=== PATIENT | male | born 1955 | race Caucasian/White ===

== ENCOUNTER → 2016-10-09 | Outpatient (CLI) | payer OTHER ==
--- NOTE | 2016-10-09 09:59 | MR ---
EXAMINATION TYPE: MR lumbar spine wo con DATE OF EXAM: 10/09/2016 COMPARISON: 08/01/2015 HISTORY: unspecified osteoarthritis, pain TECHNIQUE: T1 and T2 axial and sagittal images of the lumbar spine are submitted. FINDINGS: There is no abnormal signal seen within the visualized spinal cord or paraspinal soft tissu es. At L1-2 there is no disc herniation or canal stenosis. No foraminal encroachment. Mild hypertrophic c hange since. At L2-3 there is no disc herniation or canal stenosis. No foraminal encroachment. Mild disc desiccati on. At L3-4 there is severe degenerative disc disease with discogenic marrow changes. Severe arthropathy of the facet joints and hypertrophic change and ligamentum flavum. Broad-based central disc protrusio n contributes to moderate to severe canal stenosis, bilateral lateral recess stenosis, and bilateral foraminal encroachment encroachment greater on the right with suspected nerve root impingement. Findi ngs appear stable. There appears to be a 1 to 2 mm retrolisthesis of L3 relative to L4. At L4-5 there is degenerative disc disease and severe facet arthropathy greater on the right. Hypertr ophy of the ligamentum flavum noted and there is broad-based disc bulging greater paracentrally and l aterally to the right moderate right-sided foraminal encroachment and mild left foraminal encroachmen t. Mild to moderate canal stenosis. At L5-S1 there is no disc herniation or canal stenosis. There is facet arthropathy. Neural foramina r emain patent IMPRESSION: 1. Stable severe degenerative disc disease broad-based disc protrusion or central herniation L3-L4 wi th severe facet arthropathy and ligamentum flavum hypertrophy contributing to severe canal stenosis a nd bilateral foraminal encroachment. 2. Degenerative disc disease with severe facet arthropathy and broad-based disc bulging results in mi ld to moderate canal stenosis L4-L5 with foraminal encroachment as discussed above. Findings are stab le.
== END | disposition home or self-care (01) ==
LOC: RADMRIMAIN 08:46
PROVIDERS: ATTEND Internal Medicine Cardiovascular Disease
DX: M48.06 Spinal stenosis, lumbar region (principal); M51.26 Other intervertebral disc displacement, lumbar region; M51.36 Other intervertebral disc degeneration, lumbar region; M46.86 Other specified inflammatory spondylopathies, lumbar region
CPT/HCPCS: 72148

== ENCOUNTER 2017-10-15 02:49 | Observation (INO) | payer BC ==
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
[2017-10-15 03:15] LABS: Glucose,Whole Blood 142 mg/dL (75-99)
[2017-10-15 03:27] LABS: Basophils # (A) 0.1 k/uL (0-0.2); Basophils % (A) 1 %; Eosinophils # (A) 0.2 k/uL (0-0.7); Eosinophils % (A) 3 %; HCT 43.1 % (39.0-53.0); Lymphocytes # (A) 2.3 k/uL (1.0-4.8); Lymphocytes % (A) 35 %; MCH 27.4 pg (25.0-35.0); MCHC 32.4 g/dL (31.0-37.0); MCV 84.4 fL (80.0-100.0); Mean Platelet Volume 6.7; Monocytes # (A) 0.4 k/uL (0-1.0); Monocytes % (A) 7 %; Neutrophils # (A) 3.5 k/uL (1.3-7.7); Neutrophils % (A) 53 %; Platelet Count 145 k/uL (150-450); RDW 13.4 % (11.5-15.5); WBC 6.6 k/uL (3.8-10.6)
[2017-10-15 03:41] LABS: Appearance,Urine Clear (Clear); Bilirubin,Urine Negative (Negative); Blood,Urine Negative (Negative); Color,Urine Yellow; Glucose,Urine (UA) Negative (Negative); Ketones,Urine Negative (Negative); Leukocyte Esterase,Urine Negative (Negative); Nitrite,Urine Negative (Negative); Protein,Urine Negative (Negative); Specific Gravity,Urine 1.019 (1.001-1.035); Urobilinogen,Urine <2.0 mg/dL (<2.0)
[2017-10-15 03:44] LABS: ALT 43 U/L (21-72); AST 57 U/L (17-59); Albumin 3.7 g/dL (3.5-5.0); Alkaline Phosphatase 75 U/L (38-126); Anion Gap 7 mmol/L; Blood Urea Nitrogen 29 mg/dL (9-20); Calcium 9.5 mg/dL (8.4-10.2); Carbon Dioxide 27 mmol/L (22-30); Chloride 108 mmol/L (98-107); Glucose 143 mg/dL (74-99); Potassium 4.6 mmol/L (3.5-5.1); Sodium 142 mmol/L (137-145); Total Bilirubin 0.2 mg/dL (0.2-1.3); Total Protein 6.6 g/dL (6.3-8.2)
[2017-10-15 03:49] LABS: Amphetamine Screen,Urine Not Detected (NotDetected); Barbiturate Screen,Urine Detected (NotDetected); Benzodiazepines Screen,Urine Detected (NotDetected); Cocaine Screen,Urine Not Detected (NotDetected); Methadone Screen, Urine Detected (NotDetected); Opiate Screen,Urine Not Detected (NotDetected); Oxycodone Screen, Urine Not Detected (NotDetected); Phencyclidine Screen,Urine Not Detected (NotDetected); Tricyclic Antidepressant,Urine Not Detected (NotDetected); Urn Cannabinoid Scrn Not Detected (NotDetected)
[2017-10-15] MEDS ORDERED: NALOXONE 0.4 MG/ML 1 ML VIAL IV PRN (04:00)
[2017-10-15 08:34] LABS: Glucose,Whole Blood 148 mg/dL (75-99)
[2017-10-15] MEDS: INSULIN ASPART 100 UNIT/ML 1 ML 10 ML VIAL SQ SCH ×4 (09:56→21:45)
[2017-10-15 12:08] LABS: Glucose,Whole Blood 92 mg/dL (75-99)
[2017-10-15 12:41] LABS: Hemoglobin A1C 8.1 % (4.0-6.0)
[2017-10-15] MEDS ORDERED: ACETAMINOPHEN TAB 500 MG TAB PO PRN (13:14)
[2017-10-15] MEDS ORDERED: INSULIN DETEMIR 100 UNIT/ML 10 ML VIAL SQ SCH (13:30)
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
[2017-10-15] MEDS: PANTOPRAZOLE 40 MG TABLET PO SCH (15:42)
[2017-10-15] MEDS: HEPARIN SODIUM,PORCINE 5,000 UNIT/ML 1 ML VIAL SQ SCH ×2 (15:42→21:45)
[2017-10-15] MEDS: NICOTINE 14MG/24HR PATCH TRANSDERM SCH (15:42)
[2017-10-15] MEDS: ASPIRIN 81 MG PO SCH (15:42)
--- NOTE | 2017-10-15 15:46 | US ---
EXAMINATION TYPE: US carotid duplex BILAT DATE OF EXAM: 10/15/2017 COMPARISON: NONE CLINICAL HISTORY: Altered Mental Status. EXAM MEASUREMENTS: RIGHT: Peak Systolic Velocity (PSV) cm/sec ----- Right CCA: 79.8 ----- Right ICA: 56.9 ----- Right ECA: 120.0 ICA/CCA ratio: 0.7 RIGHT: End Diastole cm/sec ----- Right CCA: 22.1 ----- Right ICA: 20.5 ----- Right ECA: 19.5 LEFT: Peak Systolic Velocity (PSV) cm/sec ----- Left CCA: 87.3 ----- Left ICA: 87.4 ----- Left ECA: 111.3 ICA/CCA ratio: 1.0 LEFT: End Diastole cm/sec ----- Left CCA: 24.2 ----- Left ICA: 30.9 ----- Left ECA: 0.0 VERTEBRALS (direction of flow): Right Vertebral: Antegrade Left Vertebral: Antegrade Rhythm: Normal No significant velocity elevations, moderate plaque. IMPRESSION: There is bilateral atheromatous plaquing. Significant flow-limiting stenosis by velocity measurements are not evident. Criteria for Assigning % of Stenosis / Diameter reduction (Estimation based on the indirect measurements of the internal carotid artery velocities (ICA PSV). 1. Normal (no stenosis)=ICA PSV < 125 cm/s: ratio < 2.0: ICA EDV<40 cm/s. 2. Less than 50% stenosis=ICA PSV < 125 cm/s: ratio < 2.0: ICA EDV<40 cm/s. 3. 50 to 69% stenosis=ICA PSV of 125 to 230 cm/s: ration 2.0 ? 4.0: ICA EDV 40-100 cm/s. 4. Greater than 70% stenosis to near occlusion= ICA PSV > 230 cm/s: ratio > 4.0: ICA EDV > 100 cm/s. 5. Near occlusion= ICA PSV velocities may be low or undetectable: variable ratio and ICA EDV. 6. Total occlusion=unable to detect flow.
[2017-10-15 17:29] LABS: Glucose,Whole Blood 68 mg/dL (75-99)
[2017-10-15] MEDS ORDERED: INSULIN ASPART 100 UNIT/ML 1 ML 10 ML VIAL SQ SCH (17:30)
[2017-10-15 17:39] LABS: Glucose,Whole Blood 82 mg/dL (75-99)
[2017-10-15] MEDS: metFORMIN 500 MG TAB PO SCH (18:17)
[2017-10-15 20:04] LABS: Glucose,Whole Blood 144 mg/dL (75-99)
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
[2017-10-16 06:55] LABS: Glucose,Whole Blood 63 mg/dL (75-99)
[2017-10-16 07:06] LABS: Basophils % (A) 1 %; Eosinophils # (A) 0.1 k/uL (0-0.7); Eosinophils % (A) 2 %; HCT 45.2 % (39.0-53.0); HGB 14.4 gm/dL (13.0-17.5); Lymphocytes # (A) 1.4 k/uL (1.0-4.8); Lymphocytes % (A) 25 %; MCHC 31.9 g/dL (31.0-37.0); MCV 84.7 fL (80.0-100.0); Monocytes # (A) 0.2 k/uL (0-1.0); Monocytes % (A) 4 %; Neutrophils # (A) 3.7 k/uL (1.3-7.7); Neutrophils % (A) 67 %; Platelet Count 157 k/uL (150-450); RBC 5.34 m/uL (4.30-5.90); RDW 13.5 % (11.5-15.5); WBC 5.5 k/uL (3.8-10.6)
[2017-10-16 07:23] LABS: Anion Gap 8 mmol/L; Blood Urea Nitrogen 20 mg/dL (9-20); Carbon Dioxide 26 mmol/L (22-30); Chloride 108 mmol/L (98-107); Cholesterol 195 mg/dL (<200); Glucose 66 mg/dL (74-99); HDL Cholesterol 57 mg/dL (40-60); LDL Cholesterol,Calculated 107 mg/dL (0-99); Potassium 4.2 mmol/L (3.5-5.1); Sodium 142 mmol/L (137-145); Triglycerides 156 mg/dL (<150)
[2017-10-16 07:31] LABS: Glucose,Whole Blood 87 mg/dL (75-99)
[2017-10-16] MEDS: ASPIRIN 81 MG PO SCH (10:59)
[2017-10-16] MEDS: PANTOPRAZOLE 40 MG TABLET PO SCH (10:59)
[2017-10-16] MEDS: metFORMIN 500 MG TAB PO SCH ×2 (11:00→18:24)
[2017-10-16] MEDS: INSULIN ASPART 100 UNIT/ML 1 ML 10 ML VIAL SQ SCH ×3 (11:03→18:24)
[2017-10-16] MEDS: HEPARIN SODIUM,PORCINE 5,000 UNIT/ML 1 ML VIAL SQ SCH (11:03)
[2017-10-16] MEDS: INSULIN DETEMIR 100 UNIT/ML 10 ML VIAL SQ SCH (11:04)
[2017-10-16] MEDS: NICOTINE 14MG/24HR PATCH TRANSDERM SCH (11:04)
[2017-10-16 12:07] LABS: Glucose,Whole Blood 176 mg/dL (75-99)
--- NOTE | 2017-10-16 14:23 | P.DS ---
Providers Date of admission: 10/15/17 04:00 Attending physician: Nemo Fleming Consults: 10/15/17 04:00 Consult Physician Stat Consulting Provider: Liu Daniel Consult Reason/Comments: dissociative fuge? Do you want consulting provider notified?: Already Contacted 10/15/17 12:28 Consult Physician Stat Consulting Provider: Lay Riggs Consult Reason/Comments: Altered Mental Status Do you want consulting provider notified?: Yes Primary care physician: Dank العراقي Hospital Course: 62-year-old gentleman was brought in by police after he was confused and driving around and confusion is secondary to toxic encephalopathy from medications benzodiazepines and barbiturates counseling was provided regarding this patient was evaluated by neurology. Patient does have flat affect at her doesn't need to stay here for psychiatric evaluation will need an outpatient psychiatric evaluation patient denied any suicidal or homicidal ideations patient is not severely depressed. Patient is otherwise clinically doing well alert and oriented 3. Patient blood sugars are bit low because of which I'm decreasing the dose of Lantus is taking and metformin dose will be left as a days and patient will need to follow with PCP in 3-7 days. PHYSICAL EXAMINATION: GENERAL: The patient is alert and oriented x3, not in any acute distress. Well developed, well nourished. HEENT: Pupils are round and equally reacting to light. EOMI. No scleral icterus. No conjunctival pallor. Normocephalic, atraumatic. No pharyngeal erythema. No thyromegaly. CARDIOVASCULAR: S1 and S2 present. No murmurs, rubs, or gallops. PULMONARY: Chest is clear to auscultation, no wheezing or crackles. ABDOMEN: Soft, nontender, nondistended, normoactive bowel sounds. No palpable organomegaly. MUSCULOSKELETAL: No joint swelling or deformity. EXTREMITIES: No cyanosis, clubbing, or pedal edema. NEUROLOGICAL: Gross neurological examination did not reveal any focal deficits. SKIN: No rashes. For rest of his chronic medical problems and hospitalization course please refer to Dr.'s dictation from yesterday Plan - Discharge Summary Discharge Rx Participant: No New Discharge Prescriptions: Continue metFORMIN HCL 1,000 mg PO BID Changed Insulin Glargine,Hum.rec.anlog [Lantus Solostar] 25 units SQ DAILY #0 Discharge Medication List metFORMIN HCL 1,000 mg PO BID 10/15/17 [History] Insulin Glargine,Hum.rec.anlog [Lantus Solostar] 25 units SQ DAILY #0 10/16/17 [ Rx] Follow up Appointment(s)/Referral(s): Dank العراقي MD [Primary Care Provider] - 3 Days Discharge Disposition: HOME SELF-CARE
[2017-10-16 17:22] LABS: Glucose,Whole Blood 132 mg/dL (75-99)
[2017-10-16 20:30] LABS: Glucose,Whole Blood 182 mg/dL (75-99)
[2017-10-17] MEDS: INSULIN ASPART 100 UNIT/ML 1 ML 10 ML VIAL SQ SCH ×2 (04:05→10:02)
[2017-10-17] MEDS: HEPARIN SODIUM,PORCINE 5,000 UNIT/ML 1 ML VIAL SQ SCH ×2 (04:06→10:04)
[2017-10-17 06:53] LABS: Glucose,Whole Blood 177 mg/dL (75-99)
[2017-10-17 08:37] VITALS: BP 154/94; PULSE 72; RESP 18; TEMP 97.5
[2017-10-17] MEDS: PANTOPRAZOLE 40 MG TABLET PO SCH (10:03)
[2017-10-17] MEDS: NICOTINE 14MG/24HR PATCH TRANSDERM SCH (10:03)
[2017-10-17] MEDS: metFORMIN 500 MG TAB PO SCH (10:03)
[2017-10-17] MEDS: ASPIRIN 81 MG PO SCH (10:03)
[2017-10-17] MEDS: INSULIN DETEMIR 100 UNIT/ML 10 ML VIAL SQ SCH (10:04)
--- NOTE | 2017-10-18 15:11 | P.DS ---
Providers Date of admission: 10/15/17 04:00 Attending physician: Nemo Fleming Consults: 10/15/17 04:00 Consult Physician Stat Consulting Provider: Liu Daniel Reason/Comments: dissociative fuge? Do you want consulting provider notified?: Already Contacted 10/15/17 12:28 Consult Physician Stat Consulting Provider: Lay Riggs Consult Reason/Comments: Altered Mental Status Do you want consulting provider notified?: Yes Primary care physician: Dank العراقي Plan - Discharge Summary Discharge Rx Participant: No New Discharge Prescriptions: Continue metFORMIN HCL 1,000 mg PO BID Changed Insulin Glargine,Hum.rec.anlog [Lantus Solostar] 25 units SQ DAILY #0 Discharge Medication List metFORMIN HCL 1,000 mg PO BID 10/15/17 [History] Insulin Glargine,Hum.rec.anlog [Lantus Solostar] 25 units SQ DAILY #0 10/16/17 [ Rx] Follow up Appointment(s)/Referral(s): Dank العراقي MD [Primary Care Provider] - 10/18/17 9:40 am Patient Instructions/Handouts: Acute Delirium (DC) Activity/Diet/Wound Care/Special Instructions: [facility]- [phone] Discharge Disposition: HOME SELF-CARE
== END 2017-10-17 12:00 | disposition home or self-care (01) ==
LOC: EC 02:49 → 3OBS 04:00
PROVIDERS: ADMIT Hospitalist; ATTEND Hospitalist
DX: G92 Toxic encephalopathy (principal); T42.3X5A Adverse effect of barbiturates, initial encounter; T42.4X5A Adverse effect of benzodiazepines, initial encounter; T40.3X5A Adverse effect of methadone, initial encounter; T50.905A Adverse effect of unspecified drugs, medicaments and biological substances, initial encounter; E11.9 Type 2 diabetes mellitus without complications; F31.9 Bipolar disorder, unspecified; D69.6 Thrombocytopenia, unspecified; F44.1 Dissociative fugue; Z87.828 Personal history of other (healed) physical injury and trauma; Z79.4 Long term (current) use of insulin; Z79.84 Long term (current) use of oral hypoglycemic drugs; F17.200 Nicotine dependence, unspecified, uncomplicated; Z90.49 Acquired absence of other specified parts of digestive tract
CPT/HCPCS: 99285 ×2; 96372 ×3; 36415; 80061; 80053; 80048; 84443; 82140; 83735; 85025 ×2; 81003; 80306; 83036; 93880; G0378 ×3; S4990 ×3; J1644 ×3

== ENCOUNTER 2018-02-19 14:26 | Emergency (ER) | payer BC, MEDICAID ==
[2018-02-19] MEDS ORDERED: KETOROLAC 30 MG/ML 1 ML VIAL IVP STA (16:20)
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
[2018-02-19 16:54] LABS: Basophils % (A) 0 %; Eosinophils # (A) 0.1 k/uL (0-0.7); Eosinophils % (A) 2 %; HCT 45.1 % (39.0-53.0); HGB 14.1 gm/dL (13.0-17.5); Lymphocytes # (A) 1.3 k/uL (1.0-4.8); Lymphocytes % (A) 18 %; MCH 27.2 pg (25.0-35.0); MCHC 31.4 g/dL (31.0-37.0); MCV 86.6 fL (80.0-100.0); Mean Platelet Volume 6.7; Monocytes # (A) 0.4 k/uL (0-1.0); Monocytes % (A) 5 %; Neutrophils # (A) 5.6 k/uL (1.3-7.7); Neutrophils % (A) 74 %; Platelet Count 177 k/uL (150-450); RBC 5.21 m/uL (4.30-5.90); RDW 13.4 % (11.5-15.5); WBC 7.6 k/uL (3.8-10.6)
[2018-02-19 17:05] LABS: Anion Gap 8 mmol/L; Blood Urea Nitrogen 18 mg/dL (9-20); Calcium 8.9 mg/dL (8.4-10.2); Carbon Dioxide 22 mmol/L (22-30); Chloride 102 mmol/L (98-107); Potassium 4.7 mmol/L (3.5-5.1); Sodium 132 mmol/L (137-145)
--- NOTE | 2018-02-19 17:22 | XR ---
EXAMINATION TYPE: XR foot complete bilateral DATE OF EXAM: 02/19/2018 COMPARISON: NONE HISTORY: Foot pain TECHNIQUE: 3 views each foot FINDINGS: There is previous surgery at the heads of the left and right fifth metatarsals. I see no fr acture nor dislocation. I see no focal bone destruction. Joint spaces are fairly normal. There are no erosions. There is no subluxation. IMPRESSION: No acute abnormality of the left and right foot. No evidence of inflammatory arthritis.
[2018-02-19 17:28] LABS: Glucose 584 mg/dL (74-99)
[2018-02-19] MEDS ORDERED: INSULIN REGULAR 100 UNIT/ML VIAL SQ ONE (17:37)
[2018-02-19 19:42] LABS: Glucose,Whole Blood 354 mg/dL (75-99)
[2018-02-19] MEDS ORDERED: HYDROcodone/APAP 5-325MG 1 EACH TAB PO STA (19:49)
[2018-02-19 20:14] VITALS: BP 177/89; PULSE 88; RESP 16; TEMP 98.6
[2018-02-20 05:11] LABS: Hemoglobin A1C 14.2 % (4.0-6.0)
== END 2018-02-19 20:11 | disposition home or self-care (01) ==
LOC: EC 14:26
DX: M10.9 Gout, unspecified (principal); E11.65 Type 2 diabetes mellitus with hyperglycemia; F17.200 Nicotine dependence, unspecified, uncomplicated; Z91.14 Patient's other noncompliance with medication regimen; Z79.4 Long term (current) use of insulin
CPT/HCPCS: 36415; 80048; 85025; 83036; 73630; 99283; 96374; J1885

== ENCOUNTER 2019-06-26 21:31 | Emergency (ER) | payer MEDICARE ==
[2019-06-26 21:38] VITALS: BP 135/82; PULSE 113; RESP 18; TEMP 97.8
[2019-06-26] MEDS ORDERED: SODIUM CHLORIDE 0.9% 1,000 ML IV STA (21:39)
[2019-06-26 21:45] LABS: Glucose,Whole Blood 270 mg/dL (75-99)
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
--- NOTE | 2019-06-26 22:25 | CT ---
EXAMINATION TYPE: CT brain stephen pearce con DATE OF EXAM: 06/26/2019 COMPARISON: None HISTORY: ams, fall CT DLP: 1505.4 mGycm Automated exposure control for dose reduction was used. Ventricles and sulci appear within normal limits. There is no mass effect nor midline shift. There is no sign of intracranial hemorrhage. There is mild white matter hypodensity left posterior temporal l obe. The calvarium is intact. There is some straightening of the cervical vertebra. There is disc space narrowing from C4 to C7 wit h mild spurring of the endplates. Posterior elements are intact. The skull base is intact. There is n o evidence for fracture. IMPRESSION: Mild atrophy appropriate for age. White matter hypodensity left posterior parietal lobe and posterior temporal lobe consistent with chronic small vessel ischemia. Spondylosis in the lower cervical spine. No fracture.
--- NOTE | 2019-06-26 22:26 | XR ---
EXAMINATION TYPE: XR chest 2V DATE OF EXAM: 06/26/2019 COMPARISON: 03/08/2008 HISTORY: Altered mental status TECHNIQUE: 2 views FINDINGS: Heart and mediastinum are normal. There is linear density in the right upper lobe. The othe r lung velasco are fairly clear. There are no hilar masses. Costophrenic angles are clear. IMPRESSION: Mild subsegmental atelectasis right upper lobe is a change compared to old exam. Normal h eart.
[2019-06-26 22:36] LABS: Basophils % (A) 0 %; Eosinophils # (A) 0.1 k/uL (0-0.7); Eosinophils % (A) 2 %; HCT 42.6 % (39.0-53.0); HGB 12.5 gm/dL (13.0-17.5); Hypochromasia Moderate; Lymphocytes # (A) 0.8 k/uL (1.0-4.8); Lymphocytes % (A) 14 %; MCH 26.4 pg (25.0-35.0); MCHC 29.4 g/dL (31.0-37.0); MCV 89.7 fL (80.0-100.0); Mean Platelet Volume 7.2; Monocytes # (A) 0.3 k/uL (0-1.0); Monocytes % (A) 4 %; Neutrophils # (A) 4.8 k/uL (1.3-7.7); Neutrophils % (A) 79 %; Platelet Count 120 k/uL (150-450); RBC 4.75 m/uL (4.30-5.90); RDW 14.5 % (11.5-15.5); WBC 6.1 k/uL (3.8-10.6)
[2019-06-26 22:49] LABS: ALT 84 U/L (4-49); AST 51 U/L (17-59); African American GFR (CKD) 66 (>60 ml/min/1.73 sqM); Albumin 4.1 g/dL (3.5-5.0); Alcohol <10 mg/dL; Alkaline Phosphatase 95 U/L (38-126); Anion Gap 10 mmol/L; Blood Urea Nitrogen 24 mg/dL (9-20); Carbon Dioxide 25 mmol/L (22-30); Chloride 106 mmol/L (98-107); Creatine Kinase 99 U/L (55-170); Glucose 283 mg/dL (74-99); INR 0.9 (<1.2); Non-African American GFR(CKD) 57 (>60 ml/min/1.73 sqM); Potassium 4.7 mmol/L (3.5-5.1); Prothrombin Time 9.7 sec (9.0-12.0); Sodium 141 mmol/L (137-145); Total Bilirubin 0.2 mg/dL (0.2-1.3)
[2019-06-26 22:56] LABS: Partial Thromboplastin Time 21.2 sec (22.0-30.0)
== END 2019-06-27 00:10 | disposition left against medical advice (07) ==
LOC: EC 21:31
DX: E86.0 Dehydration (principal); R55 Syncope and collapse; G89.29 Other chronic pain; M54.9 Dorsalgia, unspecified; E11.9 Type 2 diabetes mellitus without complications; F17.200 Nicotine dependence, unspecified, uncomplicated; Z53.29 Procedure and treatment not carried out because of patient's decision for other reasons; Z79.4 Long term (current) use of insulin
CPT/HCPCS: 36415; 93005; 80053; 82140; 82550; 84484; 85025; 85610; 85730; 71046; 72125; 70450; 99285; G0480; 80320

== ENCOUNTER 2019-07-30 21:07 | Emergency (ER) | payer MEDICARE ==
[2019-07-30 21:25] VITALS: TEMP 97.9
[2019-07-30] MEDS ORDERED: NALOXONE 0.4 MG/ML 1 ML VIAL IV STA (21:25)
[2019-07-30 21:26] VITALS: RESP 6
[2019-07-30 21:28] VITALS: BP 159/96; PULSE 97
[2019-07-30] MEDS ORDERED: SODIUM CHLORIDE 0.9% 1,000 ML IV ONE ×2 (22:27)
[2019-07-30 22:42] LABS: ALT 30 U/L (4-49); AST 35 U/L (17-59); Acetaminophen <10.0 ug/mL; African American GFR (CKD) 88 (>60 ml/min/1.73 sqM); Albumin 3.9 g/dL (3.5-5.0); Alcohol <10 mg/dL; Alkaline Phosphatase 120 U/L (38-126); Anion Gap 6 mmol/L; Blood Urea Nitrogen 25 mg/dL (9-20); Calcium 9.1 mg/dL (8.4-10.2); Carbon Dioxide 26 mmol/L (22-30); Chloride 105 mmol/L (98-107); Creatine Kinase 115 U/L (55-170); Glucose 328 mg/dL (74-99); Non-African American GFR(CKD) 77 (>60 ml/min/1.73 sqM); Salicylate <1.0 mg/dL; Sodium 137 mmol/L (137-145); Total Bilirubin 0.2 mg/dL (0.2-1.3); Total Protein 6.8 g/dL (6.3-8.2)
[2019-07-30 22:45] LABS: INR 0.9 (<1.2); Prothrombin Time 9.6 sec (9.0-12.0)
[2019-07-30 22:51] LABS: Basophils % (A) 1 %; Eosinophils # (A) 0.2 k/uL (0-0.7); Eosinophils % (A) 3 %; HCT 43.1 % (39.0-53.0); Lymphocytes # (A) 1.6 k/uL (1.0-4.8); Lymphocytes % (A) 27 %; MCH 27.8 pg (25.0-35.0); MCHC 32.4 g/dL (31.0-37.0); MCV 85.9 fL (80.0-100.0); Mean Platelet Volume 7.8; Monocytes # (A) 0.3 k/uL (0-1.0); Monocytes % (A) 5 %; Neutrophils # (A) 3.8 k/uL (1.3-7.7); Neutrophils % (A) 63 %; Platelet Count 153 k/uL (150-450); RBC 5.01 m/uL (4.30-5.90); RDW 13.6 % (11.5-15.5)
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
--- NOTE | 2019-07-30 23:06 | XR ---
EXAMINATION TYPE: XR chest 1V portable DATE OF EXAM: 07/30/2019 COMPARISON: 06/26/2019 HISTORY: Altered mental status TECHNIQUE: FINDINGS: There is some linear density right midlung field. Heart size is normal. There is no heart f ailure. There are no hilar masses. Costophrenic angles are clear. IMPRESSION: Minimal linear density consistent with scarring or subsegmental atelectasis not significa ntly different than old exam. Normal heart.
--- NOTE | 2019-07-30 23:08 | CT ---
EXAMINATION TYPE: CT brain wo con DATE OF EXAM: 07/30/2019 COMPARISON: 06/26/2019 HISTORY: AMS CT DLP: 1734.4 mGycm Automated exposure control for dose reduction was used. There is some cerebral atrophy. There is no mass effect nor midline shift. There is no sign of intrac ranial hemorrhage. The calvarium is intact. There is some mild hypodensity in the periventricular whi te matter. IMPRESSION: Cerebral atrophy and chronic small vessel ischemia. No change compared to old exam. No evidence of co rtical infarct.
== END 2019-07-30 23:11 | disposition left against medical advice (07) ==
LOC: EC 21:07
DX: R41.82 Altered mental status, unspecified (principal); E11.65 Type 2 diabetes mellitus with hyperglycemia; F17.200 Nicotine dependence, unspecified, uncomplicated; T40.601A Poisoning by unspecified narcotics, accidental (unintentional), initial encounter; G93.41 Metabolic encephalopathy; Z53.29 Procedure and treatment not carried out because of patient's decision for other reasons; Z79.4 Long term (current) use of insulin
CPT/HCPCS: 99285; 36415; 93005; 80053; 82140; 82550; 84484; 85025; 85610; 85730; 83520; 71045; 70450; G0480 ×2; J2310; 80320; 80329

== ENCOUNTER → 2020-07-25 | Outpatient (CLI) | payer MEDICARE ==
[2020-07-25 19:45] LABS: African American GFR (CKD) 80.1 (60.0-200.0); Albumin 4.2 g/dL (3.80-4.90); Albumin/Globulin Ratio 1.5 (1.60-3.17); Anion Gap 8.7 mmol/L (4.00-12.00); BUN/Creat Ratio 21.82 Ratio (12.00-20.00); Calcium 9.4 mg/dL (8.7-10.3); Carbon Dioxide 28.3 mmol/L (21.6-31.8); Chol/HDL Ratio 3.24; Globulin 2.8 g/dL (1.6-3.3); LDL Cholesterol,Calculated 127.2 mg/dL (0.0-131.0); Non-African American GFR(CKD) 69.1 (60.0-200.0); Potassium 4.8 mmol/L (3.5-5.5); Total Bilirubin 0.4 mg/dL (0.3-1.2); VLDL Calculation 22.8 mg/dL (5.00-40.00)
[2020-07-25 19:56] LABS: Basophils # (A) 0.06 X 10*3/uL (0.00-0.10); Basophils % (A) 1.2 %; Eosinophils # (A) 0.15 X 10*3/uL (0.04-0.35); Eosinophils % (A) 2.9 %; HGB 13.9 g/dL (13.0-17.0); Lymphocytes # (A) 1.42 X 10*3/uL (0.90-5.00); Lymphocytes % (A) 27.6 %; MCH 26.3 pg (27.0-32.0); MCHC 30.9 g/dL (32.0-37.0); MCV 85.2 fL (80.0-97.0); Mean Platelet Volume 11.4 fL (9.5-12.2); Monocytes # (A) 0.46 X 10*3/uL (0.20-1.00); Monocytes % (A) 8.9 %; Neutrophils # (A) 3.03 X 10*3/uL (1.80-7.70); Platelet Count 125 X 10*3/uL (140-440); RBC 5.28 X 10*6/uL (4.40-5.60); RDW 13.4 % (11.5-14.5); WBC 5.14 X 10*3/uL (4.50-10.00)
[2020-07-25 20:11] LABS: Prostate Specific Antigen 0.1 ng/mL (0.0-4.5)
== END | disposition home or self-care (01) ==
LOC: LABWHC1 10:50
PROVIDERS: ATTEND Physician Assistant Medical
DX: Z12.5 Encounter for screening for malignant neoplasm of prostate (principal); Z13.220 Encounter for screening for lipoid disorders; Z13.228 Encounter for screening for other metabolic disorders; E11.9 Type 2 diabetes mellitus without complications; M54.5 Low back pain; R03.0 Elevated blood-pressure reading, without diagnosis of hypertension
CPT/HCPCS: 36415; 80053; 80061; 83036; 84153; 84443; 85025

== ENCOUNTER 2022-12-07 11:36 | Inpatient (IN) | payer MEDICARE ==
[2022-12-07] MEDS ORDERED: INSULIN REGULAR 100 UNIT/ML VIAL (IV) IV ONE (11:54)
[2022-12-07] MEDS ORDERED: CALCIUM GLUCONATE IN NACL 1 GM in SALINE 1 100ML.BAG IVPB ONE (11:54)
[2022-12-07] MEDS ORDERED: ALBUTEROL NEB (CONC) 2.5 MG/0.5 ML INHALATION ONE (11:54)
[2022-12-07] MEDS ORDERED: SODIUM BICARB 8.4% 50 ML SYR (1 MEQ/ML) IV ONE (11:54)
[2022-12-07 11:59] LABS: Glucose,Whole Blood >600 mg/dL (70-110)
[2022-12-07] MEDS ORDERED: SODIUM CHLORIDE 0.9% 1,000 ML IV ONE ×2 (12:17)
[2022-12-07] MEDS ORDERED: ETOMIDATE 2 MG/ML 10 ML VIAL IVP STA (12:21)
[2022-12-07] MEDS ORDERED: ROCURONIUM 10 MG/ML (5 ML VIAL) IV STA (12:21)
[2022-12-07] MEDS ORDERED: ONDANSETRON 4 MG/2 ML VIAL IVP STA (12:22)
[2022-12-07] MEDS: NOREPINEPHRINE 4 MG in SODIUM CHLORIDE 0.9% 250 ML IV ONE ×2 (12:23→15:53)
[2022-12-07 12:30] LABS: Allen Test Performed? Yes
[2022-12-07 12:34] LABS: Basophils % (A) 0 %; Eosinophils # (A) 0.1 k/uL (0-0.7); Eosinophils % (A) 1 %; HCT 54.3 % (39.0-53.0); HGB 15.8 gm/dL (13.0-17.5); Hypochromasia Marked; Lymphocytes # (A) 0.6 k/uL (1.0-4.8); Lymphocytes % (A) 4 %; MCH 27.9 pg (25.0-35.0); MCHC 29.2 g/dL (31.0-37.0); MCV 95.7 fL (80.0-100.0); Mean Platelet Volume 8.7; Monocytes # (A) 0.7 k/uL (0-1.0); Monocytes % (A) 5 %; Neutrophils # (A) 14.2 k/uL (1.3-7.7); Neutrophils % (A) 91 %; Platelet Count 138 k/uL (150-450); RBC 5.67 m/uL (4.30-5.90); RDW 13.9 % (11.5-15.5); WBC 15.7 k/uL (3.8-10.6)
[2022-12-07 12:49] LABS: INR 1.1 (<1.2); Prothrombin Time 11.7 sec (10.0-12.5)
[2022-12-07 12:55] LABS: Lactic Acid, Venous 9.4 mmol/L (0.7-2.0)
[2022-12-07 13:00] LABS: VBG PH 6.78 (7.31-7.41)
[2022-12-07 13:01] LABS: Potassium 7.7 mmol/L (3.5-5.1)
[2022-12-07] MEDS ORDERED: KETAMINE 10 MG/ML 20 ML VIAL IV STA (13:02)
[2022-12-07] MEDS ORDERED: VANCOMYCIN IV PER PHARMACY 1 EACH MISC MISCELLANE PRN (13:03)
[2022-12-07] MEDS ORDERED: Potassium Replacement Protocol 1 EACH MISC MISCELLANE PRN (13:04)
[2022-12-07] MEDS ORDERED: INSULIN REGULAR BOLUS (FROM DRIP BAG) IV ONE (13:04)
[2022-12-07] MEDS ORDERED: DEXTROSE 50% SYRINGE 50 ML IVP PRN ×2 (13:04)
[2022-12-07] MEDS ORDERED: Magnesium Replacement Protocol 1 EACH MISC MISCELLANE PRN (13:04)
[2022-12-07 13:05] LABS: ALT 29 U/L (4-49); AST 30 U/L (17-59); Albumin 4.5 g/dL (3.5-5.0); Alkaline Phosphatase 113 U/L (38-126); Blood Urea Nitrogen 81 mg/dL (9-20); Calcium 9.9 mg/dL (8.4-10.2); Chloride 103 mmol/L (98-107); Sodium 142 mmol/L (137-145); Total Bilirubin 1.2 mg/dL (0.2-1.3); Total Protein 7.5 g/dL (6.3-8.2)
[2022-12-07 13:12] LABS: African American GFR (CKD) 18 (>60 ml/min/1.73 sqM); Non-African American GFR(CKD) 15 (>60 ml/min/1.73 sqM)
[2022-12-07] MEDS ORDERED: SODIUM CHLORIDE 0.9% 1,000 ML IV STA (13:15)
[2022-12-07] MEDS ORDERED: DEXTROSE 5% IN WATER 1,000 ML with SODIUM BICARB (1 MEQ/ML) 150 ML IV SCH (13:15)
[2022-12-07 13:19] LABS: Bacteria,Urine Rare /hpf; Hyaline Casts,Urine 18 /lpf (0-2); Mucus,Urine Rare /hpf; RBC,Urine 2 /hpf (0-5); Squamous Epithelial Cell,Urine <1 /hpf (0-4); WBC,Urine 1 /hpf (0-5)
[2022-12-07 13:24] LABS: Carbon Dioxide <5 mmol/L (22-30); Glucose 794 mg/dL (74-99)
[2022-12-07] MEDS ORDERED: VANCOMYCIN 1,750 MG in SODIUM CHLORIDE 0.9% 500 ML 500 ML IVPB ONE (13:30)
[2022-12-07 13:35] LABS: Amphetamine Screen,Urine Not Detected (NotDetected); Barbiturate Screen,Urine Not Detected (NotDetected); Benzodiazepines Screen,Urine Not Detected (NotDetected); Cocaine Screen,Urine Not Detected (NotDetected); Methadone Screen, Urine Not Detected (NotDetected); Opiate Screen,Urine Not Detected (NotDetected); Oxycodone Screen, Urine Not Detected (NotDetected); Phencyclidine Screen,Urine Not Detected (NotDetected); Tricyclic Antidepressant,Urine Not Detected (NotDetected); Urn Cannabinoid Scrn Not Detected (NotDetected)
--- NOTE | 2022-12-07 13:39 | XR ---
EXAMINATION TYPE: XR chest 1V portable DATE OF EXAM: 12/07/2022 COMPARISON: NONE HISTORY: Altered mental status with OG tube placement. TECHNIQUE: Single frontal view of the chest is obtained. IMPRESSION: Endotracheal tube is within the right mainstem bronchus. NG tube tip projects below the diaphragm wit hin the left upper quadrant. The lungs otherwise appear clear. The cardiac silhouette and pulmonary vessels are within normal limits. These findings were discussed Dr. Peña.
[2022-12-07 13:42] LABS: Appearance,Urine Clear (Clear); Color,Urine Yellow
[2022-12-07 13:43] LABS: Glucose,Urine (UA) 3+ (Negative); PH, Urine 5.5 (5.0-8.0); Protein,Urine 1+ (Negative); Specific Gravity,Urine 1.025 (1.001-1.035)
[2022-12-07 13:45] LABS: Bilirubin,Urine Negative (Negative); Blood,Urine Moderate (Negative); Ketones,Urine 2+ (Negative); Leukocyte Esterase,Urine Negative (Negative); Nitrite,Urine Negative (Negative); Urobilinogen,Urine <2.0 mg/dL (<2.0)
[2022-12-07 13:49] LABS: Glucose,Whole Blood >600 mg/dL (70-110)
[2022-12-07] MEDS: INSULIN REGULAR 100 UNIT in SODIUM CHLORIDE 0.9% 100 ML IV SCH ×2 (13:49→21:01)
[2022-12-07] MEDS: SODIUM CHLORIDE 0.9% 1,000 ML IV SCH ×3 (13:53→22:27)
--- NOTE | 2022-12-07 14:02 | CT ---
EXAMINATION TYPE: CT ChestAbdPelvis wo con DATE OF EXAM: 12/07/2022 COMPARISON: HISTORY: overdose/fall CT DLP: 1264.8 mGycm. Automated Exposure Control for Dose Reduction was Utilized. TECHNIQUE: CT scan of the thorax, abdomen and pelvis is performed without IV contrast. FINDINGS: CHEST: Mediastinum and Adali: There is no axillary, mediastinal or hilar lymphadenopathy. Pleural and Pericardial spaces: There are no pleural or pericardial effusions. Cardiovascular: There is mild vascular calcification within the thoracic aorta without evidence of an eurysmal dilation. Mild patchy coronary artery calcifications are also seen. Pulmonary Artery: The pulmonary arteries are normal in size. Lung Parenchyma and Airways: Endotracheal tube appears appropriately positioned. ABDOMEN: Liver and Biliary system: There is extensive nodular contour to the liver which is compatible with c irrhosis. Adrenal glands: Normal. Kidneys and ureters: Normal. Spleen: Normal. Pancreas: Normal. Gallbladder: Normal. Lymph nodes, Peritoneum and mesentery: There is no mesenteric or retroperitoneal lymphadenopathy. Gastrointestinal tract: There are no dilated loops of bowel or free intraperitoneal air. . The appe ndix is normal. NG tube tip is within the stomach. Aorta/IVC: There is mild vascular calcination throughout the abdominal aorta without evidence of an eurysmal dilation. IVC normal. Abdominal wall: Normal. PELVIS: Fluid: There is no free fluid in the pelvis. Lymph Nodes: There is no pelvic or inguinal lymphadenopathy.. Urinary bladder: Mata catheter is seen within the bladder.. BONES: Scattered degenerative disc and facet changes are seen throughout the spine. There are no acu te osseous abnormalities. ADDITIONAL SIGNIFICANT FINDINGS: None. IMPRESSION: 1. No acute process seen within the chest, abdomen or pelvis. 2. Cirrhosis. .
--- NOTE | 2022-12-07 14:04 | CT ---
EXAMINATION TYPE: CT brain wo con DATE OF EXAM: 12/07/2022 COMPARISON: None available. HISTORY: Altered mental status. CT DLP: 1114.4 mGycm Automated exposure control for dose reduction was used. FINDINGS: There is no acute intracranial hemorrhage, mass, mass effect, midline shift, extra-axial fluid collec tion or hydrocephalus. There is patchy hypoattenuation within the periventricular and deep white matter which is likely rela jackson to chronic ischemic small vessel change. There is no acute major vessel infarct identified at thi s time. The visualized paranasal sinuses and mastoid air cells are clear. IMPRESSION: CHRONIC CHANGES WITH NO ACUTE INTRACRANIAL PROCESS IDENTIFIED.
[2022-12-07 14:17] LABS: ABG PCO2 31 mmHg (35-45); ABG PH 6.98 (7.35-7.45); ABG PO2 400 mmHg (83-108)
[2022-12-07 14:18] LABS: ABG Base Excess -24.3 mmol/L; ABG HCO3 7 mmol/L (21-25); ABG TCO2 8 mmol/L (19-24)
[2022-12-07] MEDS ORDERED: NALOXONE 0.4 MG/ML 1 ML VIAL IV PRN (14:27)
--- NOTE | 2022-12-07 14:32 | ED ---
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 mmol/L Anion Gap mmol/L BUN (9-20) mg/dL Creatinine (0.66-1.25) mg/dL Est GFR (CKD-EPI)AfAm (>60 ml/min/1.73 sqM) Est GFR (CKD-EPI)NonAf (>60 ml/min/1.73 sqM) Glucose (74-99) mg/dL POC Glucose (mg/dL) >600 H (70-110) mg/dL POC Glu Direct Care Counselor ID Liu Heller Lactic Ac Sepsis Rflx Y Plasma Lactic Acid Blaze (0.7-2.0) mmol/L Calcium (8.4-10.2) mg/dL Total Bilirubin (0.2-1.3) mg/dL AST (17-59) U/L ALT (4-49) U/L Alkaline Phosphatase (38-126) U/L Ammonia (<30) umol/L Creatine Kinase (55-170) U/L Troponin I (0.000-0.034) ng/mL Total Protein (6.3-8.2) g/dL Albumin (3.5-5.0) g/dL Urine Color Urine Appearance (Clear) Urine pH (5.0-8.0) Ur Specific [place] (1.001-1.035) Urine Protein (Negative) Ur Protein Confirm Urine Glucose (UA) (Negative) Urine Ketones (Negative) Urine Blood (Negative) Urine Nitrite (Negative) Urine Bilirubin (Negative) Ur Bilirubin Confirm Urine Urobilinogen (<2.0) mg/dL Ur Leukocyte Esterase (Negative) Urine RBC (0-5) /hpf Urine WBC (0-5) /hpf Ur Squamous Epith Cells (0-4) /hpf Urine Bacteria (None) /hpf Hyaline Casts (0-2) /lpf Urine Mucus (None) /hpf Stool Occult Blood Negative (Negative) Urine Opiates Screen (NotDetected) Ur Oxycodone Screen (NotDetected) Urine Methadone Screen (NotDetected) Ur Propoxyphene Screen (NotDetected) Ur Barbiturates Screen (NotDetected) U Tricyclic Antidepress (NotDetected) Ur Phencyclidine Scrn (NotDetected) Ur Amphetamines Screen (NotDetected) U Methamphetamines Scrn (NotDetected) U Benzodiazepines Scrn (NotDetected) Urine Cocaine Screen (NotDetected) U Marijuana (THC) Screen (NotDetected) Serum Alcohol mg/dL Acetone, Qual (Negative) Influenza Type A (PCR) (Not Detectd) Influenza Type B (PCR) (Not Detectd) RSV (PCR) (Not Detectd) SARS-CoV-2 (PCR) (Not Detectd) - EKG Data -: EKG Interpreted by Me EKG Comments: 12-lead Electrocardiogram Interpretation Note EKG was reviewed and interpreted by myself. 12-lead ECG performed at 1142 is interpreted by me as revealing sinus tachycardia at a rate of 100 beats per minute. [place] is normal. CA Intervals 147 ms, QRS duration is 90 ms, QTc is 395 ms. Patient has peaked T waves concerning for hyperkalemia, and I do suspect patient is currently in DKA and therefore will receive hyperkalemia cocktail.. There were no ST or T wave abnormalities to suggest myocardial ischemia or injury. R wave progression across the precordium was satisfactory. By my interpretation this EKG is non-diagnostic for acute ischemia. Critical Care Time Critical Care Time: Yes Total Critical Care Time: 62 Disposition Clinical Impression: Sepsis, Acute renal failure, Hyperkalemia, DKA (diabetic ketoacidosis), Respiratory failure, Shock, Lactic acidosis, Elevated troponin Disposition: ADMITTED IP TO THIS HOSP Condition: Serious Time of Disposition: 14:10
[2022-12-07 14:33] LABS: Creatine Kinase 384 U/L (55-170)
[2022-12-07 15:39] LABS: Glucose,Whole Blood 482 mg/dL (70-110)
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
--- NOTE | 2022-12-07 16:36 | P.PCN ---
Date of Procedure: 12/07/22 Preoperative Diagnosis: Shock/DKA Postoperative Diagnosis: Shock/DKA Procedure(s) Performed: Arterial line insertion Anesthesia: local Surgeon: Wanda Tavarez Estimated Blood Loss (ml): 0 Operative Findings: Indication: Hemodynamic monitoring. A time-out was completed verifying correct patient, procedure, site, positioning, and implant(s) or special equipment if applicable. Allens test was performed to ensure adequate perfusion. The patients right wrist was prepped and draped in sterile fashion. 1% Lidocaine was used to anesthetize the area. An 18G Arrow arterial line was introduced into the right radial artery. The catheter was threaded over the guide wire and the needle was removed with appropriate pulsatile blood return. Blood loss was minimal. The catheter was then sutured in place to the skin and a sterile dressing applied. Perfusion to the extremity distal to the point of catheter insertion was checked and found to be adequate. The patient tolerated the procedure well and there were no complications.
[2022-12-07 16:45] LABS: Glucose,Whole Blood 448 mg/dL (70-110)
[2022-12-07 17:12] LABS: ABG Base Excess -20.8 mmol/L; ABG Oxygen Saturation 99.2 % (94-97); ABG PCO2 26 mmHg (35-45); ABG PO2 263 mmHg (83-108); ABG TCO2 9 mmol/L (19-24); Allen Test Performed? Yes
[2022-12-07 17:21] LABS: ABG PH 7.12 (7.35-7.45)
[2022-12-07 17:22] LABS: ABG HCO3 9 mmol/L (21-25)
[2022-12-07 17:27] LABS: Anion Gap 22 mmol/L; Blood Urea Nitrogen 81 mg/dL (9-20); Calcium 8.3 mg/dL (8.4-10.2); Chloride 117 mmol/L (98-107); Glucose 496 mg/dL (74-99); Magnesium 3.3 mg/dL (1.6-2.3); Potassium 4.9 mmol/L (3.5-5.1); Sodium 145 mmol/L (137-145)
[2022-12-07 17:39] LABS: African American GFR (CKD) 25 (>60 ml/min/1.73 sqM); Non-African American GFR(CKD) 22 (>60 ml/min/1.73 sqM)
[2022-12-07 17:49] LABS: Carbon Dioxide 6 mmol/L (22-30)
[2022-12-07 17:54] LABS: Glucose,Whole Blood 497 mg/dL (70-110)
[2022-12-07] MEDS: PIPERACILLIN-TAZOBACTAM 3.375 GM in SODIUM CHLORIDE 0.9% 100 ML IVPB SCH ×2 (17:59→22:27)
[2022-12-07] MEDS: NOREPINEPHRINE 8 MG in SODIUM CHLORIDE 0.9% 250 ML IV SCH (18:34)
[2022-12-07 19:08] LABS: Glucose,Whole Blood 471 mg/dL (70-110)
[2022-12-07 20:04] LABS: Glucose,Whole Blood 503 mg/dL (70-110)
[2022-12-07 20:59] LABS: Glucose,Whole Blood 471 mg/dL (70-110)
[2022-12-07 21:07] LABS: Anion Gap 19 mmol/L; Blood Urea Nitrogen 85 mg/dL (9-20); Chloride 114 mmol/L (98-107); Phosphorus 3.6 mg/dL (2.5-4.5); Sodium 141 mmol/L (137-145)
[2022-12-07 21:13] LABS: African American GFR (CKD) 23 (>60 ml/min/1.73 sqM); Non-African American GFR(CKD) 20 (>60 ml/min/1.73 sqM)
[2022-12-07 21:27] LABS: Carbon Dioxide 8 mmol/L (22-30); Glucose 518 mg/dL (74-99)
[2022-12-07 22:05] LABS: Glucose,Whole Blood 441 mg/dL (70-110)
[2022-12-07 23:06] LABS: Glucose,Whole Blood 431 mg/dL (70-110)
[2022-12-07 23:59] LABS: Glucose,Whole Blood 412 mg/dL (70-110)
[2022-12-08] MEDS ORDERED: HEPARIN SODIUM,PORCINE 5,000 UNIT/ML 1 ML VIAL SQ SCH
[2022-12-08 00:15] LABS: ALT 68 U/L (4-49); AST 275 U/L (17-59); Albumin 3.2 g/dL (3.5-5.0); Alkaline Phosphatase 102 U/L (38-126); Blood Urea Nitrogen 85 mg/dL (9-20); Calcium 7.6 mg/dL (8.4-10.2); Carbon Dioxide 10 mmol/L (22-30); Glucose 445 mg/dL (74-99); Sodium 143 mmol/L (137-145); Total Bilirubin 1.1 mg/dL (0.2-1.3); Total Protein 5.7 g/dL (6.3-8.2)
[2022-12-08 01:00] LABS: Glucose,Whole Blood 386 mg/dL (70-110)
[2022-12-08] MEDS: NOREPINEPHRINE 8 MG in SODIUM CHLORIDE 0.9% 250 ML IV SCH ×3 (01:05→16:08)
[2022-12-08 01:09] LABS: African American GFR (CKD) 21 (>60 ml/min/1.73 sqM); Anion Gap 18 mmol/L; Chloride 115 mmol/L (98-107); Non-African American GFR(CKD) 18 (>60 ml/min/1.73 sqM)
[2022-12-08 02:11] LABS: Glucose,Whole Blood 365 mg/dL (70-110)
[2022-12-08 02:48] LABS: Creatine Kinase 13947 U/L (55-170)
[2022-12-08 03:12] LABS: Glucose,Whole Blood 363 mg/dL (70-110)
[2022-12-08 04:07] LABS: Glucose,Whole Blood 329 mg/dL (70-110)
[2022-12-08] MEDS: SODIUM CHLORIDE 0.9% 1,000 ML IV SCH (04:28)
[2022-12-08 04:31] LABS: AST 469 U/L (17-59); Albumin 3.1 g/dL (3.5-5.0); Calcium 7.4 mg/dL (8.4-10.2); Phosphorus 3.2 mg/dL (2.5-4.5); Total Protein 5.7 g/dL (6.3-8.2)
[2022-12-08 04:54] LABS: ALT 93 U/L (4-49); Alkaline Phosphatase 94 U/L (38-126); Anion Gap 15 mmol/L; Blood Urea Nitrogen 87 mg/dL (9-20); Chloride 120 mmol/L (98-107); Glucose 351 mg/dL (74-99); Potassium 5.2 mmol/L (3.5-5.1); Sodium 144 mmol/L (137-145)
[2022-12-08 04:59] LABS: Glucose,Whole Blood 308 mg/dL (70-110)
[2022-12-08 05:06] LABS: African American GFR (CKD) 17 (>60 ml/min/1.73 sqM); Non-African American GFR(CKD) 15 (>60 ml/min/1.73 sqM)
[2022-12-08 05:15] LABS: Carbon Dioxide 9 mmol/L (22-30)
[2022-12-08] MEDS: PIPERACILLIN-TAZOBACTAM 3.375 GM in SODIUM CHLORIDE 0.9% 100 ML IVPB SCH ×2 (05:28→17:50)
[2022-12-08 05:58] LABS: Glucose,Whole Blood 282 mg/dL (70-110)
[2022-12-08] MEDS ORDERED: D5-0.45% NACL WITH KCL 20MEQ/L 1,000 ML IV SCH (06:00)
[2022-12-08 06:01] LABS: ABG Base Excess -13.7 mmol/L; ABG HCO3 13 mmol/L (21-25); ABG Oxygen Saturation 99.2 % (94-97); ABG PCO2 28 mmHg (35-45); ABG PH 7.28 (7.35-7.45); ABG PO2 180 mmHg (83-108); ABG TCO2 14 mmol/L (19-24); Allen Test Performed? Yes
[2022-12-08 06:57] LABS: Glucose,Whole Blood 275 mg/dL (70-110)
[2022-12-08] MEDS: INSULIN REGULAR 100 UNIT in SODIUM CHLORIDE 0.9% 100 ML IV SCH ×2 (07:00→14:40)
[2022-12-08 07:29] LABS: ALT 115 U/L (4-49); AST 615 U/L (17-59); Alkaline Phosphatase 90 U/L (38-126); Anion Gap 18 mmol/L; Blood Urea Nitrogen 87 mg/dL (9-20); Calcium 7.2 mg/dL (8.4-10.2); Chloride 119 mmol/L (98-107); Glucose 306 mg/dL (74-99); Phosphorus 3.6 mg/dL (2.5-4.5); Potassium 4.9 mmol/L (3.5-5.1); Sodium 145 mmol/L (137-145); Total Protein 5.8 g/dL (6.3-8.2)
[2022-12-08 07:36] LABS: African American GFR (CKD) 17 (>60 ml/min/1.73 sqM); Non-African American GFR(CKD) 15 (>60 ml/min/1.73 sqM)
[2022-12-08 07:49] LABS: Carbon Dioxide 8 mmol/L (22-30)
--- NOTE | 2022-12-08 08:00 | XR ---
EXAMINATION TYPE: XR chest 1V DATE OF EXAM: 12/08/2022 5:37 AM CLINICAL INDICATION:Male, 67 years old with history of hypotension, unresponsive; [facility] COMPARISON: Chest radiographs from 12/07/2022 and before TECHNIQUE: XR chest 1V Frontal view of the chest. FINDINGS: Lungs/Pleura: Overall improved aeration of the lungs from prior. No focal consolidation, sizable effu blas, or pneumothorax. Pulmonary vascularity: Unremarkable. Heart/mediastinum: Cardiac mediastinal silhouette is stable. Heart is not enlarged. Musculoskeletal: No acute osseous pathology. Other findings: None Lines/Tubes: ET tube tip is near the level of the clavicles about 6.2 cm above the lucia. NG tube extends into th e left upper abdomen with the tip beyond the field of view but its sidehole may be near the GE juncti on. IMPRESSION: 1. ET tube appears in satisfactory position, but could be advanced 1 or 2 cm based on clinical discr etion. 2. NG tube extends into the left upper abdomen with the tip beyond the field of view but its sidehol e may be near the GE junction. Consider a couple of centimeters of advancement. 3. Clear lungs.
[2022-12-08 08:06] LABS: Glucose,Whole Blood 292 mg/dL (70-110)
--- NOTE | 2022-12-08 08:24 | P.PN ---
Subjective Progress Note Date: 12/08/22 This is a 67-year-old male patient, diabetic, known history of closed head injury, bipolar disorder, was currently intubated on a mechanical ventilator. He presented to our hospital unresponsive. [place] was [place] in [place] in his own emesis. Upon arrival, the patient was hypotensive, he was hypoxic, he was found to be in DKA. He was intubated and placed on a mechanical ventilator. I believe he also aspirated. CAT scan of the chest abdomen and pelvis showed no acute process. There may be some changes related to liver cirrhosis. CAT scan of the head showed no acute intracranial process. At this point in time, the patient is intubated on a mechanical ventilator. Is on assist control and anxiety the rate of 228, FiO2 has been brought down to 50% with a PEEP of 5 and a tidal volumes of 500. The blood gas showed a pH of 6.9 with a pCO2 of 31 and pO2 of 400. The blood work showed a potassium level of 7.7, he had significant and I get metabolic acidosis with a serum bicarb of less than 5, initial blood sugar was 794 and the lactic acid level was at 9.5. The patient had a white darnell l count of 15.7 with a hemoglobin 15.8 and a platelet count of 138. Cognition profile was within normal limits. LFTs were normal, serum ammonia level was elevated at 590, UA showed +3 glucose, +2 ketones and urine drug screen was negative, the viral screen was also negative. For now, the patient has already received a total of 3 L of normal saline and the patient is currently on a bicarbonate infusion running at 150 mEq at 150 mL an hour. He is on insulin drip at 10 units an hour. He is on propofol running at 35 mcg/kg/m. He has a triple-lumen catheter in his left femoral vein. There is a orogastric tube in place and output is coffee-ground. He has hypotensive. He is on norepinephrine at 0.2 mcg/kg/m. The patient is also on emperic Antibiotic coverage started on a combination of Zosyn and vancomycin. On today's evaluation of 12/08/2022, the patient is being seen in follow-up in the intensive care unit. A critically ill male patient with DKA, rhabdomyolysis, severe metabolic acidosis, hypotension, acute kidney injury and furthermore, the patient lost his pulse and the left lower extremity and currently has a ischemic left foot. The patient remains on a mechanical ventil ator for now. He is on propofol which is running at 40 mcg/kg/m. His adequately sedated and is calm and comfortable on a mechanical ventilator on assist control mode at a rate of 28, tidal volume 500, FiO2 of 40% with a PEEP of 5. The blood gas from today shows a pH of 7.28 with episodes of 26-year-old to 180. Chest x-ray shows no acute abnormalities. Orotracheal tube is in good location. No airspace disease. NG tube is in place. Lungs are clear. Also, the patient remains hemodynamically unstable. He was aggressively resuscitated with IV fluids yesterday. Patient has been in a positive fluid balance of 5 L over the past 24 hours. Currently, he remains on norepinephrine and dose has been weaned down to 0.16 mcg/kg/m. The patient has been switched to D5 half- normal saline which is running at 150 mL an hour and this is based on our DKA protocol. Insulin drip is still running at 12 units an hour. Most recent blood sugar is at 292. The anion gap is at 18. Serum bicarb is at 8. Potassium level has improved down to 4.9. He has sustained an acute kidney injury and the creatinine is at the rise at 3.9. He was had no urine output overnightt. Earlier this morning, he started making some urine output. He has developed a rhabdomyolysis. CPK level is up to 13,947.. Furthermore, his left foot is mottled and cold and pale and there are no palpable pulses in dorsalis pedis and the posterior tibialis. Very poor capillary refill. The mottling is above the ankle reaching the med left leg. The white count was of 15.7, hemoglobin was at 15.8 at time of admission. Coagulation profile was within normal limits. UA was negative. Objective - Vital Signs Vital signs: Vital Signs Temp 100.7 F H 12/08/22 04:00 Pulse 101 H 12/08/22 07:00 Resp 23 12/08/22 07:00 BP 109/66 12/08/22 07:00 Pulse Ox 100 12/08/22 07:00 FiO2 40 12/08/22 07:27 Intake & Output 12/07/22 12/08/22 12/08/22 18:59 06:59 18:59 Intake Total 4850.128 5678.132 150 Output Total 280 280 Balance 2403.690 2651.132 150 Weight 103.419 kg 104.3 kg Intake: IV 2400 150 D5-0.45% NaCl with KCl 150 20Meq/l 1,000 ml @ 150 mls/hr IV .[id number] [facility] Rx# :[id number] Piperacillin-Tazobactam 3 200 .375 gm In Sodium Chloride 0.9% 100 ml @ 25 mls/hr IVPB Q8H [facility] Rx#: [id number] Sodium Chloride 0.9% 1, 2200 000 ml @ 200 mls/hr IV . Q5H [facility] Rx#:[id number] Intake, IV Titration 2956.382 3505.132 Amount Dextrose 5% in Water 1, 450 150 000 ml @ 75 mls/hr IV . [id number] [facility] with Sodium Bicarb (1 Meq/ml) 150 ml Rx#:[id number] Insulin Regular 100 unit 176.204 In Sodium Chloride 0.9% 100 ml @ 0.1 UNITS/KG/HR 10.445 mls/hr IV .[id number] [facility] Rx#:[id number] Norepinephrine 4 mg In 293.090 Sodium Chloride 0.9% 250 ml @ 0.03 MCG/KG/MIN 11. 821 mls/hr IV .[id number] [facility] Rx#:[id number] Norepinephrine 8 mg In 419.477 Sodium Chloride 0.9% 250 ml @ 0.05 MCG/KG/MIN 10. 006 mls/hr IV .Q24H [facility] Rx#:[id number] Sodium Chloride 0.9% 1, 600 400 000 ml @ 200 mls/hr IV . Q5H [facility] Rx#:[id number] Vancomycin 1,750 mg In 500 Sodium Chloride 0.9% 500 ml 500 ml @ 167 mls/hr IVPB [facility] Rx#: [id number] propofoL 1,000 mg In 61.433 189.451 Empty Bag 1 bag @ 15 MCG/ KG/MIN 9.308 mls/hr IV . [id number] [facility] Rx#:[id number] Output: Gastric Drainage 200 Urine 280 80 Other: Voiding Method Indwelling Catheter Indwelling Catheter ABP, PAP, CO, CI - Last Documented Arterial Blood Pressure 96/44 - Exam Gen. appearance the patient is sedated on propofol, calm and comfortable, not in acute distress, orogastric and NG tube is in place Head exam was generally normal. There was no scleral icterus or corneal arcus. Mucous membranes were moist. Neck was supple and without jugular venous distension, thyromegaly, or carotid bruits. Carotids were easily palpable bilaterally. There was no adenopathy. Lungs were clear to auscultation and percussion, and with normal diaphragmatic excursion. No wheezes or rales were noted. Cardiac exam revealed the PMI to be normally situated and sized. The rhythm was regular and no extrasystoles were noted during several minutes of auscultation. The first and second heart sounds were normal and physiologic splitting of the second heart sound was noted. There were no murmurs, rubs, clicks, or gallops. Abdominal exam revealed normal bowel sounds. The abdomen was soft, non-tender, and without masses, organomegaly, or appreciable enlargement of the abdominal aorta. Extremities are cold and clammy with diminished pulses in all 4 extremities. No cyanosis or clubbing. Since yesterday, the patient has completely lost Doppler signals in the left foot and there is no posterior tibialis or dorsalis pedis. Did not obtain popliteal follow-up. There is skin mottling involving the foot and this is reaching to the med left leg. Patient is a poor capillary refill. Patient has a cold left foot. Neurological the patient is sedated. Pupils are reactive round 3 mm in size. - Labs CBC & Chem 7: 12/07/22 11:55 12/08/22 06:55 Labs: Abnormal Lab Results - Last 24 Hours (Table) 12/07/22 12/07/22 12/07/22 Range/Units 11:55 11:55 11:55 WBC 15.7 H (3.8-10.6) k/uL Hct 54.3 H (39.0-53.0) % MCHC 29.2 L (31.0-37.0) g/dL Plt Count 138 L (150-450) k/uL Neutrophils # 14.2 H (1.3-7.7) k/uL Lymphocytes # 0.6 L (1.0-4.8) k/uL APTT 19.0 L (22.0-30.0) sec ABG pH (7.35-7.45) ABG pCO2 (35-45) mmHg ABG pO2 (83-108) mmHg ABG HCO3 (21-25) mmol/L ABG Total CO2 (19-24) mmol/L ABG O2 Saturation (94-97) % VBG pH (7.31-7.41) VBG pCO2 (37-51) mmHg VBG HCO3 (24-28) mmol/L Potassium 7.7 H* (3.5-5.1) mmol/L Chloride (98-107) mmol/L Carbon Dioxide <5 L* (22-30) mmol/L BUN 81 H (9-20) mg/dL Creatinine 3.80 H (0.66-1.25) mg/dL Glucose 794 H* (74-99) mg/dL POC Glucose (mg/dL) (70-110) mg/dL Plasma Lactic Acid Blaze (0.7-2.0) mmol/L Calcium (8.4-10.2) mg/dL Magnesium (1.6-2.3) mg/dL AST (17-59) U/L ALT (4-49) U/L Ammonia (<30) umol/L Creatine Kinase (55-170) U/L Troponin I (0.000-0.034) ng/mL Total Protein (6.3-8.2) g/dL Albumin (3.5-5.0) g/dL Urine Bacteria (None) /hpf Hyaline Casts (0-2) /lpf Urine Mucus (None) /hpf 12/07/22 12/07/22 12/07/22 Range/Units 11:55 11:55 11:55 WBC (3.8-10.6) k/uL Hct (39.0-53.0) % MCHC (31.0-37.0) g/dL Plt Count (150-450) k/uL Neutrophils # (1.3-7.7) k/uL Lymphocytes # (1.0-4.8) k/uL APTT (22.0-30.0) sec ABG pH 6.98 L* (7.35-7.45) ABG pCO2 31 L (35-45) mmHg ABG pO2 400 H (83-108) mmHg ABG HCO3 7 L* (21-25) mmol/L ABG Total CO2 8 L (19-24) mmol/L ABG O2 Saturation 99.0 H (94-97) % VBG pH (7.31-7.41) VBG pCO2 (37-51) mmHg VBG HCO3 (24-28) mmol/L Potassium (3.5-5.1) mmol/L Chloride (98-107) mmol/L Carbon Dioxide (22-30) mmol/L BUN (9-20) mg/dL Creatinine (0.66-1.25) mg/dL Glucose (74-99) mg/dL POC Glucose (mg/dL) (70-110) mg/dL Plasma Lactic Acid Blaze 9.4 H* (0.7-2.0) mmol/L Calcium (8.4-10.2) mg/dL Magnesium (1.6-2.3) mg/dL AST (17-59) U/L ALT (4-49) U/L Ammonia 590 H (<30) umol/L Creatine Kinase 384 H (55-170) U/L Troponin I (0.000-0.034) ng/mL Total Protein (6.3-8.2) g/dL Albumin (3.5-5.0) g/dL Urine Bacteria (None) /hpf Hyaline Casts (0-2) /lpf Urine Mucus (None) /hpf 12/07/22 12/07/22 12/07/22 Range/Units 11:57 12:19 12:30 WBC (3.8-10.6) k/uL Hct (39.0-53.0) % MCHC (31.0-37.0) g/dL Plt Count (150-450) k/uL Neutrophils # (1.3-7.7) k/uL Lymphocytes # (1.0-4.8) k/uL APTT (22.0-30.0) sec ABG pH (7.35-7.45) ABG pCO2 (35-45) mmHg ABG pO2 (83-108) mmHg ABG HCO3 (21-25) mmol/L ABG Total CO2 (19-24) mmol/L ABG O2 Saturation (94-97) % VBG pH 6.78 L* (7.31-7.41) VBG pCO2 20 L (37-51) mmHg VBG HCO3 3 L* (24-28) mmol/L Potassium (3.5-5.1) mmol/L Chloride (98-107) mmol/L Carbon Dioxide (22-30) mmol/L BUN (9-20) mg/dL Creatinine (0.66-1.25) mg/dL Glucose (74-99) mg/dL POC Glucose (mg/dL) >600 H (70-110) mg/dL Plasma Lactic Acid Blaze (0.7-2.0) mmol/L Calcium (8.4-10.2) mg/dL Magnesium (1.6-2.3) mg/dL AST (17-59) U/L ALT (4-49) U/L Ammonia (<30) umol/L Creatine Kinase (55-170) U/L Troponin I 0.139 H* (0.000-0.034) ng/mL Total Protein (6.3-8.2) g/dL Albumin (3.5-5.0) g/dL Urine Bacteria (None) /hpf Hyaline Casts (0-2) /lpf Urine Mucus (None) /hpf 12/07/22 12/07/22 12/07/22 Range/Units 12:37 13:48 15:36 WBC (3.8-10.6) k/uL Hct (39.0-53.0) % MCHC (31.0-37.0) g/dL Plt Count (150-450) k/uL Neutrophils # (1.3-7.7) k/uL Lymphocytes # (1.0-4.8) k/uL APTT (22.0-30.0) sec ABG pH (7.35-7.45) ABG pCO2 (35-45) mmHg ABG pO2 (83-108) mmHg ABG HCO3 (21-25) mmol/L ABG Total CO2 (19-24) mmol/L ABG O2 Saturation (94-97) % VBG pH (7.31-7.41) VBG pCO2 (37-51) mmHg VBG HCO3 (24-28) mmol/L Potassium (3.5-5.1) mmol/L Chloride (98-107) mmol/L Carbon Dioxide (22-30) mmol/L BUN (9-20) mg/dL Creatinine (0.66-1.25) mg/dL Glucose (74-99) mg/dL POC Glucose (mg/dL) >600 H 482 H (70-110) mg/dL Plasma Lactic Acid Blaze (0.7-2.0) mmol/L Calcium (8.4-10.2) mg/dL Magnesium (1.6-2.3) mg/dL AST (17-59) U/L ALT (4-49) U/L Ammonia (<30) umol/L Creatine Kinase (55-170) U/L Troponin I (0.000-0.034) ng/mL Total Protein (6.3-8.2) g/dL Albumin (3.5-5.0) g/dL Urine Bacteria Rare H (None) /hpf Hyaline Casts 18 H (0-2) /lpf Urine Mucus Rare H (None) /hpf 12/07/22 12/07/22 12/07/22 Range/Units 16:40 16:40 16:40 WBC (3.8-10.6) k/uL Hct (39.0-53.0) % MCHC (31.0-37.0) g/dL Plt Count (150-450) k/uL Neutrophils # (1.3-7.7) k/uL Lymphocytes # (1.0-4.8) k/uL APTT (22.0-30.0) sec ABG pH (7.35-7.45) ABG pCO2 (35-45) mmHg ABG pO2 (83-108) mmHg ABG HCO3 (21-25) mmol/L ABG Total CO2 (19-24) mmol/L ABG O2 Saturation (94-97) % VBG pH (7.31-7.41) VBG pCO2 (37-51) mmHg VBG HCO3 (24-28) mmol/L Potassium (3.5-5.1) mmol/L Chloride (98-107) mmol/L Carbon Dioxide (22-30) mmol/L BUN (9-20) mg/dL Creatinine (0.66-1.25) mg/dL Glucose (74-99) mg/dL POC Glucose (mg/dL) (70-110) mg/dL Plasma Lactic Acid Blaze 2.2 H* (0.7-2.0) mmol/L Calcium (8.4-10.2) mg/dL Magnesium (1.6-2.3) mg/dL AST (17-59) U/L ALT (4-49) U/L Ammonia 36 H (<30) umol/L Creatine Kinase (55-170) U/L Troponin I 0.178 H* (0.000-0.034) ng/mL Total Protein (6.3-8.2) g/dL Albumin (3.5-5.0) g/dL Urine Bacteria (None) /hpf Hyaline Casts (0-2) /lpf Urine Mucus (None) /hpf 12/07/22 12/07/22 12/07/22 Range/Units 16:40 16:41 16:44 WBC (3.8-10.6) k/uL Hct (39.0-53.0) % MCHC (31.0-37.0) g/dL Plt Count (150-450) k/uL Neutrophils # (1.3-7.7) k/uL Lymphocytes # (1.0-4.8) k/uL APTT (22.0-30.0) sec ABG pH (7.35-7.45) ABG pCO2 (35-45) mmHg ABG pO2 (83-108) mmHg ABG HCO3 (21-25) mmol/L ABG Total CO2 (19-24) mmol/L ABG O2 Saturation (94-97) % VBG pH (7.31-7.41) VBG pCO2 (37-51) mmHg VBG HCO3 (24-28) mmol/L Potassium (3.5-5.1) mmol/L Chloride 117 H (98-107) mmol/L Carbon Dioxide 6 L* (22-30) mmol/L BUN 81 H (9-20) mg/dL Creatinine 2.86 H (0.66-1.25) mg/dL Glucose 496 H (74-99) mg/dL POC Glucose (mg/dL) 448 H (70-110) mg/dL Plasma Lactic Acid Blaze (0.7-2.0) mmol/L Calcium 8.3 L (8.4-10.2) mg/dL Magnesium 3.3 H (1.6-2.3) mg/dL AST (17-59) U/L ALT (4-49) U/L Ammonia (<30) umol/L Creatine Kinase 2992 H* (55-170) U/L Troponin I (0.000-0.034) ng/mL Total Protein (6.3-8.2) g/dL Albumin (3.5-5.0) g/dL Urine Bacteria (None) /hpf Hyaline Casts (0-2) /lpf Urine Mucus (None) /hpf 12/07/22 12/07/22 12/07/22 Range/Units 17:06 17:53 19:06 WBC (3.8-10.6) k/uL Hct (39.0-53.0) % MCHC (31.0-37.0) g/dL Plt Count (150-450) k/uL Neutrophils # (1.3-7.7) k/uL Lymphocytes # (1.0-4.8) k/uL APTT (22.0-30.0) sec ABG pH 7.12 L* (7.35-7.45) ABG pCO2 26 L (35-45) mmHg ABG pO2 263 H (83-108) mmHg ABG HCO3 9 L* (21-25) mmol/L ABG Total CO2 9 L (19-24) mmol/L ABG O2 Saturation 99.2 H (94-97) % VBG pH (7.31-7.41) VBG pCO2 (37-51) mmHg VBG HCO3 (24-28) mmol/L Potassium (3.5-5.1) mmol/L Chloride (98-107) mmol/L Carbon Dioxide (22-30) mmol/L BUN (9-20) mg/dL Creatinine (0.66-1.25) mg/dL Glucose (74-99) mg/dL POC Glucose (mg/dL) 497 H 471 H (70-110) mg/dL Plasma Lactic Acid Blaze (0.7-2.0) mmol/L Calcium (8.4-10.2) mg/dL Magnesium (1.6-2.3) mg/dL AST (17-59) U/L ALT (4-49) U/L Ammonia (<30) umol/L Creatine Kinase (55-170) U/L Troponin I (0.000-0.034) ng/mL Total Protein (6.3-8.2) g/dL Albumin (3.5-5.0) g/dL Urine Bacteria (None) /hpf Hyaline Casts (0-2) /lpf Urine Mucus (None) /hpf 12/07/22 12/07/22 12/07/22 Range/Units 20:00 20:00 20:57 WBC (3.8-10.6) k/uL Hct (39.0-53.0) % MCHC (31.0-37.0) g/dL Plt Count (150-450) k/uL Neutrophils # (1.3-7.7) k/uL Lymphocytes # (1.0-4.8) k/uL APTT (22.0-30.0) sec ABG pH (7.35-7.45) ABG pCO2 (35-45) mmHg ABG pO2 (83-108) mmHg ABG HCO3 (21-25) mmol/L ABG Total CO2 (19-24) mmol/L ABG O2 Saturation (94-97) % VBG pH (7.31-7.41) VBG pCO2 (37-51) mmHg VBG HCO3 (24-28) mmol/L Potassium (3.5-5.1) mmol/L Chloride 114 H (98-107) mmol/L Carbon Dioxide 8 L* (22-30) mmol/L BUN 85 H (9-20) mg/dL Creatinine 3.04 H (0.66-1.25) mg/dL Glucose 518 H* (74-99) mg/dL POC Glucose (mg/dL) 503 H 471 H (70-110) mg/dL Plasma Lactic Acid Blaze (0.7-2.0) mmol/L Calcium (8.4-10.2) mg/dL Magnesium (1.6-2.3) mg/dL AST (17-59) U/L ALT (4-49) U/L Ammonia (<30) umol/L Creatine Kinase (55-170) U/L Troponin I (0.000-0.034) ng/mL Total Protein (6.3-8.2) g/dL Albumin (3.5-5.0) g/dL Urine Bacteria (None) /hpf Hyaline Casts (0-2) /lpf Urine Mucus (None) /hpf 12/07/22 12/07/22 12/07/22 Range/Units 22:03 22:34 23:04 WBC (3.8-10.6) k/uL Hct (39.0-53.0) % MCHC (31.0-37.0) g/dL Plt Count (150-450) k/uL Neutrophils # (1.3-7.7) k/uL Lymphocytes # (1.0-4.8) k/uL APTT (22.0-30.0) sec ABG pH (7.35-7.45) ABG pCO2 (35-45) mmHg ABG pO2 (83-108) mmHg ABG HCO3 (21-25) mmol/L ABG Total CO2 (19-24) mmol/L ABG O2 Saturation (94-97) % VBG pH (7.31-7.41) VBG pCO2 (37-51) mmHg VBG HCO3 (24-28) mmol/L Potassium (3.5-5.1) mmol/L Chloride (98-107) mmol/L Carbon Dioxide (22-30) mmol/L BUN (9-20) mg/dL Creatinine (0.66-1.25) mg/dL Glucose (74-99) mg/dL POC Glucose (mg/dL) 441 H 431 H (70-110) mg/dL Plasma Lactic Acid Blaze 2.1 H* (0.7-2.0) mmol/L Calcium (8.4-10.2) mg/dL Magnesium (1.6-2.3) mg/dL AST (17-59) U/L ALT (4-49) U/L Ammonia (<30) umol/L Creatine Kinase (55-170) U/L Troponin I (0.000-0.034) ng/mL Total Protein (6.3-8.2) g/dL Albumin (3.5-5.0) g/dL Urine Bacteria (None) /hpf Hyaline Casts (0-2) /lpf Urine Mucus (None) /hpf 12/07/22 12/07/22 12/07/22 Range/Units 23:20 23:20 23:58 WBC (3.8-10.6) k/uL Hct (39.0-53.0) % MCHC (31.0-37.0) g/dL Plt Count (150-450) k/uL Neutrophils # (1.3-7.7) k/uL Lymphocytes # (1.0-4.8) k/uL APTT (22.0-30.0) sec ABG pH (7.35-7.45) ABG pCO2 (35-45) mmHg ABG pO2 (83-108) mmHg ABG HCO3 (21-25) mmol/L ABG Total CO2 (19-24) mmol/L ABG O2 Saturation (94-97) % VBG pH (7.31-7.41) VBG pCO2 (37-51) mmHg VBG HCO3 (24-28) mmol/L Potassium (3.5-5.1) mmol/L Chloride 115 H (98-107) mmol/L Carbon Dioxide 10 L (22-30) mmol/L BUN 85 H (9-20) mg/dL Creatinine 3.29 H (0.66-1.25) mg/dL Glucose 445 H (74-99) mg/dL POC Glucose (mg/dL) 412 H (70-110) mg/dL Plasma Lactic Acid Blaze (0.7-2.0) mmol/L Calcium 7.6 L (8.4-10.2) mg/dL Magnesium (1.6-2.3) mg/dL AST 275 H (17-59) U/L ALT 68 H (4-49) U/L Ammonia (<30) umol/L Creatine Kinase 79815 H* (55-170) U/L Troponin I 0.395 H* (0.000-0.034) ng/mL Total Protein 5.7 L (6.3-8.2) g/dL Albumin 3.2 L (3.5-5.0) g/dL Urine Bacteria (None) /hpf Hyaline Casts (0-2) /lpf Urine Mucus (None) /hpf 12/08/22 12/08/22 12/08/22 Range/Units 00:57 02:00 02:10 WBC (3.8-10.6) k/uL Hct (39.0-53.0) % MCHC (31.0-37.0) g/dL Plt Count (150-450) k/uL Neutrophils # (1.3-7.7) k/uL Lymphocytes # (1.0-4.8) k/uL APTT (22.0-30.0) sec ABG pH (7.35-7.45) ABG pCO2 (35-45) mmHg ABG pO2 (83-108) mmHg ABG HCO3 (21-25) mmol/L ABG Total CO2 (19-24) mmol/L ABG O2 Saturation (94-97) % VBG pH (7.31-7.41) VBG pCO2 (37-51) mmHg VBG HCO3 (24-28) mmol/L Potassium (3.5-5.1) mmol/L Chloride (98-107) mmol/L Carbon Dioxide (22-30) mmol/L BUN (9-20) mg/dL Creatinine (0.66-1.25) mg/dL Glucose (74-99) mg/dL POC Glucose (mg/dL) 386 H 365 H (70-110) mg/dL Plasma Lactic Acid Blaze 2.2 H* (0.7-2.0) mmol/L Calcium (8.4-10.2) mg/dL Magnesium (1.6-2.3) mg/dL AST (17-59) U/L ALT (4-49) U/L Ammonia (<30) umol/L Creatine Kinase (55-170) U/L Troponin I (0.000-0.034) ng/mL Total Protein (6.3-8.2) g/dL Albumin (3.5-5.0) g/dL Urine Bacteria (None) /hpf Hyaline Casts (0-2) /lpf Urine Mucus (None) /hpf 12/08/22 12/08/22 12/08/22 Range/Units 03:10 03:37 04:05 WBC (3.8-10.6) k/uL Hct (39.0-53.0) % MCHC (31.0-37.0) g/dL Plt Count (150-450) k/uL Neutrophils # (1.3-7.7) k/uL Lymphocytes # (1.0-4.8) k/uL APTT (22.0-30.0) sec ABG pH (7.35-7.45) ABG pCO2 (35-45) mmHg ABG pO2 (83-108) mmHg ABG HCO3 (21-25) mmol/L ABG Total CO2 (19-24) mmol/L ABG O2 Saturation (94-97) % VBG pH (7.31-7.41) VBG pCO2 (37-51) mmHg VBG HCO3 (24-28) mmol/L Potassium 5.2 H (3.5-5.1) mmol/L Chloride 120 H (98-107) mmol/L Carbon Dioxide 9 L* (22-30) mmol/L BUN 87 H (9-20) mg/dL Creatinine 3.92 H (0.66-1.25) mg/dL Glucose 351 H (74-99) mg/dL POC Glucose (mg/dL) 363 H 329 H (70-110) mg/dL Plasma Lactic Acid Blaze (0.7-2.0) mmol/L Calcium 7.4 L (8.4-10.2) mg/dL Magnesium (1.6-2.3) mg/dL AST 469 H (17-59) U/L ALT 93 H (4-49) U/L Ammonia (<30) umol/L Creatine Kinase (55-170) U/L Troponin I (0.000-0.034) ng/mL Total Protein 5.7 L (6.3-8.2) g/dL Albumin 3.1 L (3.5-5.0) g/dL Urine Bacteria (None) /hpf Hyaline Casts (0-2) /lpf Urine Mucus (None) /hpf 12/08/22 12/08/22 12/08/22 Range/Units 04:57 05:55 05:57 WBC (3.8-10.6) k/uL Hct (39.0-53.0) % MCHC (31.0-37.0) g/dL Plt Count (150-450) k/uL Neutrophils # (1.3-7.7) k/uL Lymphocytes # (1.0-4.8) k/uL APTT (22.0-30.0) sec ABG pH 7.28 L (7.35-7.45) ABG pCO2 28 L (35-45) mmHg ABG pO2 180 H (83-108) mmHg ABG HCO3 13 L (21-25) mmol/L ABG Total CO2 14 L (19-24) mmol/L ABG O2 Saturation 99.2 H (94-97) % VBG pH (7.31-7.41) VBG pCO2 (37-51) mmHg VBG HCO3 (24-28) mmol/L Potassium (3.5-5.1) mmol/L Chloride (98-107) mmol/L Carbon Dioxide (22-30) mmol/L BUN (9-20) mg/dL Creatinine (0.66-1.25) mg/dL Glucose (74-99) mg/dL POC Glucose (mg/dL) 308 H 282 H (70-110) mg/dL Plasma Lactic Acid Blaze (0.7-2.0) mmol/L Calcium (8.4-10.2) mg/dL Magnesium (1.6-2.3) mg/dL AST (17-59) U/L ALT (4-49) U/L Ammonia (<30) umol/L Creatine Kinase (55-170) U/L Troponin I (0.000-0.034) ng/mL Total Protein (6.3-8.2) g/dL Albumin (3.5-5.0) g/dL Urine Bacteria (None) /hpf Hyaline Casts (0-2) /lpf Urine Mucus (None) /hpf 12/08/22 12/08/22 12/08/22 Range/Units 06:55 06:56 08:04 WBC (3.8-10.6) k/uL Hct (39.0-53.0) % MCHC (31.0-37.0) g/dL Plt Count (150-450) k/uL Neutrophils # (1.3-7.7) k/uL Lymphocytes # (1.0-4.8) k/uL APTT (22.0-30.0) sec ABG pH (7.35-7.45) ABG pCO2 (35-45) mmHg ABG pO2 (83-108) mmHg ABG HCO3 (21-25) mmol/L ABG Total CO2 (19-24) mmol/L ABG O2 Saturation (94-97) % VBG pH (7.31-7.41) VBG pCO2 (37-51) mmHg VBG HCO3 (24-28) mmol/L Potassium (3.5-5.1) mmol/L Chloride 119 H (98-107) mmol/L Carbon Dioxide 8 L* (22-30) mmol/L BUN 87 H (9-20) mg/dL Creatinine 3.95 H (0.66-1.25) mg/dL Glucose 306 H (74-99) mg/dL POC Glucose (mg/dL) 275 H 292 H (70-110) mg/dL Plasma Lactic Acid Blaze (0.7-2.0) mmol/L Calcium 7.2 L (8.4-10.2) mg/dL Magnesium 3.0 H (1.6-2.3) mg/dL AST 615 H (17-59) U/L ALT 115 H (4-49) U/L Ammonia (<30) umol/L Creatine Kinase (55-170) U/L Troponin I (0.000-0.034) ng/mL Total Protein 5.8 L (6.3-8.2) g/dL Albumin 3.0 L (3.5-5.0) g/dL Urine Bacteria (None) /hpf Hyaline Casts (0-2) /lpf Urine Mucus (None) /hpf Assessment and Plan Plan: Acute diabetic ketoacidosis with severe anion gap metabolic acidosis, being treated based on the DKA protocol. The patient is currently on D5 half-normal saline at the rate of 150 mL an hour. The patient is also on insulin drip. He still has an anion gap metabolic acidosis. Acute hypoxic respiratory failure, currently intubated on a mechanical ventilator. Suspect aspiration. Chest x-ray is clear patient is currently on IV Zosyn Acute shock, probably hypovolemic. Possibility of an underlying septic shock cannot be completely excluded, remains on pressors although the pressors requirements improved compared to yesterday Severe lactic acidosis, improving Liver cirrhosis, elevated ammonia level, dropped significantly could be related to an erroneous lab value the time of admission Acute kidney injury secondary to above, creatinine is on the rise and the patient is oliguric Acute rhabdomyolysis Acute ischemic left foot/arterial ischemia with absent pulses Troponin leak secondary to above Altered mentation secondary to above and the patient is currently intubated on mechanical ventilator on sedation Acute leukocytosis, reactive versus septic Acute hyperkalemia secondary to hypoglycemia and severe acidosis. No EKG changes at this point in time. Potassium level is improved Hypothermia, recovered and the patient is normothermic Plan The patient will be kept on a mechanical ventilator, intubated, sedated on propofol. No ventilator changes for today Continue DKA protocol Continue D5 half-normal saline Continue pressors and wean off norepinephrine Continue insulin drip. Moderate anion gap Lactic acid level is improved Monitor CPK Continue Zosyn and dropped the vancomycin for now Echocardiogram today Vascular surgery consultation regarding the ischemic left foot Obtain a nephrology consultation Ultrasound the kidneys Currently oliguric. We'll give the patient trial of Lasix 80 mg IV push 1 Monitor electrolytes IV Protonix Heparin subcu for DVT prophylaxis Condition is critical and we'll continue to follow make further recommendations based on his progress. We'll continue to follow make further recommendations based on his progress. Condition remains critical Time with Patient: Greater than 30
[2022-12-08] MEDS ORDERED: FUROSEMIDE 10 MG/ML 10 ML VIAL IV STA (08:27)
[2022-12-08] MEDS ORDERED: HEPARIN SODIUM 1,000 UN/ML (10ML VL) IV PRN (08:45)
[2022-12-08] MEDS ORDERED: HEPARIN SODIUM 1,000 UN/ML (10ML VL) IV ONE (08:45)
[2022-12-08] MEDS ORDERED: PANTOPRAZOLE 40 MG/10 ML VIAL IV SCH (09:00)
[2022-12-08 09:15] LABS: Glucose,Whole Blood 254 mg/dL (70-110)
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
[2022-12-08 09:59] LABS: Glucose,Whole Blood 262 mg/dL (70-110)
[2022-12-08] MEDS: ASPIRIN 81 MG PO SCH (10:06)
[2022-12-08 11:05] LABS: Glucose,Whole Blood 362 mg/dL (70-110)
[2022-12-08] MEDS: HEPARIN SOD,PORK IN 0.45% NACL 25,000 UNIT in 0.45% NACL 1 250ML.BAG IV SCH (11:11)
[2022-12-08] MEDS: DEXTROSE 5% IN WATER 1,000 ML with SODIUM BICARB (1 MEQ/ML) 150 ML IV SCH ×2 (11:14→22:11)
--- NOTE | 2022-12-08 11:51 | CA ---
Transthoracic Echo Report Name: Liu Lind Age: 67 Gender: M : 1955 Exam Date: 12/08/2022 08:38 Exam Location: [facility] Ht (in): 72 Wt (lb): 228 Ordering Physician: Wanda Tavarez MD Attending/Referring Phys: Insurance Producer Maris Choudhary [facility] Procedure CPT: Indications: hypotension, unresponsive Cardiac Hx: Technical Quality: Very technically difficult study Contrast 1: Definity Total Dose (mL): 6 Contrast 2: Total Dose (mL): MEASUREMENTS (Male / Female) Normal Values DOPPLER AV Peak Velocity 183.8 cm/s AV Peak Gradient 13.5 mmHg AV Mean Velocity 162.7 cm/s AV Mean Gradient 10.8 mmHg AV Velocity Time Integral 25.5 cm Mitral E Point Velocity 33.4 cm/s Mitral A Point Velocity 39.3 cm/s Mitral E to A Ratio 0.8 MV Deceleration Time 131.8 ms LV E' Lateral Velocity 5.3 cm/s Mitral E to LV E' Lateral Ratio 6.3 LV E' Septal Velocity 6.3 cm/s Mitral E to LV E' Septal Ratio 5.3 TR Peak Velocity 227.1 cm/s TR Peak Gradient 20.6 mmHg Right Atrial Pressure 8.0 mmHg Pulmonary Artery Systolic Pressu 28.6 mmHg Right Ventricular Systolic Press 28.6 mmHg FINDINGS Left Ventricle Left ventricle not well visualized. Hyperdynamic left ventricular systolic function. Left ventricular ejection fraction is estimated at 65-70%. Right Ventricle Right ventricle not well visualized but appears dilated. Right Atrium Right atrium not well visualized. Left Atrium Left atrium not well visualized. Mitral Valve Mitral valve not well visualized. Aortic Valve Aortic valve not well visualized. Tricuspid Valve Tricuspid valve not well visualized. Trace tricuspid regurgitation. Pulmonic Valve Pulmonic valve not well visualized. Pericardium No pericardial effusion. Aorta Aortic root and proximal ascending aorta not well visualized. CONCLUSIONS Hyperdynamic left ventricular ejection fraction 65-70% Technically difficult study however right ventricular appears mildly dilated Trace tricuspid regurgitation RVSP 28 Previewed by: Dr. Sandeep Ayala DO (Electronically Signed) Final Date: 08 December 2022 11:50
[2022-12-08] MEDS ORDERED: VANCOMYCIN 1,750 MG in SODIUM CHLORIDE 0.9% 500 ML 500 ML IVPB ONE (12:00)
[2022-12-08 12:03] LABS: Glucose,Whole Blood 209 mg/dL (70-110)
[2022-12-08 12:12] LABS: Basophils % (A) 0 %; Eosinophils # (A) 0.2 k/uL (0-0.7); Eosinophils % (A) 1 %; HCT 40.6 % (39.0-53.0); HGB 13.5 gm/dL (13.0-17.5); Lymphocytes % (A) 7 %; MCH 28.4 pg (25.0-35.0); MCHC 33.4 g/dL (31.0-37.0); Mean Platelet Volume 9.4; Monocytes # (A) 0.6 k/uL (0-1.0); Monocytes % (A) 4 %; Neutrophils # (A) 12.1 k/uL (1.3-7.7); Neutrophils % (A) 87 %; RBC 4.76 m/uL (4.30-5.90); RDW 14.3 % (11.5-15.5)
[2022-12-08 12:18] LABS: INR 1.1 (<1.2); Partial Thromboplastin Time 21.9 sec (22.0-30.0); Prothrombin Time 11.7 sec (10.0-12.5)
[2022-12-08 12:59] LABS: Glucose,Whole Blood 172 mg/dL (70-110)
[2022-12-08 13:18] LABS: Glucose,Whole Blood 155 mg/dL (70-110)
--- NOTE | 2022-12-08 13:35 | US ---
EXAMINATION TYPE: US kidneys/renal and bladder DATE OF EXAM: 12/08/2022 COMPARISON: NONE CLINICAL INDICATION: Male, 67 years old with history of r/o hydronephrosis; REBEKA limited patient on ve nt unable to move. EXAM MEASUREMENTS: Right Kidney: 10.4 x 4.5 x 4.4 cm Left Kidney: 10.3 x 4.9 x 4.8 cm Right Kidney: No hydronephrosis or masses seen Left Kidney: No hydronephrosis or masses seen Bladder: Decompressed with a catheter in place. Bilateral Jets seen: No There is no evidence for hydronephrosis at this point in time. No nephrolithiasis is seen. No trinity s are identified. The urinary bladder is anechoic. Bilateral ureteral jets are seen. IMPRESSION: No evidence of hydronephrosis. Bladder decompressed with a catheter in place.
[2022-12-08 14:06] LABS: Glucose,Whole Blood 142 mg/dL (70-110)
[2022-12-08] MEDS ORDERED: HEPARIN SODIUM 1,000 UN/ML (10ML VL) MISCELLANE ONE (14:08)
[2022-12-08 14:19] LABS: Platelet Count 68 k/uL (150-450)
--- NOTE | 2022-12-08 15:33 | P.PN ---
Subjective Progress Note Date: 12/08/22 (t) Patient is a 67-year-old male with a history of diabetes, bipolar disorder, history of closed head injury who [place] unresponsive and covered in his own emesis. On arrival to the ER he was tachycardic with a pulse of 101, respirations 26, blood pressure 64/42 and O2 sat 92% on 15 L nonrebreather. Laboratory analysis including CBC, coags, ABG, CMP, ammonia, CK, troponin, urinalysis, urine drug screen, which were remarkable for white blood cell count 15.7, platelets 138, calcium 7.7, carbon dioxide less than 5, BUN 81, creatinine 3.8, glucose 794, lactic acid 9.4, ammonia 590, CK 384, troponin 0.139. Urine drug screen was negative. Influenza A/B/RSV/COVID-19 was negative. Chest x-ray showed endotracheal tube in the right mainstem the lungs were otherwise clear. CT chest abdomen and pelvis showed no acute process but cirrhosis. Head CT showed chronic changes with no acute intracranial process. EKG reviewed with normal sinus rhythm at a rate of 100 and peaker T- waves. He was intubated in the emergency department. He was started on norepinephrine, sodium bicarb with dextrose infusion, insulin infusion. He was also given calcium gluconate 1 g IV piggyback. Critical care was consulted. Arrangements were made for admission. He was continued on levothyroxine. Zosyn was initiated for possible aspiration. He was continued on DKA protocol. He was given aggressive IV fluid resuscitation with both normal saline and D5W with 3 A of bicarb. On the night after admission his urine output decreased and his left lower extremity became ischemic. His CKs elevated. Nephrology was consulted as well as vascular surgery. Patient was placed on a heparin drip. Patient seen and examined at bedside. Sedated on vent Per nursing decreased urine output last night, dusky appearance of left lower extremity. Vital signs reviewed General: nontoxic, no distress, appears at stated age Term: Left lower extremity distal to mid calf cyanotic appearing and cool with absent palpable pulses, right lower extremity warm Cardiovascular: S1S2 reg, no murmur Lungs: CTA bilateral, no rhonchi, no rales , no accessory muscle use Abdominal: soft, nontender to palpation, no guarding, no appreciable organomegaly Ext: no gross muscle atrophy, no edema b/l lower extremities, no contractures Neuro: Positive cough, positive gag Psych: Sedated on vent Assessment/Plan: Severe DKA Shock, likely hypovolemic versus septic Aspiration event Elevated troponin, suspect secondary to renal dysfunction and Rhabdo Metabolic encephalopathy Leukocytosis -Continue with insulin drip per DKA protocol, monitor blood sugars every one hour with a goal change of 60-101 hour adjust as necessary -With concerns for possible septic shock we'll continue with Zosyn 3.375 mg every 12 hours IV piggyback D # 2 -D/C vancomycin - Repeat CXR in AM Rhabdomyolysis Transaminitis due to rhabdo oliguric, Acute kidney injury -Transition fluids to D5W with 3 A of bicarb given elevated CPKs despite adequate IV fluid resuscitation -CT without hydronephrosis, no need for renal ultrasound -Consult nephrology -Strict I and O -Serial CK level -Avoid nephrotoxic agents Ischemic Left lower extremity Anemia Thrombocytopenia -Discussed with Dr. Mcclure -Start low dose heparin gtt - follow CBC closely given decreased platelets Hyperkalemia, resolved Lactic acidosis, resolved Imaging: Chest x-rays reviewed by myself reveals no acute process. echocardiogram: hyperdynamic left ventricle 65-70%, right ventricle mildly dilated with RVSP 28 Data Review: Labs reviewed from today includes CBC, ABG, BMP, liver function, lactic acid, and CPK which are remarkable for white blood cell count 14, platelets 68, PTT 21.9, pH 7.28, pCO2 28, potassium 4.9, chloride 119, carbon dioxide 8, BUN 87, creatinine 3.95, glucose 275, magnesium 3, AST 615, ALT 115, CPK 35,778 DVT prophylaxis: Heparin gtt Anticipated discharge date: Pending Clinical Course Anticipated discharge place: Pending Clinical Course This dictation was prepared using [employer] voice recognition software. Though every attempt is made to correct errors during dictation some may still exist. Objective - Vital Signs Vital signs: Vital Signs Temp 100.3 F H 12/08/22 12:00 Pulse 106 H 12/08/22 14:15 Resp 28 H 12/08/22 14:15 BP 122/65 12/08/22 14:15 Pulse Ox 100 12/08/22 14:15 FiO2 40 12/08/22 15:15 Intake & Output 12/07/22 12/08/22 12/08/22 18:59 06:59 18:59 Intake Total 7157.064 4421.132 1364.297 Output Total 280 280 17 Balance 8222.893 6566.132 1347.297 Weight 103.419 kg 104.3 kg 107.8 kg Intake: IV 2400 1010 D5-0.45% NaCl with KCl 600 20Meq/l 1,000 ml @ 150 mls/hr IV .[id number] [facility] Rx# :[id number] Dextrose 5% in Water 1, 400 000 ml @ 100 mls/hr IV . [id number] [facility] with Sodium Bicarb (1 Meq/ml) 150 ml Rx#:[id number] Invasive Line 3 10 Piperacillin-Tazobactam 3 200 .375 gm In Sodium Chloride 0.9% 100 ml @ 25 mls/hr IVPB Q8H [facility] Rx#: [id number] Sodium Chloride 0.9% 1, 2200 000 ml @ 200 mls/hr IV . Q5H [facility] Rx#:[id number] Intake, IV Titration 9470.783 2639.132 354.297 Amount Dextrose 5% in Water 1, 450 150 000 ml @ 75 mls/hr IV . [id number] [facility] with Sodium Bicarb (1 Meq/ml) 150 ml Rx#:[id number] Insulin Regular 100 unit 176.204 100.528 In Sodium Chloride 0.9% 100 ml @ 0.1 UNITS/KG/HR 10.445 mls/hr IV .Q9H41M [facility] Rx#:[id number] Norepinephrine 4 mg In 293.090 Sodium Chloride 0.9% 250 ml @ 0.03 MCG/KG/MIN 11. 821 mls/hr IV .[id number] ONE Rx#:[id number] Norepinephrine 8 mg In 419.477 69.791 Sodium Chloride 0.9% 250 ml @ 0.05 MCG/KG/MIN 10. 006 mls/hr IV .Q24H [facility] Rx#:[id number] Sodium Chloride 0.9% 1, 600 400 000 ml @ 200 mls/hr IV . Q5H [facility] Rx#:[id number] Vancomycin 1,750 mg In 500 Sodium Chloride 0.9% 500 ml 500 ml @ 167 mls/hr IVPB ONCE ONE Rx#: [id number] propofoL 1,000 mg In 61.433 189.451 183.978 Empty Bag 1 bag @ 15 MCG/ KG/MIN 9.308 mls/hr IV . [id number] COUNT INCLUDES THE [facility] Rx#:[id number] Output: Gastric Drainage 200 Urine 280 80 17 Other: Voiding Method Indwelling Catheter Indwelling Catheter Indwelling Catheter ABP, PAP, CO, CI - Last Documented Arterial Blood Pressure 126/56 - Labs CBC & Chem 7: 12/08/22 12:00 12/08/22 06:55 Labs: Abnormal Lab Results - Last 24 Hours (Table) 12/07/22 12/07/22 12/07/22 Range/Units 15:36 16:40 16:40 WBC (3.8-10.6) k/uL Plt Count (150-450) k/uL Neutrophils # (1.3-7.7) k/uL APTT (22.0-30.0) sec ABG pH (7.35-7.45) ABG pCO2 (35-45) mmHg ABG pO2 (83-108) mmHg ABG HCO3 (21-25) mmol/L ABG Total CO2 (19-24) mmol/L ABG O2 Saturation (94-97) % Potassium (3.5-5.1) mmol/L Chloride (98-107) mmol/L Carbon Dioxide (22-30) mmol/L BUN (9-20) mg/dL Creatinine (0.66-1.25) mg/dL Glucose (74-99) mg/dL POC Glucose (mg/dL) 482 H (70-110) mg/dL Plasma Lactic Acid Blaze 2.2 H* (0.7-2.0) mmol/L Calcium (8.4-10.2) mg/dL Magnesium (1.6-2.3) mg/dL AST (17-59) U/L ALT (4-49) U/L Ammonia 36 H (<30) umol/L Creatine Kinase (55-170) U/L Troponin I (0.000-0.034) ng/mL Total Protein (6.3-8.2) g/dL Albumin (3.5-5.0) g/dL 12/07/22 12/07/22 12/07/22 Range/Units 16:40 16:40 16:41 WBC (3.8-10.6) k/uL Plt Count (150-450) k/uL Neutrophils # (1.3-7.7) k/uL APTT (22.0-30.0) sec ABG pH (7.35-7.45) ABG pCO2 (35-45) mmHg ABG pO2 (83-108) mmHg ABG HCO3 (21-25) mmol/L ABG Total CO2 (19-24) mmol/L ABG O2 Saturation (94-97) % Potassium (3.5-5.1) mmol/L Chloride 117 H (98-107) mmol/L Carbon Dioxide 6 L* (22-30) mmol/L BUN 81 H (9-20) mg/dL Creatinine 2.86 H (0.66-1.25) mg/dL Glucose 496 H (74-99) mg/dL POC Glucose (mg/dL) (70-110) mg/dL Plasma Lactic Acid Blaze (0.7-2.0) mmol/L Calcium 8.3 L (8.4-10.2) mg/dL Magnesium 3.3 H (1.6-2.3) mg/dL AST (17-59) U/L ALT (4-49) U/L Ammonia (<30) umol/L Creatine Kinase 2992 H* (55-170) U/L Troponin I 0.178 H* (0.000-0.034) ng/mL Total Protein (6.3-8.2) g/dL Albumin (3.5-5.0) g/dL 12/07/22 12/07/22 12/07/22 Range/Units 16:44 17:06 17:53 WBC (3.8-10.6) k/uL Plt Count (150-450) k/uL Neutrophils # (1.3-7.7) k/uL APTT (22.0-30.0) sec ABG pH 7.12 L* (7.35-7.45) ABG pCO2 26 L (35-45) mmHg ABG pO2 263 H (83-108) mmHg ABG HCO3 9 L* (21-25) mmol/L ABG Total CO2 9 L (19-24) mmol/L ABG O2 Saturation 99.2 H (94-97) % Potassium (3.5-5.1) mmol/L Chloride (98-107) mmol/L Carbon Dioxide (22-30) mmol/L BUN (9-20) mg/dL Creatinine (0.66-1.25) mg/dL Glucose (74-99) mg/dL POC Glucose (mg/dL) 448 H 497 H (70-110) mg/dL Plasma Lactic Acid Blaze (0.7-2.0) mmol/L Calcium (8.4-10.2) mg/dL Magnesium (1.6-2.3) mg/dL AST (17-59) U/L ALT (4-49) U/L Ammonia (<30) umol/L Creatine Kinase (55-170) U/L Troponin I (0.000-0.034) ng/mL Total Protein (6.3-8.2) g/dL Albumin (3.5-5.0) g/dL 12/07/22 12/07/22 12/07/22 Range/Units 19:06 20:00 20:00 WBC (3.8-10.6) k/uL Plt Count (150-450) k/uL Neutrophils # (1.3-7.7) k/uL APTT (22.0-30.0) sec ABG pH (7.35-7.45) ABG pCO2 (35-45) mmHg ABG pO2 (83-108) mmHg ABG HCO3 (21-25) mmol/L ABG Total CO2 (19-24) mmol/L ABG O2 Saturation (94-97) % Potassium (3.5-5.1) mmol/L Chloride 114 H (98-107) mmol/L Carbon Dioxide 8 L* (22-30) mmol/L BUN 85 H (9-20) mg/dL Creatinine 3.04 H (0.66-1.25) mg/dL Glucose 518 H* (74-99) mg/dL POC Glucose (mg/dL) 471 H 503 H (70-110) mg/dL Plasma Lactic Acid Blaze (0.7-2.0) mmol/L Calcium (8.4-10.2) mg/dL Magnesium (1.6-2.3) mg/dL AST (17-59) U/L ALT (4-49) U/L Ammonia (<30) umol/L Creatine Kinase (55-170) U/L Troponin I (0.000-0.034) ng/mL Total Protein (6.3-8.2) g/dL Albumin (3.5-5.0) g/dL 12/07/22 12/07/22 12/07/22 Range/Units 20:57 22:03 22:34 WBC (3.8-10.6) k/uL Plt Count (150-450) k/uL Neutrophils # (1.3-7.7) k/uL APTT (22.0-30.0) sec ABG pH (7.35-7.45) ABG pCO2 (35-45) mmHg ABG pO2 (83-108) mmHg ABG HCO3 (21-25) mmol/L ABG Total CO2 (19-24) mmol/L ABG O2 Saturation (94-97) % Potassium (3.5-5.1) mmol/L Chloride (98-107) mmol/L Carbon Dioxide (22-30) mmol/L BUN (9-20) mg/dL Creatinine (0.66-1.25) mg/dL Glucose (74-99) mg/dL POC Glucose (mg/dL) 471 H 441 H (70-110) mg/dL Plasma Lactic Acid Blaze 2.1 H* (0.7-2.0) mmol/L Calcium (8.4-10.2) mg/dL Magnesium (1.6-2.3) mg/dL AST (17-59) U/L ALT (4-49) U/L Ammonia (<30) umol/L Creatine Kinase (55-170) U/L Troponin I (0.000-0.034) ng/mL Total Protein (6.3-8.2) g/dL Albumin (3.5-5.0) g/dL 12/07/22 12/07/22 12/07/22 Range/Units 23:04 23:20 23:20 WBC (3.8-10.6) k/uL Plt Count (150-450) k/uL Neutrophils # (1.3-7.7) k/uL APTT (22.0-30.0) sec ABG pH (7.35-7.45) ABG pCO2 (35-45) mmHg ABG pO2 (83-108) mmHg ABG HCO3 (21-25) mmol/L ABG Total CO2 (19-24) mmol/L ABG O2 Saturation (94-97) % Potassium (3.5-5.1) mmol/L Chloride 115 H (98-107) mmol/L Carbon Dioxide 10 L (22-30) mmol/L BUN 85 H (9-20) mg/dL Creatinine 3.29 H (0.66-1.25) mg/dL Glucose 445 H (74-99) mg/dL POC Glucose (mg/dL) 431 H (70-110) mg/dL Plasma Lactic Acid Blaze (0.7-2.0) mmol/L Calcium 7.6 L (8.4-10.2) mg/dL Magnesium (1.6-2.3) mg/dL AST 275 H (17-59) U/L ALT 68 H (4-49) U/L Ammonia (<30) umol/L Creatine Kinase 71579 H* (55-170) U/L Troponin I 0.395 H* (0.000-0.034) ng/mL Total Protein 5.7 L (6.3-8.2) g/dL Albumin 3.2 L (3.5-5.0) g/dL 12/07/22 12/08/22 12/08/22 Range/Units 23:58 00:57 02:00 WBC (3.8-10.6) k/uL Plt Count (150-450) k/uL Neutrophils # (1.3-7.7) k/uL APTT (22.0-30.0) sec ABG pH (7.35-7.45) ABG pCO2 (35-45) mmHg ABG pO2 (83-108) mmHg ABG HCO3 (21-25) mmol/L ABG Total CO2 (19-24) mmol/L ABG O2 Saturation (94-97) % Potassium (3.5-5.1) mmol/L Chloride (98-107) mmol/L Carbon Dioxide (22-30) mmol/L BUN (9-20) mg/dL Creatinine (0.66-1.25) mg/dL Glucose (74-99) mg/dL POC Glucose (mg/dL) 412 H 386 H (70-110) mg/dL Plasma Lactic Acid Blaze 2.2 H* (0.7-2.0) mmol/L Calcium (8.4-10.2) mg/dL Magnesium (1.6-2.3) mg/dL AST (17-59) U/L ALT (4-49) U/L Ammonia (<30) umol/L Creatine Kinase (55-170) U/L Troponin I (0.000-0.034) ng/mL Total Protein (6.3-8.2) g/dL Albumin (3.5-5.0) g/dL 12/08/22 12/08/22 12/08/22 Range/Units 02:10 03:10 03:37 WBC (3.8-10.6) k/uL Plt Count (150-450) k/uL Neutrophils # (1.3-7.7) k/uL APTT (22.0-30.0) sec ABG pH (7.35-7.45) ABG pCO2 (35-45) mmHg ABG pO2 (83-108) mmHg ABG HCO3 (21-25) mmol/L ABG Total CO2 (19-24) mmol/L ABG O2 Saturation (94-97) % Potassium 5.2 H (3.5-5.1) mmol/L Chloride 120 H (98-107) mmol/L Carbon Dioxide 9 L* (22-30) mmol/L BUN 87 H (9-20) mg/dL Creatinine 3.92 H (0.66-1.25) mg/dL Glucose 351 H (74-99) mg/dL POC Glucose (mg/dL) 365 H 363 H (70-110) mg/dL Plasma Lactic Acid Blaze (0.7-2.0) mmol/L Calcium 7.4 L (8.4-10.2) mg/dL Magnesium (1.6-2.3) mg/dL AST 469 H (17-59) U/L ALT 93 H (4-49) U/L Ammonia (<30) umol/L Creatine Kinase (55-170) U/L Troponin I (0.000-0.034) ng/mL Total Protein 5.7 L (6.3-8.2) g/dL Albumin 3.1 L (3.5-5.0) g/dL 12/08/22 12/08/22 12/08/22 Range/Units 04:05 04:57 05:55 WBC (3.8-10.6) k/uL Plt Count (150-450) k/uL Neutrophils # (1.3-7.7) k/uL APTT (22.0-30.0) sec ABG pH 7.28 L (7.35-7.45) ABG pCO2 28 L (35-45) mmHg ABG pO2 180 H (83-108) mmHg ABG HCO3 13 L (21-25) mmol/L ABG Total CO2 14 L (19-24) mmol/L ABG O2 Saturation 99.2 H (94-97) % Potassium (3.5-5.1) mmol/L Chloride (98-107) mmol/L Carbon Dioxide (22-30) mmol/L BUN (9-20) mg/dL Creatinine (0.66-1.25) mg/dL Glucose (74-99) mg/dL POC Glucose (mg/dL) 329 H 308 H (70-110) mg/dL Plasma Lactic Acid Blaze (0.7-2.0) mmol/L Calcium (8.4-10.2) mg/dL Magnesium (1.6-2.3) mg/dL AST (17-59) U/L ALT (4-49) U/L Ammonia (<30) umol/L Creatine Kinase (55-170) U/L Troponin I (0.000-0.034) ng/mL Total Protein (6.3-8.2) g/dL Albumin (3.5-5.0) g/dL 12/08/22 12/08/22 12/08/22 Range/Units 05:57 06:55 06:56 WBC (3.8-10.6) k/uL Plt Count (150-450) k/uL Neutrophils # (1.3-7.7) k/uL APTT (22.0-30.0) sec ABG pH (7.35-7.45) ABG pCO2 (35-45) mmHg ABG pO2 (83-108) mmHg ABG HCO3 (21-25) mmol/L ABG Total CO2 (19-24) mmol/L ABG O2 Saturation (94-97) % Potassium (3.5-5.1) mmol/L Chloride 119 H (98-107) mmol/L Carbon Dioxide 8 L* (22-30) mmol/L BUN 87 H (9-20) mg/dL Creatinine 3.95 H (0.66-1.25) mg/dL Glucose 306 H (74-99) mg/dL POC Glucose (mg/dL) 282 H 275 H (70-110) mg/dL Plasma Lactic Acid Blaze (0.7-2.0) mmol/L Calcium 7.2 L (8.4-10.2) mg/dL Magnesium 3.0 H (1.6-2.3) mg/dL AST 615 H (17-59) U/L ALT 115 H (4-49) U/L Ammonia (<30) umol/L Creatine Kinase 57754 H* (55-170) U/L Troponin I (0.000-0.034) ng/mL Total Protein 5.8 L (6.3-8.2) g/dL Albumin 3.0 L (3.5-5.0) g/dL 12/08/22 12/08/22 12/08/22 Range/Units 08:04 09:13 09:58 WBC (3.8-10.6) k/uL Plt Count (150-450) k/uL Neutrophils # (1.3-7.7) k/uL APTT (22.0-30.0) sec ABG pH (7.35-7.45) ABG pCO2 (35-45) mmHg ABG pO2 (83-108) mmHg ABG HCO3 (21-25) mmol/L ABG Total CO2 (19-24) mmol/L ABG O2 Saturation (94-97) % Potassium (3.5-5.1) mmol/L Chloride (98-107) mmol/L Carbon Dioxide (22-30) mmol/L BUN (9-20) mg/dL Creatinine (0.66-1.25) mg/dL Glucose (74-99) mg/dL POC Glucose (mg/dL) 292 H 254 H 262 H (70-110) mg/dL Plasma Lactic Acid Blaze (0.7-2.0) mmol/L Calcium (8.4-10.2) mg/dL Magnesium (1.6-2.3) mg/dL AST (17-59) U/L ALT (4-49) U/L Ammonia (<30) umol/L Creatine Kinase (55-170) U/L Troponin I (0.000-0.034) ng/mL Total Protein (6.3-8.2) g/dL Albumin (3.5-5.0) g/dL 12/08/22 12/08/22 12/08/22 Range/Units 10:10 11:03 12:00 WBC 14.0 H (3.8-10.6) k/uL Plt Count 68 L D (150-450) k/uL Neutrophils # 12.1 H (1.3-7.7) k/uL APTT 21.9 L (22.0-30.0) sec ABG pH (7.35-7.45) ABG pCO2 (35-45) mmHg ABG pO2 (83-108) mmHg ABG HCO3 (21-25) mmol/L ABG Total CO2 (19-24) mmol/L ABG O2 Saturation (94-97) % Potassium (3.5-5.1) mmol/L Chloride (98-107) mmol/L Carbon Dioxide (22-30) mmol/L BUN (9-20) mg/dL Creatinine (0.66-1.25) mg/dL Glucose (74-99) mg/dL POC Glucose (mg/dL) 362 H (70-110) mg/dL Plasma Lactic Acid Blaze (0.7-2.0) mmol/L Calcium (8.4-10.2) mg/dL Magnesium (1.6-2.3) mg/dL AST (17-59) U/L ALT (4-49) U/L Ammonia (<30) umol/L Creatine Kinase (55-170) U/L Troponin I (0.000-0.034) ng/mL Total Protein (6.3-8.2) g/dL Albumin (3.5-5.0) g/dL 12/08/22 12/08/22 12/08/22 Range/Units 12:02 12:58 13:16 WBC (3.8-10.6) k/uL Plt Count (150-450) k/uL Neutrophils # (1.3-7.7) k/uL APTT (22.0-30.0) sec ABG pH (7.35-7.45) ABG pCO2 (35-45) mmHg ABG pO2 (83-108) mmHg ABG HCO3 (21-25) mmol/L ABG Total CO2 (19-24) mmol/L ABG O2 Saturation (94-97) % Potassium (3.5-5.1) mmol/L Chloride (98-107) mmol/L Carbon Dioxide (22-30) mmol/L BUN (9-20) mg/dL Creatinine (0.66-1.25) mg/dL Glucose (74-99) mg/dL POC Glucose (mg/dL) 209 H 172 H 155 H (70-110) mg/dL Plasma Lactic Acid Blaze (0.7-2.0) mmol/L Calcium (8.4-10.2) mg/dL Magnesium (1.6-2.3) mg/dL AST (17-59) U/L ALT (4-49) U/L Ammonia (<30) umol/L Creatine Kinase (55-170) U/L Troponin I (0.000-0.034) ng/mL Total Protein (6.3-8.2) g/dL Albumin (3.5-5.0) g/dL 12/08/22 Range/Units 14:04 WBC (3.8-10.6) k/uL Plt Count (150-450) k/uL Neutrophils # (1.3-7.7) k/uL APTT (22.0-30.0) sec ABG pH (7.35-7.45) ABG pCO2 (35-45) mmHg ABG pO2 (83-108) mmHg ABG HCO3 (21-25) mmol/L ABG Total CO2 (19-24) mmol/L ABG O2 Saturation (94-97) % Potassium (3.5-5.1) mmol/L Chloride (98-107) mmol/L Carbon Dioxide (22-30) mmol/L BUN (9-20) mg/dL Creatinine (0.66-1.25) mg/dL Glucose (74-99) mg/dL POC Glucose (mg/dL) 142 H (70-110) mg/dL Plasma Lactic Acid Blaze (0.7-2.0) mmol/L Calcium (8.4-10.2) mg/dL Magnesium (1.6-2.3) mg/dL AST (17-59) U/L ALT (4-49) U/L Ammonia (<30) umol/L Creatine Kinase (55-170) U/L Troponin I (0.000-0.034) ng/mL Total Protein (6.3-8.2) g/dL Albumin (3.5-5.0) g/dL
[2022-12-08 15:40] LABS: Glucose,Whole Blood 102 mg/dL (70-110)
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
--- NOTE | 2022-12-08 15:56 | P.PCN ---
Description of Procedure: Preoperative diagnosis chronic renal failure Postoperative same Procedure ultrasound-guided catheter placement for femoral approach patient was seen right groin were prepped and draped by sterile manner 1% lidocaine were infiltrated in the groin area. Ultrasound-guided micropuncture introduced right femoral vein micropuncture guidewire was passed and 4-[place]ese dilator advanced top the guidewire. Then we passed a regular guidewire without any resistance dilator was advanced top the guidewire. Then replaced a dialysis catheter top the guidewire guidewire was removed flushed with heparin saline and Hep-Lock secured with 3-0 nylon dressing applied patient are to the procedure well
[2022-12-08 16:05] LABS: Glucose,Whole Blood 101 mg/dL (70-110)
[2022-12-08 17:16] LABS: Glucose,Whole Blood 91 mg/dL (70-110)
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
[2022-12-08 17:49] LABS: Glucose,Whole Blood 114 mg/dL (70-110)
[2022-12-08 18:05] LABS: HCT 39.3 % (39.0-53.0); HGB 13.6 gm/dL (13.0-17.5); MCH 29.1 pg (25.0-35.0); MCHC 34.5 g/dL (31.0-37.0); MCV 84.4 fL (80.0-100.0); Mean Platelet Volume 9.4; RBC 4.66 m/uL (4.30-5.90); RDW 14.1 % (11.5-15.5); WBC 12.7 k/uL (3.8-10.6)
[2022-12-08 18:10] LABS: Platelet Count 64 k/uL (150-450)
[2022-12-08 18:35] LABS: MCV 85.2 fL (80.0-100.0)
[2022-12-08 18:45] LABS: Anion Gap 16 mmol/L; Blood Urea Nitrogen 92 mg/dL (9-20); Calcium 7.2 mg/dL (8.4-10.2); Chloride 120 mmol/L (98-107); Glucose 118 mg/dL (74-99); Potassium 4.3 mmol/L (3.5-5.1); Sodium 145 mmol/L (137-145)
[2022-12-08 18:51] LABS: African American GFR (CKD) 14 (>60 ml/min/1.73 sqM); Non-African American GFR(CKD) 12 (>60 ml/min/1.73 sqM)
[2022-12-08 19:11] LABS: Glucose,Whole Blood 146 mg/dL (70-110)
[2022-12-08 19:16] LABS: Carbon Dioxide 9 mmol/L (22-30)
[2022-12-08 20:02] LABS: Glucose,Whole Blood 114 mg/dL (70-110)
[2022-12-08 21:05] LABS: Glucose,Whole Blood 116 mg/dL (70-110)
[2022-12-08] MEDS: CHLORHEXIDINE GLUCONATE 15 ML CUP MUCOUS MEM SCH (21:39)
[2022-12-08 22:07] LABS: Glucose,Whole Blood 135 mg/dL (70-110)
[2022-12-08 23:02] LABS: Glucose,Whole Blood 189 mg/dL (70-110)
[2022-12-08 23:36] LABS: ALT 260 U/L (4-49); Albumin 2.7 g/dL (3.5-5.0); Alkaline Phosphatase 80 U/L (38-126); Anion Gap 12 mmol/L; Blood Urea Nitrogen 61 mg/dL (9-20); Calcium 7.3 mg/dL (8.4-10.2); Carbon Dioxide 13 mmol/L (22-30); Chloride 112 mmol/L (98-107); Glucose 225 mg/dL (74-99); Magnesium 2.4 mg/dL (1.6-2.3); Phosphorus 3.1 mg/dL (2.5-4.5); Potassium 3.4 mmol/L (3.5-5.1); Sodium 137 mmol/L (137-145); Total Bilirubin 0.9 mg/dL (0.2-1.3); Total Protein 5.3 g/dL (6.3-8.2)
[2022-12-08 23:41] LABS: African American GFR (CKD) 20 (>60 ml/min/1.73 sqM); Non-African American GFR(CKD) 17 (>60 ml/min/1.73 sqM)
[2022-12-09 00:07] LABS: Glucose,Whole Blood 184 mg/dL (70-110)
[2022-12-09 00:11] LABS: AST 1405 U/L (17-59)
[2022-12-09 01:02] LABS: Glucose,Whole Blood 236 mg/dL (70-110)
[2022-12-09 02:12] LABS: Glucose,Whole Blood 242 mg/dL (70-110)
[2022-12-09 03:11] LABS: Glucose,Whole Blood 228 mg/dL (70-110)
[2022-12-09 04:20] LABS: Glucose,Whole Blood 238 mg/dL (70-110)
[2022-12-09 04:26] LABS: Basophils % (A) 0 %; Eosinophils # (A) 0.1 k/uL (0-0.7); Eosinophils % (A) 1 %; HCT 35.9 % (39.0-53.0); HGB 12.5 gm/dL (13.0-17.5); Lymphocytes # (A) 1.4 k/uL (1.0-4.8); Lymphocytes % (A) 15 %; MCH 29.4 pg (25.0-35.0); MCHC 34.8 g/dL (31.0-37.0); MCV 84.6 fL (80.0-100.0); Mean Platelet Volume 9.5; Monocytes # (A) 0.3 k/uL (0-1.0); Monocytes % (A) 4 %; Neutrophils # (A) 7.1 k/uL (1.3-7.7); Neutrophils % (A) 79 %; RBC 4.25 m/uL (4.30-5.90); RDW 14.2 % (11.5-15.5); WBC 9.1 k/uL (3.8-10.6)
[2022-12-09 04:31] LABS: ALT 284 U/L (4-49); Albumin 2.7 g/dL (3.5-5.0); Alkaline Phosphatase 85 U/L (38-126); Anion Gap 12 mmol/L; Blood Urea Nitrogen 64 mg/dL (9-20); Calcium 7.1 mg/dL (8.4-10.2); Carbon Dioxide 15 mmol/L (22-30); Chloride 109 mmol/L (98-107); Glucose 277 mg/dL (74-99); Potassium 3.6 mmol/L (3.5-5.1); Sodium 136 mmol/L (137-145); Total Protein 5.1 g/dL (6.3-8.2)
[2022-12-09 04:37] LABS: African American GFR (CKD) 18 (>60 ml/min/1.73 sqM); Non-African American GFR(CKD) 15 (>60 ml/min/1.73 sqM)
[2022-12-09 04:44] LABS: Platelet Count 42 k/uL (150-450)
[2022-12-09] MEDS: INSULIN REGULAR 100 UNIT in SODIUM CHLORIDE 0.9% 100 ML IV SCH ×5 (04:57→16:19)
[2022-12-09 05:02] LABS: Creatine Kinase 92432 U/L (55-170)
[2022-12-09 05:06] LABS: Glucose,Whole Blood 251 mg/dL (70-110)
[2022-12-09 05:09] LABS: AST 1550 U/L (17-59)
[2022-12-09] MEDS ORDERED: PANTOPRAZOLE 40 MG/10 ML VIAL IVP ONE (05:30)
[2022-12-09] MEDS: PIPERACILLIN-TAZOBACTAM 3.375 GM in SODIUM CHLORIDE 0.9% 100 ML IVPB SCH ×2 (05:41→18:05)
[2022-12-09 05:48] LABS: ABG Base Excess -5.4 mmol/L; ABG HCO3 18 mmol/L (21-25); ABG Oxygen Saturation 97.6 % (94-97); ABG PCO2 24 mmHg (35-45); ABG PH 7.49 (7.35-7.45); ABG PO2 109 mmHg (83-108); ABG TCO2 19 mmol/L (19-24); Allen Test Performed? Yes
[2022-12-09 06:14] LABS: Glucose,Whole Blood 270 mg/dL (70-110)
[2022-12-09 06:56] LABS: Glucose,Whole Blood 284 mg/dL (70-110)
[2022-12-09 07:55] LABS: Glucose,Whole Blood 398 mg/dL (70-110)
[2022-12-09 07:58] LABS: Glucose,Whole Blood 359 mg/dL (70-110)
[2022-12-09 09:06] LABS: Glucose,Whole Blood 368 mg/dL (70-110)
[2022-12-09 09:30] LABS: Hepatitis B Surface AB- Quant 3.5 mIU/mL; Hepatitis B Surface Antigen Nonreactive
--- NOTE | 2022-12-09 09:42 | P.PN ---
Subjective Progress Note Date: 12/09/22 This is a 67-year-old male patient, diabetic, known history of closed head injury, bipolar disorder, was currently intubated on a mechanical ventilator. He presented to our hospital unresponsive. [place] was [place] in [place] in his own emesis. Upon arrival, the patient was hypotensive, he was hypoxic, he was found to be in DKA. He was intubated and placed on a mechanical ventilator. I believe he also aspirated. CAT scan of the chest abdomen and pelvis showed no acute process. There may be some changes related to liver cirrhosis. CAT scan of the head showed no acute intracranial process. At this point in time, the patient is intubated on a mechanical ventilator. Is on assist control and anxiety the rate of 228, FiO2 has been brought down to 50% with a PEEP of 5 and a tidal volumes of 500. The blood gas showed a pH of 6.9 with a pCO2 of 31 and pO2 of 400. The blood work showed a potassium level of 7.7, he had significant and I get metabolic acidosis with a serum bicarb of less than 5, initial blood sugar was 794 and the lactic acid level was at 9.5. The patient had a white darnell l count of 15.7 with a hemoglobin 15.8 and a platelet count of 138. Cognition profile was within normal limits. LFTs were normal, serum ammonia level was elevated at 590, UA showed +3 glucose, +2 ketones and urine drug screen was negative, the viral screen was also negative. For now, the patient has already received a total of 3 L of normal saline and the patient is currently on a bicarbonate infusion running at 150 mEq at 150 mL an hour. He is on insulin drip at 10 units an hour. He is on propofol running at 35 mcg/kg/m. He has a triple-lumen catheter in his left femoral vein. There is a orogastric tube in place and output is coffee-ground. He has hypotensive. He is on norepinephrine at 0.2 mcg/kg/m. The patient is also on emperic Antibiotic coverage started on a combination of Zosyn and vancomycin. On today's evaluation of 12/08/2022, the patient is being seen in follow-up in the intensive care unit. A critically ill male patient with DKA, rhabdomyolysis, severe metabolic acidosis, hypotension, acute kidney injury and furthermore, the patient lost his pulse and the left lower extremity and currently has a ischemic left foot. The patient remains on a mechanical ventil ator for now. He is on propofol which is running at 40 mcg/kg/m. His adequately sedated and is calm and comfortable on a mechanical ventilator on assist control mode at a rate of 28, tidal volume 500, FiO2 of 40% with a PEEP of 5. The blood gas from today shows a pH of 7.28 with episodes of 26-year-old to 180. Chest x-ray shows no acute abnormalities. Orotracheal tube is in good location. No airspace disease. NG tube is in place. Lungs are clear. Also, the patient remains hemodynamically unstable. He was aggressively resuscitated with IV fluids yesterday. Patient has been in a positive fluid balance of 5 L over the past 24 hours. Currently, he remains on norepinephrine and dose has been weaned down to 0.16 mcg/kg/m. The patient has been switched to D5 half- normal saline which is running at 150 mL an hour and this is based on our DKA protocol. Insulin drip is still running at 12 units an hour. Most recent blood sugar is at 292. The anion gap is at 18. Serum bicarb is at 8. Potassium level has improved down to 4.9. He has sustained an acute kidney injury and the creatinine is at the rise at 3.9. He was had no urine output overnightt. Earlier this morning, he started making some urine output. He has developed a rhabdomyolysis. CPK level is up to 13,947.. Furthermore, his left foot is mottled and cold and pale and there are no palpable pulses in dorsalis pedis and the posterior tibialis. Very poor capillary refill. The mottling is above the ankle reaching the med left leg. The white count was of 15.7, hemoglobin was at 15.8 at time of admission. Coagulation profile was within normal limits. UA was negative. 12/09/2022, the patient remains intubated on a mechanical ventilator. The patient remains in intensive care unit. He is a critically ill male patient with DKA, rhabdomyolysis, hypotension, acute kidney injury and ischemic left foot. Since yesterday, the patient has been kept on a mechanical ventilator. He remains on propofol running at 25 mcg/kg/m. He remains comfortable and symptoms to mechanical ventilator. His assist-control mode at a rate of 28, tidal volume of 500, FiO2 of 40% with a PEEP of 5. The blood gas from today sh ows a pH of 7.49 with a pCO2 of 24 and pO2 of 109. Chest x-ray showing atelectatic changes in both lungs bilaterally. Orotracheal tube is in a good location. Hemodynamically, the patient was weaned off the pressors and this morning the patient was taken off pressors. Meanwhile, his urine output is quite low. This has been noted throughout the night. Nephrology is involved regarding his acute kidney injury and severe rhabdomyolysis. The patient has a dialysis catheter has right femoral vein. The patient was started on hemodialysis in the first session was offered to him yesterday. Unfortunately, the CPK is on the rise is currently up to 92,000. The left lower extremities ischemic with absent pulses in skin mottling and swelling demarcated this point in time. No Refill. The potassium levels at 3.6, serum bicarbs of 50, B is a 64 with a creatinine of 3.7. IV heparin was started and it had to be discontinued because of the development of thrombocytopenia. Platelet count is down to 42. Hemoglobin is at 12.5 with a white cell count of 9.1. Insulin drip is running at 5.5 units an hour and the patient's blood sugars are in the 300 range. He was started also on enteral feeding for nutritional support and currently is on vital high-protein at the rate of 20 mL an hour. He is afebrile. Cultures are negative. Is covered with antibiotics and he is currently on IV Zosyn Objective - Vital Signs Vital signs: Vital Signs Temp 97.8 F 12/09/22 08:00 Pulse 74 12/09/22 09:00 Resp 28 H 12/09/22 09:00 BP 122/54 12/09/22 07:00 Pulse Ox 100 12/09/22 09:00 FiO2 40 12/09/22 08:00 Intake & Output 12/08/22 12/09/22 12/09/22 18:59 06:59 18:59 Intake Total 2199.893 2084.354 594.433 Output Total 27 400 5 Balance 2172.893 1684.354 589.433 Weight 107.8 kg 109.8 kg Intake: IV 1520 1230 416 .9 NS 6 D5-0.45% NaCl with KCl 600 20Meq/l 1,000 ml @ 150 mls/hr IV .Q6H40M [facility] Rx# :[id number] Dextrose 5% in Water 1, 900 1100 300 000 ml @ 100 mls/hr IV . [id number] CAROL with Sodium Bicarb (1 Meq/ml) 150 ml Rx#:[id number] Invasive Line 3 20 30 10 Piperacillin-Tazobactam 3 100 100 .375 gm In Sodium Chloride 0.9% 100 ml @ 25 mls/hr IVPB Q8H [facility] Rx#: [id number] Intake, IV Titration 679.893 454.354 108.433 Amount Heparin Sod,Pork in 0.45% 204.957 NaCl 25,000 unit In 0.45 % NaCl 1 250ml.bag @ 9.59 UNITS/KG/HR 10.002 mls/ hr IV .Q24H [facility] Rx#: [id number] Insulin Regular 100 unit 112.269 11.085 8.433 In Sodium Chloride 0.9% 100 ml @ 0.1 UNITS/KG/HR 10.445 mls/hr IV .Q9H41M [facility] Rx#:[id number] Norepinephrine 8 mg In 283.646 138.312 0 Sodium Chloride 0.9% 250 ml @ 0.05 MCG/KG/MIN 10. 006 mls/hr IV .Q24H [facility] Rx#:[id number] propofoL 1,000 mg In 283.978 100 100 Empty Bag 1 bag @ 15 MCG/ KG/MIN 9.308 mls/hr IV . [id number] [facility] Rx#:[id number] Tube Feeding 40 Hemodialysis 400 Other 30 Output: Urine 27 0 5 Hemodialysis 400 Other: Voiding Method Indwelling Catheter Indwelling Catheter Indwelling Catheter ABP, PAP, CO, CI - Last Documented Arterial Blood Pressure 122/46 - Exam Gen. appearance the patient is sedated on propofol, calm and comfortable, not in acute distress, orogastric and NG tube is in place Head exam was generally normal. There was no scleral icterus or corneal arcus. Mucous membranes were moist. Neck was supple and without jugular venous distension, thyromegaly, or carotid bruits. Carotids were easily palpable bilaterally. There was no adenopathy. Lungs were clear to auscultation and percussion, and with normal diaphragmatic excursion. No wheezes or rales were noted. Cardiac exam revealed the PMI to be normally situated and sized. The rhythm was regular and no extrasystoles were noted during several minutes of auscultation. The first and second heart sounds were normal and physiologic splitting of the second heart sound was noted. There were no murmurs, rubs, clicks, or gallops. Abdominal exam revealed normal bowel sounds. The abdomen was soft, non-tender, and without masses, organomegaly, or appreciable enlargement of the abdominal aorta. Extremities are cold and clammy with diminished pulses in all 4 extremities. No cyanosis or clubbing. Since yesterday, the patient has completely lost Doppler signals in the left foot and there is no posterior tibialis or dorsalis pedis. Did not obtain popliteal follow-up. There is skin mottling involving the foot and this is reaching to the med left leg. Patient is a no capillary refill. Patient has a cold left foot. The patient also has a triple-lumen catheter in his left femoral vein and a dialysis cath in his right femoral vein. Neurological the patient is sedated. Pupils are reactive round 3 mm in size. - Labs CBC & Chem 7: 12/09/22 04:00 12/09/22 04:00 Labs: Abnormal Lab Results - Last 24 Hours (Table) 12/08/22 12/08/22 12/08/22 Range/Units 09:58 10:10 11:03 WBC (3.8-10.6) k/uL RBC (4.30-5.90) m/uL Hgb (13.0-17.5) gm/dL Hct (39.0-53.0) % Plt Count (150-450) k/uL Neutrophils # (1.3-7.7) k/uL APTT 21.9 L (22.0-30.0) sec ABG pH (7.35-7.45) ABG pCO2 (35-45) mmHg ABG pO2 (83-108) mmHg ABG HCO3 (21-25) mmol/L ABG O2 Saturation (94-97) % Sodium (137-145) mmol/L Potassium (3.5-5.1) mmol/L Chloride (98-107) mmol/L Carbon Dioxide (22-30) mmol/L BUN (9-20) mg/dL Creatinine (0.66-1.25) mg/dL Glucose (74-99) mg/dL POC Glucose (mg/dL) 262 H 362 H (70-110) mg/dL Calcium (8.4-10.2) mg/dL Magnesium (1.6-2.3) mg/dL AST (17-59) U/L ALT (4-49) U/L Creatine Kinase (55-170) U/L Total Protein (6.3-8.2) g/dL Albumin (3.5-5.0) g/dL 12/08/22 12/08/22 12/08/22 Range/Units 12:00 12:02 12:58 WBC 14.0 H (3.8-10.6) k/uL RBC (4.30-5.90) m/uL Hgb (13.0-17.5) gm/dL Hct (39.0-53.0) % Plt Count 68 L D (150-450) k/uL Neutrophils # 12.1 H (1.3-7.7) k/uL APTT (22.0-30.0) sec ABG pH (7.35-7.45) ABG pCO2 (35-45) mmHg ABG pO2 (83-108) mmHg ABG HCO3 (21-25) mmol/L ABG O2 Saturation (94-97) % Sodium (137-145) mmol/L Potassium (3.5-5.1) mmol/L Chloride (98-107) mmol/L Carbon Dioxide (22-30) mmol/L BUN (9-20) mg/dL Creatinine (0.66-1.25) mg/dL Glucose (74-99) mg/dL POC Glucose (mg/dL) 209 H 172 H (70-110) mg/dL Calcium (8.4-10.2) mg/dL Magnesium (1.6-2.3) mg/dL AST (17-59) U/L ALT (4-49) U/L Creatine Kinase (55-170) U/L Total Protein (6.3-8.2) g/dL Albumin (3.5-5.0) g/dL 12/08/22 12/08/22 12/08/22 Range/Units 13:16 14:04 17:48 WBC (3.8-10.6) k/uL RBC (4.30-5.90) m/uL Hgb (13.0-17.5) gm/dL Hct (39.0-53.0) % Plt Count (150-450) k/uL Neutrophils # (1.3-7.7) k/uL APTT (22.0-30.0) sec ABG pH (7.35-7.45) ABG pCO2 (35-45) mmHg ABG pO2 (83-108) mmHg ABG HCO3 (21-25) mmol/L ABG O2 Saturation (94-97) % Sodium (137-145) mmol/L Potassium (3.5-5.1) mmol/L Chloride (98-107) mmol/L Carbon Dioxide (22-30) mmol/L BUN (9-20) mg/dL Creatinine (0.66-1.25) mg/dL Glucose (74-99) mg/dL POC Glucose (mg/dL) 155 H 142 H 114 H (70-110) mg/dL Calcium (8.4-10.2) mg/dL Magnesium (1.6-2.3) mg/dL AST (17-59) U/L ALT (4-49) U/L Creatine Kinase (55-170) U/L Total Protein (6.3-8.2) g/dL Albumin (3.5-5.0) g/dL 12/08/22 12/08/22 12/08/22 Range/Units 17:49 17:49 17:49 WBC 12.7 H (3.8-10.6) k/uL RBC (4.30-5.90) m/uL Hgb (13.0-17.5) gm/dL Hct (39.0-53.0) % Plt Count 64 L (150-450) k/uL Neutrophils # (1.3-7.7) k/uL APTT 16.8 L (22.0-30.0) sec ABG pH (7.35-7.45) ABG pCO2 (35-45) mmHg ABG pO2 (83-108) mmHg ABG HCO3 (21-25) mmol/L ABG O2 Saturation (94-97) % Sodium (137-145) mmol/L Potassium (3.5-5.1) mmol/L Chloride (98-107) mmol/L Carbon Dioxide (22-30) mmol/L BUN (9-20) mg/dL Creatinine (0.66-1.25) mg/dL Glucose (74-99) mg/dL POC Glucose (mg/dL) (70-110) mg/dL Calcium (8.4-10.2) mg/dL Magnesium (1.6-2.3) mg/dL AST (17-59) U/L ALT (4-49) U/L Creatine Kinase 91040 H* (55-170) U/L Total Protein (6.3-8.2) g/dL Albumin (3.5-5.0) g/dL 12/08/22 12/08/22 12/08/22 Range/Units 17:49 19:08 20:00 WBC (3.8-10.6) k/uL RBC (4.30-5.90) m/uL Hgb (13.0-17.5) gm/dL Hct (39.0-53.0) % Plt Count (150-450) k/uL Neutrophils # (1.3-7.7) k/uL APTT (22.0-30.0) sec ABG pH (7.35-7.45) ABG pCO2 (35-45) mmHg ABG pO2 (83-108) mmHg ABG HCO3 (21-25) mmol/L ABG O2 Saturation (94-97) % Sodium (137-145) mmol/L Potassium (3.5-5.1) mmol/L Chloride 120 H (98-107) mmol/L Carbon Dioxide 9 L* (22-30) mmol/L BUN 92 H (9-20) mg/dL Creatinine 4.67 H (0.66-1.25) mg/dL Glucose 118 H (74-99) mg/dL POC Glucose (mg/dL) 146 H 114 H (70-110) mg/dL Calcium 7.2 L (8.4-10.2) mg/dL Magnesium (1.6-2.3) mg/dL AST (17-59) U/L ALT (4-49) U/L Creatine Kinase (55-170) U/L Total Protein (6.3-8.2) g/dL Albumin (3.5-5.0) g/dL 12/08/22 12/08/22 12/08/22 Range/Units 21:03 22:06 23:00 WBC (3.8-10.6) k/uL RBC (4.30-5.90) m/uL Hgb (13.0-17.5) gm/dL Hct (39.0-53.0) % Plt Count (150-450) k/uL Neutrophils # (1.3-7.7) k/uL APTT (22.0-30.0) sec ABG pH (7.35-7.45) ABG pCO2 (35-45) mmHg ABG pO2 (83-108) mmHg ABG HCO3 (21-25) mmol/L ABG O2 Saturation (94-97) % Sodium (137-145) mmol/L Potassium (3.5-5.1) mmol/L Chloride (98-107) mmol/L Carbon Dioxide (22-30) mmol/L BUN (9-20) mg/dL Creatinine (0.66-1.25) mg/dL Glucose (74-99) mg/dL POC Glucose (mg/dL) 116 H 135 H 189 H (70-110) mg/dL Calcium (8.4-10.2) mg/dL Magnesium (1.6-2.3) mg/dL AST (17-59) U/L ALT (4-49) U/L Creatine Kinase (55-170) U/L Total Protein (6.3-8.2) g/dL Albumin (3.5-5.0) g/dL 12/08/22 12/09/22 12/09/22 Range/Units 23:19 00:06 01:00 WBC (3.8-10.6) k/uL RBC (4.30-5.90) m/uL Hgb (13.0-17.5) gm/dL Hct (39.0-53.0) % Plt Count (150-450) k/uL Neutrophils # (1.3-7.7) k/uL APTT (22.0-30.0) sec ABG pH (7.35-7.45) ABG pCO2 (35-45) mmHg ABG pO2 (83-108) mmHg ABG HCO3 (21-25) mmol/L ABG O2 Saturation (94-97) % Sodium (137-145) mmol/L Potassium 3.4 L (3.5-5.1) mmol/L Chloride 112 H (98-107) mmol/L Carbon Dioxide 13 L (22-30) mmol/L BUN 61 H (9-20) mg/dL Creatinine 3.40 H (0.66-1.25) mg/dL Glucose 225 H (74-99) mg/dL POC Glucose (mg/dL) 184 H 236 H (70-110) mg/dL Calcium 7.3 L (8.4-10.2) mg/dL Magnesium 2.4 H (1.6-2.3) mg/dL AST 1405 H (17-59) U/L ALT 260 H (4-49) U/L Creatine Kinase (55-170) U/L Total Protein 5.3 L (6.3-8.2) g/dL Albumin 2.7 L (3.5-5.0) g/dL 12/09/22 12/09/22 12/09/22 Range/Units 02:11 03:09 04:00 WBC (3.8-10.6) k/uL RBC (4.30-5.90) m/uL Hgb (13.0-17.5) gm/dL Hct (39.0-53.0) % Plt Count (150-450) k/uL Neutrophils # (1.3-7.7) k/uL APTT (22.0-30.0) sec ABG pH (7.35-7.45) ABG pCO2 (35-45) mmHg ABG pO2 (83-108) mmHg ABG HCO3 (21-25) mmol/L ABG O2 Saturation (94-97) % Sodium 136 L (137-145) mmol/L Potassium (3.5-5.1) mmol/L Chloride 109 H (98-107) mmol/L Carbon Dioxide 15 L (22-30) mmol/L BUN 64 H (9-20) mg/dL Creatinine 3.77 H (0.66-1.25) mg/dL Glucose 277 H (74-99) mg/dL POC Glucose (mg/dL) 242 H 228 H (70-110) mg/dL Calcium 7.1 L (8.4-10.2) mg/dL Magnesium (1.6-2.3) mg/dL AST 1550 H (17-59) U/L ALT 284 H (4-49) U/L Creatine Kinase 46574 H* (55-170) U/L Total Protein 5.1 L (6.3-8.2) g/dL Albumin 2.7 L (3.5-5.0) g/dL 12/09/22 12/09/22 12/09/22 Range/Units 04:00 04:18 05:05 WBC (3.8-10.6) k/uL RBC 4.25 L (4.30-5.90) m/uL Hgb 12.5 L (13.0-17.5) gm/dL Hct 35.9 L (39.0-53.0) % Plt Count 42 L (150-450) k/uL Neutrophils # (1.3-7.7) k/uL APTT (22.0-30.0) sec ABG pH (7.35-7.45) ABG pCO2 (35-45) mmHg ABG pO2 (83-108) mmHg ABG HCO3 (21-25) mmol/L ABG O2 Saturation (94-97) % Sodium (137-145) mmol/L Potassium (3.5-5.1) mmol/L Chloride (98-107) mmol/L Carbon Dioxide (22-30) mmol/L BUN (9-20) mg/dL Creatinine (0.66-1.25) mg/dL Glucose (74-99) mg/dL POC Glucose (mg/dL) 238 H 251 H (70-110) mg/dL Calcium (8.4-10.2) mg/dL Magnesium (1.6-2.3) mg/dL AST (17-59) U/L ALT (4-49) U/L Creatine Kinase (55-170) U/L Total Protein (6.3-8.2) g/dL Albumin (3.5-5.0) g/dL 12/09/22 12/09/22 12/09/22 Range/Units 05:44 06:13 06:55 WBC (3.8-10.6) k/uL RBC (4.30-5.90) m/uL Hgb (13.0-17.5) gm/dL Hct (39.0-53.0) % Plt Count (150-450) k/uL Neutrophils # (1.3-7.7) k/uL APTT (22.0-30.0) sec ABG pH 7.49 H (7.35-7.45) ABG pCO2 24 L (35-45) mmHg ABG pO2 109 H (83-108) mmHg ABG HCO3 18 L (21-25) mmol/L ABG O2 Saturation 97.6 H (94-97) % Sodium (137-145) mmol/L Potassium (3.5-5.1) mmol/L Chloride (98-107) mmol/L Carbon Dioxide (22-30) mmol/L BUN (9-20) mg/dL Creatinine (0.66-1.25) mg/dL Glucose (74-99) mg/dL POC Glucose (mg/dL) 270 H 284 H (70-110) mg/dL Calcium (8.4-10.2) mg/dL Magnesium (1.6-2.3) mg/dL AST (17-59) U/L ALT (4-49) U/L Creatine Kinase (55-170) U/L Total Protein (6.3-8.2) g/dL Albumin (3.5-5.0) g/dL 12/09/22 12/09/22 12/09/22 Range/Units 07:54 07:56 09:02 WBC (3.8-10.6) k/uL RBC (4.30-5.90) m/uL Hgb (13.0-17.5) gm/dL Hct (39.0-53.0) % Plt Count (150-450) k/uL Neutrophils # (1.3-7.7) k/uL APTT (22.0-30.0) sec ABG pH (7.35-7.45) ABG pCO2 (35-45) mmHg ABG pO2 (83-108) mmHg ABG HCO3 (21-25) mmol/L ABG O2 Saturation (94-97) % Sodium (137-145) mmol/L Potassium (3.5-5.1) mmol/L Chloride (98-107) mmol/L Carbon Dioxide (22-30) mmol/L BUN (9-20) mg/dL Creatinine (0.66-1.25) mg/dL Glucose (74-99) mg/dL POC Glucose (mg/dL) 398 H 359 H 368 H (70-110) mg/dL Calcium (8.4-10.2) mg/dL Magnesium (1.6-2.3) mg/dL AST (17-59) U/L ALT (4-49) U/L Creatine Kinase (55-170) U/L Total Protein (6.3-8.2) g/dL Albumin (3.5-5.0) g/dL Microbiology - Last 24 Hours (Table) 12/07/22 11:55 Blood Culture - Preliminary Blood 12/07/22 11:55 Blood Culture - Preliminary Blood 12/08/22 00:09 Gram Stain - Preliminary Sputum Assessment and Plan Plan: Acute diabetic ketoacidosis with severe anion gap metabolic acidosis, being treated based on the DKA protocol. The patient has recovered and anion gap is down to 12. Serum bicarb is currently at 15. Continue bicarb drip for another 12 hours. Would like to bring up the serum bicarb of 20. Meanwhile, continue the insulin drip which is currently running at 5.5 units an hour. Acute hypoxic respiratory failure, currently intubated on a mechanical ventilator. Suspect aspiration. Chest x-ray is clear patient is currently on IV Zosyn. Chest x-ray showing some atelectatic change in the lung bases bilaterally Acute shock, probably hypovolemic. Patient is normotensive at this point in time in the past a been discontinued Severe lactic acidosis, improving, down to 1.8 Liver cirrhosis, elevated ammonia level, dropped significantly could be related to an erroneous lab value the time of admission Acute kidney injury secondary to above, creatinine is on the rise and the patient is oliguric, consider ATN secondary to acute rhabdomyolysis. The patient was dialyzed yesterday. Acute hyperkalemia is improved. Acute rhabdomyolysis, CPK is on the rise Acute ischemic left foot/arterial ischemia with absent pulses Acute thrombocytopenia, heparin has been discontinued Troponin leak secondary to above Altered mentation secondary to above and the patient is currently intubated on mechanical ventilator on sedation Acute leukocytosis, reactive versus septic, improved Acute hyperkalemia secondary to hypoglycemia and severe acidosis. No EKG changes at this point in time. Potassium level is improved Hypothermia, recovered and the patient is normothermic Plan Discontinue the DKA protocol Continue bicarb drip for another 8-12 hours with a target of serum bicarb above 20 The patient is quite alkalotic with a pH of 7.49. I do not respiratory down to 20 The patient will be kept on a mechanical ventilator, intubated, sedated on propofol. off norepinephrine Continue insulin drip. Moderate anion gap Lactic acid level is improved Monitor CPK Continue Zosyn Echocardiogram with preserved LV function Vascular surgery consultation regarding the ischemic left foot, to unstable to any interventions Ultrasound the kidneys, no hydronephrosis Monitor electrolytes IV Protonix Continue enteral feeding for nutritional support Heparin subcu for DVT prophylaxis Condition is critical and we'll continue to follow make further recommendations based on his progress. We'll continue to follow make further recommendations based on his progress. Condition remains critical was done in more than 30 minutes Time with Patient: Greater than 30
[2022-12-09 09:57] LABS: Glucose,Whole Blood 385 mg/dL (70-110)
[2022-12-09] MEDS ORDERED: VANCOMYCIN IV PER PHARMACY 1 EACH MISC MISCELLANE PRN (10:36)
[2022-12-09 10:49] LABS: ALT 317 U/L (4-49); Albumin 2.4 g/dL (3.5-5.0); Alkaline Phosphatase 81 U/L (38-126); Anion Gap 13 mmol/L; Blood Urea Nitrogen 70 mg/dL (9-20); Calcium 6.8 mg/dL (8.4-10.2); Carbon Dioxide 16 mmol/L (22-30); Chloride 106 mmol/L (98-107); Glucose 395 mg/dL (74-99); Phosphorus 3.5 mg/dL (2.5-4.5); Potassium 3.4 mmol/L (3.5-5.1); Sodium 135 mmol/L (137-145); Total Bilirubin 0.9 mg/dL (0.2-1.3); Total Protein 4.8 g/dL (6.3-8.2)
[2022-12-09 10:54] LABS: African American GFR (CKD) 16 (>60 ml/min/1.73 sqM); Non-African American GFR(CKD) 14 (>60 ml/min/1.73 sqM)
[2022-12-09] MEDS: HEPARIN SOD,PORK IN 0.45% NACL 25,000 UNIT in 0.45% NACL 1 250ML.BAG IV SCH (10:54)
[2022-12-09] MEDS: DEXTROSE 5% IN WATER 1,000 ML with SODIUM BICARB (1 MEQ/ML) 150 ML IV SCH (10:54)
[2022-12-09] MEDS: CHLORHEXIDINE GLUCONATE 15 ML CUP MUCOUS MEM SCH ×2 (10:55→20:15)
[2022-12-09] MEDS: ASPIRIN 81 MG PO SCH (10:55)
[2022-12-09] MEDS ORDERED: VANCOMYCIN 1,750 MG in SODIUM CHLORIDE 0.9% 500 ML 500 ML IVPB ONE (11:00)
[2022-12-09 11:02] LABS: Glucose,Whole Blood 353 mg/dL (70-110)
[2022-12-09 11:22] LABS: AST 1527 U/L (17-59)
[2022-12-09 12:00] LABS: Glucose,Whole Blood 339 mg/dL (70-110)
[2022-12-09 12:16] LABS: ABG Base Excess -3.8 mmol/L; ABG HCO3 20 mmol/L (21-25); ABG Oxygen Saturation 98.7 % (94-97); ABG PCO2 29 mmHg (35-45); ABG PH 7.45 (7.35-7.45); ABG PO2 122 mmHg (83-108); ABG TCO2 21 mmol/L (19-24)
[2022-12-09 12:18] LABS: Allen Test Performed? no
--- NOTE | 2022-12-09 13:09 | P.PN ---
Subjective Progress Note Date: 12/09/22 Patient remains intubated however is off vasopressors. Objective - Vital Signs Vital signs: Vital Signs Temp 97.8 F 12/09/22 08:00 Pulse 82 12/09/22 11:30 Resp 28 H 12/09/22 11:30 BP 122/54 12/09/22 07:00 Pulse Ox 96 12/09/22 11:30 FiO2 40 12/09/22 11:01 Intake & Output 12/08/22 12/09/22 12/09/22 18:59 06:59 18:59 Intake Total 2199.893 2084.354 1071.479 Output Total 27 400 5 Balance 2172.893 3091.432 7535.479 Weight 107.8 kg 109.8 kg Intake: IV 1520 1230 572 .9 NS 12 D5-0.45% NaCl with KCl 600 20Meq/l 1,000 ml @ 150 mls/hr IV .Q6H40M [facility] Rx# :[id number] Dextrose 5% in Water 1, 900 1100 450 000 ml @ 50 mls/hr IV . Q23H [facility] with Sodium Bicarb (1 Meq/ml) 150 ml Rx#:[id number] Invasive Line 3 20 30 10 Piperacillin-Tazobactam 3 100 100 .375 gm In Sodium Chloride 0.9% 100 ml @ 25 mls/hr IVPB Q8H [facility] Rx#: [id number] Intake, IV Titration 679.893 454.354 389.479 Amount Heparin Sod,Pork in 0.45% 204.957 NaCl 25,000 unit In 0.45 % NaCl 1 250ml.bag @ 9.59 UNITS/KG/HR 10.002 mls/ hr IV .Q24H [facility] Rx#: [id number] Insulin Regular 100 unit 112.269 11.085 280.174 In Sodium Chloride 0.9% 100 ml @ 0.1 UNITS/KG/HR 10.445 mls/hr IV .Q9H41M [facility] Rx#:[id number] Norepinephrine 8 mg In 283.646 138.312 9.305 Sodium Chloride 0.9% 250 ml @ 0.05 MCG/KG/MIN 10. 006 mls/hr IV .Q24H [facility] Rx#:[id number] propofoL 1,000 mg In 283.978 100 100 Empty Bag 1 bag @ 15 MCG/ KG/MIN 9.308 mls/hr IV . [id number] [facility] Rx#:[id number] Tube Feeding 80 Hemodialysis 400 Other 30 Output: Urine 27 0 5 Hemodialysis 400 Other: Voiding Method Indwelling Catheter Indwelling Catheter Indwelling Catheter ABP, PAP, CO, CI - Last Documented Arterial Blood Pressure 125/47 - Exam The left lower extremity ischemia extends to the mid calf level posteriorly. The patient will require an khdop-pdv-gvoa amputation. Timing of this is somewhat complex given his continued insulin drip and other significant medical issues. To complicate everything there is no known contact for the patient. The patient's CPK continues to rise at least in part due to the ischemic leg and the leg may have to be amputated being deemed emergent without family consent. This was discussed with . Hopefully within the next 24 hours contact can be made with family to discuss the current situation. - Labs CBC & Chem 7: 12/09/22 04:00 12/09/22 09:59 Labs: Abnormal Lab Results - Last 24 Hours (Table) 12/08/22 12/08/22 12/08/22 Range/Units 12:00 13:16 14:04 WBC (3.8-10.6) k/uL RBC (4.30-5.90) m/uL Hgb (13.0-17.5) gm/dL Hct (39.0-53.0) % Plt Count 68 L D (150-450) k/uL Neutrophils # 12.1 H (1.3-7.7) k/uL APTT (22.0-30.0) sec ABG pH (7.35-7.45) ABG pCO2 (35-45) mmHg ABG pO2 (83-108) mmHg ABG HCO3 (21-25) mmol/L ABG O2 Saturation (94-97) % Sodium (137-145) mmol/L Potassium (3.5-5.1) mmol/L Chloride (98-107) mmol/L Carbon Dioxide (22-30) mmol/L BUN (9-20) mg/dL Creatinine (0.66-1.25) mg/dL Glucose (74-99) mg/dL POC Glucose (mg/dL) 155 H 142 H (70-110) mg/dL Calcium (8.4-10.2) mg/dL Magnesium (1.6-2.3) mg/dL AST (17-59) U/L ALT (4-49) U/L Creatine Kinase (55-170) U/L Total Protein (6.3-8.2) g/dL Albumin (3.5-5.0) g/dL 12/08/22 12/08/22 12/08/22 Range/Units 17:48 17:49 17:49 WBC 12.7 H (3.8-10.6) k/uL RBC (4.30-5.90) m/uL Hgb (13.0-17.5) gm/dL Hct (39.0-53.0) % Plt Count 64 L (150-450) k/uL Neutrophils # (1.3-7.7) k/uL APTT 16.8 L (22.0-30.0) sec ABG pH (7.35-7.45) ABG pCO2 (35-45) mmHg ABG pO2 (83-108) mmHg ABG HCO3 (21-25) mmol/L ABG O2 Saturation (94-97) % Sodium (137-145) mmol/L Potassium (3.5-5.1) mmol/L Chloride (98-107) mmol/L Carbon Dioxide (22-30) mmol/L BUN (9-20) mg/dL Creatinine (0.66-1.25) mg/dL Glucose (74-99) mg/dL POC Glucose (mg/dL) 114 H (70-110) mg/dL Calcium (8.4-10.2) mg/dL Magnesium (1.6-2.3) mg/dL AST (17-59) U/L ALT (4-49) U/L Creatine Kinase (55-170) U/L Total Protein (6.3-8.2) g/dL Albumin (3.5-5.0) g/dL 12/08/22 12/08/22 12/08/22 Range/Units 17:49 17:49 19:08 WBC (3.8-10.6) k/uL RBC (4.30-5.90) m/uL Hgb (13.0-17.5) gm/dL Hct (39.0-53.0) % Plt Count (150-450) k/uL Neutrophils # (1.3-7.7) k/uL APTT (22.0-30.0) sec ABG pH (7.35-7.45) ABG pCO2 (35-45) mmHg ABG pO2 (83-108) mmHg ABG HCO3 (21-25) mmol/L ABG O2 Saturation (94-97) % Sodium (137-145) mmol/L Potassium (3.5-5.1) mmol/L Chloride 120 H (98-107) mmol/L Carbon Dioxide 9 L* (22-30) mmol/L BUN 92 H (9-20) mg/dL Creatinine 4.67 H (0.66-1.25) mg/dL Glucose 118 H (74-99) mg/dL POC Glucose (mg/dL) 146 H (70-110) mg/dL Calcium 7.2 L (8.4-10.2) mg/dL Magnesium (1.6-2.3) mg/dL AST (17-59) U/L ALT (4-49) U/L Creatine Kinase 55322 H* (55-170) U/L Total Protein (6.3-8.2) g/dL Albumin (3.5-5.0) g/dL 12/08/22 12/08/22 12/08/22 Range/Units 20:00 21:03 22:06 WBC (3.8-10.6) k/uL RBC (4.30-5.90) m/uL Hgb (13.0-17.5) gm/dL Hct (39.0-53.0) % Plt Count (150-450) k/uL Neutrophils # (1.3-7.7) k/uL APTT (22.0-30.0) sec ABG pH (7.35-7.45) ABG pCO2 (35-45) mmHg ABG pO2 (83-108) mmHg ABG HCO3 (21-25) mmol/L ABG O2 Saturation (94-97) % Sodium (137-145) mmol/L Potassium (3.5-5.1) mmol/L Chloride (98-107) mmol/L Carbon Dioxide (22-30) mmol/L BUN (9-20) mg/dL Creatinine (0.66-1.25) mg/dL Glucose (74-99) mg/dL POC Glucose (mg/dL) 114 H 116 H 135 H (70-110) mg/dL Calcium (8.4-10.2) mg/dL Magnesium (1.6-2.3) mg/dL AST (17-59) U/L ALT (4-49) U/L Creatine Kinase (55-170) U/L Total Protein (6.3-8.2) g/dL Albumin (3.5-5.0) g/dL 12/08/22 12/08/22 12/09/22 Range/Units 23:00 23:19 00:06 WBC (3.8-10.6) k/uL RBC (4.30-5.90) m/uL Hgb (13.0-17.5) gm/dL Hct (39.0-53.0) % Plt Count (150-450) k/uL Neutrophils # (1.3-7.7) k/uL APTT (22.0-30.0) sec ABG pH (7.35-7.45) ABG pCO2 (35-45) mmHg ABG pO2 (83-108) mmHg ABG HCO3 (21-25) mmol/L ABG O2 Saturation (94-97) % Sodium (137-145) mmol/L Potassium 3.4 L (3.5-5.1) mmol/L Chloride 112 H (98-107) mmol/L Carbon Dioxide 13 L (22-30) mmol/L BUN 61 H (9-20) mg/dL Creatinine 3.40 H (0.66-1.25) mg/dL Glucose 225 H (74-99) mg/dL POC Glucose (mg/dL) 189 H 184 H (70-110) mg/dL Calcium 7.3 L (8.4-10.2) mg/dL Magnesium 2.4 H (1.6-2.3) mg/dL AST 1405 H (17-59) U/L ALT 260 H (4-49) U/L Creatine Kinase (55-170) U/L Total Protein 5.3 L (6.3-8.2) g/dL Albumin 2.7 L (3.5-5.0) g/dL 10/12/09/22 12/09/22 Range/Units 01:00 02:11 03:09 WBC (3.8-10.6) k/uL RBC (4.30-5.90) m/uL Hgb (13.0-17.5) gm/dL Hct (39.0-53.0) % Plt Count (150-450) k/uL Neutrophils # (1.3-7.7) k/uL APTT (22.0-30.0) sec ABG pH (7.35-7.45) ABG pCO2 (35-45) mmHg ABG pO2 (83-108) mmHg ABG HCO3 (21-25) mmol/L ABG O2 Saturation (94-97) % Sodium (137-145) mmol/L Potassium (3.5-5.1) mmol/L Chloride (98-107) mmol/L Carbon Dioxide (22-30) mmol/L BUN (9-20) mg/dL Creatinine (0.66-1.25) mg/dL Glucose (74-99) mg/dL POC Glucose (mg/dL) 236 H 242 H 228 H (70-110) mg/dL Calcium (8.4-10.2) mg/dL Magnesium (1.6-2.3) mg/dL AST (17-59) U/L ALT (4-49) U/L Creatine Kinase (55-170) U/L Total Protein (6.3-8.2) g/dL Albumin (3.5-5.0) g/dL 12/09/22 12/09/22 12/09/22 Range/Units 04:00 04:00 04:18 WBC (3.8-10.6) k/uL RBC 4.25 L (4.30-5.90) m/uL Hgb 12.5 L (13.0-17.5) gm/dL Hct 35.9 L (39.0-53.0) % Plt Count 42 L (150-450) k/uL Neutrophils # (1.3-7.7) k/uL APTT (22.0-30.0) sec ABG pH (7.35-7.45) ABG pCO2 (35-45) mmHg ABG pO2 (83-108) mmHg ABG HCO3 (21-25) mmol/L ABG O2 Saturation (94-97) % Sodium 136 L (137-145) mmol/L Potassium (3.5-5.1) mmol/L Chloride 109 H (98-107) mmol/L Carbon Dioxide 15 L (22-30) mmol/L BUN 64 H (9-20) mg/dL Creatinine 3.77 H (0.66-1.25) mg/dL Glucose 277 H (74-99) mg/dL POC Glucose (mg/dL) 238 H (70-110) mg/dL Calcium 7.1 L (8.4-10.2) mg/dL Magnesium (1.6-2.3) mg/dL AST 1550 H (17-59) U/L ALT 284 H (4-49) U/L Creatine Kinase 86194 H* (55-170) U/L Total Protein 5.1 L (6.3-8.2) g/dL Albumin 2.7 L (3.5-5.0) g/dL 12/09/22 12/09/22 12/09/22 Range/Units 05:05 05:44 06:13 WBC (3.8-10.6) k/uL RBC (4.30-5.90) m/uL Hgb (13.0-17.5) gm/dL Hct (39.0-53.0) % Plt Count (150-450) k/uL Neutrophils # (1.3-7.7) k/uL APTT (22.0-30.0) sec ABG pH 7.49 H (7.35-7.45) ABG pCO2 24 L (35-45) mmHg ABG pO2 109 H (83-108) mmHg ABG HCO3 18 L (21-25) mmol/L ABG O2 Saturation 97.6 H (94-97) % Sodium (137-145) mmol/L Potassium (3.5-5.1) mmol/L Chloride (98-107) mmol/L Carbon Dioxide (22-30) mmol/L BUN (9-20) mg/dL Creatinine (0.66-1.25) mg/dL Glucose (74-99) mg/dL POC Glucose (mg/dL) 251 H 270 H (70-110) mg/dL Calcium (8.4-10.2) mg/dL Magnesium (1.6-2.3) mg/dL AST (17-59) U/L ALT (4-49) U/L Creatine Kinase (55-170) U/L Total Protein (6.3-8.2) g/dL Albumin (3.5-5.0) g/dL 12/09/22 12/09/22 12/09/22 Range/Units 06:55 07:54 07:56 WBC (3.8-10.6) k/uL RBC (4.30-5.90) m/uL Hgb (13.0-17.5) gm/dL Hct (39.0-53.0) % Plt Count (150-450) k/uL Neutrophils # (1.3-7.7) k/uL APTT (22.0-30.0) sec ABG pH (7.35-7.45) ABG pCO2 (35-45) mmHg ABG pO2 (83-108) mmHg ABG HCO3 (21-25) mmol/L ABG O2 Saturation (94-97) % Sodium (137-145) mmol/L Potassium (3.5-5.1) mmol/L Chloride (98-107) mmol/L Carbon Dioxide (22-30) mmol/L BUN (9-20) mg/dL Creatinine (0.66-1.25) mg/dL Glucose (74-99) mg/dL POC Glucose (mg/dL) 284 H 398 H 359 H (70-110) mg/dL Calcium (8.4-10.2) mg/dL Magnesium (1.6-2.3) mg/dL AST (17-59) U/L ALT (4-49) U/L Creatine Kinase (55-170) U/L Total Protein (6.3-8.2) g/dL Albumin (3.5-5.0) g/dL 12/09/22 12/09/22 12/09/22 Range/Units 09:02 09:54 09:59 WBC (3.8-10.6) k/uL RBC (4.30-5.90) m/uL Hgb (13.0-17.5) gm/dL Hct (39.0-53.0) % Plt Count (150-450) k/uL Neutrophils # (1.3-7.7) k/uL APTT (22.0-30.0) sec ABG pH (7.35-7.45) ABG pCO2 (35-45) mmHg ABG pO2 (83-108) mmHg ABG HCO3 (21-25) mmol/L ABG O2 Saturation (94-97) % Sodium 135 L (137-145) mmol/L Potassium 3.4 L (3.5-5.1) mmol/L Chloride (98-107) mmol/L Carbon Dioxide 16 L (22-30) mmol/L BUN 70 H (9-20) mg/dL Creatinine 4.09 H (0.66-1.25) mg/dL Glucose 395 H (74-99) mg/dL POC Glucose (mg/dL) 368 H 385 H (70-110) mg/dL Calcium 6.8 L (8.4-10.2) mg/dL Magnesium (1.6-2.3) mg/dL AST 1527 H (17-59) U/L ALT 317 H (4-49) U/L Creatine Kinase (55-170) U/L Total Protein 4.8 L (6.3-8.2) g/dL Albumin 2.4 L (3.5-5.0) g/dL 12/09/22 12/09/22 12/09/22 Range/Units 10:59 11:59 12:14 WBC (3.8-10.6) k/uL RBC (4.30-5.90) m/uL Hgb (13.0-17.5) gm/dL Hct (39.0-53.0) % Plt Count (150-450) k/uL Neutrophils # (1.3-7.7) k/uL APTT (22.0-30.0) sec ABG pH (7.35-7.45) ABG pCO2 29 L (35-45) mmHg ABG pO2 122 H (83-108) mmHg ABG HCO3 20 L (21-25) mmol/L ABG O2 Saturation 98.7 H (94-97) % Sodium (137-145) mmol/L Potassium (3.5-5.1) mmol/L Chloride (98-107) mmol/L Carbon Dioxide (22-30) mmol/L BUN (9-20) mg/dL Creatinine (0.66-1.25) mg/dL Glucose (74-99) mg/dL POC Glucose (mg/dL) 353 H 339 H (70-110) mg/dL Calcium (8.4-10.2) mg/dL Magnesium (1.6-2.3) mg/dL AST (17-59) U/L ALT (4-49) U/L Creatine Kinase (55-170) U/L Total Protein (6.3-8.2) g/dL Albumin (3.5-5.0) g/dL Microbiology - Last 24 Hours (Table) 12/08/22 00:09 Gram Stain - Preliminary Sputum Sputum Culture - Preliminary Gram Neg Bacilli Gram Neg Bacilli#2 12/07/22 11:55 Blood Culture Gram Stain - Preliminary Blood Blood Culture - Preliminary 12/07/22 11:55 Blood Culture - Preliminary Blood Assessment and Plan Assessment: 1: Diabetic ketoacidosis with associated severe metabolic derangements which are currently being treated. 2: Nonpalpable popliteal and pedal pulses bilaterally suggesting femoral occlusive disease. Given the fact that the patient is a diabetic I would suspect the patient has significant tibial artery occlusive disease additionally. 3: Mottling of the lower extremities, improved on the right, persistent on the left. This may be aggravated by the patient's need for continued vasopressors. 4: Rhabdomyolysis most likely secondary to being down for an extended period of time. 5: Renal failure most likely associated with rhabdomyolysis and associated dehydration. Plan: We will continue to follow. The patient will require an rycdk-nto-tllp amputation and timing remains at issue.
[2022-12-09 13:21] LABS: Glucose,Whole Blood 331 mg/dL (70-110)
[2022-12-09 13:38] LABS: HCT 33.2 % (39.0-53.0); HGB 11.5 gm/dL (13.0-17.5); MCH 29.2 pg (25.0-35.0); MCHC 34.8 g/dL (31.0-37.0); MCV 83.8 fL (80.0-100.0); Mean Platelet Volume 10.9; RBC 3.96 m/uL (4.30-5.90); RDW 14.2 % (11.5-15.5); WBC 7.9 k/uL (3.8-10.6)
[2022-12-09 13:40] LABS: Platelet Count 41 k/uL (150-450)
[2022-12-09 14:02] LABS: Glucose,Whole Blood 285 mg/dL (70-110)
--- NOTE | 2022-12-09 14:53 | P.PN ---
Subjective Progress Note Date: 12/09/22 Follow-up for acute kidney injury. Still on ventilator with minimal settings. On vasopressors. Objective - Vital Signs Vital signs: Vital Signs Temp 98.0 F 12/09/22 12:00 Pulse 85 12/09/22 13:30 Resp 21 12/09/22 13:30 BP 122/54 12/09/22 07:00 Pulse Ox 99 12/09/22 13:30 FiO2 40 12/09/22 12:00 Intake & Output 12/08/22 12/09/22 12/09/22 18:59 06:59 18:59 Intake Total 2199.893 2084.354 1812.794 Output Total 27 400 5 Balance 2172.893 4524.866 2622.794 Weight 107.8 kg 109.8 kg Intake: IV 1520 1230 1188 .9 NS 18 D5-0.45% NaCl with KCl 600 20Meq/l 1,000 ml @ 150 mls/hr IV .Q6H40M [facility] Rx# :[id number] Dextrose 5% in Water 1, 900 1100 550 000 ml @ 50 mls/hr IV . Q23H [facility] with Sodium Bicarb (1 Meq/ml) 150 ml Rx#:[id number] Invasive Line 3 20 30 20 Piperacillin-Tazobactam 3 100 100 .375 gm In Sodium Chloride 0.9% 100 ml @ 25 mls/hr IVPB Q8H [facility] Rx#: [id number] Vancomycin 1,750 mg In 500 Sodium Chloride 0.9% 500 ml 500 ml @ 167 mls/hr IVPB ONCE ONE Rx#: [id number] Intake, IV Titration 679.893 454.354 444.794 Amount Heparin Sod,Pork in 0.45% 204.957 NaCl 25,000 unit In 0.45 % NaCl 1 250ml.bag @ 9.59 UNITS/KG/HR 10.002 mls/ hr IV .Q24H [facility] Rx#: [id number] Insulin Regular 100 unit 112.269 11.085 288.174 In Sodium Chloride 0.9% 100 ml @ 0.1 UNITS/KG/HR 10.445 mls/hr IV .Q9H41M [facility] Rx#:[id number] Norepinephrine 8 mg In 283.646 138.312 9.305 Sodium Chloride 0.9% 250 ml @ 0.05 MCG/KG/MIN 10. 006 mls/hr IV .Q24H [facility] Rx#:[id number] propofoL 1,000 mg In 283.978 100 147.315 Empty Bag 1 bag @ 15 MCG/ KG/MIN 9.308 mls/hr IV . [id number] [facility] Rx#:[id number] Tube Feeding 120 Hemodialysis 400 Other 60 Output: Urine 27 0 5 Hemodialysis 400 Other: Voiding Method Indwelling Catheter Indwelling Catheter Indwelling Catheter ABP, PAP, CO, CI - Last Documented Arterial Blood Pressure 123/45 - Exam No acute distress S1-S2 heard Decreased breath sounds Abdomen soft Edema - Labs CBC & Chem 7: 12/09/22 13:23 12/09/22 09:59 Labs: Abnormal Lab Results - Last 24 Hours (Table) 12/08/22 12/08/22 12/08/22 Range/Units 17:48 17:49 17:49 WBC 12.7 H (3.8-10.6) k/uL RBC (4.30-5.90) m/uL Hgb (13.0-17.5) gm/dL Hct (39.0-53.0) % Plt Count 64 L (150-450) k/uL APTT 16.8 L (22.0-30.0) sec ABG pH (7.35-7.45) ABG pCO2 (35-45) mmHg ABG pO2 (83-108) mmHg ABG HCO3 (21-25) mmol/L ABG O2 Saturation (94-97) % Sodium (137-145) mmol/L Potassium (3.5-5.1) mmol/L Chloride (98-107) mmol/L Carbon Dioxide (22-30) mmol/L BUN (9-20) mg/dL Creatinine (0.66-1.25) mg/dL Glucose (74-99) mg/dL POC Glucose (mg/dL) 114 H (70-110) mg/dL Calcium (8.4-10.2) mg/dL Magnesium (1.6-2.3) mg/dL AST (17-59) U/L ALT (4-49) U/L Creatine Kinase (55-170) U/L Total Protein (6.3-8.2) g/dL Albumin (3.5-5.0) g/dL 12/08/22 12/08/22 12/08/22 Range/Units 17:49 17:49 19:08 WBC (3.8-10.6) k/uL RBC (4.30-5.90) m/uL Hgb (13.0-17.5) gm/dL Hct (39.0-53.0) % Plt Count (150-450) k/uL APTT (22.0-30.0) sec ABG pH (7.35-7.45) ABG pCO2 (35-45) mmHg ABG pO2 (83-108) mmHg ABG HCO3 (21-25) mmol/L ABG O2 Saturation (94-97) % Sodium (137-145) mmol/L Potassium (3.5-5.1) mmol/L Chloride 120 H (98-107) mmol/L Carbon Dioxide 9 L* (22-30) mmol/L BUN 92 H (9-20) mg/dL Creatinine 4.67 H (0.66-1.25) mg/dL Glucose 118 H (74-99) mg/dL POC Glucose (mg/dL) 146 H (70-110) mg/dL Calcium 7.2 L (8.4-10.2) mg/dL Magnesium (1.6-2.3) mg/dL AST (17-59) U/L ALT (4-49) U/L Creatine Kinase 25857 H* (55-170) U/L Total Protein (6.3-8.2) g/dL Albumin (3.5-5.0) g/dL 12/08/22 12/08/22 12/08/22 Range/Units 20:00 21:03 22:06 WBC (3.8-10.6) k/uL RBC (4.30-5.90) m/uL Hgb (13.0-17.5) gm/dL Hct (39.0-53.0) % Plt Count (150-450) k/uL APTT (22.0-30.0) sec ABG pH (7.35-7.45) ABG pCO2 (35-45) mmHg ABG pO2 (83-108) mmHg ABG HCO3 (21-25) mmol/L ABG O2 Saturation (94-97) % Sodium (137-145) mmol/L Potassium (3.5-5.1) mmol/L Chloride (98-107) mmol/L Carbon Dioxide (22-30) mmol/L BUN (9-20) mg/dL Creatinine (0.66-1.25) mg/dL Glucose (74-99) mg/dL POC Glucose (mg/dL) 114 H 116 H 135 H (70-110) mg/dL Calcium (8.4-10.2) mg/dL Magnesium (1.6-2.3) mg/dL AST (17-59) U/L ALT (4-49) U/L Creatine Kinase (55-170) U/L Total Protein (6.3-8.2) g/dL Albumin (3.5-5.0) g/dL 12/08/22 12/08/22 12/09/22 Range/Units 23:00 23:19 00:06 WBC (3.8-10.6) k/uL RBC (4.30-5.90) m/uL Hgb (13.0-17.5) gm/dL Hct (39.0-53.0) % Plt Count (150-450) k/uL APTT (22.0-30.0) sec ABG pH (7.35-7.45) ABG pCO2 (35-45) mmHg ABG pO2 (83-108) mmHg ABG HCO3 (21-25) mmol/L ABG O2 Saturation (94-97) % Sodium (137-145) mmol/L Potassium 3.4 L (3.5-5.1) mmol/L Chloride 112 H (98-107) mmol/L Carbon Dioxide 13 L (22-30) mmol/L BUN 61 H (9-20) mg/dL Creatinine 3.40 H (0.66-1.25) mg/dL Glucose 225 H (74-99) mg/dL POC Glucose (mg/dL) 189 H 184 H (70-110) mg/dL Calcium 7.3 L (8.4-10.2) mg/dL Magnesium 2.4 H (1.6-2.3) mg/dL AST 1405 H (17-59) U/L ALT 260 H (4-49) U/L Creatine Kinase (55-170) U/L Total Protein 5.3 L (6.3-8.2) g/dL Albumin 2.7 L (3.5-5.0) g/dL 12/09/22 12/09/22 12/09/22 Range/Units 01:00 02:11 03:09 WBC (3.8-10.6) k/uL RBC (4.30-5.90) m/uL Hgb (13.0-17.5) gm/dL Hct (39.0-53.0) % Plt Count (150-450) k/uL APTT (22.0-30.0) sec ABG pH (7.35-7.45) ABG pCO2 (35-45) mmHg ABG pO2 (83-108) mmHg ABG HCO3 (21-25) mmol/L ABG O2 Saturation (94-97) % Sodium (137-145) mmol/L Potassium (3.5-5.1) mmol/L Chloride (98-107) mmol/L Carbon Dioxide (22-30) mmol/L BUN (9-20) mg/dL Creatinine (0.66-1.25) mg/dL Glucose (74-99) mg/dL POC Glucose (mg/dL) 236 H 242 H 228 H (70-110) mg/dL Calcium (8.4-10.2) mg/dL Magnesium (1.6-2.3) mg/dL AST (17-59) U/L ALT (4-49) U/L Creatine Kinase (55-170) U/L Total Protein (6.3-8.2) g/dL Albumin (3.5-5.0) g/dL 12/09/22 12/09/22 12/09/22 Range/Units 04:00 04:00 04:18 WBC (3.8-10.6) k/uL RBC 4.25 L (4.30-5.90) m/uL Hgb 12.5 L (13.0-17.5) gm/dL Hct 35.9 L (39.0-53.0) % Plt Count 42 L (150-450) k/uL APTT (22.0-30.0) sec ABG pH (7.35-7.45) ABG pCO2 (35-45) mmHg ABG pO2 (83-108) mmHg ABG HCO3 (21-25) mmol/L ABG O2 Saturation (94-97) % Sodium 136 L (137-145) mmol/L Potassium (3.5-5.1) mmol/L Chloride 109 H (98-107) mmol/L Carbon Dioxide 15 L (22-30) mmol/L BUN 64 H (9-20) mg/dL Creatinine 3.77 H (0.66-1.25) mg/dL Glucose 277 H (74-99) mg/dL POC Glucose (mg/dL) 238 H (70-110) mg/dL Calcium 7.1 L (8.4-10.2) mg/dL Magnesium (1.6-2.3) mg/dL AST 1550 H (17-59) U/L ALT 284 H (4-49) U/L Creatine Kinase 25950 H* (55-170) U/L Total Protein 5.1 L (6.3-8.2) g/dL Albumin 2.7 L (3.5-5.0) g/dL 12/09/22 12/09/22 12/09/22 Range/Units 05:05 05:44 06:13 WBC (3.8-10.6) k/uL RBC (4.30-5.90) m/uL Hgb (13.0-17.5) gm/dL Hct (39.0-53.0) % Plt Count (150-450) k/uL APTT (22.0-30.0) sec ABG pH 7.49 H (7.35-7.45) ABG pCO2 24 L (35-45) mmHg ABG pO2 109 H (83-108) mmHg ABG HCO3 18 L (21-25) mmol/L ABG O2 Saturation 97.6 H (94-97) % Sodium (137-145) mmol/L Potassium (3.5-5.1) mmol/L Chloride (98-107) mmol/L Carbon Dioxide (22-30) mmol/L BUN (9-20) mg/dL Creatinine (0.66-1.25) mg/dL Glucose (74-99) mg/dL POC Glucose (mg/dL) 251 H 270 H (70-110) mg/dL Calcium (8.4-10.2) mg/dL Magnesium (1.6-2.3) mg/dL AST (17-59) U/L ALT (4-49) U/L Creatine Kinase (55-170) U/L Total Protein (6.3-8.2) g/dL Albumin (3.5-5.0) g/dL 12/09/22 12/09/22 12/09/22 Range/Units 06:55 07:54 07:56 WBC (3.8-10.6) k/uL RBC (4.30-5.90) m/uL Hgb (13.0-17.5) gm/dL Hct (39.0-53.0) % Plt Count (150-450) k/uL APTT (22.0-30.0) sec ABG pH (7.35-7.45) ABG pCO2 (35-45) mmHg ABG pO2 (83-108) mmHg ABG HCO3 (21-25) mmol/L ABG O2 Saturation (94-97) % Sodium (137-145) mmol/L Potassium (3.5-5.1) mmol/L Chloride (98-107) mmol/L Carbon Dioxide (22-30) mmol/L BUN (9-20) mg/dL Creatinine (0.66-1.25) mg/dL Glucose (74-99) mg/dL POC Glucose (mg/dL) 284 H 398 H 359 H (70-110) mg/dL Calcium (8.4-10.2) mg/dL Magnesium (1.6-2.3) mg/dL AST (17-59) U/L ALT (4-49) U/L Creatine Kinase (55-170) U/L Total Protein (6.3-8.2) g/dL Albumin (3.5-5.0) g/dL 12/09/22 12/09/22 12/09/22 Range/Units 09:02 09:54 09:59 WBC (3.8-10.6) k/uL RBC (4.30-5.90) m/uL Hgb (13.0-17.5) gm/dL Hct (39.0-53.0) % Plt Count (150-450) k/uL APTT (22.0-30.0) sec ABG pH (7.35-7.45) ABG pCO2 (35-45) mmHg ABG pO2 (83-108) mmHg ABG HCO3 (21-25) mmol/L ABG O2 Saturation (94-97) % Sodium 135 L (137-145) mmol/L Potassium 3.4 L (3.5-5.1) mmol/L Chloride (98-107) mmol/L Carbon Dioxide 16 L (22-30) mmol/L BUN 70 H (9-20) mg/dL Creatinine 4.09 H (0.66-1.25) mg/dL Glucose 395 H (74-99) mg/dL POC Glucose (mg/dL) 368 H 385 H (70-110) mg/dL Calcium 6.8 L (8.4-10.2) mg/dL Magnesium (1.6-2.3) mg/dL AST 1527 H (17-59) U/L ALT 317 H (4-49) U/L Creatine Kinase (55-170) U/L Total Protein 4.8 L (6.3-8.2) g/dL Albumin 2.4 L (3.5-5.0) g/dL 12/09/22 12/09/22 12/09/22 Range/Units 10:59 11:59 12:14 WBC (3.8-10.6) k/uL RBC (4.30-5.90) m/uL Hgb (13.0-17.5) gm/dL Hct (39.0-53.0) % Plt Count (150-450) k/uL APTT (22.0-30.0) sec ABG pH (7.35-7.45) ABG pCO2 29 L (35-45) mmHg ABG pO2 122 H (83-108) mmHg ABG HCO3 20 L (21-25) mmol/L ABG O2 Saturation 98.7 H (94-97) % Sodium (137-145) mmol/L Potassium (3.5-5.1) mmol/L Chloride (98-107) mmol/L Carbon Dioxide (22-30) mmol/L BUN (9-20) mg/dL Creatinine (0.66-1.25) mg/dL Glucose (74-99) mg/dL POC Glucose (mg/dL) 353 H 339 H (70-110) mg/dL Calcium (8.4-10.2) mg/dL Magnesium (1.6-2.3) mg/dL AST (17-59) U/L ALT (4-49) U/L Creatine Kinase (55-170) U/L Total Protein (6.3-8.2) g/dL Albumin (3.5-5.0) g/dL 12/09/22 12/09/22 12/09/22 Range/Units 13:18 13:23 14:00 WBC (3.8-10.6) k/uL RBC 3.96 L (4.30-5.90) m/uL Hgb 11.5 L (13.0-17.5) gm/dL Hct 33.2 L (39.0-53.0) % Plt Count 41 L (150-450) k/uL APTT (22.0-30.0) sec ABG pH (7.35-7.45) ABG pCO2 (35-45) mmHg ABG pO2 (83-108) mmHg ABG HCO3 (21-25) mmol/L ABG O2 Saturation (94-97) % Sodium (137-145) mmol/L Potassium (3.5-5.1) mmol/L Chloride (98-107) mmol/L Carbon Dioxide (22-30) mmol/L BUN (9-20) mg/dL Creatinine (0.66-1.25) mg/dL Glucose (74-99) mg/dL POC Glucose (mg/dL) 331 H 285 H (70-110) mg/dL Calcium (8.4-10.2) mg/dL Magnesium (1.6-2.3) mg/dL AST (17-59) U/L ALT (4-49) U/L Creatine Kinase (55-170) U/L Total Protein (6.3-8.2) g/dL Albumin (3.5-5.0) g/dL Microbiology - Last 24 Hours (Table) 12/08/22 00:09 Gram Stain - Preliminary Sputum Sputum Culture - Preliminary Gram Neg Bacilli Gram Neg Bacilli#2 12/07/22 11:55 Blood Culture Gram Stain - Preliminary Blood Blood Culture - Preliminary 12/07/22 11:55 Blood Culture - Preliminary Blood Assessment and Plan Assessment: #1 acute kidney injury multifactorial. -Hemodynamic ATN with low blood pressures. -Toxic ATN from rhabdomyolysis. -Baseline creatinine 1.4 MG per DL. -Urine analysis hyaline cast with some protein. -Abdominal ultrasound no hydronephrosis #2 chronic kidney disease stage III a suspected nephrosclerosis. #3 rhabdomyolysis with oliguric acute kidney injury. #4 respiratory failure on mechanical ventilator #5 shock on pressors #6 respiratory alkalosis with metabolic acidosis. Plan: #1 with severe metabolic acidosis and oliguria and rhabdomyolysis, started on hemodialysis yesterday. Tolerated well. #2 plan dialysis again tomorrow. #3 vascular surgery consultation for Rohan #4 ICU care.
[2022-12-09 15:10] LABS: Glucose,Whole Blood 298 mg/dL (70-110)
--- NOTE | 2022-12-09 15:11 | XR ---
EXAM: XR chest 1V portable CLINICAL INDICATION:Male, 67 years old with history of Tube placement; [facility] COMPARISON: 12/08/2022 and before TECHNIQUE: Chest single view. FINDINGS: Lines/tubes/devices: EKG leads and other extrinsic structures overlie the chest. ET tube in similar p osition with the tip about 6.1 cm above the lucia. NG tube again extends into the left abdomen with the tip beyond the field of view. Cardiomediastinum: Stable. Cardiac silhouette appears normal in size. Lungs/Pleura: Lung volumes are somewhat diminished with increased bibasilar strandy opacities, left g reater than right, compared to the most recent prior. No significant pleural effusion, or pneumothora x. Pulmonary vascularity: Unremarkable. Heart/mediastinum: Cardiac mediastinal silhouette is stable. Heart is not enlarged. Musculoskeletal: No acute osseous pathology. Other findings: None IMPRESSION: 1. ET tube and NG tube appear in stable position. 2. Lung volumes are somewhat diminished with increased bibasilar strandy opacities, left greater swapna n right, likely on the basis of atelectasis.
[2022-12-09 16:07] LABS: Glucose,Whole Blood 348 mg/dL (70-110)
[2022-12-09 17:05] LABS: Glucose,Whole Blood 362 mg/dL (70-110)
[2022-12-09 18:03] LABS: Glucose,Whole Blood 183 mg/dL (70-110)
--- NOTE | 2022-12-09 18:19 | P.PN ---
Subjective Progress Note Date: 12/09/22 (delayed charting seen at 1030) Patient is a 67-year-old male with a history of diabetes, bipolar disorder, history of closed head injury who [place] unresponsive and cov ered in his own emesis. On arrival to the ER he was tachycardic with a pulse of 101, respirations 26, blood pressure 64/42 and O2 sat 92% on 15 L nonrebreather. Laboratory analysis including CBC, coags, ABG, CMP, ammonia, CK, troponin, urinalysis, urine drug screen, which were remarkable for white blood cell count 15.7, platelets 138, calcium 7.7, carbon dioxide less than 5, BUN 81, creatinine 3.8, glucose 794, lactic acid 9.4, ammonia 590, CK 384, troponin 0.139. Urine drug screen was negative. Influenza A/B/RSV/COVID-19 was negative. Chest x-ray showed endotracheal tube in the right mainstem the lungs were otherwise clear. CT chest abdomen and pelvis showed no acute process but cirrhosis. Head CT showed chronic changes with no acute intracranial process. EKG reviewed with normal sinus rhythm at a rate of 100 and peaker T- waves. He was intubated in the emergency department. He was started on norepinephrine, sodium bicarb with dextrose infusion, insulin infusion. He was also given calcium gluconate 1 g IV piggyback. Critical care was consulted. Arrangements were made for admission. He was continued on levothyroxine. Zosyn was initiated for possible aspiration. He was continued on DKA protocol. He was given aggressive IV fluid resuscitation with both normal saline and D5W with 3 A of bicarb. On the night after admission his urine output decreased and his left lower extremity became ischemic. His CKs elevated. Nephrology was consulted as well as vascular schwab rgery. Patient was placed on a heparin drip. He was seen by vascular surgery. Nephrology recommended hemodialysis and first round was completed on 12/08/22. Patient was able to be weaned off of norepinephrine overnight on 12/08. He continues to be sedated on ventilator. Vital signs reviewed General: nontoxic, no distress, appears at stated age Term: Left lower extremity distal to mid calf cyanotic appearing and cool with absent palpable pulses, right lower extremity warm Cardiovascular: S1S2 reg, no murmur Lungs: CTA bilateral, no rhonchi, no rales , no accessory muscle use Abdominal: soft, nontender to palpation, no guarding, no appreciable organomegaly Ext: no gross muscle atrophy, no edema b/l lower extremities, no contractures Neuro: Positive cough, positive gag Psych: Sedated on vent Assessment/Plan: Severe DKA Shock, likely septic Aspiration event Metabolic encephalopathy -Pulmonary note reviewed: Patient transitioned from DKA protocol to ICU insulin infusion. - Continue insulin infusion, check BS q 1 hour - Check A1C -With concerns for possible septic shock we'll continue with Zosyn 3.375 mg every 12 hours IV piggyback D # 2 -D/C vancomycin - levo off - Repeat CXR in AM Ischemic Left lower extremity Rhabdomyolysis Transaminitis due to rhabdo oliguric, Acute kidney injury s/p 1 round HD on 12/08/22 - disconitnue heparing gtt given plt decreased - no need to conitnue to follow CK levels given Left LE ischemia and that p atient has already started on HD -Case discussed with vascular surgery. Patient would benefit from amputation of left lower extremity. He is aware that patient has no family contact. But this would likely be an emergent procedure given his continued rising CKs. - Discussed with nephrology. Plan will be for hemodialysis in the morning -Decrease D5W with 3 answers sodium bicarb to 50 mL/h -CT and renal ultrasound without hydro -Strict I and O -Avoid nephrotoxic agents Gram-positive cocci 1 out of 2 blood cultures -Add vancomycin with pharmacy to dose. Monitor creatinine and vancomycin trough levels closely. Anemia Thrombocytopenia - follow CBC closely given decreased platelets Hyperkalemia, resolved Lactic acidosis, resolved Leukocytosis, resolved Elevated troponin, suspect secondary to renal dysfunction and Rhabdo Imaging: Chest x-ray is reviewed by myself shows no acute process with ET tube slightly above appropriate position. Hospital course imaging: echocardiogram: hyperdynamic left ventricle 65-70%, right ventricle mildly dilated with RVSP 28 Data Review: Labs reviewed from today include CBC, ABG, and basic metabolic profile which are remarkable for hemoglobin 12.5, platelets 42, sodium 136, chloride 109, carbon dioxide 15, BUN 64, creatinine 3.77, AST 1550, ALT 294, CPK 92,432, pH 7.49. Gram-positive cocci and 1 of 2 bottles. sputum culture gram negative bacilli DVT prophylaxis:SCDS Anticipated discharge date: Pending Clinical Course Anticipated discharge place: Pending Clinical Course This dictation was prepared using [employer] voice recognition software. Though every attempt is made to correct errors during dictation some may still exist. Objective - Vital Signs Vital signs: Vital Signs Temp 97.8 F 12/09/22 16:00 Pulse 89 12/09/22 17:00 Resp 22 12/09/22 17:00 BP 122/54 12/09/22 07:00 Pulse Ox 100 12/09/22 17:00 FiO2 40 12/09/22 16:00 Intake & Output 12/08/22 12/09/22 12/09/22 18:59 06:59 18:59 Intake Total 2199.893 2084.354 1962.871 Output Total 27 400 10 Balance 2172.893 7688.122 7966.871 Weight 107.8 kg 109.8 kg Intake: IV 1520 1230 1410 .9 NS 30 D5-0.45% NaCl with KCl 600 20Meq/l 1,000 ml @ 150 mls/hr IV .Q6H40M [facility] Rx# :[id number] Dextrose 5% in Water 1, 900 1100 750 000 ml @ 50 mls/hr IV . Q23H [facility] with Sodium Bicarb (1 Meq/ml) 150 ml Rx#:[id number] Invasive Line 3 20 30 30 Piperacillin-Tazobactam 3 100 100 .375 gm In Sodium Chloride 0.9% 100 ml @ 25 mls/hr IVPB Q8H [facility] Rx#: [id number] Vancomycin 1,750 mg In 500 Sodium Chloride 0.9% 500 ml 500 ml @ 167 mls/hr IVPB ONCE ONE Rx#: [id number] Intake, IV Titration 679.893 454.354 292.871 Amount Heparin Sod,Pork in 0.45% 204.957 NaCl 25,000 unit In 0.45 % NaCl 1 250ml.bag @ 9.59 UNITS/KG/HR 10.002 mls/ hr IV .Q24H [facility] Rx#: [id number] Insulin Regular 100 unit 112.269 11.085 83.566 In Sodium Chloride 0.9% 100 ml @ 0.1 UNITS/KG/HR 10.445 mls/hr IV .Q9H41M [facility] Rx#:[id number] Norepinephrine 8 mg In 283.646 138.312 9.305 Sodium Chloride 0.9% 250 ml @ 0.05 MCG/KG/MIN 10. 006 mls/hr IV .Q24H [facility] Rx#:[id number] propofoL 1,000 mg In 283.978 100 200.000 Empty Bag 1 bag @ 15 MCG/ KG/MIN 9.308 mls/hr IV . [id number] [facility] Rx#:[id number] Tube Feeding 200 Hemodialysis 400 Other 60 Output: Urine 27 0 10 Hemodialysis 400 Other: Voiding Method Indwelling Catheter Indwelling Catheter Indwelling Catheter ABP, PAP, CO, CI - Last Documented Arterial Blood Pressure 116/47 - Labs CBC & Chem 7: 12/09/22 13:23 12/09/22 09:59 Labs: Abnormal Lab Results - Last 24 Hours (Table) 12/08/22 12/08/22 12/08/22 Range/Units 17:49 17:49 17:49 RBC (4.30-5.90) m/uL Hgb (13.0-17.5) gm/dL Hct (39.0-53.0) % Plt Count (150-450) k/uL APTT 16.8 L (22.0-30.0) sec ABG pH (7.35-7.45) ABG pCO2 (35-45) mmHg ABG pO2 (83-108) mmHg ABG HCO3 (21-25) mmol/L ABG O2 Saturation (94-97) % Sodium (137-145) mmol/L Potassium (3.5-5.1) mmol/L Chloride 120 H (98-107) mmol/L Carbon Dioxide 9 L* (22-30) mmol/L BUN 92 H (9-20) mg/dL Creatinine 4.67 H (0.66-1.25) mg/dL Glucose 118 H (74-99) mg/dL POC Glucose (mg/dL) (70-110) mg/dL Calcium 7.2 L (8.4-10.2) mg/dL Magnesium (1.6-2.3) mg/dL AST (17-59) U/L ALT (4-49) U/L Creatine Kinase 90634 H* (55-170) U/L Total Protein (6.3-8.2) g/dL Albumin (3.5-5.0) g/dL 12/08/22 12/08/22 12/08/22 Range/Units 19:08 20:00 21:03 RBC (4.30-5.90) m/uL Hgb (13.0-17.5) gm/dL Hct (39.0-53.0) % Plt Count (150-450) k/uL APTT (22.0-30.0) sec ABG pH (7.35-7.45) ABG pCO2 (35-45) mmHg ABG pO2 (83-108) mmHg ABG HCO3 (21-25) mmol/L ABG O2 Saturation (94-97) % Sodium (137-145) mmol/L Potassium (3.5-5.1) mmol/L Chloride (98-107) mmol/L Carbon Dioxide (22-30) mmol/L BUN (9-20) mg/dL Creatinine (0.66-1.25) mg/dL Glucose (74-99) mg/dL POC Glucose (mg/dL) 146 H 114 H 116 H (70-110) mg/dL Calcium (8.4-10.2) mg/dL Magnesium (1.6-2.3) mg/dL AST (17-59) U/L ALT (4-49) U/L Creatine Kinase (55-170) U/L Total Protein (6.3-8.2) g/dL Albumin (3.5-5.0) g/dL 12/08/22 12/08/22 12/08/22 Range/Units 22:06 23:00 23:19 RBC (4.30-5.90) m/uL Hgb (13.0-17.5) gm/dL Hct (39.0-53.0) % Plt Count (150-450) k/uL APTT (22.0-30.0) sec ABG pH (7.35-7.45) ABG pCO2 (35-45) mmHg ABG pO2 (83-108) mmHg ABG HCO3 (21-25) mmol/L ABG O2 Saturation (94-97) % Sodium (137-145) mmol/L Potassium 3.4 L (3.5-5.1) mmol/L Chloride 112 H (98-107) mmol/L Carbon Dioxide 13 L (22-30) mmol/L BUN 61 H (9-20) mg/dL Creatinine 3.40 H (0.66-1.25) mg/dL Glucose 225 H (74-99) mg/dL POC Glucose (mg/dL) 135 H 189 H (70-110) mg/dL Calcium 7.3 L (8.4-10.2) mg/dL Magnesium 2.4 H (1.6-2.3) mg/dL AST 1405 H (17-59) U/L ALT 260 H (4-49) U/L Creatine Kinase (55-170) U/L Total Protein 5.3 L (6.3-8.2) g/dL Albumin 2.7 L (3.5-5.0) g/dL 12/09/22 12/09/22 12/09/22 Range/Units 00:06 01:00 02:11 RBC (4.30-5.90) m/uL Hgb (13.0-17.5) gm/dL Hct (39.0-53.0) % Plt Count (150-450) k/uL APTT (22.0-30.0) sec ABG pH (7.35-7.45) ABG pCO2 (35-45) mmHg ABG pO2 (83-108) mmHg ABG HCO3 (21-25) mmol/L ABG O2 Saturation (94-97) % Sodium (137-145) mmol/L Potassium (3.5-5.1) mmol/L Chloride (98-107) mmol/L Carbon Dioxide (22-30) mmol/L BUN (9-20) mg/dL Creatinine (0.66-1.25) mg/dL Glucose (74-99) mg/dL POC Glucose (mg/dL) 184 H 236 H 242 H (70-110) mg/dL Calcium (8.4-10.2) mg/dL Magnesium (1.6-2.3) mg/dL AST (17-59) U/L ALT (4-49) U/L Creatine Kinase (55-170) U/L Total Protein (6.3-8.2) g/dL Albumin (3.5-5.0) g/dL 12/09/22 12/09/22 12/09/22 Range/Units 03:09 04:00 04:00 RBC 4.25 L (4.30-5.90) m/uL Hgb 12.5 L (13.0-17.5) gm/dL Hct 35.9 L (39.0-53.0) % Plt Count 42 L (150-450) k/uL APTT (22.0-30.0) sec ABG pH (7.35-7.45) ABG pCO2 (35-45) mmHg ABG pO2 (83-108) mmHg ABG HCO3 (21-25) mmol/L ABG O2 Saturation (94-97) % Sodium 136 L (137-145) mmol/L Potassium (3.5-5.1) mmol/L Chloride 109 H (98-107) mmol/L Carbon Dioxide 15 L (22-30) mmol/L BUN 64 H (9-20) mg/dL Creatinine 3.77 H (0.66-1.25) mg/dL Glucose 277 H (74-99) mg/dL POC Glucose (mg/dL) 228 H (70-110) mg/dL Calcium 7.1 L (8.4-10.2) mg/dL Magnesium (1.6-2.3) mg/dL AST 1550 H (17-59) U/L ALT 284 H (4-49) U/L Creatine Kinase 43666 H* (55-170) U/L Total Protein 5.1 L (6.3-8.2) g/dL Albumin 2.7 L (3.5-5.0) g/dL 12/09/22 12/09/22 12/09/22 Range/Units 04:18 05:05 05:44 RBC (4.30-5.90) m/uL Hgb (13.0-17.5) gm/dL Hct (39.0-53.0) % Plt Count (150-450) k/uL APTT (22.0-30.0) sec ABG pH 7.49 H (7.35-7.45) ABG pCO2 24 L (35-45) mmHg ABG pO2 109 H (83-108) mmHg ABG HCO3 18 L (21-25) mmol/L ABG O2 Saturation 97.6 H (94-97) % Sodium (137-145) mmol/L Potassium (3.5-5.1) mmol/L Chloride (98-107) mmol/L Carbon Dioxide (22-30) mmol/L BUN (9-20) mg/dL Creatinine (0.66-1.25) mg/dL Glucose (74-99) mg/dL POC Glucose (mg/dL) 238 H 251 H (70-110) mg/dL Calcium (8.4-10.2) mg/dL Magnesium (1.6-2.3) mg/dL AST (17-59) U/L ALT (4-49) U/L Creatine Kinase (55-170) U/L Total Protein (6.3-8.2) g/dL Albumin (3.5-5.0) g/dL 12/09/22 12/09/22 12/09/22 Range/Units 06:13 06:55 07:54 RBC (4.30-5.90) m/uL Hgb (13.0-17.5) gm/dL Hct (39.0-53.0) % Plt Count (150-450) k/uL APTT (22.0-30.0) sec ABG pH (7.35-7.45) ABG pCO2 (35-45) mmHg ABG pO2 (83-108) mmHg ABG HCO3 (21-25) mmol/L ABG O2 Saturation (94-97) % Sodium (137-145) mmol/L Potassium (3.5-5.1) mmol/L Chloride (98-107) mmol/L Carbon Dioxide (22-30) mmol/L BUN (9-20) mg/dL Creatinine (0.66-1.25) mg/dL Glucose (74-99) mg/dL POC Glucose (mg/dL) 270 H 284 H 398 H (70-110) mg/dL Calcium (8.4-10.2) mg/dL Magnesium (1.6-2.3) mg/dL AST (17-59) U/L ALT (4-49) U/L Creatine Kinase (55-170) U/L Total Protein (6.3-8.2) g/dL Albumin (3.5-5.0) g/dL 12/09/22 12/09/22 12/09/22 Range/Units 07:56 09:02 09:54 RBC (4.30-5.90) m/uL Hgb (13.0-17.5) gm/dL Hct (39.0-53.0) % Plt Count (150-450) k/uL APTT (22.0-30.0) sec ABG pH (7.35-7.45) ABG pCO2 (35-45) mmHg ABG pO2 (83-108) mmHg ABG HCO3 (21-25) mmol/L ABG O2 Saturation (94-97) % Sodium (137-145) mmol/L Potassium (3.5-5.1) mmol/L Chloride (98-107) mmol/L Carbon Dioxide (22-30) mmol/L BUN (9-20) mg/dL Creatinine (0.66-1.25) mg/dL Glucose (74-99) mg/dL POC Glucose (mg/dL) 359 H 368 H 385 H (70-110) mg/dL Calcium (8.4-10.2) mg/dL Magnesium (1.6-2.3) mg/dL AST (17-59) U/L ALT (4-49) U/L Creatine Kinase (55-170) U/L Total Protein (6.3-8.2) g/dL Albumin (3.5-5.0) g/dL 12/09/22 12/09/22 12/09/22 Range/Units 09:59 10:59 11:59 RBC (4.30-5.90) m/uL Hgb (13.0-17.5) gm/dL Hct (39.0-53.0) % Plt Count (150-450) k/uL APTT (22.0-30.0) sec ABG pH (7.35-7.45) ABG pCO2 (35-45) mmHg ABG pO2 (83-108) mmHg ABG HCO3 (21-25) mmol/L ABG O2 Saturation (94-97) % Sodium 135 L (137-145) mmol/L Potassium 3.4 L (3.5-5.1) mmol/L Chloride (98-107) mmol/L Carbon Dioxide 16 L (22-30) mmol/L BUN 70 H (9-20) mg/dL Creatinine 4.09 H (0.66-1.25) mg/dL Glucose 395 H (74-99) mg/dL POC Glucose (mg/dL) 353 H 339 H (70-110) mg/dL Calcium 6.8 L (8.4-10.2) mg/dL Magnesium (1.6-2.3) mg/dL AST 1527 H (17-59) U/L ALT 317 H (4-49) U/L Creatine Kinase (55-170) U/L Total Protein 4.8 L (6.3-8.2) g/dL Albumin 2.4 L (3.5-5.0) g/dL 12/09/22 12/09/22 12/09/22 Range/Units 12:14 13:18 13:23 RBC 3.96 L (4.30-5.90) m/uL Hgb 11.5 L (13.0-17.5) gm/dL Hct 33.2 L (39.0-53.0) % Plt Count 41 L (150-450) k/uL APTT (22.0-30.0) sec ABG pH (7.35-7.45) ABG pCO2 29 L (35-45) mmHg ABG pO2 122 H (83-108) mmHg ABG HCO3 20 L (21-25) mmol/L ABG O2 Saturation 98.7 H (94-97) % Sodium (137-145) mmol/L Potassium (3.5-5.1) mmol/L Chloride (98-107) mmol/L Carbon Dioxide (22-30) mmol/L BUN (9-20) mg/dL Creatinine (0.66-1.25) mg/dL Glucose (74-99) mg/dL POC Glucose (mg/dL) 331 H (70-110) mg/dL Calcium (8.4-10.2) mg/dL Magnesium (1.6-2.3) mg/dL AST (17-59) U/L ALT (4-49) U/L Creatine Kinase (55-170) U/L Total Protein (6.3-8.2) g/dL Albumin (3.5-5.0) g/dL 12/09/22 12/09/22 12/09/22 Range/Units 14:00 15:07 16:05 RBC (4.30-5.90) m/uL Hgb (13.0-17.5) gm/dL Hct (39.0-53.0) % Plt Count (150-450) k/uL APTT (22.0-30.0) sec ABG pH (7.35-7.45) ABG pCO2 (35-45) mmHg ABG pO2 (83-108) mmHg ABG HCO3 (21-25) mmol/L ABG O2 Saturation (94-97) % Sodium (137-145) mmol/L Potassium (3.5-5.1) mmol/L Chloride (98-107) mmol/L Carbon Dioxide (22-30) mmol/L BUN (9-20) mg/dL Creatinine (0.66-1.25) mg/dL Glucose (74-99) mg/dL POC Glucose (mg/dL) 285 H 298 H 348 H (70-110) mg/dL Calcium (8.4-10.2) mg/dL Magnesium (1.6-2.3) mg/dL AST (17-59) U/L ALT (4-49) U/L Creatine Kinase (55-170) U/L Total Protein (6.3-8.2) g/dL Albumin (3.5-5.0) g/dL 12/09/22 12/09/22 Range/Units 17:05 18:02 RBC (4.30-5.90) m/uL Hgb (13.0-17.5) gm/dL Hct (39.0-53.0) % Plt Count (150-450) k/uL APTT (22.0-30.0) sec ABG pH (7.35-7.45) ABG pCO2 (35-45) mmHg ABG pO2 (83-108) mmHg ABG HCO3 (21-25) mmol/L ABG O2 Saturation (94-97) % Sodium (137-145) mmol/L Potassium (3.5-5.1) mmol/L Chloride (98-107) mmol/L Carbon Dioxide (22-30) mmol/L BUN (9-20) mg/dL Creatinine (0.66-1.25) mg/dL Glucose (74-99) mg/dL POC Glucose (mg/dL) 362 H 183 H (70-110) mg/dL Calcium (8.4-10.2) mg/dL Magnesium (1.6-2.3) mg/dL AST (17-59) U/L ALT (4-49) U/L Creatine Kinase (55-170) U/L Total Protein (6.3-8.2) g/dL Albumin (3.5-5.0) g/dL Microbiology - Last 24 Hours (Table) 12/08/22 00:09 Gram Stain - Preliminary Sputum Sputum Culture - Preliminary Gram Neg Bacilli Gram Neg Bacilli#2 12/07/22 11:55 Blood Culture Gram Stain - Preliminary Blood Blood Culture - Preliminary 12/07/22 11:55 Blood Culture - Preliminary Blood
[2022-12-09 18:45] LABS: Glucose,Whole Blood 165 mg/dL (70-110)
[2022-12-09 19:35] LABS: Glucose,Whole Blood 114 mg/dL (70-110)
[2022-12-09] MEDS: PANTOPRAZOLE 40 MG/10 ML VIAL IVP SCH (20:15)
[2022-12-09 21:02] LABS: Glucose,Whole Blood 138 mg/dL (70-110)
[2022-12-09 22:00] LABS: Glucose,Whole Blood 140 mg/dL (70-110)
[2022-12-09 23:02] LABS: Glucose,Whole Blood 173 mg/dL (70-110)
[2022-12-09 23:57] LABS: Glucose,Whole Blood 221 mg/dL (70-110)
[2022-12-10 00:02] LABS: ALT 350 U/L (4-49); Albumin 2.4 g/dL (3.5-5.0); Alkaline Phosphatase 86 U/L (38-126); Anion Gap 13 mmol/L; Blood Urea Nitrogen 78 mg/dL (9-20); Calcium 6.8 mg/dL (8.4-10.2); Carbon Dioxide 17 mmol/L (22-30); Chloride 106 mmol/L (98-107); Glucose 256 mg/dL (74-99); Potassium 3.8 mmol/L (3.5-5.1); Sodium 136 mmol/L (137-145); Total Bilirubin 0.9 mg/dL (0.2-1.3); Total Protein 4.7 g/dL (6.3-8.2)
[2022-12-10 00:07] LABS: African American GFR (CKD) 13 (>60 ml/min/1.73 sqM); Non-African American GFR(CKD) 11 (>60 ml/min/1.73 sqM)
[2022-12-10 00:59] LABS: AST 1522 U/L (17-59)
[2022-12-10 01:00] LABS: Glucose,Whole Blood 254 mg/dL (70-110)
[2022-12-10 02:05] LABS: Glucose,Whole Blood 283 mg/dL (70-110)
[2022-12-10 03:17] LABS: Glucose,Whole Blood 261 mg/dL (70-110)
[2022-12-10 04:09] LABS: Glucose,Whole Blood 260 mg/dL (70-110)
[2022-12-10 04:21] LABS: HCT 32.5 % (39.0-53.0); HGB 11.1 gm/dL (13.0-17.5); MCH 28.8 pg (25.0-35.0); MCV 84.6 fL (80.0-100.0); Mean Platelet Volume 10.6; RBC 3.85 m/uL (4.30-5.90); RDW 14.1 % (11.5-15.5); WBC 8.5 k/uL (3.8-10.6)
[2022-12-10 04:23] LABS: Platelet Count 38 k/uL (150-450)
[2022-12-10 04:32] LABS: Anion Gap 10 mmol/L; Blood Urea Nitrogen 85 mg/dL (9-20); Calcium 6.8 mg/dL (8.4-10.2); Carbon Dioxide 19 mmol/L (22-30); Chloride 105 mmol/L (98-107); Glucose 247 mg/dL (74-99); Magnesium 2.3 mg/dL (1.6-2.3); Potassium 3.4 mmol/L (3.5-5.1); Sodium 134 mmol/L (137-145)
[2022-12-10 04:37] LABS: Vancomycin,Random 25.3 ug/mL
[2022-12-10 05:37] LABS: Glucose,Whole Blood 228 mg/dL (70-110)
[2022-12-10 06:06] LABS: Glucose,Whole Blood 188 mg/dL (70-110)
[2022-12-10 06:17] LABS: ABG Base Excess -2.1 mmol/L; ABG HCO3 22 mmol/L (21-25); ABG Oxygen Saturation 98.1 % (94-97); ABG PCO2 31 mmHg (35-45); ABG PH 7.46 (7.35-7.45); ABG PO2 101 mmHg (83-108); ABG TCO2 23 mmol/L (19-24); Allen Test Performed? Yes
[2022-12-10] MEDS: PIPERACILLIN-TAZOBACTAM 3.375 GM in SODIUM CHLORIDE 0.9% 100 ML IVPB SCH ×2 (06:31→17:51)
[2022-12-10 06:40] LABS: African American GFR (CKD) 12 (>60 ml/min/1.73 sqM); Non-African American GFR(CKD) 10 (>60 ml/min/1.73 sqM)
[2022-12-10 07:06] LABS: Glucose,Whole Blood 196 mg/dL (70-110)
[2022-12-10] MEDS: INSULIN REGULAR 100 UNIT in SODIUM CHLORIDE 0.9% 100 ML IV SCH (07:08)
--- NOTE | 2022-12-10 07:16 | XR ---
EXAMINATION TYPE: XR chest 1V portable DATE OF EXAM: 12/10/2022 COMPARISON: 12/09/2022 HISTORY: Tube placement TECHNIQUE: Single frontal view of the chest is obtained. FINDINGS: There is right lower lobe consolidation and bilateral small pleural effusion. ET and NG tu be stable. Sizable pneumothorax. No overt failure. Heart size stable. Osseous structures unchanged. L eft basilar atelectasis stable. IMPRESSION: Bilateral lower lobe infiltrate\atelectasis and small bilateral pleural effusion stable.
[2022-12-10 08:11] LABS: Glucose,Whole Blood 188 mg/dL (70-110)
[2022-12-10] MEDS: CHLORHEXIDINE GLUCONATE 15 ML CUP MUCOUS MEM SCH ×2 (08:20→20:09)
[2022-12-10] MEDS: PANTOPRAZOLE 40 MG/10 ML VIAL IVP SCH ×2 (08:20→20:09)
[2022-12-10] MEDS: DEXTROSE 5% IN WATER 1,000 ML with SODIUM BICARB (1 MEQ/ML) 150 ML IV SCH (08:20)
[2022-12-10] MEDS: ASPIRIN 81 MG PO SCH (08:21)
[2022-12-10] MEDS: NOREPINEPHRINE 8 MG in SODIUM CHLORIDE 0.9% 250 ML IV SCH (08:30)
[2022-12-10 09:09] LABS: Glucose,Whole Blood 148 mg/dL (70-110)
[2022-12-10 10:07] LABS: Glucose,Whole Blood 128 mg/dL (70-110)
--- NOTE | 2022-12-10 10:21 | P.PN ---
Subjective Patient seen in follow-up for acute kidney injury on chronic kidney disease. Levophed held. Oliguric. Tolerating dialysis. Receiving tube feeds. Also receiving IV fluids. Intubated. Vital signs are stable. General: Resting in bed. HEENT: Intubated. LUNGS: No audible rhonchi liters. HEART: Rate and Rhythm are regular. ABDOMEN: No distention. EXTREMITITES: 1+ edema. Objective - Vital Signs Vital signs: Vital Signs Temp 97.4 F L 12/10/22 04:00 Pulse 80 12/10/22 07:45 Resp 24 12/10/22 07:45 BP 140/63 12/10/22 07:30 Pulse Ox 99 12/10/22 07:45 FiO2 40 12/10/22 09:05 Intake & Output 12/09/22 12/10/22 12/10/22 18:59 06:59 18:59 Intake Total 2108.871 1031.925 165.239 Output Total 15 0 0 Balance 2093.871 1031.925 165.239 Weight 113.1 kg Intake: IV 1516 613 53 .9 NS 36 33 3 Dextrose 5% in Water 1, 850 550 50 000 ml @ 50 mls/hr IV . Q23H [facility] with Sodium Bicarb (1 Meq/ml) 150 ml Rx#:[id number] Invasive Line 3 30 30 Piperacillin-Tazobactam 3 100 .375 gm In Sodium Chloride 0.9% 100 ml @ 25 mls/hr IVPB Q8H [facility] Rx#: [id number] Vancomycin 1,750 mg In 500 Sodium Chloride 0.9% 500 ml 500 ml @ 167 mls/hr IVPB ONCE ONE Rx#: [id number] Intake, IV Titration 292.871 198.925 92.239 Amount Insulin Regular 100 unit 83.566 71.167 15.502 In Sodium Chloride 0.9% 100 ml @ 0.1 UNITS/KG/HR 10.445 mls/hr IV .Q9H41M [facility] Rx#:[id number] Norepinephrine 8 mg In 9.305 41.61 Sodium Chloride 0.9% 250 ml @ 0.05 MCG/KG/MIN 10. 006 mls/hr IV .Q24H [facility] Rx#:[id number] propofoL 1,000 mg In 200.000 86.148 76.737 Empty Bag 1 bag @ 15 MCG/ KG/MIN 9.308 mls/hr IV . [id number] [facility] Rx#:[id number] Tube Feeding 240 220 20 Other 60 Output: Urine 15 0 0 Other: Voiding Method Indwelling Catheter Indwelling Catheter ABP, PAP, CO, CI - Last Documented Arterial Blood Pressure 120/45 - Labs CBC & Chem 7: 12/10/22 04:00 12/10/22 04:00 Labs: Abnormal Lab Results - Last 24 Hours (Table) 12/09/22 12/09/22 12/09/22 Range/Units 09:59 10:59 11:59 RBC (4.30-5.90) m/uL Hgb (13.0-17.5) gm/dL Hct (39.0-53.0) % Plt Count (150-450) k/uL ABG pH (7.35-7.45) ABG pCO2 (35-45) mmHg ABG pO2 (83-108) mmHg ABG HCO3 (21-25) mmol/L ABG O2 Saturation (94-97) % Sodium 135 L (137-145) mmol/L Potassium 3.4 L (3.5-5.1) mmol/L Carbon Dioxide 16 L (22-30) mmol/L BUN 70 H (9-20) mg/dL Creatinine 4.09 H (0.66-1.25) mg/dL Glucose 395 H (74-99) mg/dL POC Glucose (mg/dL) 353 H 339 H (70-110) mg/dL Hemoglobin A1c (<=6.0) % Calcium 6.8 L (8.4-10.2) mg/dL AST 1527 H (17-59) U/L ALT 317 H (4-49) U/L Total Protein 4.8 L (6.3-8.2) g/dL Albumin 2.4 L (3.5-5.0) g/dL 12/09/22 12/09/22 12/09/22 Range/Units 12:14 13:18 13:23 RBC 3.96 L (4.30-5.90) m/uL Hgb 11.5 L (13.0-17.5) gm/dL Hct 33.2 L (39.0-53.0) % Plt Count 41 L (150-450) k/uL ABG pH (7.35-7.45) ABG pCO2 29 L (35-45) mmHg ABG pO2 122 H (83-108) mmHg ABG HCO3 20 L (21-25) mmol/L ABG O2 Saturation 98.7 H (94-97) % Sodium (137-145) mmol/L Potassium (3.5-5.1) mmol/L Carbon Dioxide (22-30) mmol/L BUN (9-20) mg/dL Creatinine (0.66-1.25) mg/dL Glucose (74-99) mg/dL POC Glucose (mg/dL) 331 H (70-110) mg/dL Hemoglobin A1c (<=6.0) % Calcium (8.4-10.2) mg/dL AST (17-59) U/L ALT (4-49) U/L Total Protein (6.3-8.2) g/dL Albumin (3.5-5.0) g/dL 12/09/22 12/09/22 12/09/22 Range/Units 14:00 15:07 16:05 RBC (4.30-5.90) m/uL Hgb (13.0-17.5) gm/dL Hct (39.0-53.0) % Plt Count (150-450) k/uL ABG pH (7.35-7.45) ABG pCO2 (35-45) mmHg ABG pO2 (83-108) mmHg ABG HCO3 (21-25) mmol/L ABG O2 Saturation (94-97) % Sodium (137-145) mmol/L Potassium (3.5-5.1) mmol/L Carbon Dioxide (22-30) mmol/L BUN (9-20) mg/dL Creatinine (0.66-1.25) mg/dL Glucose (74-99) mg/dL POC Glucose (mg/dL) 285 H 298 H 348 H (70-110) mg/dL Hemoglobin A1c (<=6.0) % Calcium (8.4-10.2) mg/dL AST (17-59) U/L ALT (4-49) U/L Total Protein (6.3-8.2) g/dL Albumin (3.5-5.0) g/dL 12/09/22 12/09/22 12/09/22 Range/Units 17:05 18:02 18:44 RBC (4.30-5.90) m/uL Hgb (13.0-17.5) gm/dL Hct (39.0-53.0) % Plt Count (150-450) k/uL ABG pH (7.35-7.45) ABG pCO2 (35-45) mmHg ABG pO2 (83-108) mmHg ABG HCO3 (21-25) mmol/L ABG O2 Saturation (94-97) % Sodium (137-145) mmol/L Potassium (3.5-5.1) mmol/L Carbon Dioxide (22-30) mmol/L BUN (9-20) mg/dL Creatinine (0.66-1.25) mg/dL Glucose (74-99) mg/dL POC Glucose (mg/dL) 362 H 183 H 165 H (70-110) mg/dL Hemoglobin A1c (<=6.0) % Calcium (8.4-10.2) mg/dL AST (17-59) U/L ALT (4-49) U/L Total Protein (6.3-8.2) g/dL Albumin (3.5-5.0) g/dL 12/09/22 12/09/22 12/09/22 Range/Units 19:33 21:00 21:58 RBC (4.30-5.90) m/uL Hgb (13.0-17.5) gm/dL Hct (39.0-53.0) % Plt Count (150-450) k/uL ABG pH (7.35-7.45) ABG pCO2 (35-45) mmHg ABG pO2 (83-108) mmHg ABG HCO3 (21-25) mmol/L ABG O2 Saturation (94-97) % Sodium (137-145) mmol/L Potassium (3.5-5.1) mmol/L Carbon Dioxide (22-30) mmol/L BUN (9-20) mg/dL Creatinine (0.66-1.25) mg/dL Glucose (74-99) mg/dL POC Glucose (mg/dL) 114 H 138 H 140 H (70-110) mg/dL Hemoglobin A1c (<=6.0) % Calcium (8.4-10.2) mg/dL AST (17-59) U/L ALT (4-49) U/L Total Protein (6.3-8.2) g/dL Albumin (3.5-5.0) g/dL 12/09/22 12/09/22 12/09/22 Range/Units 23:00 23:27 23:56 RBC (4.30-5.90) m/uL Hgb (13.0-17.5) gm/dL Hct (39.0-53.0) % Plt Count (150-450) k/uL ABG pH (7.35-7.45) ABG pCO2 (35-45) mmHg ABG pO2 (83-108) mmHg ABG HCO3 (21-25) mmol/L ABG O2 Saturation (94-97) % Sodium 136 L (137-145) mmol/L Potassium (3.5-5.1) mmol/L Carbon Dioxide 17 L (22-30) mmol/L BUN 78 H (9-20) mg/dL Creatinine 5.03 H (0.66-1.25) mg/dL Glucose 256 H (74-99) mg/dL POC Glucose (mg/dL) 173 H 221 H (70-110) mg/dL Hemoglobin A1c (<=6.0) % Calcium 6.8 L (8.4-10.2) mg/dL AST 1522 H (17-59) U/L ALT 350 H (4-49) U/L Total Protein 4.7 L (6.3-8.2) g/dL Albumin 2.4 L (3.5-5.0) g/dL 12/10/22 12/10/22 12/10/22 Range/Units 00:59 02:03 03:15 RBC (4.30-5.90) m/uL Hgb (13.0-17.5) gm/dL Hct (39.0-53.0) % Plt Count (150-450) k/uL ABG pH (7.35-7.45) ABG pCO2 (35-45) mmHg ABG pO2 (83-108) mmHg ABG HCO3 (21-25) mmol/L ABG O2 Saturation (94-97) % Sodium (137-145) mmol/L Potassium (3.5-5.1) mmol/L Carbon Dioxide (22-30) mmol/L BUN (9-20) mg/dL Creatinine (0.66-1.25) mg/dL Glucose (74-99) mg/dL POC Glucose (mg/dL) 254 H 283 H 261 H (70-110) mg/dL Hemoglobin A1c (<=6.0) % Calcium (8.4-10.2) mg/dL AST (17-59) U/L ALT (4-49) U/L Total Protein (6.3-8.2) g/dL Albumin (3.5-5.0) g/dL 12/10/22 12/10/22 12/10/22 Range/Units 04:00 04:00 04:00 RBC 3.85 L (4.30-5.90) m/uL Hgb 11.1 L (13.0-17.5) gm/dL Hct 32.5 L (39.0-53.0) % Plt Count 38 L (150-450) k/uL ABG pH (7.35-7.45) ABG pCO2 (35-45) mmHg ABG pO2 (83-108) mmHg ABG HCO3 (21-25) mmol/L ABG O2 Saturation (94-97) % Sodium 134 L (137-145) mmol/L Potassium 3.4 L (3.5-5.1) mmol/L Carbon Dioxide 19 L (22-30) mmol/L BUN 85 H (9-20) mg/dL Creatinine 5.33 H (0.66-1.25) mg/dL Glucose 247 H (74-99) mg/dL POC Glucose (mg/dL) (70-110) mg/dL Hemoglobin A1c 12.2 H (<=6.0) % Calcium 6.8 L (8.4-10.2) mg/dL AST (17-59) U/L ALT (4-49) U/L Total Protein (6.3-8.2) g/dL Albumin (3.5-5.0) g/dL 12/10/22 12/10/22 12/10/22 Range/Units 04:07 05:35 06:05 RBC (4.30-5.90) m/uL Hgb (13.0-17.5) gm/dL Hct (39.0-53.0) % Plt Count (150-450) k/uL ABG pH (7.35-7.45) ABG pCO2 (35-45) mmHg ABG pO2 (83-108) mmHg ABG HCO3 (21-25) mmol/L ABG O2 Saturation (94-97) % Sodium (137-145) mmol/L Potassium (3.5-5.1) mmol/L Carbon Dioxide (22-30) mmol/L BUN (9-20) mg/dL Creatinine (0.66-1.25) mg/dL Glucose (74-99) mg/dL POC Glucose (mg/dL) 260 H 228 H 188 H (70-110) mg/dL Hemoglobin A1c (<=6.0) % Calcium (8.4-10.2) mg/dL AST (17-59) U/L ALT (4-49) U/L Total Protein (6.3-8.2) g/dL Albumin (3.5-5.0) g/dL 12/10/22 12/10/22 12/10/22 Range/Units 06:14 07:05 08:05 RBC (4.30-5.90) m/uL Hgb (13.0-17.5) gm/dL Hct (39.0-53.0) % Plt Count (150-450) k/uL ABG pH 7.46 H (7.35-7.45) ABG pCO2 31 L (35-45) mmHg ABG pO2 (83-108) mmHg ABG HCO3 (21-25) mmol/L ABG O2 Saturation 98.1 H (94-97) % Sodium (137-145) mmol/L Potassium (3.5-5.1) mmol/L Carbon Dioxide (22-30) mmol/L BUN (9-20) mg/dL Creatinine (0.66-1.25) mg/dL Glucose (74-99) mg/dL POC Glucose (mg/dL) 196 H 188 H (70-110) mg/dL Hemoglobin A1c (<=6.0) % Calcium (8.4-10.2) mg/dL AST (17-59) U/L ALT (4-49) U/L Total Protein (6.3-8.2) g/dL Albumin (3.5-5.0) g/dL 12/10/22 12/10/22 Range/Units 09:07 10:04 RBC (4.30-5.90) m/uL Hgb (13.0-17.5) gm/dL Hct (39.0-53.0) % Plt Count (150-450) k/uL ABG pH (7.35-7.45) ABG pCO2 (35-45) mmHg ABG pO2 (83-108) mmHg ABG HCO3 (21-25) mmol/L ABG O2 Saturation (94-97) % Sodium (137-145) mmol/L Potassium (3.5-5.1) mmol/L Carbon Dioxide (22-30) mmol/L BUN (9-20) mg/dL Creatinine (0.66-1.25) mg/dL Glucose (74-99) mg/dL POC Glucose (mg/dL) 148 H 128 H (70-110) mg/dL Hemoglobin A1c (<=6.0) % Calcium (8.4-10.2) mg/dL AST (17-59) U/L ALT (4-49) U/L Total Protein (6.3-8.2) g/dL Albumin (3.5-5.0) g/dL Microbiology - Last 24 Hours (Table) 12/08/22 00:09 Gram Stain - Preliminary Sputum Sputum Culture - Preliminary Gram Neg Bacilli Gram Neg Bacilli#2 12/07/22 11:55 Blood Culture - Preliminary Blood 12/07/22 11:55 Blood Culture Gram Stain - Preliminary Blood Blood Culture - Preliminary Assessment and Plan Plan: Assessment: 1. Acute kidney injury secondary to ATN secondary to hypotension/septic shock and rhabdomyolysis. No hydronephrosis noted on imaging. Creatinine up to 5.33 today. Oliguric. Started on hemodialysis December 08 2022. 2. Chronic kidney disease stage IIIa with creatinine 1.4 in May 2021. [place] spect nephrosclerosis. 3. Rhabdomyolysis. 4. Septic shock currently off vasopressors. Blood culture positive for gram- positive cocci and sputum culture positive for gram-negative bacilli. 5. Metabolic acidosis secondary to acute kidney injury. 6. Hypokalemia from intracellular shifting from IV bicarb. 7. DKA maintained on insulin drip. 8. Volume overload. Plan: Currently seen while undergoing hemodialysis. Plan for another treatment tomorrow. Maintain tube feeds. Avoid nephrotoxins. Continue to monitor renal function and urine output. Monitor vancomycin levels. Dose to be adjusted for renal function. Repeat CK level. Phosphorus level 3.5 dated 12/09/2022.
[2022-12-10 11:19] LABS: Glucose,Whole Blood 155 mg/dL (70-110)
--- NOTE | 2022-12-10 12:38 | P.PN ---
Subjective Progress Note Date: 12/10/22 Principal diagnosis: Critical limb ischemia Patient seen and examined in the ICU. He remained sedated and intubated. There is still no contact with any family members. No acute changes through the night. Patient had been on IV heparin was discontinued for drop in platelet co unt. Today's labs WBC 8.5 hemoglobin 11 platelet count 38,000 sodium 134 potassium 3.4 BUN 85 creatinine 5.33. No CK level available this morning. Chest x-ray reports bilateral lower lobe infiltrate/atelectasis and small bilateral pleural effusions stable. Preliminary sputum culture with gram-negative bacilli, Enterobacter cloacae Objective - Vital Signs Vital signs: Vital Signs Temp 97.4 F L 12/10/22 04:00 Pulse 80 12/10/22 07:45 Resp 24 12/10/22 07:45 BP 140/63 12/10/22 07:30 Pulse Ox 99 12/10/22 07:45 FiO2 40 12/10/22 04:00 Intake & Output 12/09/22 12/10/22 12/10/22 18:59 06:59 18:59 Intake Total 2108.871 1031.925 165.239 Output Total 15 0 0 Balance 2093.871 1031.925 165.239 Weight 113.1 kg Intake: IV 1516 613 53 .9 NS 36 33 3 Dextrose 5% in Water 1, 850 550 50 000 ml @ 50 mls/hr IV . Q23H [facility] with Sodium Bicarb (1 Meq/ml) 150 ml Rx#:[id number] Invasive Line 3 30 30 Piperacillin-Tazobactam 3 100 .375 gm In Sodium Chloride 0.9% 100 ml @ 25 mls/hr IVPB Q8H [facility] Rx#: [id number] Vancomycin 1,750 mg In 500 Sodium Chloride 0.9% 500 ml 500 ml @ 167 mls/hr IVPB ONCE ONE Rx#: [id number] Intake, IV Titration 292.871 198.925 92.239 Amount Insulin Regular 100 unit 83.566 71.167 15.502 In Sodium Chloride 0.9% 100 ml @ 0.1 UNITS/KG/HR 10.445 mls/hr IV .Q9H41M [facility] Rx#:[id number] Norepinephrine 8 mg In 9.305 41.61 Sodium Chloride 0.9% 250 ml @ 0.05 MCG/KG/MIN 10. 006 mls/hr IV .Q24H [facility] Rx#:[id number] propofoL 1,000 mg In 200.000 86.148 76.737 Empty Bag 1 bag @ 15 MCG/ KG/MIN 9.308 mls/hr IV . [id number] [facility] Rx#:[id number] Tube Feeding 240 220 20 Other 60 Output: Urine 15 0 0 Other: Voiding Method Indwelling Catheter Indwelling Catheter ABP, PAP, CO, CI - Last Documented Arterial Blood Pressure 120/45 - Exam General appearance: The patient is sedated and intubated. HET: Head is normocephalic and atraumatic. Neck: Supple. Heart: Regular. Lungs: Equal expansion, on mechanical ventilation. Abdomen: Soft, nondistended. Extremities: Left lower extremity ischemia extends midcalf level down through the toes, and no significant change from area marked. Proximal portion of calf and thigh warm to the touch. Neurological: Sedated and intubated. - Labs CBC & Chem 7: 12/10/22 04:00 12/10/22 04:00 Labs: Abnormal Lab Results - Last 24 Hours (Table) 12/09/22 12/09/22 12/09/22 Range/Units 09:02 09:54 09:59 RBC (4.30-5.90) m/uL Hgb (13.0-17.5) gm/dL Hct (39.0-53.0) % Plt Count (150-450) k/uL ABG pH (7.35-7.45) ABG pCO2 (35-45) mmHg ABG pO2 (83-108) mmHg ABG HCO3 (21-25) mmol/L ABG O2 Saturation (94-97) % Sodium 135 L (137-145) mmol/L Potassium 3.4 L (3.5-5.1) mmol/L Carbon Dioxide 16 L (22-30) mmol/L BUN 70 H (9-20) mg/dL Creatinine 4.09 H (0.66-1.25) mg/dL Glucose 395 H (74-99) mg/dL POC Glucose (mg/dL) 368 H 385 H (70-110) mg/dL Calcium 6.8 L (8.4-10.2) mg/dL AST 1527 H (17-59) U/L ALT 317 H (4-49) U/L Total Protein 4.8 L (6.3-8.2) g/dL Albumin 2.4 L (3.5-5.0) g/dL 12/09/22 12/09/22 12/09/22 Range/Units 10:59 11:59 12:14 RBC (4.30-5.90) m/uL Hgb (13.0-17.5) gm/dL Hct (39.0-53.0) % Plt Count (150-450) k/uL ABG pH (7.35-7.45) ABG pCO2 29 L (35-45) mmHg ABG pO2 122 H (83-108) mmHg ABG HCO3 20 L (21-25) mmol/L ABG O2 Saturation 98.7 H (94-97) % Sodium (137-145) mmol/L Potassium (3.5-5.1) mmol/L Carbon Dioxide (22-30) mmol/L BUN (9-20) mg/dL Creatinine (0.66-1.25) mg/dL Glucose (74-99) mg/dL POC Glucose (mg/dL) 353 H 339 H (70-110) mg/dL Calcium (8.4-10.2) mg/dL AST (17-59) U/L ALT (4-49) U/L Total Protein (6.3-8.2) g/dL Albumin (3.5-5.0) g/dL 12/09/22 12/09/22 12/09/22 Range/Units 13:18 13:23 14:00 RBC 3.96 L (4.30-5.90) m/uL Hgb 11.5 L (13.0-17.5) gm/dL Hct 33.2 L (39.0-53.0) % Plt Count 41 L (150-450) k/uL ABG pH (7.35-7.45) ABG pCO2 (35-45) mmHg ABG pO2 (83-108) mmHg ABG HCO3 (21-25) mmol/L ABG O2 Saturation (94-97) % Sodium (137-145) mmol/L Potassium (3.5-5.1) mmol/L Carbon Dioxide (22-30) mmol/L BUN (9-20) mg/dL Creatinine (0.66-1.25) mg/dL Glucose (74-99) mg/dL POC Glucose (mg/dL) 331 H 285 H (70-110) mg/dL Calcium (8.4-10.2) mg/dL AST (17-59) U/L ALT (4-49) U/L Total Protein (6.3-8.2) g/dL Albumin (3.5-5.0) g/dL 12/09/22 12/09/22 12/09/22 Range/Units 15:07 16:05 17:05 RBC (4.30-5.90) m/uL Hgb (13.0-17.5) gm/dL Hct (39.0-53.0) % Plt Count (150-450) k/uL ABG pH (7.35-7.45) ABG pCO2 (35-45) mmHg ABG pO2 (83-108) mmHg ABG HCO3 (21-25) mmol/L ABG O2 Saturation (94-97) % Sodium (137-145) mmol/L Potassium (3.5-5.1) mmol/L Carbon Dioxide (22-30) mmol/L BUN (9-20) mg/dL Creatinine (0.66-1.25) mg/dL Glucose (74-99) mg/dL POC Glucose (mg/dL) 298 H 348 H 362 H (70-110) mg/dL Calcium (8.4-10.2) mg/dL AST (17-59) U/L ALT (4-49) U/L Total Protein (6.3-8.2) g/dL Albumin (3.5-5.0) g/dL 12/09/22 12/09/22 12/09/22 Range/Units 18:02 18:44 19:33 RBC (4.30-5.90) m/uL Hgb (13.0-17.5) gm/dL Hct (39.0-53.0) % Plt Count (150-450) k/uL ABG pH (7.35-7.45) ABG pCO2 (35-45) mmHg ABG pO2 (83-108) mmHg ABG HCO3 (21-25) mmol/L ABG O2 Saturation (94-97) % Sodium (137-145) mmol/L Potassium (3.5-5.1) mmol/L Carbon Dioxide (22-30) mmol/L BUN (9-20) mg/dL Creatinine (0.66-1.25) mg/dL Glucose (74-99) mg/dL POC Glucose (mg/dL) 183 H 165 H 114 H (70-110) mg/dL Calcium (8.4-10.2) mg/dL AST (17-59) U/L ALT (4-49) U/L Total Protein (6.3-8.2) g/dL Albumin (3.5-5.0) g/dL 12/09/22 12/09/22 12/09/22 Range/Units 21:00 21:58 23:00 RBC (4.30-5.90) m/uL Hgb (13.0-17.5) gm/dL Hct (39.0-53.0) % Plt Count (150-450) k/uL ABG pH (7.35-7.45) ABG pCO2 (35-45) mmHg ABG pO2 (83-108) mmHg ABG HCO3 (21-25) mmol/L ABG O2 Saturation (94-97) % Sodium (137-145) mmol/L Potassium (3.5-5.1) mmol/L Carbon Dioxide (22-30) mmol/L BUN (9-20) mg/dL Creatinine (0.66-1.25) mg/dL Glucose (74-99) mg/dL POC Glucose (mg/dL) 138 H 140 H 173 H (70-110) mg/dL Calcium (8.4-10.2) mg/dL AST (17-59) U/L ALT (4-49) U/L Total Protein (6.3-8.2) g/dL Albumin (3.5-5.0) g/dL 12/09/22 12/09/22 12/10/22 Range/Units 23:27 23:56 00:59 RBC (4.30-5.90) m/uL Hgb (13.0-17.5) gm/dL Hct (39.0-53.0) % Plt Count (150-450) k/uL ABG pH (7.35-7.45) ABG pCO2 (35-45) mmHg ABG pO2 (83-108) mmHg ABG HCO3 (21-25) mmol/L ABG O2 Saturation (94-97) % Sodium 136 L (137-145) mmol/L Potassium (3.5-5.1) mmol/L Carbon Dioxide 17 L (22-30) mmol/L BUN 78 H (9-20) mg/dL Creatinine 5.03 H (0.66-1.25) mg/dL Glucose 256 H (74-99) mg/dL POC Glucose (mg/dL) 221 H 254 H (70-110) mg/dL Calcium 6.8 L (8.4-10.2) mg/dL AST 1522 H (17-59) U/L ALT 350 H (4-49) U/L Total Protein 4.7 L (6.3-8.2) g/dL Albumin 2.4 L (3.5-5.0) g/dL 12/10/22 12/10/22 12/10/22 Range/Units 02:03 03:15 04:00 RBC (4.30-5.90) m/uL Hgb (13.0-17.5) gm/dL Hct (39.0-53.0) % Plt Count (150-450) k/uL ABG pH (7.35-7.45) ABG pCO2 (35-45) mmHg ABG pO2 (83-108) mmHg ABG HCO3 (21-25) mmol/L ABG O2 Saturation (94-97) % Sodium 134 L (137-145) mmol/L Potassium 3.4 L (3.5-5.1) mmol/L Carbon Dioxide 19 L (22-30) mmol/L BUN 85 H (9-20) mg/dL Creatinine 5.33 H (0.66-1.25) mg/dL Glucose 247 H (74-99) mg/dL POC Glucose (mg/dL) 283 H 261 H (70-110) mg/dL Calcium 6.8 L (8.4-10.2) mg/dL AST (17-59) U/L ALT (4-49) U/L Total Protein (6.3-8.2) g/dL Albumin (3.5-5.0) g/dL 12/10/22 12/10/22 12/10/22 Range/Units 04:00 04:07 05:35 RBC 3.85 L (4.30-5.90) m/uL Hgb 11.1 L (13.0-17.5) gm/dL Hct 32.5 L (39.0-53.0) % Plt Count 38 L (150-450) k/uL ABG pH (7.35-7.45) ABG pCO2 (35-45) mmHg ABG pO2 (83-108) mmHg ABG HCO3 (21-25) mmol/L ABG O2 Saturation (94-97) % Sodium (137-145) mmol/L Potassium (3.5-5.1) mmol/L Carbon Dioxide (22-30) mmol/L BUN (9-20) mg/dL Creatinine (0.66-1.25) mg/dL Glucose (74-99) mg/dL POC Glucose (mg/dL) 260 H 228 H (70-110) mg/dL Calcium (8.4-10.2) mg/dL AST (17-59) U/L ALT (4-49) U/L Total Protein (6.3-8.2) g/dL Albumin (3.5-5.0) g/dL 12/10/22 12/10/22 12/10/22 Range/Units 06:05 06:14 07:05 RBC (4.30-5.90) m/uL Hgb (13.0-17.5) gm/dL Hct (39.0-53.0) % Plt Count (150-450) k/uL ABG pH 7.46 H (7.35-7.45) ABG pCO2 31 L (35-45) mmHg ABG pO2 (83-108) mmHg ABG HCO3 (21-25) mmol/L ABG O2 Saturation 98.1 H (94-97) % Sodium (137-145) mmol/L Potassium (3.5-5.1) mmol/L Carbon Dioxide (22-30) mmol/L BUN (9-20) mg/dL Creatinine (0.66-1.25) mg/dL Glucose (74-99) mg/dL POC Glucose (mg/dL) 188 H 196 H (70-110) mg/dL Calcium (8.4-10.2) mg/dL AST (17-59) U/L ALT (4-49) U/L Total Protein (6.3-8.2) g/dL Albumin (3.5-5.0) g/dL 12/10/22 Range/Units 08:05 RBC (4.30-5.90) m/uL Hgb (13.0-17.5) gm/dL Hct (39.0-53.0) % Plt Count (150-450) k/uL ABG pH (7.35-7.45) ABG pCO2 (35-45) mmHg ABG pO2 (83-108) mmHg ABG HCO3 (21-25) mmol/L ABG O2 Saturation (94-97) % Sodium (137-145) mmol/L Potassium (3.5-5.1) mmol/L Carbon Dioxide (22-30) mmol/L BUN (9-20) mg/dL Creatinine (0.66-1.25) mg/dL Glucose (74-99) mg/dL POC Glucose (mg/dL) 188 H (70-110) mg/dL Calcium (8.4-10.2) mg/dL AST (17-59) U/L ALT (4-49) U/L Total Protein (6.3-8.2) g/dL Albumin (3.5-5.0) g/dL Microbiology - Last 24 Hours (Table) 12/08/22 00:09 Gram Stain - Preliminary Sputum Sputum Culture - Preliminary Gram Neg Bacilli Gram Neg Bacilli#2 12/07/22 11:55 Blood Culture - Preliminary Blood 12/07/22 11:55 Blood Culture Gram Stain - Preliminary Blood Blood Culture - Preliminary Assessment and Plan Assessment: 1. Diabetic ketoacidosis with associated severe metabolic derangements 2. Nonpalpable popliteal and pedal pulses bilaterally suggesting femoral occlusive disease 3. Left lower extremity critical limb ischemia 4. Rhabdomyolysis secondary to being down for extended period time, exacerbated by critical limb ischemia 5. Acute hypoxic respiratory failure currently intubated on mechanical ventilator 6. Renal failure most likely associated with rhabdomyolysis and associated dehydration 7. Thrombocytopenia, likely heparin-induced thrombocytopenia. Heparin discontinued Plan: 1. Consult placed to social work, establish guardianship versus see if there is a contact her family members 2. Agree with holding heparin for thrombocytopenia 3. Stat CK, with repeat daily CBC, BMP, CK 4. Recommendation for [id number] amputation left lower extremity, likely within the next 1-2 days 5. Further recommendations forthcoming from vascular surgeon 6. Rest of medical management per primary medical team and prison librarian Thank you for this consultation, we will continue to follow. The impression and plan of care has been dictated as directed. I performed a history and examination of this patient, discussed the same with the dictator. I agree with the dictator's note ,documented as a scribe. Any additional findings or plans will be noted.
--- NOTE | 2022-12-10 12:57 | P.PN ---
Subjective Progress Note Date: 12/10/22 Patient is a 67-year-old male with a history of diabetes, bipolar disorder, history of closed head injury who [place] un[place] and covered in his own emesis. On arrival to the ER he was tachycardic with a pulse of 101, respirations 26, blood pressure 64/42 and O2 sat 92% on 15 L nonrebreather. Laboratory analysis including CBC, coags, ABG, CMP, ammonia, CK, troponin, urinalysis, urine drug screen, which were remarkable for white blood cell count 15.7, platelets 138, calcium 7.7, carbon dioxide less than 5, BUN 81, creatinine 3.8, glucose 794, lactic acid 9.4, ammonia 590, CK 384, troponin 0.139. Urine drug screen was negative. Influenza A/B/RSV/COVID-19 was negative. Chest x-ray showed endotracheal tube in the right mainstem the lungs were otherwise clear. CT chest abdomen and pelvis showed no acute process but cirrhosis. Head CT showed chronic changes with no acute intracranial process. EKG reviewed with normal sinus rhythm at a rate of 100 and peaker T- waves. He was intubated in the emergency department. He was started on norepinephrine, sodium bicarb with dextrose infusion, insulin infusion. He was also given calcium gluconate 1 g IV piggyback. Critical care was consulted. Arrangements were made for admission. He was continued on levothyroxine. Zosyn was initiated for possible aspiration. He was continued on DKA protocol. He was given aggressive IV fluid resuscitation with both normal saline and D5W with 3 A of bicarb. On the night after admission his urine output decreased and his left lower extremity became ischemic. His CKs elevated. Nephrology was consulted as well as vascular surgery. Patient was placed on a heparin drip. He was seen by vascular surgery. Nephrology recommended hemodialysis and first round was completed on 12/08/22. Still requiring norepinephrine. Insulin drip discontinued, started on Levemir. He continues to be sedated on ventilator. Vital signs reviewed General: nontoxic, no distress, appears at stated age Term: Left lower extremity distal to mid calf cyanotic appearing and cool with absent palpable pulses, right lower extremity warm Cardiovascular: S1S2 reg, no murmur Lungs: CTA bilateral, no rhonchi, no rales , no accessory muscle use Abdominal: soft, nontender to palpation, no guarding, no appreciable organomegaly Ext: no gross muscle atrophy, no edema b/l lower extremities, no contractures Neuro: Positive cough, positive gag Psych: Sedated on vent Assessment/Plan: Severe DKA, resolved Shock, likely septic Suspected aspiration pneumonia Metabolic encephalopathy -Pulmonary following -Insulin drip discontinued, started on Levemir 25 units at night, and sliding scale insulin with fingersticks every 6 hours -With concerns for possible septic shock we'll continue with Zosyn 3.375 mg every 12 hours IV piggyback D # 3 -Also on vancomycin -Continue to wean pressors Ischemic Left lower extremity Rhabdomyolysis Transaminitis due to rhabdo oliguric, Acute kidney injury now on hemodialysis Thrombocytopenia, possibly heparin-induced -Heparin drip has been discontinued -Vascular surgery note reviewed, establishing guardianship, possible above knee amputation in 1-2 days -Nephrology note reviewed, undergoing hemodialysis, another treatment tomorrow -CT and renal ultrasound without hydro -Strict I and O -Avoid nephrotoxic agents Gram-positive cocci 1 out of 2 blood cultures -Add vancomycin with pharmacy to dose. Monitor creatinine and vancomycin trough levels closely. -Repeat cultures pending Anemia Thrombocytopenia - follow CBC closely given decreased platelets Hyperkalemia, resolved Lactic acidosis, resolved Leukocytosis, resolved Elevated troponin, suspect secondary to renal dysfunction and Rhabdo Imaging: Chest x-ray independently interpreted, shows bilateral lower lobe opacities, similar to yesterday Hospital course imaging: echocardiogram: hyperdynamic left ventricle 65-70%, right ventricle mildly dilated with RVSP 28 Data Review: Labs reviewed from today: WBC 8.5, hemoglobin 11.1, platelet 38, pH 7.46, potassium 3.4, creatinine 5.33, magnesium 2.3, blood sugars range between 128- 188 Gram-positive cocci and 1 of 2 bottles. sputum culture gram negative bacilli and Enterobacter DVT prophylaxis:SCDS Anticipated discharge date: Pending Clinical Course Anticipated discharge place: Pending Clinical Course Objective - Vital Signs Vital signs: Vital Signs Temp 98.3 F 12/10/22 12:09 Pulse 107 H 12/10/22 12:09 Resp 16 12/10/22 12:09 BP 148/64 12/10/22 12:09 Pulse Ox 97 12/10/22 11:00 FiO2 40 12/10/22 12:00 Intake & Output 12/09/22 12/10/22 12/10/22 18:59 06:59 18:59 Intake Total 2108.871 2216.375 7272.974 Output Total 15 0 2800 Balance 2093.871 1031.925 -1779.026 Weight 113.1 kg Intake: IV 1516 613 153 .9 NS 36 33 53 Dextrose 5% in Water 1, 850 550 100 000 ml @ 50 mls/hr IV . Q23H [facility] with Sodium Bicarb (1 Meq/ml) 150 ml Rx#:[id number] Invasive Line 3 30 30 Piperacillin-Tazobactam 3 100 .375 gm In Sodium Chloride 0.9% 100 ml @ 25 mls/hr IVPB Q8H [facility] Rx#: [id number] Vancomycin 1,750 mg In 500 Sodium Chloride 0.9% 500 ml 500 ml @ 167 mls/hr IVPB ONCE ONE Rx#: [id number] Intake, IV Titration 292.871 198.925 220.974 Amount Dextrose 5% in Water 1, 0 000 ml @ 50 mls/hr IV . Q23H [facility] with Sodium Bicarb (1 Meq/ml) 150 ml Rx#:[id number] Insulin Regular 100 unit 83.566 71.167 42.787 In Sodium Chloride 0.9% 100 ml @ 0.1 UNITS/KG/HR 10.445 mls/hr IV .[id number] [facility] Rx#:[id number] Norepinephrine 8 mg In 9.305 41.61 9.872 Sodium Chloride 0.9% 250 ml @ 0.05 MCG/KG/MIN 10. 006 mls/hr IV .Q24H [facility] Rx#:[id number] propofoL 1,000 mg In 200.000 86.148 168.315 Empty Bag 1 bag @ 15 MCG/ KG/MIN 9.308 mls/hr IV . [id number] [facility] Rx#:[id number] Tube Feeding 240 220 187 Hemodialysis 400 Other 60 60 Output: Urine 15 0 0 Hemodialysis 2800 Other: Voiding Method Indwelling Catheter Indwelling Catheter Indwelling Catheter ABP, PAP, CO, CI - Last Documented Arterial Blood Pressure 108/39 - Labs CBC & Chem 7: 12/10/22 04:00 12/10/22 04:00 Labs: Abnormal Lab Results - Last 24 Hours (Table) 12/09/22 12/09/22 12/09/22 Range/Units 13:18 13:23 14:00 RBC 3.96 L (4.30-5.90) m/uL Hgb 11.5 L (13.0-17.5) gm/dL Hct 33.2 L (39.0-53.0) % Plt Count 41 L (150-450) k/uL ABG pH (7.35-7.45) ABG pCO2 (35-45) mmHg ABG O2 Saturation (94-97) % Sodium (137-145) mmol/L Potassium (3.5-5.1) mmol/L Carbon Dioxide (22-30) mmol/L BUN (9-20) mg/dL Creatinine (0.66-1.25) mg/dL Glucose (74-99) mg/dL POC Glucose (mg/dL) 331 H 285 H (70-110) mg/dL Hemoglobin A1c (<=6.0) % Calcium (8.4-10.2) mg/dL AST (17-59) U/L ALT (4-49) U/L Total Protein (6.3-8.2) g/dL Albumin (3.5-5.0) g/dL 12/09/22 12/09/22 12/09/22 Range/Units 15:07 16:05 17:05 RBC (4.30-5.90) m/uL Hgb (13.0-17.5) gm/dL Hct (39.0-53.0) % Plt Count (150-450) k/uL ABG pH (7.35-7.45) ABG pCO2 (35-45) mmHg ABG O2 Saturation (94-97) % Sodium (137-145) mmol/L Potassium (3.5-5.1) mmol/L Carbon Dioxide (22-30) mmol/L BUN (9-20) mg/dL Creatinine (0.66-1.25) mg/dL Glucose (74-99) mg/dL POC Glucose (mg/dL) 298 H 348 H 362 H (70-110) mg/dL Hemoglobin A1c (<=6.0) % Calcium (8.4-10.2) mg/dL AST (17-59) U/L ALT (4-49) U/L Total Protein (6.3-8.2) g/dL Albumin (3.5-5.0) g/dL 12/09/22 12/09/22 12/09/22 Range/Units 18:02 18:44 19:33 RBC (4.30-5.90) m/uL Hgb (13.0-17.5) gm/dL Hct (39.0-53.0) % Plt Count (150-450) k/uL ABG pH (7.35-7.45) ABG pCO2 (35-45) mmHg ABG O2 Saturation (94-97) % Sodium (137-145) mmol/L Potassium (3.5-5.1) mmol/L Carbon Dioxide (22-30) mmol/L BUN (9-20) mg/dL Creatinine (0.66-1.25) mg/dL Glucose (74-99) mg/dL POC Glucose (mg/dL) 183 H 165 H 114 H (70-110) mg/dL Hemoglobin A1c (<=6.0) % Calcium (8.4-10.2) mg/dL AST (17-59) U/L ALT (4-49) U/L Total Protein (6.3-8.2) g/dL Albumin (3.5-5.0) g/dL 12/09/22 12/09/22 12/09/22 Range/Units 21:00 21:58 23:00 RBC (4.30-5.90) m/uL Hgb (13.0-17.5) gm/dL Hct (39.0-53.0) % Plt Count (150-450) k/uL ABG pH (7.35-7.45) ABG pCO2 (35-45) mmHg ABG O2 Saturation (94-97) % Sodium (137-145) mmol/L Potassium (3.5-5.1) mmol/L Carbon Dioxide (22-30) mmol/L BUN (9-20) mg/dL Creatinine (0.66-1.25) mg/dL Glucose (74-99) mg/dL POC Glucose (mg/dL) 138 H 140 H 173 H (70-110) mg/dL Hemoglobin A1c (<=6.0) % Calcium (8.4-10.2) mg/dL AST (17-59) U/L ALT (4-49) U/L Total Protein (6.3-8.2) g/dL Albumin (3.5-5.0) g/dL 12/09/22 12/09/22 12/10/22 Range/Units 23:27 23:56 00:59 RBC (4.30-5.90) m/uL Hgb (13.0-17.5) gm/dL Hct (39.0-53.0) % Plt Count (150-450) k/uL ABG pH (7.35-7.45) ABG pCO2 (35-45) mmHg ABG O2 Saturation (94-97) % Sodium 136 L (137-145) mmol/L Potassium (3.5-5.1) mmol/L Carbon Dioxide 17 L (22-30) mmol/L BUN 78 H (9-20) mg/dL Creatinine 5.03 H (0.66-1.25) mg/dL Glucose 256 H (74-99) mg/dL POC Glucose (mg/dL) 221 H 254 H (70-110) mg/dL Hemoglobin A1c (<=6.0) % Calcium 6.8 L (8.4-10.2) mg/dL AST 1522 H (17-59) U/L ALT 350 H (4-49) U/L Total Protein 4.7 L (6.3-8.2) g/dL Albumin 2.4 L (3.5-5.0) g/dL 12/10/22 12/10/22 12/10/22 Range/Units 02:03 03:15 04:00 RBC (4.30-5.90) m/uL Hgb (13.0-17.5) gm/dL Hct (39.0-53.0) % Plt Count (150-450) k/uL ABG pH (7.35-7.45) ABG pCO2 (35-45) mmHg ABG O2 Saturation (94-97) % Sodium (137-145) mmol/L Potassium (3.5-5.1) mmol/L Carbon Dioxide (22-30) mmol/L BUN (9-20) mg/dL Creatinine (0.66-1.25) mg/dL Glucose (74-99) mg/dL POC Glucose (mg/dL) 283 H 261 H (70-110) mg/dL Hemoglobin A1c 12.2 H (<=6.0) % Calcium (8.4-10.2) mg/dL AST (17-59) U/L ALT (4-49) U/L Total Protein (6.3-8.2) g/dL Albumin (3.5-5.0) g/dL 12/10/22 12/10/22 12/10/22 Range/Units 04:00 04:00 04:07 RBC 3.85 L (4.30-5.90) m/uL Hgb 11.1 L (13.0-17.5) gm/dL Hct 32.5 L (39.0-53.0) % Plt Count 38 L (150-450) k/uL ABG pH (7.35-7.45) ABG pCO2 (35-45) mmHg ABG O2 Saturation (94-97) % Sodium 134 L (137-145) mmol/L Potassium 3.4 L (3.5-5.1) mmol/L Carbon Dioxide 19 L (22-30) mmol/L BUN 85 H (9-20) mg/dL Creatinine 5.33 H (0.66-1.25) mg/dL Glucose 247 H (74-99) mg/dL POC Glucose (mg/dL) 260 H (70-110) mg/dL Hemoglobin A1c (<=6.0) % Calcium 6.8 L (8.4-10.2) mg/dL AST (17-59) U/L ALT (4-49) U/L Total Protein (6.3-8.2) g/dL Albumin (3.5-5.0) g/dL 12/10/22 12/10/22 12/10/22 Range/Units 05:35 06:05 06:14 RBC (4.30-5.90) m/uL Hgb (13.0-17.5) gm/dL Hct (39.0-53.0) % Plt Count (150-450) k/uL ABG pH 7.46 H (7.35-7.45) ABG pCO2 31 L (35-45) mmHg ABG O2 Saturation 98.1 H (94-97) % Sodium (137-145) mmol/L Potassium (3.5-5.1) mmol/L Carbon Dioxide (22-30) mmol/L BUN (9-20) mg/dL Creatinine (0.66-1.25) mg/dL Glucose (74-99) mg/dL POC Glucose (mg/dL) 228 H 188 H (70-110) mg/dL Hemoglobin A1c (<=6.0) % Calcium (8.4-10.2) mg/dL AST (17-59) U/L ALT (4-49) U/L Total Protein (6.3-8.2) g/dL Albumin (3.5-5.0) g/dL 12/10/22 12/10/22 12/10/22 Range/Units 07:05 08:05 09:07 RBC (4.30-5.90) m/uL Hgb (13.0-17.5) gm/dL Hct (39.0-53.0) % Plt Count (150-450) k/uL ABG pH (7.35-7.45) ABG pCO2 (35-45) mmHg ABG O2 Saturation (94-97) % Sodium (137-145) mmol/L Potassium (3.5-5.1) mmol/L Carbon Dioxide (22-30) mmol/L BUN (9-20) mg/dL Creatinine (0.66-1.25) mg/dL Glucose (74-99) mg/dL POC Glucose (mg/dL) 196 H 188 H 148 H (70-110) mg/dL Hemoglobin A1c (<=6.0) % Calcium (8.4-10.2) mg/dL AST (17-59) U/L ALT (4-49) U/L Total Protein (6.3-8.2) g/dL Albumin (3.5-5.0) g/dL 12/10/22 12/10/22 Range/Units 10:04 11:18 RBC (4.30-5.90) m/uL Hgb (13.0-17.5) gm/dL Hct (39.0-53.0) % Plt Count (150-450) k/uL ABG pH (7.35-7.45) ABG pCO2 (35-45) mmHg ABG O2 Saturation (94-97) % Sodium (137-145) mmol/L Potassium (3.5-5.1) mmol/L Carbon Dioxide (22-30) mmol/L BUN (9-20) mg/dL Creatinine (0.66-1.25) mg/dL Glucose (74-99) mg/dL POC Glucose (mg/dL) 128 H 155 H (70-110) mg/dL Hemoglobin A1c (<=6.0) % Calcium (8.4-10.2) mg/dL AST (17-59) U/L ALT (4-49) U/L Total Protein (6.3-8.2) g/dL Albumin (3.5-5.0) g/dL Microbiology - Last 24 Hours (Table) 12/08/22 00:09 Gram Stain - Preliminary Sputum Sputum Culture - Preliminary Gram Neg Bacilli Enterobacter cloacae 12/07/22 11:55 Blood Culture - Preliminary Blood 12/07/22 11:55 Blood Culture Gram Stain - Preliminary Blood Blood Culture - Preliminary
[2022-12-10 13:55] LABS: Glucose,Whole Blood 274 mg/dL (70-110)
[2022-12-10] MEDS: INSULIN ASPART (NovoLOG) 100 UNIT/ML VIAL SQ SCH ×2 (14:06→17:53)
--- NOTE | 2022-12-10 14:15 | P.PN ---
Subjective Progress Note Date: 12/10/22 Principal diagnosis: Acute diabetic ketoacidosis and acute hypoxic respiratory failure This is a 67-year-old male patient, diabetic, known history of closed head injury, bipolar disorder, was currently intubated on a mechanical ventilator. He presented to our hospital unresponsive. He was found in a local motel in his own emesis. Upon arrival, the patient was hypotensive, he was hypoxic, he was found to be in DKA. He was intubated and placed on a mechanical ventilator. I believe he also aspirated. CAT scan of the chest abdomen and pelvis showed no acute process. There may be some changes related to liver cirrhosis. CAT scan of the head showed no acute intracranial process. At this point in time, the patient is intubated on a mechanical ventilator. Is on assist control and anxiety the rate of 228, FiO2 has been brought down to 50% with a PEEP of 5 and a tidal volumes of 500. The blood gas showed a pH of 6.9 with a pCO2 of 31 and pO2 of 400. The blood work showed a potassium level of 7.7, he had significant and I get metabolic acidosis with a serum bicarb of less than 5, initial blood sugar was 794 and the lactic acid level was at 9.5. The patient had a white cell count of 15.7 with a hemoglobin 15.8 and a platelet count of 138. Cognition profile was within normal limits. LFTs were normal, serum ammonia level was elevated at 590, UA showed +3 glucose, +2 ketones and urine drug screen was negative, the viral screen was also negative. For now, the patient has already received a total of 3 L of normal saline and the patient is currently on a bicarbonate infusion running at 150 mEq at 150 mL an hour. He is on insulin drip at 10 units an hour. He is on propofol running at 35 mcg/kg/m. He has a triple-lumen catheter in his left femoral vein. There is a orogastric tube in place and output is coffee-ground. He has hypotensive. He is on norepinephrine at 0.2 mcg/kg/m. The patient is also on emperic Antibiotic coverage started on a combination of Zosyn and vancomycin. On today's evaluation of 12/08/2022, the patient is being seen in follow-up in the intensive care unit. A critically ill male patient with DKA, rhabdomyolysis, severe metabolic acidosis, hypotension, acute kidney injury and furthermore, the patient lost his pulse and the left lower extremity and currently has a ischemic left foot. The patient remains on a mechanical ventilator for now. He is on propofol which is running at 40 mcg/kg/m. His adequately sedated and is calm and comfortable on a mechanical ventilator on assist control mode at a rate of 28, tidal volume 500, FiO2 of 40% with a PEEP of 5. The blood gas from today shows a pH of 7.28 with episodes of 26-year-old to 180. Chest x-ray shows no acute abnormalities. Orotracheal tube is in good location. No airspace disease. NG tube is in place. Lungs are clear. Also, the patient remains hemodynamically unstable. He was aggressively resuscitated with IV fluids yesterday. Patient has been in a positive fluid balance of 5 L over the past 24 hours. Currently, he remains on norepinephrine and dose has been weaned down to 0.16 mcg/kg/m. The patient has been switched to D5 half-normal saline which is running at 150 mL an hour and this is based on our DKA protocol. Insulin drip is still running at 12 units an hour. Most recent blood sugar is at 292. The anion gap is at 18. Serum bicarb is at 8. Potassium level has improved down to 4.9. He has sustained an acute kidney injury and the creatinine is at the rise at 3.9. He was had no urine output overnightt. Earlier this morning, he started making some urine output. He has developed a rhabdomyolysis. CPK level is up to 13,947.. Furthermore, his left foot is mottled and cold and pale and there are no palpable pulses in dorsalis pedis and the posterior tibialis. Very poor capillary refill. The mottling is above the ankle reaching the med left leg. The white count was of 15.7, hemoglobin was at 15.8 at time of admission. Coagulation profile was within normal limits. UA was negative. 12/09/2022, the patient remains intubated on a mechanical ventilator. The patient remains in intensive care unit. He is a critically ill male patient with DKA, rhabdomyolysis, hypotension, acute kidney injury and ischemic left foot. Since yesterday, the patient has been kept on a mechanical ventilator. He remains on propofol running at 25 mcg/kg/m. He remains comfortable and symptoms to mechanical ventilator. His assist-control mode at a rate of 28, tidal volume of 500, FiO2 of 40% with a PEEP of 5. The blood gas from today shows a pH of 7.49 with a pCO2 of 24 and pO2 of 109. Chest x-ray showing atelectatic changes in both lungs bilaterally. Orotracheal tube is in a good location. Hemodynamically, the patient was weaned off the pressors and this morning the patient was taken off pressors. Meanwhile, his urine output is quite low. This has been noted throughout the night. Nephrology is involved regarding his acute kidney injury and severe rhabdomyolysis. The patient has a dialysis catheter has right femoral vein. The patient was started on hemodialysis in the first session was offered to him yesterday. Unfortunately, the CPK is on the rise is currently up to 92,000. The left lower extremities ischemic with absent pulses in skin mottling and swelling demarcated this point in time. No Refill. The potassium levels at 3.6, serum bicarbs of 50, B is a 64 with a creatinine of 3.7. IV heparin was started and it had to be discontinued because of the development of thrombocytopenia. Platelet count is down to 42. Hemoglobin is at 12.5 with a white cell count of 9.1. Insulin drip is running at 5.5 units an hour and the patient's blood sugars are in the 300 range. He was started also on enteral feeding for nutritional support and currently is on vital high-protein at the rate of 20 mL an hour. He is afebrile. Cultures are negative. Is covered with antibiotics and he is currently on IV Zosyn Patient was reevaluated today on 12/10/2022, remains in the ICU, intubated and mechanically ventilated, receiving hemodialysis early this morning. Patient is on assist control rate of 20 tidal volume 500 FiO2 40% and PEEP of 5 ABG showed a pO2 of 101 pCO2 31 pH of 7.46. Patient is to have hemodialysis finished today. Patient is on insulin drip is also on propofol at 35 mcg/kg/m, not requiring any pressors. For his gram-negative bacilli in the sputum patient is receiving still vancomycin and Zosyn. Patient was felt to have most likely aspiration pneumonia not to mention the patient presented with hypotension, lactic acidosis, and acute kidney injury. Patient was found down in the hotel room, and he required immediate intubation. Her drug screen has been negative. Chest x-ray showed minimal atelectasis at the bases, otherwise no active disease. WBC count is 8.5 hemoglobin 11.1. Basic metabolic profile is relatively normal except for a BUN of 85 creatinine 5.33. CPK is extremely elevated actually it is 19 2500 and his liver enzymes are also elevated with AST of 1522 and ALT of 350. Drug screen on admission was negative. Platelets remained low at 38,000 Objective - Vital Signs Vital signs: Vital Signs Temp 98.3 F 12/10/22 12:09 Pulse 99 12/10/22 13:00 Resp 30 H 12/10/22 13:00 BP 140/63 12/10/22 12:45 Pulse Ox 93 L 12/10/22 13:00 FiO2 40 12/10/22 13:00 Intake & Output 12/09/22 12/10/22 12/10/22 18:59 06:59 18:59 Intake Total 2108.871 8710.731 8510.974 Output Total 15 0 2800 Balance 2093.871 1031.925 -1722.026 Weight 113.1 kg Intake: IV 1516 613 163 .9 NS 36 33 63 Dextrose 5% in Water 1, 850 550 100 000 ml @ 50 mls/hr IV . Q23H CAROL with Sodium Bicarb (1 Meq/ml) 150 ml Rx#:[id number] Invasive Line 3 30 30 Piperacillin-Tazobactam 3 100 .375 gm In Sodium Chloride 0.9% 100 ml @ 25 mls/hr IVPB Q8H CAROL Rx#: [id number] Vancomycin 1,750 mg In 500 Sodium Chloride 0.9% 500 ml 500 ml @ 167 mls/hr IVPB ONCE ONE Rx#: [id number] Intake, IV Titration 292.871 198.925 220.974 Amount Dextrose 5% in Water 1, 0 000 ml @ 50 mls/hr IV . Q23H CAROL with Sodium Bicarb (1 Meq/ml) 150 ml Rx#:[id number] Insulin Regular 100 unit 83.566 71.167 42.787 In Sodium Chloride 0.9% 100 ml @ 0.1 UNITS/KG/HR 10.445 mls/hr IV .[id number] CAROL Rx#:[id number] Norepinephrine 8 mg In 9.305 41.61 9.872 Sodium Chloride 0.9% 250 ml @ 0.05 MCG/KG/MIN 10. 006 mls/hr IV .Q24H CAROL Rx#:[id number] propofoL 1,000 mg In 200.000 86.148 168.315 Empty Bag 1 bag @ 15 MCG/ KG/MIN 9.308 mls/hr IV . [id number] CAROL Rx#:[id number] Tube Feeding 240 220 234 Hemodialysis 400 Other 60 60 Output: Urine 15 0 0 Hemodialysis 2800 Other: Voiding Method Indwelling Catheter Indwelling Catheter Indwelling Catheter ABP, PAP, CO, CI - Last Documented Arterial Blood Pressure 117/46 - Exam Physical Exam: Revealed a 67-year-old white male intubated, mechanically ventilated, sedated, not in distress. Receiving hemodialysis. Head: Atraumatic, normocephalic. HEENT:[Neck is supple.] [No neck masses.] [No thyromegaly.] [No JVD.] Chest: [Diminished breath sounds at the bases no crackles or rhonchi or wheezes Cardiac Exam: [Normal S1 and S2, no S3 gallop, no murmur.] Abdomen: [Soft, nontender, no megaly, no rebound, no guarding, normal bowel sounds.] Extremities: Left lower extremity is cold from the mid calf region all the way down to the foot. No pulses noted. Clearly the patient has ischemic left lower extremity. Neurological Exam: Not assessed, patient is sedated. Pupils are reactive, round 3 mm in size. Psychiatric: Could not assess. - Labs CBC & Chem 7: 12/10/22 04:00 12/10/22 04:00 Labs: Abnormal Lab Results - Last 24 Hours (Table) 12/09/22 12/09/22 12/09/22 Range/Units 15:07 16:05 17:05 RBC (4.30-5.90) m/uL Hgb (13.0-17.5) gm/dL Hct (39.0-53.0) % Plt Count (150-450) k/uL ABG pH (7.35-7.45) ABG pCO2 (35-45) mmHg ABG O2 Saturation (94-97) % Sodium (137-145) mmol/L Potassium (3.5-5.1) mmol/L Carbon Dioxide (22-30) mmol/L BUN (9-20) mg/dL Creatinine (0.66-1.25) mg/dL Glucose (74-99) mg/dL POC Glucose (mg/dL) 298 H 348 H 362 H (70-110) mg/dL Hemoglobin A1c (<=6.0) % Calcium (8.4-10.2) mg/dL AST (17-59) U/L ALT (4-49) U/L Total Protein (6.3-8.2) g/dL Albumin (3.5-5.0) g/dL 12/09/22 12/09/22 12/09/22 Range/Units 18:02 18:44 19:33 RBC (4.30-5.90) m/uL Hgb (13.0-17.5) gm/dL Hct (39.0-53.0) % Plt Count (150-450) k/uL ABG pH (7.35-7.45) ABG pCO2 (35-45) mmHg ABG O2 Saturation (94-97) % Sodium (137-145) mmol/L Potassium (3.5-5.1) mmol/L Carbon Dioxide (22-30) mmol/L BUN (9-20) mg/dL Creatinine (0.66-1.25) mg/dL Glucose (74-99) mg/dL POC Glucose (mg/dL) 183 H 165 H 114 H (70-110) mg/dL Hemoglobin A1c (<=6.0) % Calcium (8.4-10.2) mg/dL AST (17-59) U/L ALT (4-49) U/L Total Protein (6.3-8.2) g/dL Albumin (3.5-5.0) g/dL 12/09/22 12/09/22 12/09/22 Range/Units 21:00 21:58 23:00 RBC (4.30-5.90) m/uL Hgb (13.0-17.5) gm/dL Hct (39.0-53.0) % Plt Count (150-450) k/uL ABG pH (7.35-7.45) ABG pCO2 (35-45) mmHg ABG O2 Saturation (94-97) % Sodium (137-145) mmol/L Potassium (3.5-5.1) mmol/L Carbon Dioxide (22-30) mmol/L BUN (9-20) mg/dL Creatinine (0.66-1.25) mg/dL Glucose (74-99) mg/dL POC Glucose (mg/dL) 138 H 140 H 173 H (70-110) mg/dL Hemoglobin A1c (<=6.0) % Calcium (8.4-10.2) mg/dL AST (17-59) U/L ALT (4-49) U/L Total Protein (6.3-8.2) g/dL Albumin (3.5-5.0) g/dL 12/09/22 12/09/22 12/10/22 Range/Units 23:27 23:56 00:59 RBC (4.30-5.90) m/uL Hgb (13.0-17.5) gm/dL Hct (39.0-53.0) % Plt Count (150-450) k/uL ABG pH (7.35-7.45) ABG pCO2 (35-45) mmHg ABG O2 Saturation (94-97) % Sodium 136 L (137-145) mmol/L Potassium (3.5-5.1) mmol/L Carbon Dioxide 17 L (22-30) mmol/L BUN 78 H (9-20) mg/dL Creatinine 5.03 H (0.66-1.25) mg/dL Glucose 256 H (74-99) mg/dL POC Glucose (mg/dL) 221 H 254 H (70-110) mg/dL Hemoglobin A1c (<=6.0) % Calcium 6.8 L (8.4-10.2) mg/dL AST 1522 H (17-59) U/L ALT 350 H (4-49) U/L Total Protein 4.7 L (6.3-8.2) g/dL Albumin 2.4 L (3.5-5.0) g/dL 12/10/22 12/10/22 12/10/22 Range/Units 02:03 03:15 04:00 RBC (4.30-5.90) m/uL Hgb (13.0-17.5) gm/dL Hct (39.0-53.0) % Plt Count (150-450) k/uL ABG pH (7.35-7.45) ABG pCO2 (35-45) mmHg ABG O2 Saturation (94-97) % Sodium (137-145) mmol/L Potassium (3.5-5.1) mmol/L Carbon Dioxide (22-30) mmol/L BUN (9-20) mg/dL Creatinine (0.66-1.25) mg/dL Glucose (74-99) mg/dL POC Glucose (mg/dL) 283 H 261 H (70-110) mg/dL Hemoglobin A1c 12.2 H (<=6.0) % Calcium (8.4-10.2) mg/dL AST (17-59) U/L ALT (4-49) U/L Total Protein (6.3-8.2) g/dL Albumin (3.5-5.0) g/dL 12/10/22 12/10/22 12/10/22 Range/Units 04:00 04:00 04:07 RBC 3.85 L (4.30-5.90) m/uL Hgb 11.1 L (13.0-17.5) gm/dL Hct 32.5 L (39.0-53.0) % Plt Count 38 L (150-450) k/uL ABG pH (7.35-7.45) ABG pCO2 (35-45) mmHg ABG O2 Saturation (94-97) % Sodium 134 L (137-145) mmol/L Potassium 3.4 L (3.5-5.1) mmol/L Carbon Dioxide 19 L (22-30) mmol/L BUN 85 H (9-20) mg/dL Creatinine 5.33 H (0.66-1.25) mg/dL Glucose 247 H (74-99) mg/dL POC Glucose (mg/dL) 260 H (70-110) mg/dL Hemoglobin A1c (<=6.0) % Calcium 6.8 L (8.4-10.2) mg/dL AST (17-59) U/L ALT (4-49) U/L Total Protein (6.3-8.2) g/dL Albumin (3.5-5.0) g/dL 12/10/22 12/10/22 12/10/22 Range/Units 05:35 06:05 06:14 RBC (4.30-5.90) m/uL Hgb (13.0-17.5) gm/dL Hct (39.0-53.0) % Plt Count (150-450) k/uL ABG pH 7.46 H (7.35-7.45) ABG pCO2 31 L (35-45) mmHg ABG O2 Saturation 98.1 H (94-97) % Sodium (137-145) mmol/L Potassium (3.5-5.1) mmol/L Carbon Dioxide (22-30) mmol/L BUN (9-20) mg/dL Creatinine (0.66-1.25) mg/dL Glucose (74-99) mg/dL POC Glucose (mg/dL) 228 H 188 H (70-110) mg/dL Hemoglobin A1c (<=6.0) % Calcium (8.4-10.2) mg/dL AST (17-59) U/L ALT (4-49) U/L Total Protein (6.3-8.2) g/dL Albumin (3.5-5.0) g/dL 12/10/22 12/10/22 12/10/22 Range/Units 07:05 08:05 09:07 RBC (4.30-5.90) m/uL Hgb (13.0-17.5) gm/dL Hct (39.0-53.0) % Plt Count (150-450) k/uL ABG pH (7.35-7.45) ABG pCO2 (35-45) mmHg ABG O2 Saturation (94-97) % Sodium (137-145) mmol/L Potassium (3.5-5.1) mmol/L Carbon Dioxide (22-30) mmol/L BUN (9-20) mg/dL Creatinine (0.66-1.25) mg/dL Glucose (74-99) mg/dL POC Glucose (mg/dL) 196 H 188 H 148 H (70-110) mg/dL Hemoglobin A1c (<=6.0) % Calcium (8.4-10.2) mg/dL AST (17-59) U/L ALT (4-49) U/L Total Protein (6.3-8.2) g/dL Albumin (3.5-5.0) g/dL 12/10/22 12/10/22 12/10/22 Range/Units 10:04 11:18 13:52 RBC (4.30-5.90) m/uL Hgb (13.0-17.5) gm/dL Hct (39.0-53.0) % Plt Count (150-450) k/uL ABG pH (7.35-7.45) ABG pCO2 (35-45) mmHg ABG O2 Saturation (94-97) % Sodium (137-145) mmol/L Potassium (3.5-5.1) mmol/L Carbon Dioxide (22-30) mmol/L BUN (9-20) mg/dL Creatinine (0.66-1.25) mg/dL Glucose (74-99) mg/dL POC Glucose (mg/dL) 128 H 155 H 274 H (70-110) mg/dL Hemoglobin A1c (<=6.0) % Calcium (8.4-10.2) mg/dL AST (17-59) U/L ALT (4-49) U/L Total Protein (6.3-8.2) g/dL Albumin (3.5-5.0) g/dL Microbiology - Last 24 Hours (Table) 12/08/22 00:09 Gram Stain - Preliminary Sputum Sputum Culture - Preliminary Gram Neg Bacilli Enterobacter cloacae 12/07/22 11:55 Blood Culture - Preliminary Blood 12/07/22 11:55 Blood Culture Gram Stain - Preliminary Blood Blood Culture - Preliminary Assessment and Plan Assessment: Impression: Acute hypoxic respiratory failure most likely secondary to aspiration as the patient was found to be unresponsive and drowning in his own secretions. Acute diabetic ketoacidosis Acute shock/hypovolemic in nature Severe lactic acidosis secondary to above History of liver cirrhosis with significantly elevated liver enzymes Acute rhabdomyolysis with acute kidney injury most likely from ischemic left lower extremity and from the patient being down upon his initial presentation. Acute hyperkalemia, resolved Acute thrombocytopenia, now off heparin Acute troponin leak Acute metabolic encephalopathy Acute leukocytosis could be septic or possibly reactive. Acute hypothermia on initial presentation Ischemic left lower extremity, being followed by vascular. Recommendation: Continue ventilatory support Continue antibiotics/Zosyn Vascular surgery to evaluate left lower extremity Continue hemodialysis as per nephrology on the case Continue GI prophylaxis Hold subcu heparin since the patient has been noted to have low platelets Nutritional support Continue to monitor daily labs and electrolytes as well as liver enzymes and CPK Hemodynamic support as necessary. Patient is critically ill, and prognosis is extremely poor Not ready for any form of weaning at this point. We will continue to follow Critical care time is over 30 minute Time with Patient: Greater than 30
[2022-12-10] MEDS: FLUCONAZOLE IN NACL,ISO-OSM 200 MG in SALINE 1 100ML.BAG IVPB SCH (17:47)
[2022-12-10 17:53] LABS: Glucose,Whole Blood 352 mg/dL (70-110)
[2022-12-10 20:07] LABS: Glucose,Whole Blood 357 mg/dL (70-110)
[2022-12-10 20:59] LABS: ALT 334 U/L (4-49); Albumin 2.2 g/dL (3.5-5.0); Alkaline Phosphatase 83 U/L (38-126); Anion Gap 13 mmol/L; Blood Urea Nitrogen 86 mg/dL (9-20); Calcium 6.8 mg/dL (8.4-10.2); Carbon Dioxide 17 mmol/L (22-30); Chloride 103 mmol/L (98-107); Glucose 345 mg/dL (74-99); Potassium 3.8 mmol/L (3.5-5.1); Sodium 133 mmol/L (137-145); Total Bilirubin 0.6 mg/dL (0.2-1.3); Total Protein 4.5 g/dL (6.3-8.2)
[2022-12-10] MEDS ORDERED: INSULIN DETEMIR (LEVEMIR) 100 UNIT/ML SYR SQ SCH (21:00)
[2022-12-10 21:05] LABS: African American GFR (CKD) 11 (>60 ml/min/1.73 sqM); Non-African American GFR(CKD) 10 (>60 ml/min/1.73 sqM)
[2022-12-10 21:08] LABS: AST 1213 U/L (17-59)
[2022-12-10 23:59] LABS: Glucose,Whole Blood 399 mg/dL (70-110)
[2022-12-11] MEDS ORDERED: DEXTROSE 50% SYRINGE 50 ML IVP PRN ×2 (00:06)
[2022-12-11] MEDS: INSULIN ASPART (NovoLOG) 100 UNIT/ML VIAL SQ SCH ×7 (00:15→23:13)
[2022-12-11 04:27] LABS: Glucose,Whole Blood 397 mg/dL (70-110)
[2022-12-11 04:48] LABS: Basophils % (A) 0 %; Eosinophils # (A) 0.1 k/uL (0-0.7); Eosinophils % (A) 1 %; HCT 31.1 % (39.0-53.0); HGB 10.4 gm/dL (13.0-17.5); Lymphocytes # (A) 0.8 k/uL (1.0-4.8); Lymphocytes % (A) 7 %; MCH 28.4 pg (25.0-35.0); MCHC 33.4 g/dL (31.0-37.0); MCV 85.1 fL (80.0-100.0); Mean Platelet Volume 10.5; Monocytes # (A) 0.7 k/uL (0-1.0); Monocytes % (A) 6 %; Neutrophils # (A) 9.1 k/uL (1.3-7.7); Neutrophils % (A) 85 %; RBC 3.65 m/uL (4.30-5.90); RDW 14.2 % (11.5-15.5); WBC 10.7 k/uL (3.8-10.6)
[2022-12-11 04:57] LABS: ALT 318 U/L (4-49); Albumin 2.3 g/dL (3.5-5.0); Alkaline Phosphatase 91 U/L (38-126); Anion Gap 12 mmol/L; Blood Urea Nitrogen 99 mg/dL (9-20); Carbon Dioxide 18 mmol/L (22-30); Chloride 101 mmol/L (98-107); Glucose 375 mg/dL (74-99); Magnesium 2.3 mg/dL (1.6-2.3); Potassium 4.2 mmol/L (3.5-5.1); Sodium 131 mmol/L (137-145); Total Bilirubin 0.6 mg/dL (0.2-1.3); Total Protein 4.5 g/dL (6.3-8.2)
[2022-12-11 05:03] LABS: African American GFR (CKD) 10 (>60 ml/min/1.73 sqM); Non-African American GFR(CKD) 9 (>60 ml/min/1.73 sqM); Vancomycin,Random 21.3 ug/mL
[2022-12-11] MEDS: PIPERACILLIN-TAZOBACTAM 3.375 GM in SODIUM CHLORIDE 0.9% 100 ML IVPB SCH ×2 (05:05→17:02)
[2022-12-11 05:08] LABS: Platelet Count 54 k/uL (150-450)
[2022-12-11 05:47] LABS: AST 1156 U/L (17-59)
[2022-12-11 06:01] LABS: ABG Base Excess -4.2 mmol/L; ABG HCO3 20 mmol/L (21-25); ABG Oxygen Saturation 98.5 % (94-97); ABG PCO2 31 mmHg (35-45); ABG PH 7.42 (7.35-7.45); ABG PO2 113 mmHg (83-108); ABG TCO2 21 mmol/L (19-24); Allen Test Performed? Yes
[2022-12-11] MEDS: PANTOPRAZOLE 40 MG/10 ML VIAL IVP SCH ×2 (08:30→20:15)
[2022-12-11] MEDS: CHLORHEXIDINE GLUCONATE 15 ML CUP MUCOUS MEM SCH ×2 (08:30→20:15)
[2022-12-11] MEDS: FLUCONAZOLE IN NACL,ISO-OSM 200 MG in SALINE 1 100ML.BAG IVPB SCH (08:30)
[2022-12-11] MEDS: ASPIRIN 81 MG PO SCH (08:31)
[2022-12-11 08:43] LABS: Glucose,Whole Blood 382 mg/dL (70-110)
--- NOTE | 2022-12-11 08:47 | XR ---
EXAMINATION TYPE: XR chest 1V portable DATE OF EXAM: 12/11/2022 COMPARISON: 12/10/2022 HISTORY: Tube placement TECHNIQUE: Single frontal view of the chest is obtained. FINDINGS: There is right lower lobe consolidation and bilateral small pleural effusion. ET and NG tu be stable. Sizable pneumothorax. No overt failure. Heart size stable. Osseous structures unchanged. L eft basilar atelectasis stable. IMPRESSION: Bilateral lower lobe atelectasis or infiltrate and tiny effusion is slightly improved re lative to prior exam.
[2022-12-11] MEDS ORDERED: INSULIN DETEMIR (LEVEMIR) 100 UNIT/ML SYR SQ ONE (09:00)
[2022-12-11] MEDS ORDERED: ALTEPLASE 2 MG VIAL (CATHFLO) MISCELLANE STA (09:19)
--- NOTE | 2022-12-11 10:19 | P.PN ---
Subjective Progress Note Date: 12/11/22 Principal diagnosis: Critical limb ischemia Patient is seen and examined today as a follow-up. He remains intubated on mechanical ventilation. Nursing states he is been on and off pressors. No other acute changes through the night. He's been afebrile. WBC 10.7 hemoglobin 10.4 platelet count 54,000. He remains off heparin. Creatinine kinase continues to trend down today 92113 Objective - Vital Signs Vital signs: Vital Signs Temp 98.8 F 12/11/22 04:00 Pulse 80 12/11/22 07:30 Resp 23 12/11/22 07:30 BP 100/48 12/11/22 05:00 Pulse Ox 97 12/11/22 07:30 FiO2 40 12/11/22 04:23 Intake & Output 12/10/22 12/11/22 12/11/22 18:59 06:59 18:59 Intake Total 3578.753 1932.953 53 Output Total 2800 7 0 Balance -5084.074 6220.953 53 Weight 113.1 kg 112.6 kg Intake: IV 213 220 10 .9 NS 113 120 10 Dextrose 5% in Water 1, 100 000 ml @ 50 mls/hr IV . Q23H [facility] with Sodium Bicarb (1 Meq/ml) 150 ml Rx#:[id number] Piperacillin-Tazobactam 3 100 .375 gm In Sodium Chloride 0.9% 100 ml @ 25 mls/hr IVPB Q8H [facility] Rx#: [id number] Intake, IV Titration 366.882 301.953 Amount Dextrose 5% in Water 1, 0 000 ml @ 50 mls/hr IV . Q23H [facility] with Sodium Bicarb (1 Meq/ml) 150 ml Rx#:[id number] Insulin Regular 100 unit 42.787 In Sodium Chloride 0.9% 100 ml @ 0.1 UNITS/KG/HR 10.445 mls/hr IV .Q9H41M [facility] Rx#:[id number] Norepinephrine 8 mg In 19.678 39.487 Sodium Chloride 0.9% 250 ml @ 0.05 MCG/KG/MIN 10. 006 mls/hr IV .Q24H [facility] Rx#:[id number] propofoL 1,000 mg In 304.417 262.466 Empty Bag 1 bag @ 15 MCG/ KG/MIN 9.308 mls/hr IV . [id number] [facility] Rx#:[id number] Tube Feeding 469 520 43 Hemodialysis 400 Other 90 90 Output: Urine 0 7 0 Hemodialysis 2800 Other: Voiding Method Indwelling Catheter Indwelling Catheter # Bowel Movements 1 ABP, PAP, CO, CI - Last Documented Arterial Blood Pressure 139/50 - Exam General appearance: The patient is sedated and intubated. HET: Head is normocephalic and atraumatic. Neck: Supple. Heart: Regular. Lungs: Equal expansion, on mechanical ventilation. Abdomen: Soft, nondistended. Extremities: Left lower extremity ischemia extends midcalf level down through the toes, and no significant change from area marked. Proximal portion of calf and thigh warm to the touch. Neurological: Sedated and intubated. - Labs CBC & Chem 7: 12/11/22 04:28 12/11/22 04:28 Labs: Abnormal Lab Results - Last 24 Hours (Table) 12/10/22 12/10/22 12/10/22 Range/Units 04:00 08:05 09:07 WBC (3.8-10.6) k/uL RBC (4.30-5.90) m/uL Hgb (13.0-17.5) gm/dL Hct (39.0-53.0) % Plt Count (150-450) k/uL Neutrophils # (1.3-7.7) k/uL Lymphocytes # (1.0-4.8) k/uL ABG pCO2 (35-45) mmHg ABG pO2 (83-108) mmHg ABG HCO3 (21-25) mmol/L ABG O2 Saturation (94-97) % Sodium (137-145) mmol/L Carbon Dioxide (22-30) mmol/L BUN (9-20) mg/dL Creatinine (0.66-1.25) mg/dL Glucose (74-99) mg/dL POC Glucose (mg/dL) 188 H 148 H (70-110) mg/dL Hemoglobin A1c 12.2 H (<=6.0) % Calcium (8.4-10.2) mg/dL AST (17-59) U/L ALT (4-49) U/L Creatine Kinase (55-170) U/L Total Protein (6.3-8.2) g/dL Albumin (3.5-5.0) g/dL 12/10/22 12/10/22 12/10/22 Range/Units 10:04 11:18 11:19 WBC (3.8-10.6) k/uL RBC (4.30-5.90) m/uL Hgb (13.0-17.5) gm/dL Hct (39.0-53.0) % Plt Count (150-450) k/uL Neutrophils # (1.3-7.7) k/uL Lymphocytes # (1.0-4.8) k/uL ABG pCO2 (35-45) mmHg ABG pO2 (83-108) mmHg ABG HCO3 (21-25) mmol/L ABG O2 Saturation (94-97) % Sodium (137-145) mmol/L Carbon Dioxide (22-30) mmol/L BUN (9-20) mg/dL Creatinine (0.66-1.25) mg/dL Glucose (74-99) mg/dL POC Glucose (mg/dL) 128 H 155 H (70-110) mg/dL Hemoglobin A1c (<=6.0) % Calcium (8.4-10.2) mg/dL AST (17-59) U/L ALT (4-49) U/L Creatine Kinase 93838 H* (55-170) U/L Total Protein (6.3-8.2) g/dL Albumin (3.5-5.0) g/dL 12/10/22 12/10/22 12/10/22 Range/Units 13:52 17:52 19:41 WBC (3.8-10.6) k/uL RBC (4.30-5.90) m/uL Hgb (13.0-17.5) gm/dL Hct (39.0-53.0) % Plt Count (150-450) k/uL Neutrophils # (1.3-7.7) k/uL Lymphocytes # (1.0-4.8) k/uL ABG pCO2 (35-45) mmHg ABG pO2 (83-108) mmHg ABG HCO3 (21-25) mmol/L ABG O2 Saturation (94-97) % Sodium 133 L (137-145) mmol/L Carbon Dioxide 17 L (22-30) mmol/L BUN 86 H (9-20) mg/dL Creatinine 5.56 H (0.66-1.25) mg/dL Glucose 345 H (74-99) mg/dL POC Glucose (mg/dL) 274 H 352 H (70-110) mg/dL Hemoglobin A1c (<=6.0) % Calcium 6.8 L (8.4-10.2) mg/dL AST 1213 H (17-59) U/L ALT 334 H (4-49) U/L Creatine Kinase (55-170) U/L Total Protein 4.5 L (6.3-8.2) g/dL Albumin 2.2 L (3.5-5.0) g/dL 12/10/22 12/10/22 12/11/22 Range/Units 20:04 23:56 04:25 WBC (3.8-10.6) k/uL RBC (4.30-5.90) m/uL Hgb (13.0-17.5) gm/dL Hct (39.0-53.0) % Plt Count (150-450) k/uL Neutrophils # (1.3-7.7) k/uL Lymphocytes # (1.0-4.8) k/uL ABG pCO2 (35-45) mmHg ABG pO2 (83-108) mmHg ABG HCO3 (21-25) mmol/L ABG O2 Saturation (94-97) % Sodium (137-145) mmol/L Carbon Dioxide (22-30) mmol/L BUN (9-20) mg/dL Creatinine (0.66-1.25) mg/dL Glucose (74-99) mg/dL POC Glucose (mg/dL) 357 H 399 H 397 H (70-110) mg/dL Hemoglobin A1c (<=6.0) % Calcium (8.4-10.2) mg/dL AST (17-59) U/L ALT (4-49) U/L Creatine Kinase (55-170) U/L Total Protein (6.3-8.2) g/dL Albumin (3.5-5.0) g/dL 12/11/22 12/11/22 12/11/22 Range/Units 04:28 04:28 05:50 WBC 10.7 H (3.8-10.6) k/uL RBC 3.65 L (4.30-5.90) m/uL Hgb 10.4 L (13.0-17.5) gm/dL Hct 31.1 L (39.0-53.0) % Plt Count 54 L (150-450) k/uL Neutrophils # 9.1 H (1.3-7.7) k/uL Lymphocytes # 0.8 L (1.0-4.8) k/uL ABG pCO2 31 L (35-45) mmHg ABG pO2 113 H (83-108) mmHg ABG HCO3 20 L (21-25) mmol/L ABG O2 Saturation 98.5 H (94-97) % Sodium 131 L (137-145) mmol/L Carbon Dioxide 18 L (22-30) mmol/L BUN 99 H (9-20) mg/dL Creatinine 6.11 H (0.66-1.25) mg/dL Glucose 375 H (74-99) mg/dL POC Glucose (mg/dL) (70-110) mg/dL Hemoglobin A1c (<=6.0) % Calcium 7.0 L (8.4-10.2) mg/dL AST 1156 H (17-59) U/L ALT 318 H (4-49) U/L Creatine Kinase 11301 H* (55-170) U/L Total Protein 4.5 L (6.3-8.2) g/dL Albumin 2.3 L (3.5-5.0) g/dL Microbiology - Last 24 Hours (Table) 12/07/22 11:55 Blood Culture - Preliminary Blood 12/08/22 00:09 Gram Stain - Preliminary Sputum Sputum Culture - Preliminary Gram Neg Bacilli Enterobacter cloacae Assessment and Plan Assessment: 1. Diabetic ketoacidosis with associated severe metabolic derangements 2. Nonpalpable popliteal and pedal pulses bilaterally suggesting femoral occlusive disease 3. Left lower extremity critical limb ischemia 4. Rhabdomyolysis secondary to being down for extended period time, exacerbated by critical limb ischemia 5. Acute hypoxic respiratory failure currently intubated on mechanical vent ilator 6. Renal failure most likely associated with rhabdomyolysis and associated dehydration 7. Thrombocytopenia, likely heparin-induced thrombocytopenia. Heparin discontinued Plan: 1. Consult placed to social work, establish guardianship versus see if there is a contact for family members. There remains no available contact information for any family members. 2. Agree with holding heparin for thrombocytopenia 3. Daily CBC, BMP 4. Blood bank called and will order platelets to be on hold for surgery tomorrow if needed 5. The rest of medical management per primary medical team and wire drawing machine tender Patient discussed with wire drawing machine tender Dr. Mathews who states patient will not be extubated anytime soon. Patient is stabilizing and we can move forward with amputation. Patient reevaluated by Dr. Long, does feel that patient should be able to heal a left [id number] amputation. Patient will be scheduled for emergent/urgent left BKA tomorrow with Dr. Mata. There still remains no contact information for family history no family has been present in the hosp ital during the patient's stay. Patient's case discussed with jailer chief Dr. Erwin who agrees vascular surgeon should move forward with emergent/urgent amputation for acute limb ischemia. Thank you for this consultation, we will continue to follow. The impression and plan of care has been dictated as directed. I performed a history and examination of this patient, discussed the same with the dictator. I agree with the dictator's note ,documented as a scribe. Any additional findings or plans will be noted.
--- NOTE | 2022-12-11 10:41 | P.PN ---
Subjective Patient seen in follow-up for acute kidney injury on chronic kidney disease. Requires intermittent Levophed.. Oliguric. Receiving tube feeds. Intubated. Dialysis catheter clotted. Vital signs are stable. General: Resting in bed. HEENT: Intubated. LUNGS: No audible rhonchi liters. HEART: Rate and Rhythm are regular. ABDOMEN: No distention. EXTREMITITES: 1+ edema. Objective - Vital Signs Vital signs: Vital Signs Temp 98.4 F 12/11/22 08:00 Pulse 78 12/11/22 10:00 Resp 26 H 12/11/22 10:00 BP 100/48 12/11/22 10:00 Pulse Ox 97 12/11/22 10:00 FiO2 35 12/11/22 09:02 Intake & Output 12/10/22 12/11/22 12/11/22 18:59 06:59 18:59 Intake Total 5940.616 1308.953 303.424 Output Total 2800 7 0 Balance -9963.132 6801.953 303.424 Weight 113.1 kg 112.6 kg Intake: IV 213 220 40 .9 NS 113 120 40 Dextrose 5% in Water 1, 100 000 ml @ 50 mls/hr IV . Q23H [facility] with Sodium Bicarb (1 Meq/ml) 150 ml Rx#:[id number] Piperacillin-Tazobactam 3 100 .375 gm In Sodium Chloride 0.9% 100 ml @ 25 mls/hr IVPB Q8H [facility] Rx#: [id number] Intake, IV Titration 366.882 301.953 91.424 Amount Dextrose 5% in Water 1, 0 000 ml @ 50 mls/hr IV . Q23H [facility] with Sodium Bicarb (1 Meq/ml) 150 ml Rx#:[id number] Insulin Regular 100 unit 42.787 In Sodium Chloride 0.9% 100 ml @ 0.1 UNITS/KG/HR 10.445 mls/hr IV .Q9H41M [facility] Rx#:[id number] Norepinephrine 8 mg In 19.678 39.487 Sodium Chloride 0.9% 250 ml @ 0.05 MCG/KG/MIN 10. 006 mls/hr IV .Q24H [facility] Rx#:[id number] propofoL 1,000 mg In 304.417 262.466 91.424 Empty Bag 1 bag @ 15 MCG/ KG/MIN 9.308 mls/hr IV . [id number] [facility] Rx#:[id number] Tube Feeding 469 520 172 Hemodialysis 400 Other 90 90 Output: Urine 0 7 0 Hemodialysis 2800 Other: Voiding Method Indwelling Catheter Indwelling Catheter Indwelling Catheter # Bowel Movements 1 ABP, PAP, CO, CI - Last Documented Arterial Blood Pressure 150/49 - Labs CBC & Chem 7: 12/11/22 04:28 12/11/22 04:28 Labs: Abnormal Lab Results - Last 24 Hours (Table) 12/10/22 12/10/22 12/10/22 Range/Units 11:18 11:19 13:52 WBC (3.8-10.6) k/uL RBC (4.30-5.90) m/uL Hgb (13.0-17.5) gm/dL Hct (39.0-53.0) % Plt Count (150-450) k/uL Neutrophils # (1.3-7.7) k/uL Lymphocytes # (1.0-4.8) k/uL ABG pCO2 (35-45) mmHg ABG pO2 (83-108) mmHg ABG HCO3 (21-25) mmol/L ABG O2 Saturation (94-97) % Sodium (137-145) mmol/L Carbon Dioxide (22-30) mmol/L BUN (9-20) mg/dL Creatinine (0.66-1.25) mg/dL Glucose (74-99) mg/dL POC Glucose (mg/dL) 155 H 274 H (70-110) mg/dL Calcium (8.4-10.2) mg/dL AST (17-59) U/L ALT (4-49) U/L Creatine Kinase 93787 H* (55-170) U/L Total Protein (6.3-8.2) g/dL Albumin (3.5-5.0) g/dL 12/10/22 12/10/22 12/10/22 Range/Units 17:52 19:41 20:04 WBC (3.8-10.6) k/uL RBC (4.30-5.90) m/uL Hgb (13.0-17.5) gm/dL Hct (39.0-53.0) % Plt Count (150-450) k/uL Neutrophils # (1.3-7.7) k/uL Lymphocytes # (1.0-4.8) k/uL ABG pCO2 (35-45) mmHg ABG pO2 (83-108) mmHg ABG HCO3 (21-25) mmol/L ABG O2 Saturation (94-97) % Sodium 133 L (137-145) mmol/L Carbon Dioxide 17 L (22-30) mmol/L BUN 86 H (9-20) mg/dL Creatinine 5.56 H (0.66-1.25) mg/dL Glucose 345 H (74-99) mg/dL POC Glucose (mg/dL) 352 H 357 H (70-110) mg/dL Calcium 6.8 L (8.4-10.2) mg/dL AST 1213 H (17-59) U/L ALT 334 H (4-49) U/L Creatine Kinase (55-170) U/L Total Protein 4.5 L (6.3-8.2) g/dL Albumin 2.2 L (3.5-5.0) g/dL 12/10/22 12/11/22 12/11/22 Range/Units 23:56 04:25 04:28 WBC (3.8-10.6) k/uL RBC (4.30-5.90) m/uL Hgb (13.0-17.5) gm/dL Hct (39.0-53.0) % Plt Count (150-450) k/uL Neutrophils # (1.3-7.7) k/uL Lymphocytes # (1.0-4.8) k/uL ABG pCO2 (35-45) mmHg ABG pO2 (83-108) mmHg ABG HCO3 (21-25) mmol/L ABG O2 Saturation (94-97) % Sodium 131 L (137-145) mmol/L Carbon Dioxide 18 L (22-30) mmol/L BUN 99 H (9-20) mg/dL Creatinine 6.11 H (0.66-1.25) mg/dL Glucose 375 H (74-99) mg/dL POC Glucose (mg/dL) 399 H 397 H (70-110) mg/dL Calcium 7.0 L (8.4-10.2) mg/dL AST 1156 H (17-59) U/L ALT 318 H (4-49) U/L Creatine Kinase 68882 H* (55-170) U/L Total Protein 4.5 L (6.3-8.2) g/dL Albumin 2.3 L (3.5-5.0) g/dL 12/11/22 12/11/22 12/11/22 Range/Units 04:28 05:50 08:35 WBC 10.7 H (3.8-10.6) k/uL RBC 3.65 L (4.30-5.90) m/uL Hgb 10.4 L (13.0-17.5) gm/dL Hct 31.1 L (39.0-53.0) % Plt Count 54 L (150-450) k/uL Neutrophils # 9.1 H (1.3-7.7) k/uL Lymphocytes # 0.8 L (1.0-4.8) k/uL ABG pCO2 31 L (35-45) mmHg ABG pO2 113 H (83-108) mmHg ABG HCO3 20 L (21-25) mmol/L ABG O2 Saturation 98.5 H (94-97) % Sodium (137-145) mmol/L Carbon Dioxide (22-30) mmol/L BUN (9-20) mg/dL Creatinine (0.66-1.25) mg/dL Glucose (74-99) mg/dL POC Glucose (mg/dL) 382 H (70-110) mg/dL Calcium (8.4-10.2) mg/dL AST (17-59) U/L ALT (4-49) U/L Creatine Kinase (55-170) U/L Total Protein (6.3-8.2) g/dL Albumin (3.5-5.0) g/dL Microbiology - Last 24 Hours (Table) 12/07/22 11:55 Blood Culture - Preliminary Blood 12/08/22 00:09 Gram Stain - Preliminary Sputum Sputum Culture - Preliminary Gram Neg Bacilli Enterobacter cloacae Assessment and Plan Plan: Assessment: 1. Acute kidney injury secondary to ATN secondary to hypotension/septic shock and rhabdomyolysis. No hydronephrosis noted on imaging. Creatinine up to 6.11 today. Oliguric. Started on hemodialysis December 08 2022. 2. Chronic kidney disease stage IIIa with creatinine 1.4 in May 2021. Suspect nephrosclerosis. 3. Rhabdomyolysis. CK levels trending down. 4. Septic shock currently off vasopressors. Blood culture positive for gram- positive cocci and sputum culture positive for gram-negative bacilli. 5. Metabolic acidosis secondary to acute kidney injury. Partially compensatory for respiratory alkalosis. 6. Hypokalemia from intracellular shifting from IV bicarb. Better. 7. DKA s/p insulin drip. 8. Volume overload. 9. Peripheral arterial disease. Vascular surgery following. Will likely need left [id number]-[id number] amputation. Plan: TPA inserted in dialysis catheter. Attempt dialysis later today. Continue with daily dialysis for now. Maintain tube feeds. Avoid nephrotoxins. Continue to monitor renal function and urine output. Monitor vancomycin levels. Dose to be adjusted for renal function. Phosphorus level 3.5 dated 12/09/2022. CODE STATUS discussed with primary team. Attempting to reach . Currently full code. 20 minutes spent.
--- NOTE | 2022-12-11 11:10 | P.PN ---
Subjective Progress Note Date: 12/11/22 Patient is a 67-year-old male with a history of diabetes, bipolar disorder, history of closed head injury who [place] un[place] and covered in his own emesis. On arrival to the ER he was tachycardic with a pulse of 101, respirations 26, blood pressure 64/42 and O2 sat 92% on 15 L nonrebreather. Laboratory analysis including CBC, coags, ABG, CMP, ammonia, CK, troponin, urinalysis, urine drug screen, which were remarkable for white blood cell count 15.7, platelets 138, calcium 7.7, carbon dioxide less than 5, BUN 81, creatinine 3.8, glucose 794, lactic acid 9.4, ammonia 590, CK 384, troponin 0.139. Urine drug screen was negative. Influenza A/B/RSV/COVID-19 was nega tive. Chest x-ray showed endotracheal tube in the right mainstem the lungs were otherwise clear. CT chest abdomen and pelvis showed no acute process but cirrhosis. Head CT showed chronic changes with no acute intracranial process. EKG reviewed with normal sinus rhythm at a rate of 100 and peaker T- waves. He was intubated in the emergency department. He was started on norepinephrine, sodium bicarb with dextrose infusion, insulin infusion. He was also given calcium gluconate 1 g IV piggyback. Critical care was consulted. Arrangements were made for admission. He was continued on levothyroxine. Zosyn was initiated for possible aspiration. He was continued on DKA protocol. He was gi matt aggressive IV fluid resuscitation with both normal saline and D5W with 3 A of bicarb. On the night after admission his urine output decreased and his left lower extremity became ischemic. His CKs elevated. Nephrology was consulted as well as vascular surgery. Patient was placed on a heparin drip. Concern for heparin induced thrombocytopenia, heparin discontinued. He was seen by vascular surgery. No family or guardian available, patient needs BKA. Nephrology recommended hemodialysis and first round was completed on 12/08/22. Still requiring norepinephrine off and on. Insulin drip discontinued, started on Levemir. Patient seen and examined at bedside. No acute events overnight. Per nurse, currently anuric, will likely be on sedation holiday. Vital signs reviewed General: nontoxic, no distress, appears at stated age Term: Left lower extremity distal to mid calf cyanotic appearing and cool with absent palpable pulses, right lower extremity warm Cardiovascular: S1S2 reg, no murmur Lungs: CTA bilateral, no rhonchi, no rales , no accessory muscle use Abdominal: soft, nontender to palpation, no guarding, no appreciable organomegaly Ext: no gross muscle atrophy, no edema b/l lower extremities, no contractures Neuro: Positive cough, positive gag Psych: Sedated on vent Assessment/Plan: Severe DKA, resolved Shock, likely septic Suspected aspiration pneumonia Metabolic encephalopathy Oropharyngeal candidiasis -Pulmonary following -Levemir increased to 35 units and sliding scale insulin with fingersticks every 4 hours -With concerns for possible septic shock we'll continue with Zosyn 3.375 mg every 12 hours IV piggyback D # 4 -Also on vancomycin, and IV fluconazole 200 mg daily -Continue to wean pressors Ischemic Left lower extremity Rhabdomyolysis Transaminitis due to rhabdo anguric, Acute kidney injury now on hemodialysis Thrombocytopenia, possibly heparin-induced -Heparin drip has been discontinued -Vascular surgery note reviewed, establishing guardianship, likely to move ahead with left BKA, -Discussed management with nephrology, continue hemodialysis -Strict I and O -Avoid nephrotoxic agents Gram-positive cocci 1 out of 2 blood cultures -Continue vancomycin with pharmacy to dose. Monitor creatinine and vancomycin trough levels closely. -Repeat cultures pending, no growth to date Anemia Thrombocytopenia - follow CBC closely given decreased platelets Hyperkalemia, resolved Lactic acidosis, resolved Leukocytosis, resolved Elevated troponin, suspect secondary to renal dysfunction and Rhabdo Imaging: Chest x-ray independently interpreted, shows bilateral lower lobe opacities, similar to yesterday Hospital course imaging: echocardiogram: hyperdynamic left ventricle 65-70%, right ventricle mildly dilated with RVSP 28 Data Review: Labs reviewed from today: WBC 10.7, hemoglobin 10.4, platelet 54, sodium 131, creatinine 6.11, blood sugars range between 375-399 Gram-positive cocci and 1 of 2 bottles. sputum culture Acinetobacter And Enterobacter DVT prophylaxis:SCDS Anticipated discharge date: Pending Clinical Course Anticipated discharge place: Pending Clinical Course Objective - Vital Signs Vital signs: Vital Signs Temp 98.4 F 12/11/22 08:00 Pulse 78 12/11/22 10:00 Resp 26 H 12/11/22 10:00 BP 100/48 12/11/22 10:00 Pulse Ox 97 12/11/22 10:00 FiO2 35 12/11/22 09:02 Intake & Output 12/10/22 12/11/22 12/11/22 18:59 06:59 18:59 Intake Total 2636.961 7470.953 303.424 Output Total 2800 7 0 Balance -3628.225 6066.953 303.424 Weight 113.1 kg 112.6 kg Intake: IV 213 220 40 .9 NS 113 120 40 Dextrose 5% in Water 1, 100 000 ml @ 50 mls/hr IV . Q23H [facility] with Sodium Bicarb (1 Meq/ml) 150 ml Rx#:[id number] Piperacillin-Tazobactam 3 100 .375 gm In Sodium Chloride 0.9% 100 ml @ 25 mls/hr IVPB Q8H [facility] Rx#: [id number] Intake, IV Titration 366.882 301.953 91.424 Amount Dextrose 5% in Water 1, 0 000 ml @ 50 mls/hr IV . Q23H [facility] with Sodium Bicarb (1 Meq/ml) 150 ml Rx#:[id number] Insulin Regular 100 unit 42.787 In Sodium Chloride 0.9% 100 ml @ 0.1 UNITS/KG/HR 10.445 mls/hr IV .Q9H41M [facility] Rx#:[id number] Norepinephrine 8 mg In 19.678 39.487 Sodium Chloride 0.9% 250 ml @ 0.05 MCG/KG/MIN 10. 006 mls/hr IV .Q24H [facility] Rx#:[id number] propofoL 1,000 mg In 304.417 262.466 91.424 Empty Bag 1 bag @ 15 MCG/ KG/MIN 9.308 mls/hr IV . [id number] [facility] Rx#:[id number] Tube Feeding 469 520 172 Hemodialysis 400 Other 90 90 Output: Urine 0 7 0 Hemodialysis 2800 Other: Voiding Method Indwelling Catheter Indwelling Catheter Indwelling Catheter # Bowel Movements 1 ABP, PAP, CO, CI - Last Documented Arterial Blood Pressure 150/49 - Labs CBC & Chem 7: 12/11/22 04:28 12/11/22 04:28 Labs: Abnormal Lab Results - Last 24 Hours (Table) 12/10/22 12/10/22 12/10/22 Range/Units 11:18 11:19 13:52 WBC (3.8-10.6) k/uL RBC (4.30-5.90) m/uL Hgb (13.0-17.5) gm/dL Hct (39.0-53.0) % Plt Count (150-450) k/uL Neutrophils # (1.3-7.7) k/uL Lymphocytes # (1.0-4.8) k/uL ABG pCO2 (35-45) mmHg ABG pO2 (83-108) mmHg ABG HCO3 (21-25) mmol/L ABG O2 Saturation (94-97) % Sodium (137-145) mmol/L Carbon Dioxide (22-30) mmol/L BUN (9-20) mg/dL Creatinine (0.66-1.25) mg/dL Glucose (74-99) mg/dL POC Glucose (mg/dL) 155 H 274 H (70-110) mg/dL Calcium (8.4-10.2) mg/dL AST (17-59) U/L ALT (4-49) U/L Creatine Kinase 73260 H* (55-170) U/L Total Protein (6.3-8.2) g/dL Albumin (3.5-5.0) g/dL 12/10/22 12/10/22 12/10/22 Range/Units 17:52 19:41 20:04 WBC (3.8-10.6) k/uL RBC (4.30-5.90) m/uL Hgb (13.0-17.5) gm/dL Hct (39.0-53.0) % Plt Count (150-450) k/uL Neutrophils # (1.3-7.7) k/uL Lymphocytes # (1.0-4.8) k/uL ABG pCO2 (35-45) mmHg ABG pO2 (83-108) mmHg ABG HCO3 (21-25) mmol/L ABG O2 Saturation (94-97) % Sodium 133 L (137-145) mmol/L Carbon Dioxide 17 L (22-30) mmol/L BUN 86 H (9-20) mg/dL Creatinine 5.56 H (0.66-1.25) mg/dL Glucose 345 H (74-99) mg/dL POC Glucose (mg/dL) 352 H 357 H (70-110) mg/dL Calcium 6.8 L (8.4-10.2) mg/dL AST 1213 H (17-59) U/L ALT 334 H (4-49) U/L Creatine Kinase (55-170) U/L Total Protein 4.5 L (6.3-8.2) g/dL Albumin 2.2 L (3.5-5.0) g/dL 12/10/22 12/11/22 12/11/22 Range/Units 23:56 04:25 04:28 WBC (3.8-10.6) k/uL RBC (4.30-5.90) m/uL Hgb (13.0-17.5) gm/dL Hct (39.0-53.0) % Plt Count (150-450) k/uL Neutrophils # (1.3-7.7) k/uL Lymphocytes # (1.0-4.8) k/uL ABG pCO2 (35-45) mmHg ABG pO2 (83-108) mmHg ABG HCO3 (21-25) mmol/L ABG O2 Saturation (94-97) % Sodium 131 L (137-145) mmol/L Carbon Dioxide 18 L (22-30) mmol/L BUN 99 H (9-20) mg/dL Creatinine 6.11 H (0.66-1.25) mg/dL Glucose 375 H (74-99) mg/dL POC Glucose (mg/dL) 399 H 397 H (70-110) mg/dL Calcium 7.0 L (8.4-10.2) mg/dL AST 1156 H (17-59) U/L ALT 318 H (4-49) U/L Creatine Kinase 09442 H* (55-170) U/L Total Protein 4.5 L (6.3-8.2) g/dL Albumin 2.3 L (3.5-5.0) g/dL 12/11/22 12/11/22 12/11/22 Range/Units 04:28 05:50 08:35 WBC 10.7 H (3.8-10.6) k/uL RBC 3.65 L (4.30-5.90) m/uL Hgb 10.4 L (13.0-17.5) gm/dL Hct 31.1 L (39.0-53.0) % Plt Count 54 L (150-450) k/uL Neutrophils # 9.1 H (1.3-7.7) k/uL Lymphocytes # 0.8 L (1.0-4.8) k/uL ABG pCO2 31 L (35-45) mmHg ABG pO2 113 H (83-108) mmHg ABG HCO3 20 L (21-25) mmol/L ABG O2 Saturation 98.5 H (94-97) % Sodium (137-145) mmol/L Carbon Dioxide (22-30) mmol/L BUN (9-20) mg/dL Creatinine (0.66-1.25) mg/dL Glucose (74-99) mg/dL POC Glucose (mg/dL) 382 H (70-110) mg/dL Calcium (8.4-10.2) mg/dL AST (17-59) U/L ALT (4-49) U/L Creatine Kinase (55-170) U/L Total Protein (6.3-8.2) g/dL Albumin (3.5-5.0) g/dL Microbiology - Last 24 Hours (Table) 12/08/22 00:09 Gram Stain - Final Sputum Sputum Culture - Final Acinetobacter heidi/haemol Enterobacter cloacae 12/07/22 11:55 Blood Culture - Preliminary Blood
--- NOTE | 2022-12-11 12:02 | P.PN ---
Subjective Progress Note Date: 12/11/22 Principal diagnosis: Acute diabetic ketoacidosis and acute hypoxic respiratory failure This is a 67-year-old male patient, diabetic, known history of closed head injury, bipolar disorder, was currently intubated on a mechanical ventilator. He presented to our hospital unresponsive. He was found in a local motel in his own emesis. Upon arrival, the patient was hypotensive, he was hypoxic, he was found to be in DKA. He was intubated and placed on a mechanical ventilator. I believe he also aspirated. CAT scan of the chest abdomen and pelvis showed no acute process. There may be some changes related to liver cirrhosis. CAT scan of the head showed no acute intracranial process. At this point in time, the patient is intubated on a mechanical ventilator. Is on assist control and anxiety the rate of 228, FiO2 has been brought down to 50% with a PEEP of 5 and a tidal volumes of 500. The blood gas showed a pH of 6.9 with a pCO2 of 31 and pO2 of 400. The blood work showed a potassium level of 7.7, he had significant and I get metabolic acidosis with a serum bicarb of less than 5, initial blood sugar was 794 and the lactic acid level was at 9.5. The patient had a white cell count of 15.7 with a hemoglobin 15.8 and a platelet count of 138. Cognition profile was within normal limits. LFTs were normal, serum ammonia level was elevated at 590, UA showed +3 glucose, +2 ketones and urine drug screen was negative, the viral screen was also negative. For now, the patient has already received a total of 3 L of normal saline and the patient is currently on a bicarbonate infusion running at 150 mEq at 150 mL an hour. He is on insulin drip at 10 units an hour. He is on propofol running at 35 mcg/kg/m. He has a triple-lumen catheter in his left femoral vein. There is a orogastric tube in place and output is coffee-ground. He has hypotensive. He is on norepinephrine at 0.2 mcg/kg/m. The patient is also on emperic Antibiotic coverage started on a combination of Zosyn and vancomycin. On today's evaluation of 12/08/2022, the patient is being seen in follow-up in the intensive care unit. A critically ill male patient with DKA, rhabdomyolysis, severe metabolic acidosis, hypotension, acute kidney injury and furthermore, the patient lost his pulse and the left lower extremity and currently has a ischemic left foot. The patient remains on a mechanical ventilator for now. He is on propofol which is running at 40 mcg/kg/m. His adequately sedated and is calm and comfortable on a mechanical ventilator on assist control mode at a rate of 28, tidal volume 500, FiO2 of 40% with a PEEP of 5. The blood gas from today shows a pH of 7.28 with episodes of 26-year-old to 180. Chest x-ray shows no acute abnormalities. Orotracheal tube is in good location. No airspace disease. NG tube is in place. Lungs are clear. Also, the patient remains hemodynamically unstable. He was aggressively resuscitated with IV fluids yesterday. Patient has been in a positive fluid balance of 5 L over the past 24 hours. Currently, he remains on norepinephrine and dose has been weaned down to 0.16 mcg/kg/m. The patient has been switched to D5 half-normal saline which is running at 150 mL an hour and this is based on our DKA protocol. Insulin drip is still running at 12 units an hour. Most recent blood sugar is at 292. The anion gap is at 18. Serum bicarb is at 8. Potassium level has improved down to 4.9. He has sustained an acute kidney injury and the creatinine is at the rise at 3.9. He was had no urine output overnightt. Earlier this morning, he started making some urine output. He has developed a rhabdomyolysis. CPK level is up to 13,947.. Furthermore, his left foot is mottled and cold and pale and there are no palpable pulses in dorsalis pedis and the posterior tibialis. Very poor capillary refill. The mottling is above the ankle reaching the med left leg. The white count was of 15.7, hemoglobin was at 15.8 at time of admission. Coagulation profile was within normal limits. UA was negative. 12/09/2022, the patient remains intubated on a mechanical ventilator. The patient remains in intensive care unit. He is a critically ill male patient with DKA, rhabdomyolysis, hypotension, acute kidney injury and ischemic left foot. Since yesterday, the patient has been kept on a mechanical ventilator. He remains on propofol running at 25 mcg/kg/m. He remains comfortable and symptoms to mechanical ventilator. His assist-control mode at a rate of 28, tidal volume of 500, FiO2 of 40% with a PEEP of 5. The blood gas from today shows a pH of 7.49 with a pCO2 of 24 and pO2 of 109. Chest x-ray showing atelectatic changes in both lungs bilaterally. Orotracheal tube is in a good location. Hemodynamically, the patient was weaned off the pressors and this morning the patient was taken off pressors. Meanwhile, his urine output is quite low. This has been noted throughout the night. Nephrology is involved regarding his acute kidney injury and severe rhabdomyolysis. The patient has a dialysis catheter has right femoral vein. The patient was started on hemodialysis in the first session was offered to him yesterday. Unfortunately, the CPK is on the rise is currently up to 92,000. The left lower extremities ischemic with absent pulses in skin mottling and swelling demarcated this point in time. No Refill. The potassium levels at 3.6, serum bicarbs of 50, B is a 64 with a creatinine of 3.7. IV heparin was started and it had to be discontinued because of the development of thrombocytopenia. Platelet count is down to 42. Hemoglobin is at 12.5 with a white cell count of 9.1. Insulin drip is running at 5.5 units an hour and the patient's blood sugars are in the 300 range. He was started also on enteral feeding for nutritional support and currently is on vital high-protein at the rate of 20 mL an hour. He is afebrile. Cultures are negative. Is covered with antibiotics and he is currently on IV Zosyn Patient was reevaluated today on 12/10/2022, remains in the ICU, intubated and mechanically ventilated, receiving hemodialysis early this morning. Patient is on assist control rate of 20 tidal volume 500 FiO2 40% and PEEP of 5 ABG showed a pO2 of 101 pCO2 31 pH of 7.46. Patient is to have hemodialysis finished today. Patient is on insulin drip is also on propofol at 35 mcg/kg/m, not requiring any pressors. For his gram-negative bacilli in the sputum patient is receiving still vancomycin and Zosyn. Patient was felt to have most likely aspiration pneumonia not to mention the patient presented with hypotension, lactic acidosis, and acute kidney injury. Patient was found down in the hotel room, and he required immediate intubation. Her drug screen has been negative. Chest x-ray showed minimal atelectasis at the bases, otherwise no active disease. WBC count is 8.5 hemoglobin 11.1. Basic metabolic profile is relatively normal except for a BUN of 85 creatinine 5.33. CPK is extremely elevated actually it is 19 2500 and his liver enzymes are also elevated with AST of 1522 and ALT of 350. Drug screen on admission was negative. Platelets remained low at 38,000 Reevaluated today on 12/11/22, remains in the ICU, remains intubated and mechanically ventilated, patient remains on hemodialysis and he is receiving another hemodialysis today. He is on assist control rate of 20 tidal volume of 500 FiO2 40% PEEP of 5 ABG showed a pO2 of 113 pCO2 31 pH of 7.42. The goal is to remove 2 L of fluids today with his hemodialysis. Patient remains on propofol at 40 mg/kg/m is also receiving vital HP. Could not assess mental status yesterday, however will try to hold sedation/propofol today, and hopefully get an adequate assessment of mental status off sedation. Patient was seen by vascular surgery and considering amputation of the left lower extremity ostomy DKA. Continues to have cold left lower extremity and ischemic foot. WBC count is 10.7 hemoglobin is 10.4, electrolytes are normal bicarb is 18, BUN is 99 creatinine 6.11 blood sugars are high in the 400 range, CPK is almost 38,000. Trending down. His AST is 1156 and ALT 318, also trending down. Chest x-ray showed minimal bibasilar atelectasis, no infiltrate or pneumonia Objective - Vital Signs Vital signs: Vital Signs Temp 98.4 F 12/11/22 08:00 Pulse 78 12/11/22 11:15 Resp 27 H 12/11/22 11:15 BP 100/48 12/11/22 11:00 Pulse Ox 92 L 12/11/22 11:15 FiO2 35 12/11/22 09:02 Intake & Output 12/10/22 12/11/22 12/11/22 18:59 06:59 18:59 Intake Total 7942.267 4492.953 406.424 Output Total 2800 7 0 Balance -0553.438 6010.953 406.424 Weight 113.1 kg 112.6 kg Intake: IV 213 220 50 .9 NS 113 120 50 Dextrose 5% in Water 1, 100 000 ml @ 50 mls/hr IV . Q23H [facility] with Sodium Bicarb (1 Meq/ml) 150 ml Rx#:[id number] Piperacillin-Tazobactam 3 100 .375 gm In Sodium Chloride 0.9% 100 ml @ 25 mls/hr IVPB Q8H CAR[facility] Rx#: [id number] Intake, IV Titration 366.882 301.953 91.424 Amount Dextrose 5% in Water 1, 0 000 ml @ 50 mls/hr IV . Q23H [facility] with Sodium Bicarb (1 Meq/ml) 150 ml Rx#:[id number] Insulin Regular 100 unit 42.787 In Sodium Chloride 0.9% 100 ml @ 0.1 UNITS/KG/HR 10.445 mls/hr IV .[id number] CAROL Rx#:[id number] Norepinephrine 8 mg In 19.678 39.487 Sodium Chloride 0.9% 250 ml @ 0.05 MCG/KG/MIN 10. 006 mls/hr IV .Q24H [facility]OL Rx#:[id number] propofoL 1,000 mg In 304.417 262.466 91.424 Empty Bag 1 bag @ 15 MCG/ KG/MIN 9.308 mls/hr IV . [id number] [facility] Rx#:[id number] Tube Feeding 469 520 215 Hemodialysis 400 Other 90 90 50 Output: Urine 0 7 0 Hemodialysis 2800 Other: Voiding Method Indwelling Catheter Indwelling Catheter Indwelling Catheter # Bowel Movements 1 ABP, PAP, CO, CI - Last Documented Arterial Blood Pressure 147/49 - Exam Physical Exam: Revealed a 67-year-old white male intubated, mechanically ventilated, sedated, not in distress. Receiving hemodialysis. Head: Atraumatic, normocephalic. HEENT:[Neck is supple.] [No neck masses.] [No thyromegaly.] [No JVD.] Chest: [Diminished breath sounds at the bases no crackles or rhonchi or wheezes Cardiac Exam: [Normal S1 and S2, no S3 gallop, no murmur.] Abdomen: [Soft, nontender, no megaly, no rebound, no guarding, normal bowel sounds.] Extremities: Left lower extremity is cold from the mid calf region all the way down to the foot. No pulses noted. Clearly the patient has ischemic left lower extremity. Neurological Exam: Not assessed, patient is sedated. Pupils are reactive, round 3 mm in size. Psychiatric: Could not assess. - Labs CBC & Chem 7: 12/11/22 04:28 12/11/22 04:28 Labs: Abnormal Lab Results - Last 24 Hours (Table) 12/10/22 12/10/22 12/10/22 Range/Units 11:19 13:52 17:52 WBC (3.8-10.6) k/uL RBC (4.30-5.90) m/uL Hgb (13.0-17.5) gm/dL Hct (39.0-53.0) % Plt Count (150-450) k/uL Neutrophils # (1.3-7.7) k/uL Lymphocytes # (1.0-4.8) k/uL ABG pCO2 (35-45) mmHg ABG pO2 (83-108) mmHg ABG HCO3 (21-25) mmol/L ABG O2 Saturation (94-97) % Sodium (137-145) mmol/L Carbon Dioxide (22-30) mmol/L BUN (9-20) mg/dL Creatinine (0.66-1.25) mg/dL Glucose (74-99) mg/dL POC Glucose (mg/dL) 274 H 352 H (70-110) mg/dL Calcium (8.4-10.2) mg/dL AST (17-59) U/L ALT (4-49) U/L Creatine Kinase 90667 H* (55-170) U/L Total Protein (6.3-8.2) g/dL Albumin (3.5-5.0) g/dL 12/10/22 12/10/22 12/10/22 Range/Units 19:41 20:04 23:56 WBC (3.8-10.6) k/uL RBC (4.30-5.90) m/uL Hgb (13.0-17.5) gm/dL Hct (39.0-53.0) % Plt Count (150-450) k/uL Neutrophils # (1.3-7.7) k/uL Lymphocytes # (1.0-4.8) k/uL ABG pCO2 (35-45) mmHg ABG pO2 (83-108) mmHg ABG HCO3 (21-25) mmol/L ABG O2 Saturation (94-97) % Sodium 133 L (137-145) mmol/L Carbon Dioxide 17 L (22-30) mmol/L BUN 86 H (9-20) mg/dL Creatinine 5.56 H (0.66-1.25) mg/dL Glucose 345 H (74-99) mg/dL POC Glucose (mg/dL) 357 H 399 H (70-110) mg/dL Calcium 6.8 L (8.4-10.2) mg/dL AST 1213 H (17-59) U/L ALT 334 H (4-49) U/L Creatine Kinase (55-170) U/L Total Protein 4.5 L (6.3-8.2) g/dL Albumin 2.2 L (3.5-5.0) g/dL 12/11/22 12/11/22 12/11/22 Range/Units 04:25 04:28 04:28 WBC 10.7 H (3.8-10.6) k/uL RBC 3.65 L (4.30-5.90) m/uL Hgb 10.4 L (13.0-17.5) gm/dL Hct 31.1 L (39.0-53.0) % Plt Count 54 L (150-450) k/uL Neutrophils # 9.1 H (1.3-7.7) k/uL Lymphocytes # 0.8 L (1.0-4.8) k/uL ABG pCO2 (35-45) mmHg ABG pO2 (83-108) mmHg ABG HCO3 (21-25) mmol/L ABG O2 Saturation (94-97) % Sodium 131 L (137-145) mmol/L Carbon Dioxide 18 L (22-30) mmol/L BUN 99 H (9-20) mg/dL Creatinine 6.11 H (0.66-1.25) mg/dL Glucose 375 H (74-99) mg/dL POC Glucose (mg/dL) 397 H (70-110) mg/dL Calcium 7.0 L (8.4-10.2) mg/dL AST 1156 H (17-59) U/L ALT 318 H (4-49) U/L Creatine Kinase 82386 H* (55-170) U/L Total Protein 4.5 L (6.3-8.2) g/dL Albumin 2.3 L (3.5-5.0) g/dL 12/11/22 12/11/22 Range/Units 05:50 08:35 WBC (3.8-10.6) k/uL RBC (4.30-5.90) m/uL Hgb (13.0-17.5) gm/dL Hct (39.0-53.0) % Plt Count (150-450) k/uL Neutrophils # (1.3-7.7) k/uL Lymphocytes # (1.0-4.8) k/uL ABG pCO2 31 L (35-45) mmHg ABG pO2 113 H (83-108) mmHg ABG HCO3 20 L (21-25) mmol/L ABG O2 Saturation 98.5 H (94-97) % Sodium (137-145) mmol/L Carbon Dioxide (22-30) mmol/L BUN (9-20) mg/dL Creatinine (0.66-1.25) mg/dL Glucose (74-99) mg/dL POC Glucose (mg/dL) 382 H (70-110) mg/dL Calcium (8.4-10.2) mg/dL AST (17-59) U/L ALT (4-49) U/L Creatine Kinase (55-170) U/L Total Protein (6.3-8.2) g/dL Albumin (3.5-5.0) g/dL Microbiology - Last 24 Hours (Table) 12/07/22 11:55 Blood Culture Gram Stain - Final Blood Blood Culture - Preliminary 12/08/22 00:09 Gram Stain - Final Sputum Sputum Culture - Final Acinetobacter heidi/haemol Enterobacter cloacae 12/07/22 11:55 Blood Culture - Preliminary Blood Assessment and Plan Assessment: Impression: Acute hypoxic respiratory failure most likely secondary to aspiration as the patient was found to be unresponsive and drowning in his own secretions. Acute diabetic ketoacidosis Acute shock/hypovolemic in nature Severe lactic acidosis secondary to above History of liver cirrhosis with significantly elevated liver enzymes Acute rhabdomyolysis with acute kidney injury most likely from ischemic left lower extremity and from the patient being down upon his initial presentation. Acute hyperkalemia, resolved Acute thrombocytopenia, now off heparin Acute troponin leak Acute metabolic encephalopathy Acute leukocytosis could be septic or possibly reactive. Acute hypothermia on initial presentation Ischemic left lower extremity, being followed by vascular. Recommendation: Hold sedation and assessment status, and if reasonable could consider checking weaning parameters. In the meantime: Continue ventilatory support Continue antibiotics/Zosyn Vascular surgery is considering left lower extremity amputation in the next 24 hours. Continue hemodialysis as per nephrology on the case Continue GI prophylaxis Continue to hold subcu heparin for low platelet Continue Nutritional support/enteral feeding Continue to monitor daily labs and electrolytes as well as liver enzymes and CPK Patient is critically ill, and prognosis is extremely poor Will assess mental status off sedation and decide whether to give the patient any weaning trials or weaning parameters at least We will continue to follow Critical care time is over 30 minute Time with Patient: Greater than 30
[2022-12-11 12:07] LABS: Glucose,Whole Blood 354 mg/dL (70-110)
[2022-12-11] MEDS ORDERED: HEPARIN SODIUM 1,000 UN/ML (10ML VL) MISCELLANE ONE (14:41)
[2022-12-11] MEDS ORDERED: LIDOCAINE 1% INJ 10MG/ML (20 ML MDV) SQ ONE (14:42)
[2022-12-11 15:55] LABS: Glucose,Whole Blood 278 mg/dL (70-110)
[2022-12-11] MEDS: ZINC OXIDE PASTE (Z-GUARD) 1 APPLIC APPLIC TOPICAL PRN ×2 (15:55→23:02)
[2022-12-11] MEDS: NOREPINEPHRINE 8 MG in SODIUM CHLORIDE 0.9% 250 ML IV SCH (17:01)
[2022-12-11 20:02] LABS: Glucose,Whole Blood 207 mg/dL (70-110)
--- NOTE | 2022-12-11 20:29 | OP ---
OPERATIVE REPORT DATE OF SERVICE : PREOPERATIVE DIAGNOSIS: Acute chronic failure. PROCEDURE PERFORMED: Placement of a 30 cm dialysis catheter right femoral approach. This patient had a dialysis catheter in the right groin put in the past. His catheter is not working. Right groin was prepped and drapes applied in a sterile manner. 1% lidocaine infiltrated in the inguinal area. Then we passed a guidewire. Through the guidewire, we removed the port catheter and 30 cm dialysis catheter advanced on top of the guidewire, flushed with heparin saline and hep-locked, secured with 3-0 nylon, dressing applied. The patient tolerated the procedure well. MMODL / IJN: [id number] /
[2022-12-11] MEDS ORDERED: INSULIN DETEMIR (LEVEMIR) 100 UNIT/ML SYR SQ SCH (21:00)
[2022-12-11 23:08] LABS: Glucose,Whole Blood 269 mg/dL (70-110)
[2022-12-12] MEDS: INSULIN ASPART (NovoLOG) 100 UNIT/ML VIAL SQ SCH ×5 (04:30→20:15)
[2022-12-12 05:03] LABS: Glucose,Whole Blood 244 mg/dL (70-110)
[2022-12-12 05:07] LABS: HCT 28.3 % (39.0-53.0); HGB 9.7 gm/dL (13.0-17.5); MCH 28.9 pg (25.0-35.0); MCHC 34.4 g/dL (31.0-37.0); MCV 83.8 fL (80.0-100.0); Mean Platelet Volume 9.3; RBC 3.37 m/uL (4.30-5.90)
[2022-12-12 05:12] LABS: Anion Gap 10 mmol/L; Blood Urea Nitrogen 80 mg/dL (9-20); Calcium 7.3 mg/dL (8.4-10.2); Carbon Dioxide 21 mmol/L (22-30); Chloride 99 mmol/L (98-107); Glucose 227 mg/dL (74-99); Potassium 3.9 mmol/L (3.5-5.1); Sodium 130 mmol/L (137-145)
[2022-12-12 05:18] LABS: Vancomycin,Random 17.9 ug/mL
[2022-12-12 05:19] LABS: African American GFR (CKD) 12 (>60 ml/min/1.73 sqM); Non-African American GFR(CKD) 10 (>60 ml/min/1.73 sqM); Platelet Count 60 k/uL (150-450)
[2022-12-12 05:49] LABS: INR 0.9 (<1.2); Prothrombin Time 10.4 sec (10.0-12.5)
[2022-12-12 06:02] LABS: ABG Base Excess -1.3 mmol/L; ABG HCO3 23 mmol/L (21-25); ABG Oxygen Saturation 98.4 % (94-97); ABG PCO2 32 mmHg (35-45); ABG PH 7.46 (7.35-7.45); ABG PO2 113 mmHg (83-108); ABG TCO2 23 mmol/L (19-24); Allen Test Performed? Yes
[2022-12-12] MEDS: PIPERACILLIN-TAZOBACTAM 3.375 GM in SODIUM CHLORIDE 0.9% 100 ML IVPB SCH ×2 (06:35→18:30)
[2022-12-12] MEDS ORDERED: ONDANSETRON 4 MG/2 ML VIAL IVP ONE (07:41)
[2022-12-12] MEDS ORDERED: HYDROmorphone 0.5 MG/0.5 ML SYRINGE IVP PRN (07:41)
--- NOTE | 2022-12-12 08:36 | XR ---
EXAMINATION TYPE: XR chest 1V portable DATE OF EXAM: 12/12/2022 COMPARISON: 12/11/2022 HISTORY: Tube placement TECHNIQUE: Single frontal view of the chest is obtained. FINDINGS: Resolution of bilateral small pleural effusion. There is bibasilar consolidation. ET and N G tubes stable. Heart size normal. No overt failure. No pneumothorax. Degenerative changes of the spi ne. IMPRESSION: Bilateral areas of consolidation. Atelectasis favored over pneumonia.
[2022-12-12] MEDS ORDERED: INSULIN DETEMIR (LEVEMIR) 100 UNIT/ML SYR SQ ONE (09:00)
--- NOTE | 2022-12-12 10:47 | P.PN ---
Subjective Patient seen in follow-up for acute kidney injury on chronic kidney disease. Off vasopressors. Oliguric. Receiving tube feeds. Intubated. Dialysis catheter changed 12/11/22. Scheduled for lower extremity amputation today. Vital signs are stable. General: Resting in bed. HEENT: Intubated. LUNGS: No audible rhonchi or wheezes. HEART: Rate and Rhythm are regular. ABDOMEN: No distention. EXTREMITITES: 1+ edema. Objective - Vital Signs Vital signs: Vital Signs Temp 98.8 F 12/12/22 08:00 Pulse 94 12/12/22 10:00 Resp 26 H 12/12/22 10:00 BP 160/65 12/11/22 18:33 Pulse Ox 96 12/12/22 10:00 FiO2 35 12/12/22 08:00 Intake & Output 12/11/22 12/12/22 12/12/22 18:59 06:59 18:59 Intake Total 1714.044 568.972 52 Output Total 2400 0 0 Balance -685.956 568.972 52 Weight 112.3 kg Intake: IV 120 134 52 .9 NS 120 110 40 Pressure BAG 24 12 Intake, IV Titration 238.044 189.972 Amount Norepinephrine 8 mg In 8.605 Sodium Chloride 0.9% 250 ml @ 0.05 MCG/KG/MIN 10. 006 mls/hr IV .Q24H [facility] Rx#:[id number] propofoL 1,000 mg In 229.439 189.972 Empty Bag 1 bag @ 15 MCG/ KG/MIN 9.308 mls/hr IV . [id number] [facility] Rx#:[id number] Tube Feeding 516 215 0 Hemodialysis 700 Other 140 30 Output: Urine 0 0 0 Hemodialysis 2400 Other: Voiding Method Indwelling Catheter Indwelling Catheter Indwelling Catheter # Bowel Movements 1 1 ABP, PAP, CO, CI - Last Documented Arterial Blood Pressure 125/52 - Labs CBC & Chem 7: 12/12/22 04:42 12/12/22 04:42 Labs: Abnormal Lab Results - Last 24 Hours (Table) 12/11/22 12/11/22 12/11/22 Range/Units 12:05 15:53 19:49 WBC (3.8-10.6) k/uL RBC (4.30-5.90) m/uL Hgb (13.0-17.5) gm/dL Hct (39.0-53.0) % Plt Count (150-450) k/uL ABG pH (7.35-7.45) ABG pCO2 (35-45) mmHg ABG pO2 (83-108) mmHg ABG O2 Saturation (94-97) % Sodium (137-145) mmol/L Carbon Dioxide (22-30) mmol/L BUN (9-20) mg/dL Creatinine (0.66-1.25) mg/dL Glucose (74-99) mg/dL POC Glucose (mg/dL) 354 H 278 H 207 H (70-110) mg/dL Calcium (8.4-10.2) mg/dL 12/11/22 12/12/22 12/12/22 Range/Units 23:05 04:42 04:42 WBC 12.0 H (3.8-10.6) k/uL RBC 3.37 L (4.30-5.90) m/uL Hgb 9.7 L (13.0-17.5) gm/dL Hct 28.3 L (39.0-53.0) % Plt Count 60 L (150-450) k/uL ABG pH (7.35-7.45) ABG pCO2 (35-45) mmHg ABG pO2 (83-108) mmHg ABG O2 Saturation (94-97) % Sodium 130 L (137-145) mmol/L Carbon Dioxide 21 L (22-30) mmol/L BUN 80 H (9-20) mg/dL Creatinine 5.21 H (0.66-1.25) mg/dL Glucose 227 H (74-99) mg/dL POC Glucose (mg/dL) 269 H (70-110) mg/dL Calcium 7.3 L (8.4-10.2) mg/dL 12/12/22 12/12/22 Range/Units 05:00 05:55 WBC (3.8-10.6) k/uL RBC (4.30-5.90) m/uL Hgb (13.0-17.5) gm/dL Hct (39.0-53.0) % Plt Count (150-450) k/uL ABG pH 7.46 H (7.35-7.45) ABG pCO2 32 L (35-45) mmHg ABG pO2 113 H (83-108) mmHg ABG O2 Saturation 98.4 H (94-97) % Sodium (137-145) mmol/L Carbon Dioxide (22-30) mmol/L BUN (9-20) mg/dL Creatinine (0.66-1.25) mg/dL Glucose (74-99) mg/dL POC Glucose (mg/dL) 244 H (70-110) mg/dL Calcium (8.4-10.2) mg/dL Microbiology - Last 24 Hours (Table) 12/07/22 11:55 Blood Culture Gram Stain - Final Blood Blood Culture - Preliminary 12/08/22 00:09 Gram Stain - Final Sputum Sputum Culture - Final Acinetobacter heidi/haemol Enterobacter cloacae Assessment and Plan Plan: Assessment: 1. Acute kidney injury secondary to ATN secondary to hypotension/septic shock and rhabdomyolysis. No hydronephrosis noted on imaging. Oliguric. Started on hemodialysis December 08 2022. 2. Chronic kidney disease stage IIIa with creatinine 1.4 in May 2021. Suspect nephrosclerosis. 3. Rhabdomyolysis. CK levels trending down. 4. Septic shock currently off vasopressors. Blood culture positive for gram-positive cocci and sputum culture positive for gram-negative bacilli. 5. Metabolic acidosis secondary to acute kidney injury. Partially compensatory for respiratory alkalosis. 6. Hypokalemia from intracellular shifting from IV bicarb. Better. 7. DKA s/p insulin drip. 8. Volume overload. Improved with UF. 9. Peripheral arterial disease. Vascular surgery following. Scheduled for left [id number] amputation today. 10. Hyponatremia secondary to acute kidney injury. Hypervolemic. Plan: Currently seen while undergoing hemodialysis. Plan to hold treatment tomorrow. Tube feeds will be resumed. Avoid nephrotoxins. Continue to monitor renal function and urine output. Monitor vancomycin levels. Dose to be adjusted for renal function. Phosphorus level 3.5 dated 12/09/2022.
--- NOTE | 2022-12-12 11:41 | P.PN ---
Subjective Progress Note Date: 12/12/22 Patient is a 67-year-old male with a history of diabetes, bipolar disorder, history of closed head injury who was [place] motel unresponsive and covered in his own emesis. On arrival to the ER he was tachycardic with a pulse of 101, respirations 26, blood pressure 64/42 and O2 sat 92% on 15 L nonrebreather. Laboratory analysis including CBC, coags, ABG, CMP, ammonia, CK, troponin, urinalysis, urine drug screen, which were remarkable for white blood cell count 15.7, platelets 138, calcium 7.7, carbon dioxide less than 5, BUN 81, creatinine 3.8, glucose 794, lactic acid 9.4, ammonia 590, CK 384, troponin 0.139. Urine drug screen was negative. Influenza A/B/RSV/COVID-19 was nega tive. Chest x-ray showed endotracheal tube in the right mainstem the lungs were otherwise clear. CT chest abdomen and pelvis showed no acute process but cirrhosis. Head CT showed chronic changes with no acute intracranial process. EKG reviewed with normal sinus rhythm at a rate of 100 and peaker T- waves. He was intubated in the emergency department. He was started on norepinephrine, sodium bicarb with dextrose infusion, insulin infusion. He was also given calcium gluconate 1 g IV piggyback. Critical care was consulted. Arrangements were made for admission. He was continued on levothyroxine. Zosyn was initiated for possible aspiration. He was continued on DKA protocol. He was gi matt aggressive IV fluid resuscitation with both normal saline and D5W with 3 A of bicarb. On the night after admission his urine output decreased and his left lower extremity became ischemic. His CKs elevated. Nephrology was consulted as well as vascular surgery. Patient was placed on a heparin drip. Concern for heparin induced thrombocytopenia, heparin discontinued. He was seen by vascular surgery. No family or guardian available, patient needs BKA. Nephrology recommended hemodialysis and first round was completed on 12/08/22. Still requiring norepinephrine off and on. Insulin drip discontinued, started on Levemir. Pending BKA today Patient seen and examined at bedside. No acute events overnight. Per nurse, currently anuric. Did have sedation holiday yesterday, patient became hypertensive, but not following commands. Tube feeds are held, during dialysis, pending BKA later today Vital signs reviewed General: nontoxic, no distress, appears at stated age Term: Left lower extremity distal to mid calf cyanotic appearing and cool with absent palpable pulses, right lower extremity warm Cardiovascular: S1S2 reg, no murmur Lungs: CTA bilateral, no rhonchi, no rales , no accessory muscle use Abdominal: soft, nontender to palpation, no guarding, no appreciable organomegaly Ext: no gross muscle atrophy, no edema b/l lower extremities, no contractures Neuro: Positive cough, positive gag Psych: Sedated on vent Assessment/Plan: Severe DKA, resolved Shock, likely septic Suspected aspiration pneumonia Metabolic encephalopathy Oropharyngeal candidiasis -Pulmonary following -Levemir increased to 50 units and sliding scale insulin with fingersticks every 4 hours -With concerns for possible septic shock we'll continue with Zosyn 3.375 mg every 12 hours IV piggyback D # 5 -Also on vancomycin, and IV fluconazole 200 mg daily -Continue to wean pressors Ischemic Left lower extremity Rhabdomyolysis Transaminitis due to rhabdo anguric, Acute kidney injury now on hemodialysis Thrombocytopenia, possibly heparin-induced -Heparin drip has been discontinued -Vascular surgery following, pending BKA today -Nephrology note reviewed, continue hemodialysis -Strict I and O -Avoid nephrotoxic agents Gram-positive cocci 1 out of 2 blood cultures -Continue vancomycin with pharmacy to dose. Monitor creatinine and vancomycin trough levels closely. -Repeat cultures pending, no growth to date, consider discontinuing vancomycin Anemia Thrombocytopenia - follow CBC closely given decreased platelets Hyperkalemia, resolved Lactic acidosis, resolved Leukocytosis, resolved Elevated troponin, suspect secondary to renal dysfunction and Rhabdo Imaging: Chest x-ray independently interpreted, shows bilateral lower lobe opacities, similar to yesterday Hospital course imaging: echocardiogram: hyperdynamic left ventricle 65-70%, right ventricle mildly dilated with RVSP 28 Data Review: Labs reviewed from today: WBC 12, hemoglobin 9.7, platelets 60, pH 7.46, pCO2 32, sodium 1:30, creatinine 5.21, blood sugars range between 244-269 Gram-positive cocci and 1 of 2 bottles. sputum culture Acinetobacter And Enterobacter DVT prophylaxis:SCDS Anticipated discharge date: Pending Clinical Course Anticipated discharge place: Pending Clinical Course Objective - Vital Signs Vital signs: Vital Signs Temp 98.8 F 12/12/22 08:00 Pulse 94 12/12/22 10:00 Resp 26 H 12/12/22 10:00 BP 160/65 12/11/22 18:33 Pulse Ox 96 12/12/22 10:00 FiO2 35 12/12/22 11:18 Intake & Output 12/11/22 12/12/22 12/12/22 18:59 06:59 18:59 Intake Total 1714.044 568.972 52 Output Total 2400 0 0 Balance -685.956 568.972 52 Weight 112.3 kg Intake: IV 120 134 52 .9 NS 120 110 40 Pressure BAG 24 12 Intake, IV Titration 238.044 189.972 Amount Norepinephrine 8 mg In 8.605 Sodium Chloride 0.9% 250 ml @ 0.05 MCG/KG/MIN 10. 006 mls/hr IV .Q24H [facility] Rx#:[id number] propofoL 1,000 mg In 229.439 189.972 Empty Bag 1 bag @ 15 MCG/ KG/MIN 9.308 mls/hr IV . [id number] [facility] Rx#:[id number] Tube Feeding 516 215 0 Hemodialysis 700 Other 140 30 Output: Urine 0 0 0 Hemodialysis 2400 Other: Voiding Method Indwelling Catheter Indwelling Catheter Indwelling Catheter # Bowel Movements 1 1 ABP, PAP, CO, CI - Last Documented Arterial Blood Pressure 125/52 - Labs CBC & Chem 7: 12/12/22 04:42 12/12/22 04:42 Labs: Abnormal Lab Results - Last 24 Hours (Table) 12/11/22 12/11/22 12/11/22 Range/Units 12:05 15:53 19:49 WBC (3.8-10.6) k/uL RBC (4.30-5.90) m/uL Hgb (13.0-17.5) gm/dL Hct (39.0-53.0) % Plt Count (150-450) k/uL ABG pH (7.35-7.45) ABG pCO2 (35-45) mmHg ABG pO2 (83-108) mmHg ABG O2 Saturation (94-97) % Sodium (137-145) mmol/L Carbon Dioxide (22-30) mmol/L BUN (9-20) mg/dL Creatinine (0.66-1.25) mg/dL Glucose (74-99) mg/dL POC Glucose (mg/dL) 354 H 278 H 207 H (70-110) mg/dL Calcium (8.4-10.2) mg/dL 12/11/22 12/12/22 12/12/22 Range/Units 23:05 04:42 04:42 WBC 12.0 H (3.8-10.6) k/uL RBC 3.37 L (4.30-5.90) m/uL Hgb 9.7 L (13.0-17.5) gm/dL Hct 28.3 L (39.0-53.0) % Plt Count 60 L (150-450) k/uL ABG pH (7.35-7.45) ABG pCO2 (35-45) mmHg ABG pO2 (83-108) mmHg ABG O2 Saturation (94-97) % Sodium 130 L (137-145) mmol/L Carbon Dioxide 21 L (22-30) mmol/L BUN 80 H (9-20) mg/dL Creatinine 5.21 H (0.66-1.25) mg/dL Glucose 227 H (74-99) mg/dL POC Glucose (mg/dL) 269 H (70-110) mg/dL Calcium 7.3 L (8.4-10.2) mg/dL 12/12/22 12/12/22 Range/Units 05:00 05:55 WBC (3.8-10.6) k/uL RBC (4.30-5.90) m/uL Hgb (13.0-17.5) gm/dL Hct (39.0-53.0) % Plt Count (150-450) k/uL ABG pH 7.46 H (7.35-7.45) ABG pCO2 32 L (35-45) mmHg ABG pO2 113 H (83-108) mmHg ABG O2 Saturation 98.4 H (94-97) % Sodium (137-145) mmol/L Carbon Dioxide (22-30) mmol/L BUN (9-20) mg/dL Creatinine (0.66-1.25) mg/dL Glucose (74-99) mg/dL POC Glucose (mg/dL) 244 H (70-110) mg/dL Calcium (8.4-10.2) mg/dL Microbiology - Last 24 Hours (Table) 12/07/22 11:55 Blood Culture Gram Stain - Final Blood Blood Culture - Preliminary 12/08/22 00:09 Gram Stain - Final Sputum Sputum Culture - Final Acinetobacter heidi/haemol Enterobacter cloacae
--- NOTE | 2022-12-12 11:59 | P.PN ---
Subjective Progress Note Date: 12/12/22 Principal diagnosis: Acute diabetic ketoacidosis and acute hypoxic respiratory failure This is a 67-year-old male patient, diabetic, known history of closed head injury, bipolar disorder, was currently intubated on a mechanical ventilator. He presented to our hospital unresponsive. He was found in a local motel in his own emesis. Upon arrival, the patient was hypotensive, he was hypoxic, he was found to be in DKA. He was intubated and placed on a mechanical ventilator. I believe he also aspirated. CAT scan of the chest abdomen and pelvis showed no acute process. There may be some changes related to liver cirrhosis. CAT scan of the head showed no acute intracranial process. At this point in time, the patient is intubated on a mechanical ventilator. Is on assist control and anxiety the rate of 228, FiO2 has been brought down to 50% with a PEEP of 5 and a tidal volumes of 500. The blood gas showed a pH of 6.9 with a pCO2 of 31 and pO2 of 400. The blood work showed a potassium level of 7.7, he had significant and I get metabolic acidosis with a serum bicarb of less than 5, initial blood sugar was 794 and the lactic acid level was at 9.5. The patient had a white cell count of 15.7 with a hemoglobin 15.8 and a platelet count of 138. Cognition profile was within normal limits. LFTs were normal, serum ammonia level was elevated at 590, UA showed +3 glucose, +2 ketones and urine drug screen was negative, the viral screen was also negative. For now, the patient has already received a total of 3 L of normal saline and the patient is currently on a bicarbonate infusion running at 150 mEq at 150 mL an hour. He is on insulin drip at 10 units an hour. He is on propofol running at 35 mcg/kg/m. He has a triple-lumen catheter in his left femoral vein. There is a orogastric tube in place and output is coffee-ground. He has hypotensive. He is on norepinephrine at 0.2 mcg/kg/m. The patient is also on emperic Antibiotic coverage started on a combination of Zosyn and vancomycin. On today's evaluation of 12/08/2022, the patient is being seen in follow-up in the intensive care unit. A critically ill male patient with DKA, rhabdomyolysis, severe metabolic acidosis, hypotension, acute kidney injury and furthermore, the patient lost his pulse and the left lower extremity and currently has a ischemic left foot. The patient remains on a mechanical ventilator for now. He is on propofol which is running at 40 mcg/kg/m. His adequately sedated and is calm and comfortable on a mechanical ventilator on assist control mode at a rate of 28, tidal volume 500, FiO2 of 40% with a PEEP of 5. The blood gas from today shows a pH of 7.28 with episodes of 26-year-old to 180. Chest x-ray shows no acute abnormalities. Orotracheal tube is in good location. No airspace disease. NG tube is in place. Lungs are clear. Also, the patient remains hemodynamically unstable. He was aggressively resuscitated with IV fluids yesterday. Patient has been in a positive fluid balance of 5 L over the past 24 hours. Currently, he remains on norepinephrine and dose has been weaned down to 0.16 mcg/kg/m. The patient has been switched to D5 half-normal saline which is running at 150 mL an hour and this is based on our DKA protocol. Insulin drip is still running at 12 units an hour. Most recent blood sugar is at 292. The anion gap is at 18. Serum bicarb is at 8. Potassium level has improved down to 4.9. He has sustained an acute kidney injury and the creatinine is at the rise at 3.9. He was had no urine output overnightt. Earlier this morning, he started making some urine output. He has developed a rhabdomyolysis. CPK level is up to 13,947.. Furthermore, his left foot is mottled and cold and pale and there are no palpable pulses in dorsalis pedis and the posterior tibialis. Very poor capillary refill. The mottling is above the ankle reaching the med left leg. The white count was of 15.7, hemoglobin was at 15.8 at time of admission. Coagulation profile was within normal limits. UA was negative. 12/09/2022, the patient remains intubated on a mechanical ventilator. The patient remains in intensive care unit. He is a critically ill male patient with DKA, rhabdomyolysis, hypotension, acute kidney injury and ischemic left foot. Since yesterday, the patient has been kept on a mechanical ventilator. He remains on propofol running at 25 mcg/kg/m. He remains comfortable and symptoms to mechanical ventilator. His assist-control mode at a rate of 28, tidal volume of 500, FiO2 of 40% with a PEEP of 5. The blood gas from today shows a pH of 7.49 with a pCO2 of 24 and pO2 of 109. Chest x-ray showing atelectatic changes in both lungs bilaterally. Orotracheal tube is in a good location. Hemodynamically, the patient was weaned off the pressors and this morning the patient was taken off pressors. Meanwhile, his urine output is quite low. This has been noted throughout the night. Nephrology is involved regarding his acute kidney injury and severe rhabdomyolysis. The patient has a dialysis catheter has right femoral vein. The patient was started on hemodialysis in the first session was offered to him yesterday. Unfortunately, the CPK is on the rise is currently up to 92,000. The left lower extremities ischemic with absent pulses in skin mottling and swelling demarcated this point in time. No Refill. The potassium levels at 3.6, serum bicarbs of 50, B is a 64 with a creatinine of 3.7. IV heparin was started and it had to be discontinued because of the development of thrombocytopenia. Platelet count is down to 42. Hemoglobin is at 12.5 with a white cell count of 9.1. Insulin drip is running at 5.5 units an hour and the patient's blood sugars are in the 300 range. He was started also on enteral feeding for nutritional support and currently is on vital high-protein at the rate of 20 mL an hour. He is afebrile. Cultures are negative. Is covered with antibiotics and he is currently on IV Zosyn Patient was reevaluated today on 12/10/2022, remains in the ICU, intubated and mechanically ventilated, receiving hemodialysis early this morning. Patient is on assist control rate of 20 tidal volume 500 FiO2 40% and PEEP of 5 ABG showed a pO2 of 101 pCO2 31 pH of 7.46. Patient is to have hemodialysis finished today. Patient is on insulin drip is also on propofol at 35 mcg/kg/m, not requiring any pressors. For his gram-negative bacilli in the sputum patient is receiving still vancomycin and Zosyn. Patient was felt to have most likely aspiration pneumonia not to mention the patient presented with hypotension, lactic acidosis, and acute kidney injury. Patient was found down in the hotel room, and he required immediate intubation. Her drug screen has been negative. Chest x-ray showed minimal atelectasis at the bases, otherwise no active disease. WBC count is 8.5 hemoglobin 11.1. Basic metabolic profile is relatively normal except for a BUN of 85 creatinine 5.33. CPK is extremely elevated actually it is 19 2500 and his liver enzymes are also elevated with AST of 1522 and ALT of 350. Drug screen on admission was negative. Platelets remained low at 38,000 Reevaluated today on 12/11/22, remains in the ICU, remains intubated and mechanically ventilated, patient remains on hemodialysis and he is receiving another hemodialysis today. He is on assist control rate of 20 tidal volume of 500 FiO2 40% PEEP of 5 ABG showed a pO2 of 113 pCO2 31 pH of 7.42. The goal is to remove 2 L of fluids today with his hemodialysis. Patient remains on propofol at 40 mg/kg/m is also receiving vital HP. Could not assess mental status yesterday, however will try to hold sedation/propofol today, and hopefully get an adequate assessment of mental status off sedation. Patient was seen by vascular surgery and considering amputation of the left lower extremity ostomy DKA. Continues to have cold left lower extremity and ischemic foot. WBC count is 10.7 hemoglobin is 10.4, electrolytes are normal bicarb is 18, BUN is 99 creatinine 6.11 blood sugars are high in the 400 range, CPK is almost 38,000. Trending down. His AST is 1156 and ALT 318, also trending down. Chest x-ray showed minimal bibasilar atelectasis, no infiltrate or pneumonia Patient was reevaluated today on 12/12/22, patient remains in the ICU, intubated and mechanically ventilated. He is on assist control rate of 20 tidal volume 500 FiO2 35% and PEEP of 5 ABG today showed a pO2 of 113 pCO2 32 pH of 7.46. CBC is relatively unremarkable the PEEP cigar of 12 hemoglobin 9.7 platelets are 60,000. Sodium 130 potassium 3.9 chloride 99 BUN 80 creatinine 5.21 bicarb is 21. Sputum cultures have been positive for Citrobacter and Enterobacter cloaca my remains on vancomycin, and fluconazole. Zosyn,. Patient is still on dialysis/hemodialysis. No plans to wean and extubate the patient today since the patient is going for left lower extremity amputation sometime later today by vascular surgery. Chest x-ray is relatively unremarkable except for minimal right basilar atelectasis. Possible infiltrate Objective - Vital Signs Vital signs: Vital Signs Temp 98.8 F 12/12/22 08:00 Pulse 94 12/12/22 10:00 Resp 26 H 12/12/22 10:00 BP 160/65 12/11/22 18:33 Pulse Ox 96 12/12/22 10:00 FiO2 35 12/12/22 11:18 Intake & Output 12/11/22 12/12/22 12/12/22 18:59 06:59 18:59 Intake Total 1714.044 568.972 52 Output Total 2400 0 0 Balance -685.956 568.972 52 Weight 112.3 kg Intake: IV 120 134 52 .9 NS 120 110 40 Pressure BAG 24 12 Intake, IV Titration 238.044 189.972 Amount Norepinephrine 8 mg In 8.605 Sodium Chloride 0.9% 250 ml @ 0.05 MCG/KG/MIN 10. 006 mls/hr IV .Q24H [facility] Rx#:[id number] propofoL 1,000 mg In 229.439 189.972 Empty Bag 1 bag @ 15 MCG/ KG/MIN 9.308 mls/hr IV . [id number] [facility] Rx#:[id number] Tube Feeding 516 215 0 Hemodialysis 700 Other 140 30 Output: Urine 0 0 0 Hemodialysis 2400 Other: Voiding Method Indwelling Catheter Indwelling Catheter Indwelling Catheter # Bowel Movements 1 1 ABP, PAP, CO, CI - Last Documented Arterial Blood Pressure 125/52 - Exam Physical Exam: Revealed a 67-year-old white male intubated, mechanically ventilated, sedated, not in distress. Receiving hemodialysis. Head: Atraumatic, normocephalic. HEENT:[Neck is supple.] [No neck masses.] [No thyromegaly.] [No JVD.] Chest: [Diminished breath sounds at the bases no crackles or rhonchi or wheezes Cardiac Exam: [Normal S1 and S2, no S3 gallop, no murmur.] Abdomen: [Soft, nontender, no megaly, no rebound, no guarding, normal bowel sounds.] Extremities: Left lower extremity is cold from the mid calf region all the way down to the foot. No pulses noted. Clearly the patient has ischemic left lower extremity. Neurological Exam: Not assessed, patient is sedated. Pupils are reactive, round 3 mm in size. Psychiatric: Could not assess. Skin: Bluish discoloration and cold left lower extremity from the knee down. And no skull pulses in the left foot - Labs CBC & Chem 7: 12/12/22 04:42 12/12/22 04:42 Labs: Abnormal Lab Results - Last 24 Hours (Table) 12/11/22 12/11/22 12/11/22 Range/Units 12:05 15:53 19:49 WBC (3.8-10.6) k/uL RBC (4.30-5.90) m/uL Hgb (13.0-17.5) gm/dL Hct (39.0-53.0) % Plt Count (150-450) k/uL ABG pH (7.35-7.45) ABG pCO2 (35-45) mmHg ABG pO2 (83-108) mmHg ABG O2 Saturation (94-97) % Sodium (137-145) mmol/L Carbon Dioxide (22-30) mmol/L BUN (9-20) mg/dL Creatinine (0.66-1.25) mg/dL Glucose (74-99) mg/dL POC Glucose (mg/dL) 354 H 278 H 207 H (70-110) mg/dL Calcium (8.4-10.2) mg/dL 12/11/22 12/12/22 12/12/22 Range/Units 23:05 04:42 04:42 WBC 12.0 H (3.8-10.6) k/uL RBC 3.37 L (4.30-5.90) m/uL Hgb 9.7 L (13.0-17.5) gm/dL Hct 28.3 L (39.0-53.0) % Plt Count 60 L (150-450) k/uL ABG pH (7.35-7.45) ABG pCO2 (35-45) mmHg ABG pO2 (83-108) mmHg ABG O2 Saturation (94-97) % Sodium 130 L (137-145) mmol/L Carbon Dioxide 21 L (22-30) mmol/L BUN 80 H (9-20) mg/dL Creatinine 5.21 H (0.66-1.25) mg/dL Glucose 227 H (74-99) mg/dL POC Glucose (mg/dL) 269 H (70-110) mg/dL Calcium 7.3 L (8.4-10.2) mg/dL 12/12/22 12/12/22 Range/Units 05:00 05:55 WBC (3.8-10.6) k/uL RBC (4.30-5.90) m/uL Hgb (13.0-17.5) gm/dL Hct (39.0-53.0) % Plt Count (150-450) k/uL ABG pH 7.46 H (7.35-7.45) ABG pCO2 32 L (35-45) mmHg ABG pO2 113 H (83-108) mmHg ABG O2 Saturation 98.4 H (94-97) % Sodium (137-145) mmol/L Carbon Dioxide (22-30) mmol/L BUN (9-20) mg/dL Creatinine (0.66-1.25) mg/dL Glucose (74-99) mg/dL POC Glucose (mg/dL) 244 H (70-110) mg/dL Calcium (8.4-10.2) mg/dL Microbiology - Last 24 Hours (Table) 12/07/22 11:55 Blood Culture Gram Stain - Final Blood Blood Culture - Preliminary 12/08/22 00:09 Gram Stain - Final Sputum Sputum Culture - Final Acinetobacter heidi/haemol Enterobacter cloacae Assessment and Plan Assessment: Impression: Acute hypoxic respiratory failure most likely secondary to aspiration as the patient was found to be unresponsive and drowning in his own secretions. Acute diabetic ketoacidosis Acute shock/hypovolemic in nature Severe lactic acidosis secondary to above History of liver cirrhosis with significantly elevated liver enzymes Acute rhabdomyolysis with acute kidney injury most likely from ischemic left lower extremity and from the patient being down upon his initial presentation. Acute hyperkalemia, resolved Acute thrombocytopenia, now off heparin Acute troponin leak Acute metabolic encephalopathy Acute leukocytosis could be septic or possibly reactive. Acute hypothermia on initial presentation Ischemic left lower extremity, being followed by vascular. Will likely undergo amputation today. Recommendation: Vascular surgery to proceed with amputation today. Continue ventilatory support Continue antibiotics/Zosyn Continue hemodialysis as per nephrology on the case Continue GI prophylaxis Continue to hold subcu heparin for low platelet Continue Nutritional support/enteral feeding Continue to monitor daily labs and electrolytes as well as liver enzymes and CPK Will likely start weaning trials in the next 24 hours. Patient is critically ill, and prognosis is extremely poor Critical care time is over 30 minute Time with Patient: Greater than 30
[2022-12-12] MEDS ORDERED: VANCOMYCIN 1,750 MG in SODIUM CHLORIDE 0.9% 500 ML 500 ML IVPB ONE (12:00)
[2022-12-12 12:10] LABS: Glucose,Whole Blood 130 mg/dL (70-110)
[2022-12-12] MEDS: ASPIRIN 81 MG PO SCH (12:38)
[2022-12-12] MEDS: CHLORHEXIDINE GLUCONATE 15 ML CUP MUCOUS MEM SCH ×2 (12:38→20:14)
[2022-12-12] MEDS: FLUCONAZOLE IN NACL,ISO-OSM 200 MG in SALINE 1 100ML.BAG IVPB SCH (12:38)
[2022-12-12] MEDS: PANTOPRAZOLE 40 MG/10 ML VIAL IVP SCH ×2 (12:39→20:14)
[2022-12-12] MEDS ORDERED: LACTATED RINGERS 1,000 ML IV ONE (13:27)
[2022-12-12] MEDS ORDERED: ROCURONIUM 10 MG/ML (5 ML VIAL) IV ONE (13:27)
[2022-12-12] MEDS ORDERED: HYDROmorphone (PF) 1 MG/ML ONE (13:27)
[2022-12-12] MEDS ORDERED: ceFAZolin 1,000 MG in SODIUM CHLORIDE 0.9% 1,000 ML IRRIGATION ONE (13:56)
--- NOTE | 2022-12-12 15:14 | P.OP ---
Date of Procedure: 12/12/22 Description of Procedure: Preoperative diagnosis: Left lower extremity ischemia Postoperative diagnosis: Same Procedure: Left Above-knee amputation Surgeon: Lauren Mata D.O. Anesthesia: Gen. endotracheal EBL: 75 mL IV fluids see records Urine output: Minimal Drains: None Complications: [None immediately apparent Condition: Stable but critical Operative indication and findings: Patient is a 67-year-old male who was initially found down unresponsive and found to be in diabetic ketoacidosis with severe abnormalities and hypotension requiring aggressive resuscitation. He had mottling and ischemic changes to his left lower extremity. There was no significant improvement after resuscitation therefore it was recommended he undergo amputation. Multiple conversations were had with administration as the patient is intubated sedated and has no next of kin or family for contact. Attempts to get urgent guardianship are underway however Court not held until later this week reportedly. Due to the fact he will not be x-rayed anytime soon plan is to go forward with amputation as it is necessary. Procedure in detail: The patient was taken to the operative suite and placed in supine position. After adequate anesthesia, the left lower extremity was prepped and draped in usual sterile fashion. A preprocedure timeout was performed, all parties were in agreement. Initial attempts to evaluate the below-knee course for potential amputation were performed. The measurements were made for a typical 2/3:1/3 flap ratio. The lateral portions of the incisions were made and carried down to the fascia. The muscle was evaluated and found to be pale in color and noncontractile. Due to the ischemic - appearing muscle at this location, advancements were made towards an above-knee amputation. Skin marker was utilized and the incision was marked approximately 5 cm proximal to the knee joint. Skin incision was performed and deepened through the subcutaneous tissues to the muscular fascia. The saphenous vein was identified and ligated with 2-0 silk and divided. The muscle groups of the anterior and medial thigh were divided with electrocautery at the same level of the skin incision. The neurovascular bundle was identified on the medial aspect of the thigh. The artery and veins were isolated and suture ligated using 2-0 silk ligature. The sciatic nerve was pulled on stretch and ligated with 2-0 silk tie and divided. The femur was then cleared of its periosteal tissue is elevated roughly 5 cm proximally and was divided with the oscillating saw. The posterior thigh muscles were then divided with amputation knife. The proximal end of the transected femur was smoothed with a rasp. The amputation site was then copiously irrigated. Hemostasis was controlled with electrocautery. The periosteum was reapproximated using interrupted sutures of 2-0 Vicryl. The fascia was reapproximated with interrupted [id number] sutures of 2-0 Vicryl. The skin was reapproximated with kendra. A dressing with gauze, Kerlix and a bandage were placed. The patient tolerated the procedure well he was kept intubated and transferred back to ICU in stable but critical condition
[2022-12-12] MEDS: LACTATED RINGERS 1,000 ML IV SCH (16:58)
[2022-12-12 17:06] LABS: Glucose,Whole Blood 168 mg/dL (70-110)
[2022-12-12 20:02] LABS: Glucose,Whole Blood 203 mg/dL (70-110)
[2022-12-12] MEDS ORDERED: INSULIN DETEMIR (LEVEMIR) 100 UNIT/ML SYR SQ SCH (21:00)
[2022-12-13 00:05] LABS: Glucose,Whole Blood 243 mg/dL (70-110)
[2022-12-13] MEDS: INSULIN ASPART (NovoLOG) 100 UNIT/ML VIAL SQ SCH ×7 (00:14→23:56)
[2022-12-13 03:48] LABS: Glucose,Whole Blood 228 mg/dL (70-110)
[2022-12-13 04:41] LABS: HCT 27.4 % (39.0-53.0); HGB 9.3 gm/dL (13.0-17.5); MCH 28.9 pg (25.0-35.0); MCHC 33.8 g/dL (31.0-37.0); MCV 85.4 fL (80.0-100.0); Mean Platelet Volume 9.4; RBC 3.21 m/uL (4.30-5.90); RDW 14.2 % (11.5-15.5); WBC 10.3 k/uL (3.8-10.6)
[2022-12-13] MEDS: PIPERACILLIN-TAZOBACTAM 3.375 GM in SODIUM CHLORIDE 0.9% 100 ML IVPB SCH ×2 (04:56→17:59)
[2022-12-13 05:01] LABS: Platelet Count 90 k/uL (150-450)
[2022-12-13 05:14] LABS: ALT 250 U/L (4-49); AST 559 U/L (17-59); Albumin 2.4 g/dL (3.5-5.0); Alkaline Phosphatase 130 U/L (38-126); Anion Gap 14 mmol/L; Blood Urea Nitrogen 60 mg/dL (9-20); Calcium 7.1 mg/dL (8.4-10.2); Carbon Dioxide 19 mmol/L (22-30); Chloride 96 mmol/L (98-107); Glucose 206 mg/dL (74-99); Potassium 4.2 mmol/L (3.5-5.1); Sodium 129 mmol/L (137-145); Total Bilirubin 0.6 mg/dL (0.2-1.3); Total Protein 4.9 g/dL (6.3-8.2)
[2022-12-13 05:19] LABS: African American GFR (CKD) 17 (>60 ml/min/1.73 sqM); Non-African American GFR(CKD) 15 (>60 ml/min/1.73 sqM)
[2022-12-13 05:24] LABS: Anisocytosis (M) Present; Band Neutrophils % 1 %; Lymphocytes # (M) 1.65 k/uL (1.0-4.8); Monocytes # (M) 1.85 k/uL (0-1.0); Neutrophils % (M) 64 %; Nucleated Red Blood Cells 0 /100 WBC (0-0); Polychromasia Present; Total Cells Counted 100
[2022-12-13 05:56] LABS: ABG Base Excess -1.1 mmol/L; ABG HCO3 22 mmol/L (21-25); ABG Oxygen Saturation 96.4 % (94-97); ABG PCO2 30 mmHg (35-45); ABG PH 7.48 (7.35-7.45); ABG PO2 80 mmHg (83-108); ABG TCO2 23 mmol/L (19-24); Allen Test Performed? Yes
--- NOTE | 2022-12-13 07:16 | XR ---
EXAMINATION TYPE: XR chest 1V portable DATE OF EXAM: 12/13/2022 COMPARISON: 12/12/2022 HISTORY: Shortness of breath TECHNIQUE: Single frontal view of the chest is obtained. FINDINGS: Tiny right pleural effusion. No sizable thoracic spine. There is bibasilar consolidation. ET and NG tubes stable. Heart size normal. No overt failure. No pneumothorax. Degenerative changes of the spine. IMPRESSION: Stable bilateral areas of atelectasis favored over pneumonia.
[2022-12-13 07:55] LABS: Glucose,Whole Blood 287 mg/dL (70-110)
[2022-12-13] MEDS: CHLORHEXIDINE GLUCONATE 15 ML CUP MUCOUS MEM SCH ×2 (09:06→20:42)
[2022-12-13] MEDS: ASPIRIN 81 MG PO SCH (09:06)
[2022-12-13] MEDS: PANTOPRAZOLE 40 MG/10 ML VIAL IVP SCH ×2 (09:06→20:43)
[2022-12-13] MEDS ORDERED: FUROSEMIDE 10 MG/ML 10 ML VIAL IV STA (10:25)
[2022-12-13] MEDS: HYDROmorphone 1 MG/ML 1 ML SYRINGE IVP PRN (10:31)
--- NOTE | 2022-12-13 10:51 | P.PN ---
Subjective Patient seen in follow-up for acute kidney injury on chronic kidney disease. Off vasopressors. Oliguric. Receiving tube feeds. Intubated. Dialysis catheter changed 12/11/22. Vital signs are stable. General: Resting in bed. HEENT: Intubated. LUNGS: No audible rhonchi or wheezes. HEART: Rate and Rhythm are regular. ABDOMEN: No distention. EXTREMITITES: Left AKA noted. Objective - Vital Signs Vital signs: Vital Signs Temp 99.3 F 12/13/22 08:00 Pulse 87 12/13/22 09:00 Resp 20 12/13/22 09:00 BP 131/50 12/13/22 09:00 Pulse Ox 96 12/13/22 09:00 FiO2 35 12/13/22 10:30 Intake & Output 12/12/22 12/13/22 12/13/22 18:59 06:59 18:59 Intake Total 1744 567.334 200.700 Output Total 2475 6 8 Balance -731 561.334 192.700 Weight 105.2 kg Intake: IV 1144 30 29 .9 NS 110 20 Pressure BAG 33 30 9 Intake, IV Titration 200 197.334 81.700 Amount Norepinephrine 8 mg In 4.569 Sodium Chloride 0.9% 250 ml @ 0.05 MCG/KG/MIN 10. 006 mls/hr IV .Q24H [facility] Rx#:[id number] propofoL 1,000 mg In 200 192.765 81.700 Empty Bag 1 bag @ 15 MCG/ KG/MIN 9.308 mls/hr IV . [id number] [facility] Rx#:[id number] Tube Feeding 0 250 90 Hemodialysis 400 Other 90 Output: Urine 0 6 8 Hemodialysis 2400 Estimated Blood Loss 75 Other: Voiding Method Indwelling Catheter Indwelling Catheter Indwelling Catheter # Voids 0 # Bowel Movements 1 ABP, PAP, CO, CI - Last Documented Arterial Blood Pressure 149/52 - Labs CBC & Chem 7: 12/13/22 03:45 12/13/22 03:45 Labs: Abnormal Lab Results - Last 24 Hours (Table) 12/12/22 12/12/22 12/12/22 Range/Units 04:42 12:07 17:05 RBC (4.30-5.90) m/uL Hgb (13.0-17.5) gm/dL Hct (39.0-53.0) % Plt Count (150-450) k/uL Monocytes # (Manual) (0-1.0) k/uL ABG pH (7.35-7.45) ABG pCO2 (35-45) mmHg ABG pO2 (83-108) mmHg Sodium (137-145) mmol/L Chloride (98-107) mmol/L Carbon Dioxide (22-30) mmol/L BUN (9-20) mg/dL Creatinine (0.66-1.25) mg/dL Glucose (74-99) mg/dL POC Glucose (mg/dL) 130 H 168 H (70-110) mg/dL Calcium (8.4-10.2) mg/dL AST (17-59) U/L ALT (4-49) U/L Alkaline Phosphatase (38-126) U/L Creatine Kinase 27242 H* (55-170) U/L Total Protein (6.3-8.2) g/dL Albumin (3.5-5.0) g/dL 12/12/22 12/13/22 12/13/22 Range/Units 20:01 00:03 03:45 RBC 3.21 L (4.30-5.90) m/uL Hgb 9.3 L (13.0-17.5) gm/dL Hct 27.4 L (39.0-53.0) % Plt Count 90 L (150-450) k/uL Monocytes # (Manual) 1.85 H (0-1.0) k/uL ABG pH (7.35-7.45) ABG pCO2 (35-45) mmHg ABG pO2 (83-108) mmHg Sodium (137-145) mmol/L Chloride (98-107) mmol/L Carbon Dioxide (22-30) mmol/L BUN (9-20) mg/dL Creatinine (0.66-1.25) mg/dL Glucose (74-99) mg/dL POC Glucose (mg/dL) 203 H 243 H (70-110) mg/dL Calcium (8.4-10.2) mg/dL AST (17-59) U/L ALT (4-49) U/L Alkaline Phosphatase (38-126) U/L Creatine Kinase (55-170) U/L Total Protein (6.3-8.2) g/dL Albumin (3.5-5.0) g/dL 12/13/22 12/13/22 12/13/22 Range/Units 03:45 03:45 03:47 RBC (4.30-5.90) m/uL Hgb (13.0-17.5) gm/dL Hct (39.0-53.0) % Plt Count (150-450) k/uL Monocytes # (Manual) (0-1.0) k/uL ABG pH (7.35-7.45) ABG pCO2 (35-45) mmHg ABG pO2 (83-108) mmHg Sodium 129 L (137-145) mmol/L Chloride 96 L (98-107) mmol/L Carbon Dioxide 19 L (22-30) mmol/L BUN 60 H (9-20) mg/dL Creatinine 3.90 H (0.66-1.25) mg/dL Glucose 206 H (74-99) mg/dL POC Glucose (mg/dL) 228 H (70-110) mg/dL Calcium 7.1 L (8.4-10.2) mg/dL AST 559 H (17-59) U/L ALT 250 H (4-49) U/L Alkaline Phosphatase 130 H (38-126) U/L Creatine Kinase 30364 H* (55-170) U/L Total Protein 4.9 L (6.3-8.2) g/dL Albumin 2.4 L (3.5-5.0) g/dL 12/13/22 12/13/22 Range/Units 05:54 07:54 RBC (4.30-5.90) m/uL Hgb (13.0-17.5) gm/dL Hct (39.0-53.0) % Plt Count (150-450) k/uL Monocytes # (Manual) (0-1.0) k/uL ABG pH 7.48 H (7.35-7.45) ABG pCO2 30 L (35-45) mmHg ABG pO2 80 L (83-108) mmHg Sodium (137-145) mmol/L Chloride (98-107) mmol/L Carbon Dioxide (22-30) mmol/L BUN (9-20) mg/dL Creatinine (0.66-1.25) mg/dL Glucose (74-99) mg/dL POC Glucose (mg/dL) 287 H (70-110) mg/dL Calcium (8.4-10.2) mg/dL AST (17-59) U/L ALT (4-49) U/L Alkaline Phosphatase (38-126) U/L Creatine Kinase (55-170) U/L Total Protein (6.3-8.2) g/dL Albumin (3.5-5.0) g/dL Microbiology - Last 24 Hours (Table) 12/07/22 11:55 Blood Culture - Final Blood 12/11/22 04:10 Blood Culture - Preliminary Blood 12/11/22 04:32 Blood Culture - Preliminary Blood Assessment and Plan Plan: Assessment: 1. Acute kidney injury secondary to ATN secondary to hypotension/septic shock and rhabdomyolysis. No hydronephrosis noted on imaging. Oliguric. Started on hemodialysis December 08 2022. 2. Chronic kidney disease stage IIIa with creatinine 1.4 in May 2021. Suspect nephrosclerosis. 3. Rhabdomyolysis. CK levels trending down. 4. Septic shock currently off vasopressors. Blood culture positive for gram- positive cocci and sputum culture positive for gram-negative bacilli. 5. Metabolic acidosis secondary to acute kidney injury. Mostly compensatory for respiratory alkalosis. 6. Hypokalemia from intracellular shifting from IV bicarb. Better. 7. DKA s/p insulin drip. 8. Volume overload. Improved with UF. 9. Peripheral arterial disease. Vascular surgery following. Status post left AKA 12/12/2022. 10. Hyponatremia secondary to acute kidney injury. Hypervolemic. Plan: Hold hemodialysis today. Plan for treatment tomorrow. Lasix 80 mg IV once today. Maintain tube feeds. Wean FiO2. Avoid nephrotoxins. Continue to monitor renal function and urine output. Phosphorus level 3.5 dated 12/09/2022. Monitor vancomycin levels. Dose to be adjusted for renal function.
[2022-12-13] MEDS: FLUCONAZOLE IN NACL,ISO-OSM 200 MG in SALINE 1 100ML.BAG IVPB SCH (11:06)
--- NOTE | 2022-12-13 11:44 | P.PN ---
Subjective Progress Note Date: 12/13/22 Patient is a 67-year-old male with a history of diabetes, bipolar disorder, history of closed head injury who [place] unresponsive and covered in his own emesis. On arrival to the ER he was tachycardic with a pulse of 101, respirations 26, blood pressure 64/42 and O2 sat 92% on 15 L nonrebreather. Laboratory analysis including CBC, coags, ABG, CMP, ammonia, CK, troponin, urinalysis, urine drug screen, which were remarkable for white blood cell count 15.7, platelets 138, calcium 7.7, carbon dioxide less than 5, BUN 81, creatinine 3.8, glucose 794, lactic acid 9.4, ammonia 590, CK 384, troponin 0.139. Urine drug screen was negative. Influenza A/B/RSV/COVID-19 was negative. Chest x-ray showed endotracheal tube in the right mainstem the lungs were otherwise clear. CT chest abdomen and pelvis showed no acute process but cirrhosis. Head CT showed chronic changes with no acute intracranial process. EKG reviewed with normal sinus rhythm at a rate of 100 and peaker T- waves. He was intubated in the emergency department. He was started on norepinephrine, sodium bicarb with dextrose infusion, insulin infusion. He was also given calcium gluconate 1 g IV piggyback. Critical care was consulted. Arrangements were made for admission. He was continued on levothyroxine. Zosyn was initiated for possible aspiration. He was continued on DKA protocol. He was given aggressive IV fluid resuscitation with both normal saline and D5W with 3 A of bicarb. On the night after admission his urine output decreased and his left lower extremity became ischemic. His CKs elevated. Nephrology was consulted as well as vascular surgery. Patient was placed on a heparin drip. Concern for heparin induced thrombocytopenia, heparin discontinued. He was seen by vascular surgery. No family or guardian available, patient needs BKA. Nephrology recommended hemodialysis and first round was completed on 12/08/22. Still requiring norepinephrine off and on. Insulin drip discontinued, started on Levemir. He is now status post left BKA Patient seen and examined at bedside. No acute events overnight. Per nurse, patient making minimal urine, likely sedation holiday today and assess for possible extubation. Vital signs reviewed General: nontoxic, no distress, appears at stated age Term: Left lower extremity stump dressing clean, dry, intact Cardiovascular: S1S2 reg, no murmur Lungs: CTA bilateral, no rhonchi, no rales , no accessory muscle use Abdominal: soft, nontender to palpation, no guarding, no appreciable organomegaly Ext: no gross muscle atrophy, no edema b/l lower extremities, no contractures Neuro: Positive cough, positive gag Psych: Sedated on vent Assessment/Plan: Patient is critically ill, prognosis guarded Severe DKA, resolved Hyperglycemia, type 2 diabetes Septic shock, resolved Aspiration pneumonia Metabolic encephalopathy Oropharyngeal candidiasis -Pulmonary following -Levemir 50 units daily, and 20 units at night added and sliding scale insulin with fingersticks every 4 hours -Continue with Zosyn 3.375 mg every 12 hours IV piggyback D # 6 -IV fluconazole 200 mg daily -Vancomycin discontinued Ischemic Left lower extremity status post left BKA Rhabdomyolysis Transaminitis due to rhabdo Heart regular, Acute kidney injury now on hemodialysis Thrombocytopenia, possibly heparin-induced, slowly improving -Vascular surgery following -Nephrology not reviewed, likely hemodialysis tomorrow -Strict I and O -Avoid nephrotoxic agents Gram-positive cocci 1 out of 2 blood cultures -Vancomycin discontinued and has repeat cultures negative Anemia , stable Thrombocytopenia, stable - follow CBC closely given decreased platelets Hyperkalemia, resolved Lactic acidosis, resolved Leukocytosis, resolved Elevated troponin, suspect secondary to renal dysfunction and Rhabdo Imaging: Chest x-ray independently interpreted, shows bilateral lower lobe opacities, similar to yesterday Hospital course imaging: echocardiogram: hyperdynamic left ventricle 65-70%, right ventricle mildly dilated with RVSP 28 Data Review: Labs reviewed from today: WBC 10.3, hemoglobin 9.3, platelet 90, pH 7.48, pCO2 30, sodium 139, bicarb 19, creatinine 3.9, blood sugars range between to a 206- 287 Gram-positive cocci and 1 of 2 bottles. sputum culture Acinetobacter And Enterobacter DVT prophylaxis:SCDS Anticipated discharge date: Pending Clinical Course Anticipated discharge place: Pending Clinical Course Objective - Vital Signs Vital signs: Vital Signs Temp 99.3 F 12/13/22 08:00 Pulse 87 12/13/22 09:00 Resp 20 12/13/22 09:00 BP 131/50 12/13/22 09:00 Pulse Ox 96 12/13/22 09:00 FiO2 35 12/13/22 10:30 Intake & Output 12/12/22 12/13/22 12/13/22 18:59 06:59 18:59 Intake Total 1744 567.334 200.700 Output Total 2475 6 8 Balance -731 561.334 192.700 Weight 105.2 kg 105.2 kg Intake: IV 1144 30 29 .9 NS 110 20 Pressure BAG 33 30 9 Intake, IV Titration 200 197.334 81.700 Amount Norepinephrine 8 mg In 4.569 Sodium Chloride 0.9% 250 ml @ 0.05 MCG/KG/MIN 10. 006 mls/hr IV .Q24H [facility] Rx#:[id number] propofoL 1,000 mg In 200 192.765 81.700 Empty Bag 1 bag @ 15 MCG/ KG/MIN 9.308 mls/hr IV . [id number] [facility] Rx#:[id number] Tube Feeding 0 250 90 Hemodialysis 400 Other 90 Output: Urine 0 6 8 Hemodialysis 2400 Estimated Blood Loss 75 Other: Voiding Method Indwelling Catheter Indwelling Catheter Indwelling Catheter # Voids 0 # Bowel Movements 1 ABP, PAP, CO, CI - Last Documented Arterial Blood Pressure 149/52 - Labs CBC & Chem 7: 12/13/22 03:45 12/13/22 03:45 Labs: Abnormal Lab Results - Last 24 Hours (Table) 12/12/22 12/12/22 12/12/22 Range/Units 04:42 12:07 17:05 RBC (4.30-5.90) m/uL Hgb (13.0-17.5) gm/dL Hct (39.0-53.0) % Plt Count (150-450) k/uL Monocytes # (Manual) (0-1.0) k/uL ABG pH (7.35-7.45) ABG pCO2 (35-45) mmHg ABG pO2 (83-108) mmHg Sodium (137-145) mmol/L Chloride (98-107) mmol/L Carbon Dioxide (22-30) mmol/L BUN (9-20) mg/dL Creatinine (0.66-1.25) mg/dL Glucose (74-99) mg/dL POC Glucose (mg/dL) 130 H 168 H (70-110) mg/dL Calcium (8.4-10.2) mg/dL AST (17-59) U/L ALT (4-49) U/L Alkaline Phosphatase (38-126) U/L Creatine Kinase 19247 H* (55-170) U/L Total Protein (6.3-8.2) g/dL Albumin (3.5-5.0) g/dL 12/12/22 12/13/22 12/13/22 Range/Units 20:01 00:03 03:45 RBC 3.21 L (4.30-5.90) m/uL Hgb 9.3 L (13.0-17.5) gm/dL Hct 27.4 L (39.0-53.0) % Plt Count 90 L (150-450) k/uL Monocytes # (Manual) 1.85 H (0-1.0) k/uL ABG pH (7.35-7.45) ABG pCO2 (35-45) mmHg ABG pO2 (83-108) mmHg Sodium (137-145) mmol/L Chloride (98-107) mmol/L Carbon Dioxide (22-30) mmol/L BUN (9-20) mg/dL Creatinine (0.66-1.25) mg/dL Glucose (74-99) mg/dL POC Glucose (mg/dL) 203 H 243 H (70-110) mg/dL Calcium (8.4-10.2) mg/dL AST (17-59) U/L ALT (4-49) U/L Alkaline Phosphatase (38-126) U/L Creatine Kinase (55-170) U/L Total Protein (6.3-8.2) g/dL Albumin (3.5-5.0) g/dL 12/13/22 12/13/22 12/13/22 Range/Units 03:45 03:45 03:47 RBC (4.30-5.90) m/uL Hgb (13.0-17.5) gm/dL Hct (39.0-53.0) % Plt Count (150-450) k/uL Monocytes # (Manual) (0-1.0) k/uL ABG pH (7.35-7.45) ABG pCO2 (35-45) mmHg ABG pO2 (83-108) mmHg Sodium 129 L (137-145) mmol/L Chloride 96 L (98-107) mmol/L Carbon Dioxide 19 L (22-30) mmol/L BUN 60 H (9-20) mg/dL Creatinine 3.90 H (0.66-1.25) mg/dL Glucose 206 H (74-99) mg/dL POC Glucose (mg/dL) 228 H (70-110) mg/dL Calcium 7.1 L (8.4-10.2) mg/dL AST 559 H (17-59) U/L ALT 250 H (4-49) U/L Alkaline Phosphatase 130 H (38-126) U/L Creatine Kinase 79801 H* (55-170) U/L Total Protein 4.9 L (6.3-8.2) g/dL Albumin 2.4 L (3.5-5.0) g/dL 12/13/22 12/13/22 Range/Units 05:54 07:54 RBC (4.30-5.90) m/uL Hgb (13.0-17.5) gm/dL Hct (39.0-53.0) % Plt Count (150-450) k/uL Monocytes # (Manual) (0-1.0) k/uL ABG pH 7.48 H (7.35-7.45) ABG pCO2 30 L (35-45) mmHg ABG pO2 80 L (83-108) mmHg Sodium (137-145) mmol/L Chloride (98-107) mmol/L Carbon Dioxide (22-30) mmol/L BUN (9-20) mg/dL Creatinine (0.66-1.25) mg/dL Glucose (74-99) mg/dL POC Glucose (mg/dL) 287 H (70-110) mg/dL Calcium (8.4-10.2) mg/dL AST (17-59) U/L ALT (4-49) U/L Alkaline Phosphatase (38-126) U/L Creatine Kinase (55-170) U/L Total Protein (6.3-8.2) g/dL Albumin (3.5-5.0) g/dL Microbiology - Last 24 Hours (Table) 12/07/22 11:55 Blood Culture - Final Blood 12/11/22 04:10 Blood Culture - Preliminary Blood 12/11/22 04:32 Blood Culture - Preliminary Blood
--- NOTE | 2022-12-13 12:37 | P.PN ---
Subjective Progress Note Date: 12/13/22 Principal diagnosis: Acute diabetic ketoacidosis and acute hypoxic respiratory failure This is a 67-year-old male patient, diabetic, known history of closed head injury, bipolar disorder, was currently intubated on a mechanical ventilator. He presented to our hospital unresponsive. He was found in a local motel in his own emesis. Upon arrival, the patient was hypotensive, he was hypoxic, he was found to be in DKA. He was intubated and placed on a mechanical ventilator. I believe he also aspirated. CAT scan of the chest abdomen and pelvis showed no acute process. There may be some changes related to liver cirrhosis. CAT scan of the head showed no acute intracranial process. At this point in time, the patient is intubated on a mechanical ventilator. Is on assist control and anxiety the rate of 228, FiO2 has been brought down to 50% with a PEEP of 5 and a tidal volumes of 500. The blood gas showed a pH of 6.9 with a pCO2 of 31 and pO2 of 400. The blood work showed a potassium level of 7.7, he had significant and I get metabolic acidosis with a serum bicarb of less than 5, initial blood sugar was 794 and the lactic acid level was at 9.5. The patient had a white cell count of 15.7 with a hemoglobin 15.8 and a platelet count of 138. Cognition profile was within normal limits. LFTs were normal, serum ammonia level was elevated at 590, UA showed +3 glucose, +2 ketones and urine drug screen was negative, the viral screen was also negative. For now, the patient has already received a total of 3 L of normal saline and the patient is currently on a bicarbonate infusion running at 150 mEq at 150 mL an hour. He is on insulin drip at 10 units an hour. He is on propofol running at 35 mcg/kg/m. He has a triple-lumen catheter in his left femoral vein. There is a orogastric tube in place and output is coffee-ground. He has hypotensive. He is on norepinephrine at 0.2 mcg/kg/m. The patient is also on emperic Antibiotic coverage started on a combination of Zosyn and vancomycin. On today's evaluation of 12/08/2022, the patient is being seen in follow-up in the intensive care unit. A critically ill male patient with DKA, rhabdomyolysis, severe metabolic acidosis, hypotension, acute kidney injury and furthermore, the patient lost his pulse and the left lower extremity and currently has a ischemic left foot. The patient remains on a mechanical ventilator for now. He is on propofol which is running at 40 mcg/kg/m. His adequately sedated and is calm and comfortable on a mechanical ventilator on assist control mode at a rate of 28, tidal volume 500, FiO2 of 40% with a PEEP of 5. The blood gas from today shows a pH of 7.28 with episodes of 26-year-old to 180. Chest x-ray shows no acute abnormalities. Orotracheal tube is in good location. No airspace disease. NG tube is in place. Lungs are clear. Also, the patient remains hemodynamically unstable. He was aggressively resuscitated with IV fluids yesterday. Patient has been in a positive fluid balance of 5 L over the past 24 hours. Currently, he remains on norepinephrine and dose has been weaned down to 0.16 mcg/kg/m. The patient has been switched to D5 half-normal saline which is running at 150 mL an hour and this is based on our DKA protocol. Insulin drip is still running at 12 units an hour. Most recent blood sugar is at 292. The anion gap is at 18. Serum bicarb is at 8. Potassium level has improved down to 4.9. He has sustained an acute kidney injury and the creatinine is at the rise at 3.9. He was had no urine output overnightt. Earlier this morning, he started making some urine output. He has developed a rhabdomyolysis. CPK level is up to 13,947.. Furthermore, his left foot is mottled and cold and pale and there are no palpable pulses in dorsalis pedis and the posterior tibialis. Very poor capillary refill. The mottling is above the ankle reaching the med left leg. The white count was of 15.7, hemoglobin was at 15.8 at time of admission. Coagulation profile was within normal limits. UA was negative. 12/09/2022, the patient remains intubated on a mechanical ventilator. The patient remains in intensive care unit. He is a critically ill male patient with DKA, rhabdomyolysis, hypotension, acute kidney injury and ischemic left foot. Since yesterday, the patient has been kept on a mechanical ventilator. He remains on propofol running at 25 mcg/kg/m. He remains comfortable and symptoms to mechanical ventilator. His assist-control mode at a rate of 28, tidal volume of 500, FiO2 of 40% with a PEEP of 5. The blood gas from today shows a pH of 7.49 with a pCO2 of 24 and pO2 of 109. Chest x-ray showing atelectatic changes in both lungs bilaterally. Orotracheal tube is in a good location. Hemodynamically, the patient was weaned off the pressors and this morning the patient was taken off pressors. Meanwhile, his urine output is quite low. This has been noted throughout the night. Nephrology is involved regarding his acute kidney injury and severe rhabdomyolysis. The patient has a dialysis catheter has right femoral vein. The patient was started on hemodialysis in the first session was offered to him yesterday. Unfortunately, the CPK is on the rise is currently up to 92,000. The left lower extremities ischemic with absent pulses in skin mottling and swelling demarcated this point in time. No Refill. The potassium levels at 3.6, serum bicarbs of 50, B is a 64 with a creatinine of 3.7. IV heparin was started and it had to be discontinued because of the development of thrombocytopenia. Platelet count is down to 42. Hemoglobin is at 12.5 with a white cell count of 9.1. Insulin drip is running at 5.5 units an hour and the patient's blood sugars are in the 300 range. He was started also on enteral feeding for nutritional support and currently is on vital high-protein at the rate of 20 mL an hour. He is afebrile. Cultures are negative. Is covered with antibiotics and he is currently on IV Zosyn Patient was reevaluated today on 12/10/2022, remains in the ICU, intubated and mechanically ventilated, receiving hemodialysis early this morning. Patient is on assist control rate of 20 tidal volume 500 FiO2 40% and PEEP of 5 ABG showed a pO2 of 101 pCO2 31 pH of 7.46. Patient is to have hemodialysis finished today. Patient is on insulin drip is also on propofol at 35 mcg/kg/m, not requiring any pressors. For his gram-negative bacilli in the sputum patient is receiving still vancomycin and Zosyn. Patient was felt to have most likely aspiration pneumonia not to mention the patient presented with hypotension, lactic acidosis, and acute kidney injury. Patient was found down in the hotel room, and he required immediate intubation. Her drug screen has been negative. Chest x-ray showed minimal atelectasis at the bases, otherwise no active disease. WBC count is 8.5 hemoglobin 11.1. Basic metabolic profile is relatively normal except for a BUN of 85 creatinine 5.33. CPK is extremely elevated actually it is 19 2500 and his liver enzymes are also elevated with AST of 1522 and ALT of 350. Drug screen on admission was negative. Platelets remained low at 38,000 Reevaluated today on 12/11/22, remains in the ICU, remains intubated and mechanically ventilated, patient remains on hemodialysis and he is receiving another hemodialysis today. He is on assist control rate of 20 tidal volume of 500 FiO2 40% PEEP of 5 ABG showed a pO2 of 113 pCO2 31 pH of 7.42. The goal is to remove 2 L of fluids today with his hemodialysis. Patient remains on propofol at 40 mg/kg/m is also receiving vital HP. Could not assess mental status yesterday, however will try to hold sedation/propofol today, and hopefully get an adequate assessment of mental status off sedation. Patient was seen by vascular surgery and considering amputation of the left lower extremity Continues to have cold left lower extremity and ischemic foot. WBC count is 10.7 hemoglobin is 10.4, electrolytes are normal bicarb is 18, BUN is 99 creatinine 6.11 blood sugars are high in the 400 range, CPK is almost 38,000. Trending down. His AST is 1156 and ALT 318, also trending down. Chest x-ray showed minimal bibasilar atelectasis, no infiltrate or pneumonia Patient was reevaluated today on 12/12/22, patient remains in the ICU, intubated and mechanically ventilated. He is on assist control rate of 20 tidal volume 500 FiO2 35% and PEEP of 5 ABG today showed a pO2 of 113 pCO2 32 pH of 7.46. CB C is relatively unremarkable the PEEP cigar of 12 hemoglobin 9.7 platelets are 60,000. Sodium 130 potassium 3.9 chloride 99 BUN 80 creatinine 5.21 bicarb is 21. Sputum cultures have been positive for Citrobacter and Enterobacter cloaca my remains on vancomycin, and fluconazole. Zosyn,. Patient is still on dialysis/hemodialysis. No plans to wean and extubate the patient today since the patient is going for left lower extremity amputation sometime later today by vascular surgery. Chest x-ray is relatively unremarkable except for minimal right basilar atelectasis. Possible infiltrate Patient was reevaluated today on 12/13/22, remains in the ICU, intubated and mechanically ventilated. He is on assist control rate of 20 tidal volume 500 FiO2 35% PEEP of 5, ABG showed a pO2 of 80 pCO2 30 pH of 7.48. Patient underwent uneventful left above-knee amputation yesterday on 12/12. No plans for hemodialysis today. Chest x-ray is showing minimal left basilar atelectasis was CBC is relatively normal, sodium 129 bicarb is 19 BUN 16 creatinine 3.90 CPK is down to 10,184 liver enzymes remain a bit elevated ammonia level less than 9 in the plan today is to consider a trial of weaning. In the meantime the patient is on propofol at 35 pack per kilo per minute, is also on vital AF at 10 mL per hour, we'll increase to 20 mL per hour, remains on Zosyn, Objective - Vital Signs Vital signs: Vital Signs Temp 99.3 F 12/13/22 08:00 Pulse 87 12/13/22 09:00 Resp 20 12/13/22 09:00 BP 131/50 12/13/22 09:00 Pulse Ox 96 12/13/22 09:00 FiO2 35 12/13/22 10:30 Intake & Output 12/12/22 12/13/22 12/13/22 18:59 06:59 18:59 Intake Total 1744 567.334 200.700 Output Total 2475 6 8 Balance -731 561.334 192.700 Weight 105.2 kg 105.2 kg Intake: IV 1144 30 29 .9 NS 110 20 Pressure BAG 33 30 9 Intake, IV Titration 200 197.334 81.700 Amount Norepinephrine 8 mg In 4.569 Sodium Chloride 0.9% 250 ml @ 0.05 MCG/KG/MIN 10. 006 mls/hr IV .Q24H [facility] Rx#:[id number] propofoL 1,000 mg In 200 192.765 81.700 Empty Bag 1 bag @ 15 MCG/ KG/MIN 9.308 mls/hr IV . [id number] [facility] Rx#:[id number] Tube Feeding 0 250 90 Hemodialysis 400 Other 90 Output: Urine 0 6 8 Hemodialysis 2400 Estimated Blood Loss 75 Other: Voiding Method Indwelling Catheter Indwelling Catheter Indwelling Catheter # Voids 0 # Bowel Movements 1 ABP, PAP, CO, CI - Last Documented Arterial Blood Pressure 149/52 - Exam Physical Exam: Revealed a 67-year-old white male intubated, mechanically ventilated, sedated, not in distress. No hemodialysis plan today. Head: Atraumatic, normocephalic. HEENT:[Neck is supple.] [No neck masses.] [No thyromegaly.] [No JVD.] Chest: [Diminished breath sounds at the bases no crackles or rhonchi or wheezes Cardiac Exam: [Normal S1 and S2, no S3 gallop, no murmur.] Abdomen: [Soft, nontender, no megaly, no rebound, no guarding, normal bowel sounds.] Extremities: Left above-knee amputation is noted otherwise unremarkable Neurological Exam: Not assessed, patient is sedated. Psychiatric: Could not assess. Skin: No rashes. Patient didn't have left above-knee amputation - Labs CBC & Chem 7: 12/13/22 03:45 12/13/22 03:45 Labs: Abnormal Lab Results - Last 24 Hours (Table) 12/12/22 12/12/22 12/12/22 Range/Units 04:42 17:05 20:01 RBC (4.30-5.90) m/uL Hgb (13.0-17.5) gm/dL Hct (39.0-53.0) % Plt Count (150-450) k/uL Monocytes # (Manual) (0-1.0) k/uL ABG pH (7.35-7.45) ABG pCO2 (35-45) mmHg ABG pO2 (83-108) mmHg Sodium (137-145) mmol/L Chloride (98-107) mmol/L Carbon Dioxide (22-30) mmol/L BUN (9-20) mg/dL Creatinine (0.66-1.25) mg/dL Glucose (74-99) mg/dL POC Glucose (mg/dL) 168 H 203 H (70-110) mg/dL Calcium (8.4-10.2) mg/dL AST (17-59) U/L ALT (4-49) U/L Alkaline Phosphatase (38-126) U/L Creatine Kinase 81507 H* (55-170) U/L Total Protein (6.3-8.2) g/dL Albumin (3.5-5.0) g/dL 12/13/22 12/13/22 12/13/22 Range/Units 00:03 03:45 03:45 RBC 3.21 L (4.30-5.90) m/uL Hgb 9.3 L (13.0-17.5) gm/dL Hct 27.4 L (39.0-53.0) % Plt Count 90 L (150-450) k/uL Monocytes # (Manual) 1.85 H (0-1.0) k/uL ABG pH (7.35-7.45) ABG pCO2 (35-45) mmHg ABG pO2 (83-108) mmHg Sodium 129 L (137-145) mmol/L Chloride 96 L (98-107) mmol/L Carbon Dioxide 19 L (22-30) mmol/L BUN 60 H (9-20) mg/dL Creatinine 3.90 H (0.66-1.25) mg/dL Glucose 206 H (74-99) mg/dL POC Glucose (mg/dL) 243 H (70-110) mg/dL Calcium 7.1 L (8.4-10.2) mg/dL AST 559 H (17-59) U/L ALT 250 H (4-49) U/L Alkaline Phosphatase 130 H (38-126) U/L Creatine Kinase (55-170) U/L Total Protein 4.9 L (6.3-8.2) g/dL Albumin 2.4 L (3.5-5.0) g/dL 12/13/22 12/13/22 12/13/22 Range/Units 03:45 03:47 05:54 RBC (4.30-5.90) m/uL Hgb (13.0-17.5) gm/dL Hct (39.0-53.0) % Plt Count (150-450) k/uL Monocytes # (Manual) (0-1.0) k/uL ABG pH 7.48 H (7.35-7.45) ABG pCO2 30 L (35-45) mmHg ABG pO2 80 L (83-108) mmHg Sodium (137-145) mmol/L Chloride (98-107) mmol/L Carbon Dioxide (22-30) mmol/L BUN (9-20) mg/dL Creatinine (0.66-1.25) mg/dL Glucose (74-99) mg/dL POC Glucose (mg/dL) 228 H (70-110) mg/dL Calcium (8.4-10.2) mg/dL AST (17-59) U/L ALT (4-49) U/L Alkaline Phosphatase (38-126) U/L Creatine Kinase 24785 H* (55-170) U/L Total Protein (6.3-8.2) g/dL Albumin (3.5-5.0) g/dL 12/13/22 Range/Units 07:54 RBC (4.30-5.90) m/uL Hgb (13.0-17.5) gm/dL Hct (39.0-53.0) % Plt Count (150-450) k/uL Monocytes # (Manual) (0-1.0) k/uL ABG pH (7.35-7.45) ABG pCO2 (35-45) mmHg ABG pO2 (83-108) mmHg Sodium (137-145) mmol/L Chloride (98-107) mmol/L Carbon Dioxide (22-30) mmol/L BUN (9-20) mg/dL Creatinine (0.66-1.25) mg/dL Glucose (74-99) mg/dL POC Glucose (mg/dL) 287 H (70-110) mg/dL Calcium (8.4-10.2) mg/dL AST (17-59) U/L ALT (4-49) U/L Alkaline Phosphatase (38-126) U/L Creatine Kinase (55-170) U/L Total Protein (6.3-8.2) g/dL Albumin (3.5-5.0) g/dL Microbiology - Last 24 Hours (Table) 12/07/22 11:55 Blood Culture - Final Blood 12/11/22 04:10 Blood Culture - Preliminary Blood 12/11/22 04:32 Blood Culture - Preliminary Blood Assessment and Plan Assessment: Impression: Acute hypoxic respiratory failure most likely secondary to aspiration as the patient was found to be unresponsive and drowning in his own secretions. Acute diabetic ketoacidosis, resolved Acute shock/hypovolemic in nature, resolved Severe lactic acidosis secondary to above, resolved History of liver cirrhosis with significantly elevated liver enzymes, ammonia level is normal Acute rhabdomyolysis steadily improving with improvement in CPK level Acute hyperkalemia, resolved Acute thrombocytopenia, remains off heparin Acute troponin leak Acute metabolic encephalopathy Acute leukocytosis could be septic or possibly reactive. Acute hypothermia on initial presentation Ischemic left lower extremity, status post left above-knee amputation post operative day #1 Recommendation: Discontinue propofol Give the patient a trial of weaning off sedation today. Continue ventilatory support, but definite trials of weaning would be considered today. Continue antibiotics/Zosyn Continue hemodialysis , as felt necessary by nephrology Continue GI prophylaxis Continue Nutritional support/enteral feeding Continue to monitor daily labs and electrolytes as well as liver enzymes and CPK Patient is critically ill, and prognosis is extremely poor Critical care time is over 30 minute Time with Patient: Greater than 30
--- NOTE | 2022-12-13 13:20 | P.PN ---
Subjective Progress Note Date: 12/13/22 Principal diagnosis: Critical limb ischemia Patient is seen and examined today in the ICU. He remains sedated and intubated however they are weaning sedation. He is postop day #1 for left ywaad-qiu-hnbj amputation. He has decreased urine output throughout the night. Having d iarrhea. Hemoglobin stable this morning at 9.3, platelets 90,000, creatinine kinase continues to trend down today 10,184 Objective - Vital Signs Vital signs: Vital Signs Temp 99.3 F 12/13/22 08:00 Pulse 87 12/13/22 09:00 Resp 20 12/13/22 09:00 BP 131/50 12/13/22 09:00 Pulse Ox 96 12/13/22 09:00 FiO2 35 12/13/22 10:30 Intake & Output 12/12/22 12/13/22 12/13/22 18:59 06:59 18:59 Intake Total 1744 567.334 200.700 Output Total 2475 6 8 Balance -731 561.334 192.700 Weight 105.2 kg Intake: IV 1144 30 29 .9 NS 110 20 Pressure BAG 33 30 9 Intake, IV Titration 200 197.334 81.700 Amount Norepinephrine 8 mg In 4.569 Sodium Chloride 0.9% 250 ml @ 0.05 MCG/KG/MIN 10. 006 mls/hr IV .Q24H [facility] Rx#:[id number] propofoL 1,000 mg In 200 192.765 81.700 Empty Bag 1 bag @ 15 MCG/ KG/MIN 9.308 mls/hr IV . [id number] [facility] Rx#:[id number] Tube Feeding 0 250 90 Hemodialysis 400 Other 90 Output: Urine 0 6 8 Hemodialysis 2400 Estimated Blood Loss 75 Other: Voiding Method Indwelling Catheter Indwelling Catheter Indwelling Catheter # Voids 0 # Bowel Movements 1 ABP, PAP, CO, CI - Last Documented Arterial Blood Pressure 149/52 - Exam General appearance: The patient is sedated and intubated. HET: Head is normocephalic and atraumatic. Neck: Supple. Lungs: Equal expansion, on mechanical ventilation. Abdomen: Soft, nondistended. Extremities: Left cjvis-fxm-qzgj amputation with dressing clean dry and intact. Right lower extremity warm to touch with good capillary refill. Neurological: Sedated and intubated. - Labs CBC & Chem 7: 12/13/22 03:45 12/13/22 03:45 Labs: Abnormal Lab Results - Last 24 Hours (Table) 12/12/22 12/12/22 12/12/22 Range/Units 04:42 12:07 17:05 RBC (4.30-5.90) m/uL Hgb (13.0-17.5) gm/dL Hct (39.0-53.0) % Plt Count (150-450) k/uL Monocytes # (Manual) (0-1.0) k/uL ABG pH (7.35-7.45) ABG pCO2 (35-45) mmHg ABG pO2 (83-108) mmHg Sodium (137-145) mmol/L Chloride (98-107) mmol/L Carbon Dioxide (22-30) mmol/L BUN (9-20) mg/dL Creatinine (0.66-1.25) mg/dL Glucose (74-99) mg/dL POC Glucose (mg/dL) 130 H 168 H (70-110) mg/dL Calcium (8.4-10.2) mg/dL AST (17-59) U/L ALT (4-49) U/L Alkaline Phosphatase (38-126) U/L Creatine Kinase 91042 H* (55-170) U/L Total Protein (6.3-8.2) g/dL Albumin (3.5-5.0) g/dL 12/12/22 12/13/22 12/13/22 Range/Units 20:01 00:03 03:45 RBC 3.21 L (4.30-5.90) m/uL Hgb 9.3 L (13.0-17.5) gm/dL Hct 27.4 L (39.0-53.0) % Plt Count 90 L (150-450) k/uL Monocytes # (Manual) 1.85 H (0-1.0) k/uL ABG pH (7.35-7.45) ABG pCO2 (35-45) mmHg ABG pO2 (83-108) mmHg Sodium (137-145) mmol/L Chloride (98-107) mmol/L Carbon Dioxide (22-30) mmol/L BUN (9-20) mg/dL Creatinine (0.66-1.25) mg/dL Glucose (74-99) mg/dL POC Glucose (mg/dL) 203 H 243 H (70-110) mg/dL Calcium (8.4-10.2) mg/dL AST (17-59) U/L ALT (4-49) U/L Alkaline Phosphatase (38-126) U/L Creatine Kinase (55-170) U/L Total Protein (6.3-8.2) g/dL Albumin (3.5-5.0) g/dL 12/13/22 12/13/22 12/13/22 Range/Units 03:45 03:45 03:47 RBC (4.30-5.90) m/uL Hgb (13.0-17.5) gm/dL Hct (39.0-53.0) % Plt Count (150-450) k/uL Monocytes # (Manual) (0-1.0) k/uL ABG pH (7.35-7.45) ABG pCO2 (35-45) mmHg ABG pO2 (83-108) mmHg Sodium 129 L (137-145) mmol/L Chloride 96 L (98-107) mmol/L Carbon Dioxide 19 L (22-30) mmol/L BUN 60 H (9-20) mg/dL Creatinine 3.90 H (0.66-1.25) mg/dL Glucose 206 H (74-99) mg/dL POC Glucose (mg/dL) 228 H (70-110) mg/dL Calcium 7.1 L (8.4-10.2) mg/dL AST 559 H (17-59) U/L ALT 250 H (4-49) U/L Alkaline Phosphatase 130 H (38-126) U/L Creatine Kinase 44888 H* (55-170) U/L Total Protein 4.9 L (6.3-8.2) g/dL Albumin 2.4 L (3.5-5.0) g/dL 12/13/22 12/13/22 Range/Units 05:54 07:54 RBC (4.30-5.90) m/uL Hgb (13.0-17.5) gm/dL Hct (39.0-53.0) % Plt Count (150-450) k/uL Monocytes # (Manual) (0-1.0) k/uL ABG pH 7.48 H (7.35-7.45) ABG pCO2 30 L (35-45) mmHg ABG pO2 80 L (83-108) mmHg Sodium (137-145) mmol/L Chloride (98-107) mmol/L Carbon Dioxide (22-30) mmol/L BUN (9-20) mg/dL Creatinine (0.66-1.25) mg/dL Glucose (74-99) mg/dL POC Glucose (mg/dL) 287 H (70-110) mg/dL Calcium (8.4-10.2) mg/dL AST (17-59) U/L ALT (4-49) U/L Alkaline Phosphatase (38-126) U/L Creatine Kinase (55-170) U/L Total Protein (6.3-8.2) g/dL Albumin (3.5-5.0) g/dL Microbiology - Last 24 Hours (Table) 12/07/22 11:55 Blood Culture - Final Blood 12/11/22 04:10 Blood Culture - Preliminary Blood 12/11/22 04:32 Blood Culture - Preliminary Blood Assessment and Plan Assessment: 1. Left lower extremity critical limb ischemia status post left inhbu-dvm-zzsy amputation 2. Diabetic ketoacidosis with associated severe metabolic derangements 3. Nonpalpable popliteal and pedal pulses bilaterally suggesting femoral occlusive disease 4. Rhabdomyolysis secondary to being down for extended period time, exacerbated by critical limb ischemia.improving. 5. Acute hypoxic respiratory failure currently intubated on mechanical ventilator 6. Renal failure most likely associated with rhabdomyolysis and associated dehydration 7. Thrombocytopenia, likely heparin-induced thrombocytopenia. Heparin discontinued Plan: 1. Consult placed to social work, establish guardianship versus see if there is a contact for family members. There remains no available contact information for any family members. Guardianship hearing tentatively scheduled for 12/14/2022 2. Will change left AKA dressing Saturday. Please keep dressing intact. 3. Will need stump urology physician and rigid dressing, will have social work contact comfort prosthetics 4. Daily CBC 5. 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 The impression and plan of care has been dictated as directed. Dr. [place] I performed a history and examination of this patient, discussed the same with the dictator. I agree with the dictator's note ,documented as a scribe. Any additional findings or plans will be noted.
[2022-12-13] MEDS: CLEVIDIPINE BUTYRATE 25 MG in EMPTY BAG 1 BAG IV SCH (14:17)
[2022-12-13] MEDS: LACTATED RINGERS 1,000 ML IV SCH (14:18)
[2022-12-13 14:37] LABS: Glucose,Whole Blood 314 mg/dL (70-110)
[2022-12-13 17:55] LABS: Glucose,Whole Blood 312 mg/dL (70-110)
[2022-12-13] MEDS: NOREPINEPHRINE 8 MG in SODIUM CHLORIDE 0.9% 250 ML IV SCH (17:59)
[2022-12-13 20:25] LABS: Glucose,Whole Blood 295 mg/dL (70-110)
[2022-12-13] MEDS ORDERED: INSULIN DETEMIR (LEVEMIR) 100 UNIT/ML SYR SQ SCH (21:00)
[2022-12-13 23:54] LABS: Glucose,Whole Blood 283 mg/dL (70-110)
[2022-12-14 04:17] LABS: Glucose,Whole Blood 272 mg/dL (70-110)
[2022-12-14] MEDS: INSULIN ASPART (NovoLOG) 100 UNIT/ML VIAL SQ SCH ×6 (04:22→23:54)
[2022-12-14] MEDS: PIPERACILLIN-TAZOBACTAM 3.375 GM in SODIUM CHLORIDE 0.9% 100 ML IVPB SCH ×2 (06:09→18:12)
[2022-12-14 06:25] LABS: ALT 190 U/L (4-49); AST 236 U/L (17-59); Albumin 2.4 g/dL (3.5-5.0); Alkaline Phosphatase 131 U/L (38-126); Anion Gap 16 mmol/L; Blood Urea Nitrogen 88 mg/dL (9-20); Calcium 7.6 mg/dL (8.4-10.2); Carbon Dioxide 17 mmol/L (22-30); Chloride 96 mmol/L (98-107); Glucose 255 mg/dL (74-99); Potassium 4.1 mmol/L (3.5-5.1); Sodium 129 mmol/L (137-145); Total Bilirubin 0.5 mg/dL (0.2-1.3)
[2022-12-14 06:30] LABS: Vancomycin,Random 27.3 ug/mL
[2022-12-14 06:31] LABS: African American GFR (CKD) 10 (>60 ml/min/1.73 sqM); Non-African American GFR(CKD) 9 (>60 ml/min/1.73 sqM)
[2022-12-14 06:35] LABS: ABG Base Excess -4.7 mmol/L; ABG HCO3 20 mmol/L (21-25); ABG Oxygen Saturation 98.4 % (94-97); ABG PCO2 32 mmHg (35-45); ABG PH 7.41 (7.35-7.45); ABG PO2 117 mmHg (83-108); ABG TCO2 21 mmol/L (19-24); Allen Test Performed? Yes
[2022-12-14 06:39] LABS: Basophils % (A) 0 %; Eosinophils # (A) 0.1 k/uL (0-0.7); Eosinophils % (A) 1 %; HCT 26.2 % (39.0-53.0); HGB 8.6 gm/dL (13.0-17.5); Lymphocytes # (A) 0.7 k/uL (1.0-4.8); Lymphocytes % (A) 8 %; MCH 27.8 pg (25.0-35.0); MCHC 32.8 g/dL (31.0-37.0); MCV 84.8 fL (80.0-100.0); Mean Platelet Volume 9.7; Monocytes % (A) 11 %; Neutrophils # (A) 6.9 k/uL (1.3-7.7); Neutrophils % (A) 78 %; Platelet Count 108 k/uL (150-450); RBC 3.09 m/uL (4.30-5.90); RDW 14.6 % (11.5-15.5); WBC 8.8 k/uL (3.8-10.6)
--- NOTE | 2022-12-14 09:14 | XR ---
EXAMINATION TYPE: XR chest 1V portable DATE OF EXAM: 12/14/2022 COMPARISON: 12/13/2022 HISTORY: Shortness of breath TECHNIQUE: Single frontal view of the chest is obtained. FINDINGS: Tiny right pleural effusion. No sizable thoracic spine. There is bibasilar consolidation. ET and NG tubes stable. Heart size normal. No overt failure. No pneumothorax. Degenerative changes of the spine. There is left perihilar discoid atelectasis. IMPRESSION: Stable small right pleural effusion and bilateral areas of subsegmental consolidation.
[2022-12-14] MEDS: FLUCONAZOLE IN NACL,ISO-OSM 200 MG in SALINE 1 100ML.BAG IVPB SCH (09:15)
[2022-12-14] MEDS: CHLORHEXIDINE GLUCONATE 15 ML CUP MUCOUS MEM SCH ×2 (09:15→20:47)
[2022-12-14] MEDS: PANTOPRAZOLE 40 MG/10 ML VIAL IVP SCH ×2 (09:15→20:47)
[2022-12-14] MEDS: ASPIRIN 81 MG PO SCH (09:15)
--- NOTE | 2022-12-14 10:40 | P.PN ---
Subjective Progress Note Date: 12/14/22 Principal diagnosis: Critical limb ischemia Patient seen and examined today for follow-up. He is postop day #2 for a left [id number]-[id number] amputation. He remains intubated on mechanical ventilation, trying sedation holiday. He is going to undergo dialysis today. He remains afe brile. Objective - Vital Signs Vital signs: Vital Signs Temp 98.8 F 12/14/22 08:00 Pulse 88 12/14/22 09:00 Resp 23 12/14/22 09:00 BP 138/65 12/14/22 09:00 Pulse Ox 94 L 12/14/22 09:00 FiO2 35 12/14/22 08:00 Intake & Output 12/13/22 12/14/22 12/14/22 18:59 06:59 18:59 Intake Total 618.700 662.3 43 Output Total 13 165 0 Balance 605.700 497.3 43 Weight 105.2 kg 105.7 kg Intake: IV 137 16 .9 NS 110 16 Pressure BAG 27 Intake, IV Titration 81.700 43.3 Amount Piperacillin-Tazobactam 3 25 .375 gm In Sodium Chloride 0.9% 100 ml @ 25 mls/hr IVPB Q12H [facility] Rx# :[id number] propofoL 1,000 mg In 81.700 18.3 Empty Bag 1 bag @ 15 MCG/ KG/MIN 9.308 mls/hr IV . [id number] [facility] Rx#:[id number] Tube Feeding 400 513 43 Other 90 Output: Urine 13 15 0 Stool 150 Other: Voiding Method Indwelling Catheter Indwelling Catheter Indwelling Catheter ABP, PAP, CO, CI - Last Documented Arterial Blood Pressure 162/62 - Exam General appearance: The patient is sedated and intubated. HET: Head is normocephalic and atraumatic. Neck: Supple. Lungs: Equal expansion, on mechanical ventilation. Abdomen: Soft, nondistended. Extremities: Left cmxnc-buc-cwaz amputation surgical site well approximated with kendra. Small amount of serosanguineous drainage. Neurological: Sedated and intubated. - Labs CBC & Chem 7: 12/14/22 05:39 12/14/22 05:39 Labs: Abnormal Lab Results - Last 24 Hours (Table) 12/13/22 12/13/22 12/13/22 Range/Units 14:34 17:54 20:23 RBC (4.30-5.90) m/uL Hgb (13.0-17.5) gm/dL Hct (39.0-53.0) % Plt Count (150-450) k/uL Lymphocytes # (1.0-4.8) k/uL ABG pCO2 (35-45) mmHg ABG pO2 (83-108) mmHg ABG HCO3 (21-25) mmol/L ABG O2 Saturation (94-97) % Sodium (137-145) mmol/L Chloride (98-107) mmol/L Carbon Dioxide (22-30) mmol/L BUN (9-20) mg/dL Creatinine (0.66-1.25) mg/dL Glucose (74-99) mg/dL POC Glucose (mg/dL) 314 H 312 H 295 H (70-110) mg/dL Calcium (8.4-10.2) mg/dL AST (17-59) U/L ALT (4-49) U/L Alkaline Phosphatase (38-126) U/L Total Protein (6.3-8.2) g/dL Albumin (3.5-5.0) g/dL 12/13/22 12/14/22 12/14/22 Range/Units 23:52 04:15 05:39 RBC (4.30-5.90) m/uL Hgb (13.0-17.5) gm/dL Hct (39.0-53.0) % Plt Count (150-450) k/uL Lymphocytes # (1.0-4.8) k/uL ABG pCO2 (35-45) mmHg ABG pO2 (83-108) mmHg ABG HCO3 (21-25) mmol/L ABG O2 Saturation (94-97) % Sodium 129 L (137-145) mmol/L Chloride 96 L (98-107) mmol/L Carbon Dioxide 17 L (22-30) mmol/L BUN 88 H (9-20) mg/dL Creatinine 6.00 H (0.66-1.25) mg/dL Glucose 255 H (74-99) mg/dL POC Glucose (mg/dL) 283 H 272 H (70-110) mg/dL Calcium 7.6 L (8.4-10.2) mg/dL AST 236 H (17-59) U/L ALT 190 H (4-49) U/L Alkaline Phosphatase 131 H (38-126) U/L Total Protein 5.0 L (6.3-8.2) g/dL Albumin 2.4 L (3.5-5.0) g/dL 12/14/22 12/14/22 Range/Units 05:39 06:28 RBC 3.09 L (4.30-5.90) m/uL Hgb 8.6 L (13.0-17.5) gm/dL Hct 26.2 L (39.0-53.0) % Plt Count 108 L (150-450) k/uL Lymphocytes # 0.7 L (1.0-4.8) k/uL ABG pCO2 32 L (35-45) mmHg ABG pO2 117 H (83-108) mmHg ABG HCO3 20 L (21-25) mmol/L ABG O2 Saturation 98.4 H (94-97) % Sodium (137-145) mmol/L Chloride (98-107) mmol/L Carbon Dioxide (22-30) mmol/L BUN (9-20) mg/dL Creatinine (0.66-1.25) mg/dL Glucose (74-99) mg/dL POC Glucose (mg/dL) (70-110) mg/dL Calcium (8.4-10.2) mg/dL AST (17-59) U/L ALT (4-49) U/L Alkaline Phosphatase (38-126) U/L Total Protein (6.3-8.2) g/dL Albumin (3.5-5.0) g/dL Microbiology - Last 24 Hours (Table) 12/11/22 04:10 Blood Culture - Preliminary Blood 12/11/22 04:32 Blood Culture - Preliminary Blood Assessment and Plan Assessment: 1. Left lower extremity critical limb ischemia status post left jbgoa-[id number]-flih amputation 2. Diabetic ketoacidosis with associated severe metabolic derangements 3. Nonpalpable popliteal and pedal pulses bilaterally suggesting femoral occlusive disease 4. Rhabdomyolysis secondary to being down for extended period time, exacerbated by critical limb ischemia.improving. 5. Acute hypoxic respiratory failure currently intubated on mechanical ventilator 6. Renal failure most likely associated with rhabdomyolysis and associated dehydration 7. Thrombocytopenia, likely heparin-induced thrombocytopenia. Heparin discontinued Plan: 1. Consult placed to social work, establish guardianship versus see if there is a contact for family members. There remains no available contact information for any family members. Guardianship hearing tentatively scheduled for 12/14/2022 2. Dressing change every other day or as needed with Kerlix and Pavan wrap. 3. 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 The impression and plan of care has been dictated as directed. Dr. Mata I performed a history and examination of this patient, discussed the same with the dictator. I agree with the dictator's note ,documented as a scribe. Any additional findings or plans will be noted.
[2022-12-14] MEDS: LACTATED RINGERS 1,000 ML IV SCH (10:48)
[2022-12-14] MEDS: CLEVIDIPINE BUTYRATE 25 MG in EMPTY BAG 1 BAG IV SCH (10:49)
--- NOTE | 2022-12-14 10:50 | P.PN ---
Subjective Progress Note Date: 12/14/22 Patient is a 67-year-old male with a history of diabetes, bipolar disorder, history of closed head injury who [place] unresponsive and covered in his own emesis. On arrival to the ER he was tachycardic with a pulse of 101, respirations 26, blood pressure 64/42 and O2 sat 92% on 15 L nonrebreather. Laboratory analysis including CBC, coags, ABG, CMP, ammonia, CK, troponin, urinalysis, urine drug screen, which were remarkable for white blood cell count 15.7, platelets 138, calcium 7.7, carbon dioxide less than 5, BUN 81, creatinine 3.8, glucose 794, lactic acid 9.4, ammonia 590, CK 384, troponin 0.139. Urine drug screen was negative. Influenza A/B/RSV/COVID-19 was nega tive. Chest x-ray showed endotracheal tube in the right mainstem the lungs were otherwise clear. CT chest abdomen and pelvis showed no acute process but cirrhosis. Head CT showed chronic changes with no acute intracranial process. EKG reviewed with normal sinus rhythm at a rate of 100 and peaker T- waves. He was intubated in the emergency department. He was started on norepinephrine, sodium bicarb with dextrose infusion, insulin infusion. He was also given calcium gluconate 1 g IV piggyback. Critical care was consulted. Zosyn was initiated for possible aspiration. He was continued on DKA protocol. He was given aggressive IV fluid resuscitation with both normal saline and D5W with 3 A of bicarb. On the night after admission his urine output decreased and his left lower extremity became ischemic. His CKs elevated. Nephrology was consulted as well as vascular surgery. Patient was placed on a heparin drip. Concern for heparin induced thrombocytopenia, heparin discontinued. He was seen by vascular surgery. No family or guardian available, patient needs BKA. Nephrology rec ommended hemodialysis and first round was completed on 12/08/22. Now weaned off of vasopressors. Insulin drip discontinued, started on Levemir. He is now status post left BKA. Still intubated and sedated. Patient seen and examined at bedside. No acute events overnight. Per nurse, patient making minimal urine. He did have sensation all day yesterday, and was following some commands. Plan for another sedation holiday today. Patient has a fecal management system as well as urinary catheter. Vital signs reviewed General: nontoxic, no distress, appears at stated age Term: Left lower extremity stump dressing clean, dry, intact Cardiovascular: S1S2 reg, no murmur Lungs: CTA bilateral, no rhonchi, no rales , no accessory muscle use Abdominal: soft, nontender to palpation, no guarding, no appreciable organomegaly Ext: no gross muscle atrophy, no edema b/l lower extremities, no contractures Neuro: Positive cough, positive gag Psych: Sedated on vent Assessment/Plan: Patient is critically ill, prognosis guarded Acute metabolic encephalopathy Ventilator dependent respiratory failure Aspiration pneumonia Septic shock, resolved Oropharyngeal candidiasis ` -Pulmonary following -Sputum culture positive for Acinetobacter And Enterobacter -Continue with Zosyn 3.375 mg every 12 hours IV piggyback D # 7 -IV fluconazole 200 mg daily, consider switching to topical therapy once patient is awake Severe DKA, resolved Type 2 diabetes, hyperglycemia -Levemir 50 units daily, and increased to 35 units at night and sliding scale insulin with fingersticks every 4 hours, monitor for hypoglycemia Ischemic Left lower extremity status post left BKA Rhabdomyolysis Transaminitis due to rhabdo Anuric, Acute kidney injury now on hemodialysis Metabolic acidosis Mild hyponatremia -Vascular surgery following -Nephrology following, patient on dialysis, had a milligram IV Lasix yesterday with. Minimal urine output -Strict I and O -Avoid nephrotoxic agents Gram-positive cocci 1 out of 2 blood cultures -Vancomycin discontinued and has repeat cultures negative Anemia , stable Thrombocytopenia, improving -No active bleeding -Continue to follow CBCs daily -Platelet antibody screen negative, will restart subcu heparin for DVT prophylaxis Hyperkalemia, resolved Lactic acidosis, resolved Leukocytosis, resolved Elevated troponin, suspect secondary to renal dysfunction and Rhabdo Imaging: Chest x-ray independently interpreted, shows minimal right-sided pleural effusion, otherwise no opacities noted Hospital course imaging: echocardiogram: hyperdynamic left ventricle 65-70%, right ventricle mildly dilated with RVSP 28 Data Review: Labs reviewed from today: WBC 8.8, hemoglobin 8.6, platelet 108, pH 7.41, pCO2 32, sodium 129, bicarb 17, blood sugars range between 255-283 DVT prophylaxis: Subcu heparin Anticipated discharge date: Pending Clinical Course Anticipated discharge place: Pending Clinical Course Objective - Vital Signs Vital signs: Vital Signs Temp 98.8 F 12/14/22 08:00 Pulse 89 12/14/22 10:00 Resp 24 12/14/22 10:00 BP 131/70 12/14/22 10:00 Pulse Ox 96 12/14/22 10:00 FiO2 35 12/14/22 08:00 Intake & Output 12/13/22 12/14/22 12/14/22 18:59 06:59 18:59 Intake Total 618.700 662.3 232 Output Total 13 165 35 Balance 605.700 497.3 197 Weight 105.2 kg 105.7 kg Intake: IV 137 16 30 .9 NS 110 16 30 Pressure BAG 27 Intake, IV Titration 81.700 43.3 Amount Piperacillin-Tazobactam 3 25 .375 gm In Sodium Chloride 0.9% 100 ml @ 25 mls/hr IVPB Q12H [facility] Rx# :[id number] propofoL 1,000 mg In 81.700 18.3 Empty Bag 1 bag @ 15 MCG/ KG/MIN 9.308 mls/hr IV . [id number] [facility] Rx#:[id number] Tube Feeding 400 513 172 Other 90 30 Output: Urine 13 15 35 Stool 150 Other: Voiding Method Indwelling Catheter Indwelling Catheter Indwelling Catheter ABP, PAP, CO, CI - Last Documented Arterial Blood Pressure 162/62 - Labs CBC & Chem 7: 12/14/22 05:39 12/14/22 05:39 Labs: Abnormal Lab Results - Last 24 Hours (Table) 12/13/22 12/13/22 12/13/22 Range/Units 14:34 17:54 20:23 RBC (4.30-5.90) m/uL Hgb (13.0-17.5) gm/dL Hct (39.0-53.0) % Plt Count (150-450) k/uL Lymphocytes # (1.0-4.8) k/uL ABG pCO2 (35-45) mmHg ABG pO2 (83-108) mmHg ABG HCO3 (21-25) mmol/L ABG O2 Saturation (94-97) % Sodium (137-145) mmol/L Chloride (98-107) mmol/L Carbon Dioxide (22-30) mmol/L BUN (9-20) mg/dL Creatinine (0.66-1.25) mg/dL Glucose (74-99) mg/dL POC Glucose (mg/dL) 314 H 312 H 295 H (70-110) mg/dL Calcium (8.4-10.2) mg/dL AST (17-59) U/L ALT (4-49) U/L Alkaline Phosphatase (38-126) U/L Total Protein (6.3-8.2) g/dL Albumin (3.5-5.0) g/dL 12/13/22 12/14/22 12/14/22 Range/Units 23:52 04:15 05:39 RBC (4.30-5.90) m/uL Hgb (13.0-17.5) gm/dL Hct (39.0-53.0) % Plt Count (150-450) k/uL Lymphocytes # (1.0-4.8) k/uL ABG pCO2 (35-45) mmHg ABG pO2 (83-108) mmHg ABG HCO3 (21-25) mmol/L ABG O2 Saturation (94-97) % Sodium 129 L (137-145) mmol/L Chloride 96 L (98-107) mmol/L Carbon Dioxide 17 L (22-30) mmol/L BUN 88 H (9-20) mg/dL Creatinine 6.00 H (0.66-1.25) mg/dL Glucose 255 H (74-99) mg/dL POC Glucose (mg/dL) 283 H 272 H (70-110) mg/dL Calcium 7.6 L (8.4-10.2) mg/dL AST 236 H (17-59) U/L ALT 190 H (4-49) U/L Alkaline Phosphatase 131 H (38-126) U/L Total Protein 5.0 L (6.3-8.2) g/dL Albumin 2.4 L (3.5-5.0) g/dL 12/14/22 12/14/22 Range/Units 05:39 06:28 RBC 3.09 L (4.30-5.90) m/uL Hgb 8.6 L (13.0-17.5) gm/dL Hct 26.2 L (39.0-53.0) % Plt Count 108 L (150-450) k/uL Lymphocytes # 0.7 L (1.0-4.8) k/uL ABG pCO2 32 L (35-45) mmHg ABG pO2 117 H (83-108) mmHg ABG HCO3 20 L (21-25) mmol/L ABG O2 Saturation 98.4 H (94-97) % Sodium (137-145) mmol/L Chloride (98-107) mmol/L Carbon Dioxide (22-30) mmol/L BUN (9-20) mg/dL Creatinine (0.66-1.25) mg/dL Glucose (74-99) mg/dL POC Glucose (mg/dL) (70-110) mg/dL Calcium (8.4-10.2) mg/dL AST (17-59) U/L ALT (4-49) U/L Alkaline Phosphatase (38-126) U/L Total Protein (6.3-8.2) g/dL Albumin (3.5-5.0) g/dL Microbiology - Last 24 Hours (Table) 12/11/22 04:10 Blood Culture - Preliminary Blood 12/11/22 04:32 Blood Culture - Preliminary Blood
--- NOTE | 2022-12-14 10:52 | P.PN ---
Subjective Patient seen in follow-up for acute kidney injury on chronic kidney disease. Off vasopressors. Oliguric. Receiving tube feeds. Intubated. Dialysis catheter changed 12/11/22. Tolerating dialysis well. Vital signs are stable. General: Resting in bed. HEENT: Intubated. LUNGS: No audible rhonchi or wheezes. HEART: Rate and Rhythm are regular. ABDOMEN: No distention. EXTREMITITES: Left AKA noted. Objective - Vital Signs Vital signs: Vital Signs Temp 98.8 F 12/14/22 08:00 Pulse 89 12/14/22 10:00 Resp 24 12/14/22 10:00 BP 131/70 12/14/22 10:00 Pulse Ox 96 12/14/22 10:00 FiO2 35 12/14/22 08:00 Intake & Output 12/13/22 12/14/22 12/14/22 18:59 06:59 18:59 Intake Total 618.700 662.3 232 Output Total 13 165 35 Balance 605.700 497.3 197 Weight 105.2 kg 105.7 kg Intake: IV 137 16 30 .9 NS 110 16 30 Pressure BAG 27 Intake, IV Titration 81.700 43.3 Amount Piperacillin-Tazobactam 3 25 .375 gm In Sodium Chloride 0.9% 100 ml @ 25 mls/hr IVPB Q12H [facility] Rx# :[id number] propofoL 1,000 mg In 81.700 18.3 Empty Bag 1 bag @ 15 MCG/ KG/MIN 9.308 mls/hr IV . [id number] [facility] Rx#:[id number] Tube Feeding 400 513 172 Other 90 30 Output: Urine 13 15 35 Stool 150 Other: Voiding Method Indwelling Catheter Indwelling Catheter Indwelling Catheter ABP, PAP, CO, CI - Last Documented Arterial Blood Pressure 162/62 - Labs CBC & Chem 7: 12/14/22 05:39 12/14/22 05:39 Labs: Abnormal Lab Results - Last 24 Hours (Table) 12/13/22 12/13/22 12/13/22 Range/Units 14:34 17:54 20:23 RBC (4.30-5.90) m/uL Hgb (13.0-17.5) gm/dL Hct (39.0-53.0) % Plt Count (150-450) k/uL Lymphocytes # (1.0-4.8) k/uL ABG pCO2 (35-45) mmHg ABG pO2 (83-108) mmHg ABG HCO3 (21-25) mmol/L ABG O2 Saturation (94-97) % Sodium (137-145) mmol/L Chloride (98-107) mmol/L Carbon Dioxide (22-30) mmol/L BUN (9-20) mg/dL Creatinine (0.66-1.25) mg/dL Glucose (74-99) mg/dL POC Glucose (mg/dL) 314 H 312 H 295 H (70-110) mg/dL Calcium (8.4-10.2) mg/dL AST (17-59) U/L ALT (4-49) U/L Alkaline Phosphatase (38-126) U/L Total Protein (6.3-8.2) g/dL Albumin (3.5-5.0) g/dL 12/13/22 12/14/22 12/14/22 Range/Units 23:52 04:15 05:39 RBC (4.30-5.90) m/uL Hgb (13.0-17.5) gm/dL Hct (39.0-53.0) % Plt Count (150-450) k/uL Lymphocytes # (1.0-4.8) k/uL ABG pCO2 (35-45) mmHg ABG pO2 (83-108) mmHg ABG HCO3 (21-25) mmol/L ABG O2 Saturation (94-97) % Sodium 129 L (137-145) mmol/L Chloride 96 L (98-107) mmol/L Carbon Dioxide 17 L (22-30) mmol/L BUN 88 H (9-20) mg/dL Creatinine 6.00 H (0.66-1.25) mg/dL Glucose 255 H (74-99) mg/dL POC Glucose (mg/dL) 283 H 272 H (70-110) mg/dL Calcium 7.6 L (8.4-10.2) mg/dL AST 236 H (17-59) U/L ALT 190 H (4-49) U/L Alkaline Phosphatase 131 H (38-126) U/L Total Protein 5.0 L (6.3-8.2) g/dL Albumin 2.4 L (3.5-5.0) g/dL 11/03/23 11/03/23 Range/Units 05:39 06:28 RBC 3.09 L (4.30-5.90) m/uL Hgb 8.6 L (13.0-17.5) gm/dL Hct 26.2 L (39.0-53.0) % Plt Count 108 L (150-450) k/uL Lymphocytes # 0.7 L (1.0-4.8) k/uL ABG pCO2 32 L (35-45) mmHg ABG pO2 117 H (83-108) mmHg ABG HCO3 20 L (21-25) mmol/L ABG O2 Saturation 98.4 H (94-97) % Sodium (137-145) mmol/L Chloride (98-107) mmol/L Carbon Dioxide (22-30) mmol/L BUN (9-20) mg/dL Creatinine (0.66-1.25) mg/dL Glucose (74-99) mg/dL POC Glucose (mg/dL) (70-110) mg/dL Calcium (8.4-10.2) mg/dL AST (17-59) U/L ALT (4-49) U/L Alkaline Phosphatase (38-126) U/L Total Protein (6.3-8.2) g/dL Albumin (3.5-5.0) g/dL Microbiology - Last 24 Hours (Table) 12/11/22 04:10 Blood Culture - Preliminary Blood 12/11/22 04:32 Blood Culture - Preliminary Blood Assessment and Plan Plan: Assessment: 1. Acute kidney injury secondary to ATN secondary to hypotension/septic shock and rhabdomyolysis. No hydronephrosis noted on imaging. Oliguric. Started on hemodialysis December 08 2022. 2. Chronic kidney disease stage IIIa with creatinine 1.4 in May 2021. Suspect nephrosclerosis. 3. Rhabdomyolysis. CK levels trending down. 4. Septic shock currently off vasopressors. Blood culture positive for gram- positive cocci and sputum culture positive for gram-negative bacilli. 5. Metabolic acidosis secondary to acute kidney injury. Mostly compensatory for respiratory alkalosis. 6. Hypokalemia from intracellular shifting from IV bicarb. Better. 7. DKA s/p insulin drip. 8. Volume overload. Improved with UF. 9. Peripheral arterial disease. Vascular surgery following. Status post left AKA 12/12/2022. 10. Hyponatremia secondary to acute kidney injury. Hypervolemic. Stable. Plan: Currently seen while undergoing hemodialysis. Another treatment tomorrow. Status post 80 mg IV Lasix given 12/13/2022 for no improvement in urine output. Maintain tube feeds. Wean FiO2. Avoid nephrotoxins. Continue to monitor renal function and urine output. Phosphorus level 3.5 dated 12/09/2022. Monitor vancomycin levels. Dose to be adjusted for renal function. Check phosphorus level.
--- NOTE | 2022-12-14 11:45 | P.PN ---
Subjective Progress Note Date: 12/14/22 Principal diagnosis: Acute diabetic ketoacidosis and acute hypoxic respiratory failure This is a 67-year-old male patient, diabetic, known history of closed head injury, bipolar disorder, was currently intubated on a mechanical ventilator. He presented to our hospital unresponsive. He was found in a local motel in his own emesis. Upon arrival, the patient was hypotensive, he was hypoxic, he was found to be in DKA. He was intubated and placed on a mechanical ventilator. I believe he also aspirated. CAT scan of the chest abdomen and pelvis showed no acute process. There may be some changes related to liver cirrhosis. CAT scan of the head showed no acute intracranial process. At this point in time, the patient is intubated on a mechanical ventilator. Is on assist control and anxiety the rate of 228, FiO2 has been brought down to 50% with a PEEP of 5 and a tidal volumes of 500. The blood gas showed a pH of 6.9 with a pCO2 of 31 and pO2 of 400. The blood work showed a potassium level of 7.7, he had significant and I get metabolic acidosis with a serum bicarb of less than 5, initial blood sugar was 794 and the lactic acid level was at 9.5. The patient had a white cell count of 15.7 with a hemoglobin 15.8 and a platelet count of 138. Cognition profile was within normal limits. LFTs were normal, serum ammonia level was elevated at 590, UA showed +3 glucose, +2 ketones and urine drug screen was negative, the viral screen was also negative. For now, the patient has already received a total of 3 L of normal saline and the patient is currently on a bicarbonate infusion running at 150 mEq at 150 mL an hour. He is on insulin drip at 10 units an hour. He is on propofol running at 35 mcg/kg/m. He has a triple-lumen catheter in his left femoral vein. There is a orogastric tube in place and output is coffee-ground. He has hypotensive. He is on norepinephrine at 0.2 mcg/kg/m. The patient is also on emperic Antibiotic coverage started on a combination of Zosyn and vancomycin. On today's evaluation of 12/08/2022, the patient is being seen in follow-up in the intensive care unit. A critically ill male patient with DKA, rhabdomyolysis, severe metabolic acidosis, hypotension, acute kidney injury and furthermore, the patient lost his pulse and the left lower extremity and currently has a ischemic left foot. The patient remains on a mechanical ventilator for now. He is on propofol which is running at 40 mcg/kg/m. His adequately sedated and is calm and comfortable on a mechanical ventilator on assist control mode at a rate of 28, tidal volume 500, FiO2 of 40% with a PEEP of 5. The blood gas from today shows a pH of 7.28 with episodes of 26-year-old to 180. Chest x-ray shows no acute abnormalities. Orotracheal tube is in good location. No airspace disease. NG tube is in place. Lungs are clear. Also, the patient remains hemodynamically unstable. He was aggressively resuscitated with IV fluids yesterday. Patient has been in a positive fluid balance of 5 L over the past 24 hours. Currently, he remains on norepinephrine and dose has been weaned down to 0.16 mcg/kg/m. The patient has been switched to D5 half-normal saline which is running at 150 mL an hour and this is based on our DKA protocol. Insulin drip is still running at 12 units an hour. Most recent blood sugar is at 292. The anion gap is at 18. Serum bicarb is at 8. Potassium level has improved down to 4.9. He has sustained an acute kidney injury and the creatinine is at the rise at 3.9. He was had no urine output overnightt. Earlier this morning, he started making some urine output. He has developed a rhabdomyolysis. CPK level is up to 13,947.. Furthermore, his left foot is mottled and cold and pale and there are no palpable pulses in dorsalis pedis and the posterior tibialis. Very poor capillary refill. The mottling is above the ankle reaching the med left leg. The white count was of 15.7, hemoglobin was at 15.8 at time of admission. Coagulation profile was within normal limits. UA was negative. 12/09/2022, the patient remains intubated on a mechanical ventilator. The patient remains in intensive care unit. He is a critically ill male patient with DKA, rhabdomyolysis, hypotension, acute kidney injury and ischemic left foot. Since yesterday, the patient has been kept on a mechanical ventilator. He remains on propofol running at 25 mcg/kg/m. He remains comfortable and symptoms to mechanical ventilator. His assist-control mode at a rate of 28, tidal volume of 500, FiO2 of 40% with a PEEP of 5. The blood gas from today shows a pH of 7.49 with a pCO2 of 24 and pO2 of 109. Chest x-ray showing atelectatic changes in both lungs bilaterally. Orotracheal tube is in a good location. Hemodynamically, the patient was weaned off the pressors and this morning the patient was taken off pressors. Meanwhile, his urine output is quite low. This has been noted throughout the night. Nephrology is involved regarding his acute kidney injury and severe rhabdomyolysis. The patient has a dialysis catheter has right femoral vein. The patient was started on hemodialysis in the first session was offered to him yesterday. Unfortunately, the CPK is on the rise is currently up to 92,000. The left lower extremities ischemic with absent pulses in skin mottling and swelling demarcated this point in time. No Refill. The potassium levels at 3.6, serum bicarbs of 50, B is a 64 with a creatinine of 3.7. IV heparin was started and it had to be discontinued because of the development of thrombocytopenia. Platelet count is down to 42. Hemoglobin is at 12.5 with a white cell count of 9.1. Insulin drip is running at 5.5 units an hour and the patient's blood sugars are in the 300 range. He was started also on enteral feeding for nutritional support and currently is on vital high-protein at the rate of 20 mL an hour. He is afebrile. Cultures are negative. Is covered with antibiotics and he is currently on IV Zosyn Patient was reevaluated today on 12/10/2022, remains in the ICU, intubated and mechanically ventilated, receiving hemodialysis early this morning. Patient is on assist control rate of 20 tidal volume 500 FiO2 40% and PEEP of 5 ABG showed a pO2 of 101 pCO2 31 pH of 7.46. Patient is to have hemodialysis finished today. Patient is on insulin drip is also on propofol at 35 mcg/kg/m, not requiring any pressors. For his gram-negative bacilli in the sputum patient is receiving still vancomycin and Zosyn. Patient was felt to have most likely aspiration pneumonia not to mention the patient presented with hypotension, lactic acidosis, and acute kidney injury. Patient was found down in the hotel room, and he required immediate intubation. Her drug screen has been negative. Chest x-ray showed minimal atelectasis at the bases, otherwise no active disease. WBC count is 8.5 hemoglobin 11.1. Basic metabolic profile is relatively normal except for a BUN of 85 creatinine 5.33. CPK is extremely elevated actually it is 19 2500 and his liver enzymes are also elevated with AST of 1522 and ALT of 350. Drug screen on admission was negative. Platelets remained low at 38,000 Reevaluated today on 12/11/22, remains in the ICU, remains intubated and mechanically ventilated, patient remains on hemodialysis and he is receiving another hemodialysis today. He is on assist control rate of 20 tidal volume of 500 FiO2 40% PEEP of 5 ABG showed a pO2 of 113 pCO2 31 pH of 7.42. The goal is to remove 2 L of fluids today with his hemodialysis. Patient remains on propofol at 40 mg/kg/m is also receiving vital HP. Could not assess mental status yesterday, however will try to hold sedation/propofol today, and hopefully get an adequate assessment of mental status off sedation. Patient was seen by vascular surgery and considering amputation of the left lower extremity Continues to have cold left lower extremity and ischemic foot. WBC count is 10.7 hemoglobin is 10.4, electrolytes are normal bicarb is 18, BUN is 99 creatinine 6.11 blood sugars are high in the 400 range, CPK is almost 38,000. Trending down. His AST is 1156 and ALT 318, also trending down. Chest x-ray showed minimal bibasilar atelectasis, no infiltrate or pneumonia Patient was reevaluated today on 12/12/22, patient remains in the ICU, intubated and mechanically ventilated. He is on assist control rate of 20 tidal volume 500 FiO2 35% and PEEP of 5 ABG today showed a pO2 of 113 pCO2 32 pH of 7.46. CB C is relatively unremarkable the PEEP cigar of 12 hemoglobin 9.7 platelets are 60,000. Sodium 130 potassium 3.9 chloride 99 BUN 80 creatinine 5.21 bicarb is 21. Sputum cultures have been positive for Citrobacter and Enterobacter cloaca my remains on vancomycin, and fluconazole. Zosyn,. Patient is still on dialysis/hemodialysis. No plans to wean and extubate the patient today since the patient is going for left lower extremity amputation sometime later today by vascular surgery. Chest x-ray is relatively unremarkable except for minimal right basilar atelectasis. Possible infiltrate Patient was reevaluated today on 12/13/22, remains in the ICU, intubated and mechanically ventilated. He is on assist control rate of 20 tidal volume 500 FiO2 35% PEEP of 5, ABG showed a pO2 of 80 pCO2 30 pH of 7.48. Patient underwent uneventful left above-knee amputation yesterday on 12/12. No plans for hemodialysis today. Chest x-ray is showing minimal left basilar atelectasis was CBC is relatively normal, sodium 129 bicarb is 19 BUN 16 creatinine 3.90 CPK is down to 10,184 liver enzymes remain a bit elevated ammonia level less than 9 in the plan today is to consider a trial of weaning. In the meantime the patient is on propofol at 35 pack per kilo per minute, is also on vital AF at 10 mL per hour, we'll increase to 20 mL per hour, remains on Zosyn, Reevaluated today on 12/14/22, patient remains in the ICU, intubated, mechanically ventilated, remains on the same ventilator settings assist control rate of 20 tidal volume 500 FiO2 35% and PEEP of 5 ABG showed a pO2 of 117 pCO2 32 pH of 7.41. Patient is undergoing hemodialysis again today. Yesterday the patient was kept off sedation between 9 AM to 5 PM, and he was not arousable enough to pursue any further weaning trials or any weaning parameters on this patient. Remained quite lethargic, could only open eyes, but did not follow any instructions, and as he was getting a bit more agitated last night he was placed back on propofol which will be discontinued again today he is on 50 mcg/kg/m. Patient is also receiving hemodialysis this morning. Antibiotics sevilla patient remains on fluconazole and Zosyn. Chest x-ray showed minimal atelectasis, relatively clear otherwise. WBC count is 8.8 hemoglobin 8.6, basic metabolic pr ofile is normal except for sodium of 129 bicarb is 17 BUN is 88 creatinine 6.0 liver enzymes remain a bit elevated. Objective - Vital Signs Vital signs: Vital Signs Temp 98.8 F 12/14/22 08:00 Pulse 89 12/14/22 10:00 Resp 24 12/14/22 10:00 BP 131/70 12/14/22 10:00 Pulse Ox 96 12/14/22 10:00 FiO2 35 12/14/22 11:29 Intake & Output 12/13/22 12/14/22 12/14/22 18:59 06:59 18:59 Intake Total 618.700 662.3 232 Output Total 13 165 35 Balance 605.700 497.3 197 Weight 105.2 kg 105.7 kg Intake: IV 137 16 30 .9 NS 110 16 30 Pressure BAG 27 Intake, IV Titration 81.700 43.3 Amount Piperacillin-Tazobactam 3 25 .375 gm In Sodium Chloride 0.9% 100 ml @ 25 mls/hr IVPB Q12H [facility] Rx# :[id number] propofoL 1,000 mg In 81.700 18.3 Empty Bag 1 bag @ 15 MCG/ KG/MIN 9.308 mls/hr IV . [id number] [facility] Rx#:[id number] Tube Feeding 400 513 172 Other 90 30 Output: Urine 13 15 35 Stool 150 Other: Voiding Method Indwelling Catheter Indwelling Catheter Indwelling Catheter ABP, PAP, CO, CI - Last Documented Arterial Blood Pressure 162/62 - Exam Physical Exam: Revealed a 67-year-old white male intubated, mechanically ventilated, sedated, not in distress. Patient is being dialyzed this morning Head: Atraumatic, normocephalic. HEENT:[Neck is supple.] [No neck masses.] [No thyromegaly.] [No JVD.] Chest: [Diminished breath sounds at the bases no crackles or rhonchi or wheezes Cardiac Exam: [Normal S1 and S2, no S3 gallop, no murmur.] Abdomen: [Soft, nontender, no megaly, no rebound, no guarding, normal bowel sounds.] Extremities: Left above-knee amputation is noted otherwise unremarkable Neurological Exam: Not assessed, patient is sedated. Psychiatric: Could not assess. Skin: No rashes. Patient did have left above-knee amputation - Labs CBC & Chem 7: 12/14/22 05:39 12/14/22 05:39 Labs: Abnormal Lab Results - Last 24 Hours (Table) 12/13/22 12/13/22 12/13/22 Range/Units 14:34 17:54 20:23 RBC (4.30-5.90) m/uL Hgb (13.0-17.5) gm/dL Hct (39.0-53.0) % Plt Count (150-450) k/uL Lymphocytes # (1.0-4.8) k/uL ABG pCO2 (35-45) mmHg ABG pO2 (83-108) mmHg ABG HCO3 (21-25) mmol/L ABG O2 Saturation (94-97) % Sodium (137-145) mmol/L Chloride (98-107) mmol/L Carbon Dioxide (22-30) mmol/L BUN (9-20) mg/dL Creatinine (0.66-1.25) mg/dL Glucose (74-99) mg/dL POC Glucose (mg/dL) 314 H 312 H 295 H (70-110) mg/dL Calcium (8.4-10.2) mg/dL AST (17-59) U/L ALT (4-49) U/L Alkaline Phosphatase (38-126) U/L Total Protein (6.3-8.2) g/dL Albumin (3.5-5.0) g/dL 12/13/22 12/14/22 12/14/22 Range/Units 23:52 04:15 05:39 RBC (4.30-5.90) m/uL Hgb (13.0-17.5) gm/dL Hct (39.0-53.0) % Plt Count (150-450) k/uL Lymphocytes # (1.0-4.8) k/uL ABG pCO2 (35-45) mmHg ABG pO2 (83-108) mmHg ABG HCO3 (21-25) mmol/L ABG O2 Saturation (94-97) % Sodium 129 L (137-145) mmol/L Chloride 96 L (98-107) mmol/L Carbon Dioxide 17 L (22-30) mmol/L BUN 88 H (9-20) mg/dL Creatinine 6.00 H (0.66-1.25) mg/dL Glucose 255 H (74-99) mg/dL POC Glucose (mg/dL) 283 H 272 H (70-110) mg/dL Calcium 7.6 L (8.4-10.2) mg/dL AST 236 H (17-59) U/L ALT 190 H (4-49) U/L Alkaline Phosphatase 131 H (38-126) U/L Total Protein 5.0 L (6.3-8.2) g/dL Albumin 2.4 L (3.5-5.0) g/dL 12/14/22 12/14/22 Range/Units 05:39 06:28 RBC 3.09 L (4.30-5.90) m/uL Hgb 8.6 L (13.0-17.5) gm/dL Hct 26.2 L (39.0-53.0) % Plt Count 108 L (150-450) k/uL Lymphocytes # 0.7 L (1.0-4.8) k/uL ABG pCO2 32 L (35-45) mmHg ABG pO2 117 H (83-108) mmHg ABG HCO3 20 L (21-25) mmol/L ABG O2 Saturation 98.4 H (94-97) % Sodium (137-145) mmol/L Chloride (98-107) mmol/L Carbon Dioxide (22-30) mmol/L BUN (9-20) mg/dL Creatinine (0.66-1.25) mg/dL Glucose (74-99) mg/dL POC Glucose (mg/dL) (70-110) mg/dL Calcium (8.4-10.2) mg/dL AST (17-59) U/L ALT (4-49) U/L Alkaline Phosphatase (38-126) U/L Total Protein (6.3-8.2) g/dL Albumin (3.5-5.0) g/dL Microbiology - Last 24 Hours (Table) 12/11/22 04:10 Blood Culture - Preliminary Blood 12/11/22 04:32 Blood Culture - Preliminary Blood Assessment and Plan Assessment: Impression: Acute hypoxic respiratory failure most likely secondary to aspiration as the patient was found to be unresponsive and drowning in his own secretions. Acute diabetic ketoacidosis, resolved Acute shock/hypovolemic in nature, resolved Severe lactic acidosis secondary to above, resolved History of liver cirrhosis with significantly elevated liver enzymes, ammonia level is normal Acute rhabdomyolysis steadily improving with improvement in CPK level Acute hyperkalemia, resolved Acute thrombocytopenia, remains off heparin Acute troponin leak Acute metabolic encephalopathy Acute leukocytosis could be septic or possibly reactive. Acute hypothermia on initial presentation Ischemic left lower extremity, status post left above-knee amputation postoperative day #2 Recommendation: We will try to discontinue propofol again today and hopefully get adequate assessment of mental status, hopefully his metabolic encephalopathy is clearing. After assessment of mental status could consider weaning parameters if possible. Continue ventilatory support Continue antibiotics/Zosyn Continue hemodialysis Continue to monitor his metabolic encephalopathy hopefully his mental status will improve off sedation otherwise the patient is not ready to be weaned and extubated Continue GI prophylaxis Continue Nutritional support/enteral feeding Continue to monitor daily labs and electrolytes as well as liver enzymes Patient is critically ill, and prognosis is extremely poor Critical care time is over 30 minute Time with Patient: Greater than 30
[2022-12-14 11:54] LABS: Glucose,Whole Blood 185 mg/dL (70-110)
[2022-12-14 15:48] LABS: Glucose,Whole Blood 314 mg/dL (70-110)
[2022-12-14] MEDS: HEPARIN SODIUM,PORCINE 5,000 UNIT/ML 1 ML VIAL SQ SCH ×2 (16:38→23:54)
[2022-12-14] MEDS: NOREPINEPHRINE 8 MG in SODIUM CHLORIDE 0.9% 250 ML IV SCH (17:13)
[2022-12-14 20:18] LABS: Glucose,Whole Blood 294 mg/dL (70-110)
[2022-12-14 20:38] LABS: Glucose,Whole Blood 303 mg/dL (70-110)
[2022-12-14] MEDS ORDERED: INSULIN DETEMIR (LEVEMIR) 100 UNIT/ML SYR SQ SCH (21:00)
[2022-12-14 23:50] LABS: Glucose,Whole Blood 324 mg/dL (70-110)
--- NOTE | 2022-12-15 02:11 | XR ---
EXAM: XR Chest, 1 View CLINICAL HISTORY: ITS.REASON XR Reason: NG tube placement TECHNIQUE: Frontal view of the chest. COMPARISON: Chest x-ray study of 12/14/2022. FINDINGS: Lungs: Unremarkable. No consolidation. Pleural space: Unremarkable. No pneumothorax. Heart: Unremarkable. No cardiomegaly. Mediastinum: Cardiomediastinal silhouette unremarkable. Bones/joints: Unremarkable. Tubes, lines and devices: Endotracheal tube is noted in place in good position. NG tube is noted in place with its tip below the diaphragm, in good position. Other findings: Hypoaeration. IMPRESSION: Endotracheal NG tube is noted in place in good position.
[2022-12-15 04:56] LABS: Glucose,Whole Blood 271 mg/dL (70-110)
[2022-12-15] MEDS: INSULIN ASPART (NovoLOG) 100 UNIT/ML VIAL SQ SCH ×7 (05:15→20:21)
[2022-12-15] MEDS: PIPERACILLIN-TAZOBACTAM 3.375 GM in SODIUM CHLORIDE 0.9% 100 ML IVPB SCH ×2 (05:54→16:37)
[2022-12-15] MEDS: LACTATED RINGERS 1,000 ML IV SCH (05:55)
[2022-12-15 06:07] LABS: ABG HCO3 20 mmol/L (21-25); ABG Oxygen Saturation 94.5 % (94-97); ABG PCO2 30 mmHg (35-45); ABG PH 7.42 (7.35-7.45); ABG PO2 69 mmHg (83-108); ABG TCO2 20 mmol/L (19-24); Allen Test Performed? Yes
[2022-12-15 06:10] LABS: ALT 170 U/L (4-49); AST 135 U/L (17-59); African American GFR (CKD) 16 (>60 ml/min/1.73 sqM); Albumin 2.5 g/dL (3.5-5.0); Alkaline Phosphatase 117 U/L (38-126); Anion Gap 16 mmol/L; Blood Urea Nitrogen 64 mg/dL (9-20); Calcium 8.1 mg/dL (8.4-10.2); Carbon Dioxide 15 mmol/L (22-30); Chloride 101 mmol/L (98-107); Glucose 247 mg/dL (74-99); Magnesium 2.2 mg/dL (1.6-2.3); Non-African American GFR(CKD) 14 (>60 ml/min/1.73 sqM); Potassium 3.8 mmol/L (3.5-5.1); Sodium 132 mmol/L (137-145); Total Bilirubin 0.5 mg/dL (0.2-1.3); Total Protein 5.4 g/dL (6.3-8.2)
[2022-12-15 06:25] LABS: MCH 29.1 pg (25.0-35.0); MCHC 33.3 g/dL (31.0-37.0); MCV 87.1 fL (80.0-100.0); Mean Platelet Volume 9.3; Platelet Count 127 k/uL (150-450); RDW 14.4 % (11.5-15.5); WBC 7.8 k/uL (3.8-10.6)
[2022-12-15 06:46] LABS: Band Neutrophils % 2 %; Metamyelocytes # (M) 0.16 k/uL (0); Metamyelocytes % 2 %; Monocytes # (M) 1.01 k/uL (0-1.0); Myelocytes # (M) 0.08 k/uL (0); Myelocytes % 1 %; Neutrophils % (M) 73 %; Nucleated Red Blood Cells 0 /100 WBC (0-0); Total Cells Counted 100
[2022-12-15] MEDS: CLEVIDIPINE BUTYRATE 25 MG in EMPTY BAG 1 BAG IV SCH (07:00)
[2022-12-15 07:18] LABS: Creatine Kinase 1328 U/L (55-170)
[2022-12-15 08:03] LABS: Glucose,Whole Blood 223 mg/dL (70-110)
[2022-12-15] MEDS: CHLORHEXIDINE GLUCONATE 15 ML CUP MUCOUS MEM SCH ×2 (08:24→20:22)
[2022-12-15] MEDS: PANTOPRAZOLE 40 MG/10 ML VIAL IVP SCH ×2 (08:25→20:20)
[2022-12-15] MEDS: HEPARIN SODIUM,PORCINE 5,000 UNIT/ML 1 ML VIAL SQ SCH ×2 (08:25→16:29)
[2022-12-15] MEDS: HYDROmorphone 1 MG/ML 1 ML SYRINGE IVP PRN (08:25)
[2022-12-15] MEDS: ASPIRIN 81 MG PO SCH (08:26)
[2022-12-15] MEDS: FLUCONAZOLE IN NACL,ISO-OSM 200 MG in SALINE 1 100ML.BAG IVPB SCH (08:26)
--- NOTE | 2022-12-15 11:00 | P.PN ---
Subjective Patient seen in follow-up for acute kidney injury on chronic kidney disease. Off vasopressors. Oliguric. Receiving tube feeds. Intubated. Possible extubation today. Dialysis catheter changed 12/11/22. Tolerating dialysis well. Vital signs are stable. General: Resting in bed. HEENT: Intubated. LUNGS: No audible rhonchi or wheezes. HEART: Rate and Rhythm are regular. ABDOMEN: No distention. EXTREMITITES: Left AKA noted. Objective - Vital Signs Vital signs: Vital Signs Temp 98.3 F 12/15/22 08:00 Pulse 86 12/15/22 08:00 Resp 28 H 12/15/22 08:00 BP 158/80 12/15/22 08:00 Pulse Ox 96 12/15/22 08:00 FiO2 50 12/15/22 10:11 Intake & Output 12/14/22 12/15/22 12/15/22 18:59 06:59 18:59 Intake Total 1401.204 831 206 Output Total 3545 10 100 Balance -2143.796 821 106 Weight 103.1 kg Intake: IV 215 285 20 .9 NS 90 60 20 Fluconazole in NaCl,Iso- 100 Osm 200 mg In Saline 1 100ml.bag @ 100 mls/hr IVPB DAILY [facility] Rx#: [id number] Piperacillin-Tazobactam 3 200 .375 gm In Sodium Chloride 0.9% 100 ml @ 25 mls/hr IVPB Q12H [facility] Rx# :[id number] Piperacillin-Tazobactam 3 25 25 .375 gm In Sodium Chloride 0.9% 100 ml @ 25 mls/hr IVPB Q8H [facility] Rx#: [id number] Intake, IV Titration 80.204 100 Amount Fluconazole in NaCl,Iso- 100 Osm 200 mg In Saline 1 100ml.bag @ 100 mls/hr IVPB DAILY [facility] Rx#: [id number] propofoL 1,000 mg In 80.204 Empty Bag 1 bag @ 15 MCG/ KG/MIN 9.308 mls/hr IV . [id number] [facility] Rx#:[id number] Tube Feeding 516 516 86 Hemodialysis 500 Other 90 30 Output: Urine 45 10 0 Stool 100 Hemodialysis 3500 Other: Voiding Method Indwelling Catheter Indwelling Catheter Indwelling Catheter ABP, PAP, CO, CI - Last Documented Arterial Blood Pressure 162/62 - Labs CBC & Chem 7: 12/15/22 05:41 12/15/22 05:41 Labs: Abnormal Lab Results - Last 24 Hours (Table) 12/14/22 12/14/22 12/14/22 Range/Units 05:39 11:52 15:47 RBC (4.30-5.90) m/uL Hgb (13.0-17.5) gm/dL Hct (39.0-53.0) % Plt Count (150-450) k/uL Lymphocytes # (Manual) (1.0-4.8) k/uL Monocytes # (Manual) (0-1.0) k/uL Metamyelocytes # (Man) (0) k/uL Myelocytes # (Manual) (0) k/uL ABG pCO2 (35-45) mmHg ABG pO2 (83-108) mmHg ABG HCO3 (21-25) mmol/L Sodium (137-145) mmol/L Carbon Dioxide (22-30) mmol/L BUN (9-20) mg/dL Creatinine (0.66-1.25) mg/dL Glucose (74-99) mg/dL POC Glucose (mg/dL) 185 H 314 H (70-110) mg/dL Calcium (8.4-10.2) mg/dL Phosphorus 11.0 H* (2.5-4.5) mg/dL AST (17-59) U/L ALT (4-49) U/L Creatine Kinase (55-170) U/L Total Protein (6.3-8.2) g/dL Albumin (3.5-5.0) g/dL 12/14/22 12/14/22 12/14/22 Range/Units 20:16 20:36 23:48 RBC (4.30-5.90) m/uL Hgb (13.0-17.5) gm/dL Hct (39.0-53.0) % Plt Count (150-450) k/uL Lymphocytes # (Manual) (1.0-4.8) k/uL Monocytes # (Manual) (0-1.0) k/uL Metamyelocytes # (Man) (0) k/uL Myelocytes # (Manual) (0) k/uL ABG pCO2 (35-45) mmHg ABG pO2 (83-108) mmHg ABG HCO3 (21-25) mmol/L Sodium (137-145) mmol/L Carbon Dioxide (22-30) mmol/L BUN (9-20) mg/dL Creatinine (0.66-1.25) mg/dL Glucose (74-99) mg/dL POC Glucose (mg/dL) 294 H 303 H 324 H (70-110) mg/dL Calcium (8.4-10.2) mg/dL Phosphorus (2.5-4.5) mg/dL AST (17-59) U/L ALT (4-49) U/L Creatine Kinase (55-170) U/L Total Protein (6.3-8.2) g/dL Albumin (3.5-5.0) g/dL 12/15/22 12/15/22 12/15/22 Range/Units 04:53 05:41 05:41 RBC 3.10 L (4.30-5.90) m/uL Hgb 9.0 L (13.0-17.5) gm/dL Hct 27.0 L (39.0-53.0) % Plt Count 127 L (150-450) k/uL Lymphocytes # (Manual) 0.70 L (1.0-4.8) k/uL Monocytes # (Manual) 1.01 H (0-1.0) k/uL Metamyelocytes # (Man) 0.16 H (0) k/uL Myelocytes # (Manual) 0.08 H (0) k/uL ABG pCO2 (35-45) mmHg ABG pO2 (83-108) mmHg ABG HCO3 (21-25) mmol/L Sodium 132 L (137-145) mmol/L Carbon Dioxide 15 L (22-30) mmol/L BUN 64 H (9-20) mg/dL Creatinine 4.12 H (0.66-1.25) mg/dL Glucose 247 H (74-99) mg/dL POC Glucose (mg/dL) 271 H (70-110) mg/dL Calcium 8.1 L (8.4-10.2) mg/dL Phosphorus (2.5-4.5) mg/dL AST 135 H (17-59) U/L ALT 170 H (4-49) U/L Creatine Kinase 1328 H* (55-170) U/L Total Protein 5.4 L (6.3-8.2) g/dL Albumin 2.5 L (3.5-5.0) g/dL 12/15/22 12/15/22 Range/Units 06:06 08:00 RBC (4.30-5.90) m/uL Hgb (13.0-17.5) gm/dL Hct (39.0-53.0) % Plt Count (150-450) k/uL Lymphocytes # (Manual) (1.0-4.8) k/uL Monocytes # (Manual) (0-1.0) k/uL Metamyelocytes # (Man) (0) k/uL Myelocytes # (Manual) (0) k/uL ABG pCO2 30 L (35-45) mmHg ABG pO2 69 L (83-108) mmHg ABG HCO3 20 L (21-25) mmol/L Sodium (137-145) mmol/L Carbon Dioxide (22-30) mmol/L BUN (9-20) mg/dL Creatinine (0.66-1.25) mg/dL Glucose (74-99) mg/dL POC Glucose (mg/dL) 223 H (70-110) mg/dL Calcium (8.4-10.2) mg/dL Phosphorus (2.5-4.5) mg/dL AST (17-59) U/L ALT (4-49) U/L Creatine Kinase (55-170) U/L Total Protein (6.3-8.2) g/dL Albumin (3.5-5.0) g/dL Microbiology - Last 24 Hours (Table) 12/11/22 04:10 Blood Culture - Preliminary Blood 12/11/22 04:32 Blood Culture - Preliminary Blood Assessment and Plan Plan: Assessment: 1. Acute kidney injury secondary to ATN secondary to hypotension/septic shock and rhabdomyolysis. No hydronephrosis noted on imaging. Oliguric. Started on hemodialysis December 08 2022. 2. Chronic kidney disease stage IIIa with creatinine 1.4 in May 2021. Suspect nephrosclerosis. 3. Rhabdomyolysis. CK levels trending down. 4. Septic shock currently off vasopressors. Blood culture positive for gram- positive cocci and sputum culture positive for gram-negative bacilli. 5. Metabolic acidosis secondary to acute kidney injury. Partially compensatory for respiratory alkalosis. 6. Hypokalemia from intracellular shifting from IV bicarb. Better. 7. DKA s/p insulin drip. 8. Volume overload. Improved with UF. 9. Peripheral arterial disease. Vascular surgery following. Status post left AKA 12/12/2022. 10. Hyponatremia secondary to acute kidney injury. Hypervolemic. Stable. 11. Hyperphosphatemia. Phosphorus level 1.0 dated 12/14/2022. Plan: Currently seen while undergoing hemodialysis. Status post 80 mg IV Lasix given 12/13/2022 with no improvement in urine output. Maintain tube feeds. Wean FiO2. Possible extubation today. Avoid nephrotoxins. Continue to monitor renal function and urine output. Add PhosLo. Monitor vancomycin levels. Dose to be adjusted for renal function.
[2022-12-15 11:53] LABS: Glucose,Whole Blood 120 mg/dL (70-110)
[2022-12-15] MEDS: CALCIUM ACETATE 667 MG TAB PO SCH ×2 (11:55→16:36)
[2022-12-15] MEDS ORDERED: INSULIN ASPART (NovoLOG) 100 UNIT/ML VIAL SQ SCH (12:00)
--- NOTE | 2022-12-15 12:00 | P.PN ---
Subjective Progress Note Date: 12/15/22 Principal diagnosis: Acute diabetic ketoacidosis and acute hypoxic respiratory failure This is a 67-year-old male patient, diabetic, known history of closed head injury, bipolar disorder, was currently intubated on a mechanical ventilator. He presented to our hospital unresponsive. He was found in a local motel in his own emesis. Upon arrival, the patient was hypotensive, he was hypoxic, he was found to be in DKA. He was intubated and placed on a mechanical ventilator. I believe he also aspirated. CAT scan of the chest abdomen and pelvis showed no acute process. There may be some changes related to liver cirrhosis. CAT scan of the head showed no acute intracranial process. At this point in time, the patient is intubated on a mechanical ventilator. Is on assist control and anxiety the rate of 228, FiO2 has been brought down to 50% with a PEEP of 5 and a tidal volumes of 500. The blood gas showed a pH of 6.9 with a pCO2 of 31 and pO2 of 400. The blood work showed a potassium level of 7.7, he had significant and I get metabolic acidosis with a serum bicarb of less than 5, initial blood sugar was 794 and the lactic acid level was at 9.5. The patient had a white cell count of 15.7 with a hemoglobin 15.8 and a platelet count of 138. Cognition profile was within normal limits. LFTs were normal, serum ammonia level was elevated at 590, UA showed +3 glucose, +2 ketones and urine drug screen was negative, the viral screen was also negative. For now, the patient has already received a total of 3 L of normal saline and the patient is currently on a bicarbonate infusion running at 150 mEq at 150 mL an hour. He is on insulin drip at 10 units an hour. He is on propofol running at 35 mcg/kg/m. He has a triple-lumen catheter in his left femoral vein. There is a orogastric tube in place and output is coffee-ground. He has hypotensive. He is on norepinephrine at 0.2 mcg/kg/m. The patient is also on emperic Antibiotic coverage started on a combination of Zosyn and vancomycin. On today's evaluation of 12/08/2022, the patient is being seen in follow-up in the intensive care unit. A critically ill male patient with DKA, rhabdomyolysis, severe metabolic acidosis, hypotension, acute kidney injury and furthermore, the patient lost his pulse and the left lower extremity and currently has a ischemic left foot. The patient remains on a mechanical ventilator for now. He is on propofol which is running at 40 mcg/kg/m. His adequately sedated and is calm and comfortable on a mechanical ventilator on assist control mode at a rate of 28, tidal volume 500, FiO2 of 40% with a PEEP of 5. The blood gas from today shows a pH of 7.28 with episodes of 26-year-old to 180. Chest x-ray shows no acute abnormalities. Orotracheal tube is in good location. No airspace disease. NG tube is in place. Lungs are clear. Also, the patient remains hemodynamically unstable. He was aggressively resuscitated with IV fluids yesterday. Patient has been in a positive fluid balance of 5 L over the past 24 hours. Currently, he remains on norepinephrine and dose has been weaned down to 0.16 mcg/kg/m. The patient has been switched to D5 half-normal saline which is running at 150 mL an hour and this is based on our DKA protocol. Insulin drip is still running at 12 units an hour. Most recent blood sugar is at 292. The anion gap is at 18. Serum bicarb is at 8. Potassium level has improved down to 4.9. He has sustained an acute kidney injury and the creatinine is at the rise at 3.9. He was had no urine output overnightt. Earlier this morning, he started making some urine output. He has developed a rhabdomyolysis. CPK level is up to 13,947.. Furthermore, his left foot is mottled and cold and pale and there are no palpable pulses in dorsalis pedis and the posterior tibialis. Very poor capillary refill. The mottling is above the ankle reaching the med left leg. The white count was of 15.7, hemoglobin was at 15.8 at time of admission. Coagulation profile was within normal limits. UA was negative. 12/09/2022, the patient remains intubated on a mechanical ventilator. The patient remains in intensive care unit. He is a critically ill male patient with DKA, rhabdomyolysis, hypotension, acute kidney injury and ischemic left foot. Since yesterday, the patient has been kept on a mechanical ventilator. He remains on propofol running at 25 mcg/kg/m. He remains comfortable and symptoms to mechanical ventilator. His assist-control mode at a rate of 28, tidal volume of 500, FiO2 of 40% with a PEEP of 5. The blood gas from today shows a pH of 7.49 with a pCO2 of 24 and pO2 of 109. Chest x-ray showing atelectatic changes in both lungs bilaterally. Orotracheal tube is in a good location. Hemodynamically, the patient was weaned off the pressors and this morning the patient was taken off pressors. Meanwhile, his urine output is quite low. This has been noted throughout the night. Nephrology is involved regarding his acute kidney injury and severe rhabdomyolysis. The patient has a dialysis catheter has right femoral vein. The patient was started on hemodialysis in the first session was offered to him yesterday. Unfortunately, the CPK is on the rise is currently up to 92,000. The left lower extremities ischemic with absent pulses in skin mottling and swelling demarcated this point in time. No Refill. The potassium levels at 3.6, serum bicarbs of 50, B is a 64 with a creatinine of 3.7. IV heparin was started and it had to be discontinued because of the development of thrombocytopenia. Platelet count is down to 42. Hemoglobin is at 12.5 with a white cell count of 9.1. Insulin drip is running at 5.5 units an hour and the patient's blood sugars are in the 300 range. He was started also on enteral feeding for nutritional support and currently is on vital high-protein at the rate of 20 mL an hour. He is afebrile. Cultures are negative. Is covered with antibiotics and he is currently on IV Zosyn Patient was reevaluated today on 12/10/2022, remains in the ICU, intubated and mechanically ventilated, receiving hemodialysis early this morning. Patient is on assist control rate of 20 tidal volume 500 FiO2 40% and PEEP of 5 ABG showed a pO2 of 101 pCO2 31 pH of 7.46. Patient is to have hemodialysis finished today. Patient is on insulin drip is also on propofol at 35 mcg/kg/m, not requiring any pressors. For his gram-negative bacilli in the sputum patient is receiving still vancomycin and Zosyn. Patient was felt to have most likely aspiration pneumonia not to mention the patient presented with hypotension, lactic acidosis, and acute kidney injury. Patient was found down in the hotel room, and he required immediate intubation. Her drug screen has been negative. Chest x-ray showed minimal atelectasis at the bases, otherwise no active disease. WBC count is 8.5 hemoglobin 11.1. Basic metabolic profile is relatively normal except for a BUN of 85 creatinine 5.33. CPK is extremely elevated actually it is 19 2500 and his liver enzymes are also elevated with AST of 1522 and ALT of 350. Drug screen on admission was negative. Platelets remained low at 38,000 Reevaluated today on 12/11/22, remains in the ICU, remains intubated and mechanically ventilated, patient remains on hemodialysis and he is receiving another hemodialysis today. He is on assist control rate of 20 tidal volume of 500 FiO2 40% PEEP of 5 ABG showed a pO2 of 113 pCO2 31 pH of 7.42. The goal is to remove 2 L of fluids today with his hemodialysis. Patient remains on propofol at 40 mg/kg/m is also receiving vital HP. Could not assess mental status yesterday, however will try to hold sedation/propofol today, and hopefully get an adequate assessment of mental status off sedation. Patient was seen by vascular surgery and considering amputation of the left lower extremity Continues to have cold left lower extremity and ischemic foot. WBC count is 10.7 hemoglobin is 10.4, electrolytes are normal bicarb is 18, BUN is 99 creatinine 6.11 blood sugars are high in the 400 range, CPK is almost 38,000. Trending down. His AST is 1156 and ALT 318, also trending down. Chest x-ray showed minimal bibasilar atelectasis, no infiltrate or pneumonia Patient was reevaluated today on 12/12/22, patient remains in the ICU, intubated and mechanically ventilated. He is on assist control rate of 20 tidal volume 500 FiO2 35% and PEEP of 5 ABG today showed a pO2 of 113 pCO2 32 pH of 7.46. CB C is relatively unremarkable the PEEP cigar of 12 hemoglobin 9.7 platelets are 60,000. Sodium 130 potassium 3.9 chloride 99 BUN 80 creatinine 5.21 bicarb is 21. Sputum cultures have been positive for Citrobacter and Enterobacter cloaca my remains on vancomycin, and fluconazole. Zosyn,. Patient is still on dialysis/hemodialysis. No plans to wean and extubate the patient today since the patient is going for left lower extremity amputation sometime later today by vascular surgery. Chest x-ray is relatively unremarkable except for minimal right basilar atelectasis. Possible infiltrate Patient was reevaluated today on 12/13/22, remains in the ICU, intubated and mechanically ventilated. He is on assist control rate of 20 tidal volume 500 FiO2 35% PEEP of 5, ABG showed a pO2 of 80 pCO2 30 pH of 7.48. Patient underwent uneventful left above-knee amputation yesterday on 12/12. No plans for hemodialysis today. Chest x-ray is showing minimal left basilar atelectasis was CBC is relatively normal, sodium 129 bicarb is 19 BUN 16 creatinine 3.90 CPK is down to 10,184 liver enzymes remain a bit elevated ammonia level less than 9 in the plan today is to consider a trial of weaning. In the meantime the patient is on propofol at 35 pack per kilo per minute, is also on vital AF at 10 mL per hour, we'll increase to 20 mL per hour, remains on Zosyn, Reevaluated today on 12/14/22, patient remains in the ICU, intubated, mechanically ventilated, remains on the same ventilator settings assist control rate of 20 tidal volume 500 FiO2 35% and PEEP of 5 ABG showed a pO2 of 117 pCO2 32 pH of 7.41. Patient is undergoing hemodialysis again today. Yesterday the patient was kept off sedation between 9 AM to 5 PM, and he was not arousable enough to pursue any further weaning trials or any weaning parameters on this patient. Remained quite lethargic, could only open eyes, but did not follow any instructions, and as he was getting a bit more agitated last night he was placed back on propofol which will be discontinued again today he is on 50 mcg/kg/m. Patient is also receiving hemodialysis this morning. Antibiotics sevilla patient remains on fluconazole and Zosyn. Chest x-ray showed minimal atelectasis, relatively clear otherwise. WBC count is 8.8 hemoglobin 8.6, basic metabolic pr ofile is normal except for sodium of 129 bicarb is 17 BUN is 88 creatinine 6.0 liver enzymes remain a bit elevated. Reevaluated today on 12/15/22, remains in the ICU intubated and mechanically ventilated. He is on assist control rate of 20 tidal volume 500 FiO2 up to 50% he was on 35% earlier PEEP of 5. ABG on 35% showed a pO2 of 69 pCO2 30 pH of 7.42. Patient is undergoing hemodialysis this morning. Has been off sedation for the last 24 hours, seems to be awake, follows instructions, does not seem to be in any distress. However the patient seems to be generally weak. Chest x- ray showed no significant abnormality except for minimal atelectasis. No evidence of pneumonia or heart failure. Basic metabolic profile is normal except for a bicarb of 15 and anion gap of 16, BUN is 64 creatinine 4.12 WBC count is 7.8 hemoglobin 9.0. Platelets are up to 1 27,000. Objective - Vital Signs Vital signs: Vital Signs Temp 98.3 F 12/15/22 08:00 Pulse 86 12/15/22 08:00 Resp 28 H 12/15/22 08:00 BP 158/80 12/15/22 08:00 Pulse Ox 96 12/15/22 08:00 FiO2 50 12/15/22 11:25 Intake & Output 12/14/22 12/15/22 12/15/22 18:59 06:59 18:59 Intake Total 1401.204 831 206 Output Total 3545 10 100 Balance -2143.796 821 106 Weight 103.1 kg Intake: IV 215 285 20 .9 NS 90 60 20 Fluconazole in NaCl,Iso- 100 Osm 200 mg In Saline 1 100ml.bag @ 100 mls/hr IVPB DAILY [facility] Rx#: [id number] Piperacillin-Tazobactam 3 200 .375 gm In Sodium Chloride 0.9% 100 ml @ 25 mls/hr IVPB Q12H [facility] Rx# :[id number] Piperacillin-Tazobactam 3 25 25 .375 gm In Sodium Chloride 0.9% 100 ml @ 25 mls/hr IVPB Q8H [facility] Rx#: [id number] Intake, IV Titration 80.204 100 Amount Fluconazole in NaCl,Iso- 100 Osm 200 mg In Saline 1 100ml.bag @ 100 mls/hr IVPB DAILY [facility] Rx#: [id number] propofoL 1,000 mg In 80.204 Empty Bag 1 bag @ 15 MCG/ KG/MIN 9.308 mls/hr IV . [id number] [facility] Rx#:[id number] Tube Feeding 516 516 86 Hemodialysis 500 Other 90 30 Output: Urine 45 10 0 Stool 100 Hemodialysis 3500 Other: Voiding Method Indwelling Catheter Indwelling Catheter Indwelling Catheter ABP, PAP, CO, CI - Last Documented Arterial Blood Pressure 162/62 - Exam Physical Exam: Revealed a 67-year-old white male intubated, mechanically ventilated, off sedation, patient is awake, follows simple instructions Head: Atraumatic, normocephalic. HEENT:[Neck is supple.] [No neck masses.] [No thyromegaly.] [No JVD.] Chest: [Diminished breath sounds at the bases no crackles or rhonchi or wheezes Cardiac Exam: [Normal S1 and S2, no S3 gallop, no murmur.] Abdomen: [Soft, nontender, no megaly, no rebound, no guarding, normal bowel sounds.] Extremities: Left above-knee amputation is noted otherwise unremarkable Neurological Exam: She was awake, follows simple instructions seems to be generally weak Psychiatric: Breasts mood flat affect and a relatively normal mental status. Skin: No rashes. Patient did have left above-knee amputation - Labs CBC & Chem 7: 12/15/22 05:41 12/15/22 05:41 Labs: Abnormal Lab Results - Last 24 Hours (Table) 12/14/22 12/14/22 12/14/22 Range/Units 05:39 15:47 20:16 RBC (4.30-5.90) m/uL Hgb (13.0-17.5) gm/dL Hct (39.0-53.0) % Plt Count (150-450) k/uL Lymphocytes # (Manual) (1.0-4.8) k/uL Monocytes # (Manual) (0-1.0) k/uL Metamyelocytes # (Man) (0) k/uL Myelocytes # (Manual) (0) k/uL ABG pCO2 (35-45) mmHg ABG pO2 (83-108) mmHg ABG HCO3 (21-25) mmol/L Sodium (137-145) mmol/L Carbon Dioxide (22-30) mmol/L BUN (9-20) mg/dL Creatinine (0.66-1.25) mg/dL Glucose (74-99) mg/dL POC Glucose (mg/dL) 314 H 294 H (70-110) mg/dL Calcium (8.4-10.2) mg/dL Phosphorus 11.0 H* (2.5-4.5) mg/dL AST (17-59) U/L ALT (4-49) U/L Creatine Kinase (55-170) U/L Total Protein (6.3-8.2) g/dL Albumin (3.5-5.0) g/dL 12/14/22 12/14/22 12/15/22 Range/Units 20:36 23:48 04:53 RBC (4.30-5.90) m/uL Hgb (13.0-17.5) gm/dL Hct (39.0-53.0) % Plt Count (150-450) k/uL Lymphocytes # (Manual) (1.0-4.8) k/uL Monocytes # (Manual) (0-1.0) k/uL Metamyelocytes # (Man) (0) k/uL Myelocytes # (Manual) (0) k/uL ABG pCO2 (35-45) mmHg ABG pO2 (83-108) mmHg ABG HCO3 (21-25) mmol/L Sodium (137-145) mmol/L Carbon Dioxide (22-30) mmol/L BUN (9-20) mg/dL Creatinine (0.66-1.25) mg/dL Glucose (74-99) mg/dL POC Glucose (mg/dL) 303 H 324 H 271 H (70-110) mg/dL Calcium (8.4-10.2) mg/dL Phosphorus (2.5-4.5) mg/dL AST (17-59) U/L ALT (4-49) U/L Creatine Kinase (55-170) U/L Total Protein (6.3-8.2) g/dL Albumin (3.5-5.0) g/dL 12/15/22 12/15/22 12/15/22 Range/Units 05:41 05:41 06:06 RBC 3.10 L (4.30-5.90) m/uL Hgb 9.0 L (13.0-17.5) gm/dL Hct 27.0 L (39.0-53.0) % Plt Count 127 L (150-450) k/uL Lymphocytes # (Manual) 0.70 L (1.0-4.8) k/uL Monocytes # (Manual) 1.01 H (0-1.0) k/uL Metamyelocytes # (Man) 0.16 H (0) k/uL Myelocytes # (Manual) 0.08 H (0) k/uL ABG pCO2 30 L (35-45) mmHg ABG pO2 69 L (83-108) mmHg ABG HCO3 20 L (21-25) mmol/L Sodium 132 L (137-145) mmol/L Carbon Dioxide 15 L (22-30) mmol/L BUN 64 H (9-20) mg/dL Creatinine 4.12 H (0.66-1.25) mg/dL Glucose 247 H (74-99) mg/dL POC Glucose (mg/dL) (70-110) mg/dL Calcium 8.1 L (8.4-10.2) mg/dL Phosphorus (2.5-4.5) mg/dL AST 135 H (17-59) U/L ALT 170 H (4-49) U/L Creatine Kinase 1328 H* (55-170) U/L Total Protein 5.4 L (6.3-8.2) g/dL Albumin 2.5 L (3.5-5.0) g/dL 12/15/22 12/15/22 Range/Units 08:00 11:52 RBC (4.30-5.90) m/uL Hgb (13.0-17.5) gm/dL Hct (39.0-53.0) % Plt Count (150-450) k/uL Lymphocytes # (Manual) (1.0-4.8) k/uL Monocytes # (Manual) (0-1.0) k/uL Metamyelocytes # (Man) (0) k/uL Myelocytes # (Manual) (0) k/uL ABG pCO2 (35-45) mmHg ABG pO2 (83-108) mmHg ABG HCO3 (21-25) mmol/L Sodium (137-145) mmol/L Carbon Dioxide (22-30) mmol/L BUN (9-20) mg/dL Creatinine (0.66-1.25) mg/dL Glucose (74-99) mg/dL POC Glucose (mg/dL) 223 H 120 H (70-110) mg/dL Calcium (8.4-10.2) mg/dL Phosphorus (2.5-4.5) mg/dL AST (17-59) U/L ALT (4-49) U/L Creatine Kinase (55-170) U/L Total Protein (6.3-8.2) g/dL Albumin (3.5-5.0) g/dL Microbiology - Last 24 Hours (Table) 12/11/22 04:10 Blood Culture - Preliminary Blood 12/11/22 04:32 Blood Culture - Preliminary Blood Assessment and Plan Assessment: Impression: Acute hypoxic respiratory failure most likely secondary to aspiration as the patient was found to be unresponsive and drowning in his own secretions. Acute diabetic ketoacidosis, resolved Acute shock/hypovolemic in nature, resolved Severe lactic acidosis secondary to above, resolved History of liver cirrhosis with significantly elevated liver enzymes, ammonia level is normal Acute rhabdomyolysis steadily improving with improvement in CPK level Acute hyperkalemia, resolved Acute thrombocytopenia, remains off heparin Acute troponin leak Acute metabolic encephalopathy Acute leukocytosis could be septic or possibly reactive. Acute hypothermia on initial presentation Ischemic left lower extremity, status post left above-knee amputation postoperative day #3 Recommendation: Will give the patient a trial of weaning after his hemodialysis today We'll try pressure support of 10 and CPAP for one hour and if tolerated we will recommend ABG In the meantime Continue ventilatory support Continue antibiotics/Zosyn Continue hemodialysis Continue GI prophylaxis Continue Nutritional support/enteral feeding Continue to monitor daily labs, renal profile, CPK and liver enzyme Patient is critically ill Critical care time is over 30 minute Time with Patient: Greater than 30
[2022-12-15 12:08] LABS: ABG Base Excess 4.6 mmol/L; ABG HCO3 27 mmol/L (21-25); ABG Oxygen Saturation 96.2 % (94-97); ABG PCO2 33 mmHg (35-45); ABG PH 7.53 (7.35-7.45); ABG PO2 78 mmHg (83-108); ABG TCO2 28 mmol/L (19-24); Allen Test Performed? Yes
--- NOTE | 2022-12-15 12:52 | P.PN ---
Subjective Progress Note Date: 12/15/22 Patient is a 67-year-old male with a history of diabetes, bipolar disorder, history of closed head injury who [place] un[place] and covered in his own emesis. On arrival to the ER he was tachycardic with a pulse of 101, respirations 26, blood pressure 64/42 and O2 sat 92% on 15 L nonrebreather. Laboratory analysis including CBC, coags, ABG, CMP, ammonia, CK, troponin, urinalysis, urine drug screen, which were remarkable for white blood cell count 15.7, platelets 138, calcium 7.7, carbon dioxide less than 5, BUN 81, creatinine 3.8, glucose 794, lactic acid 9.4, ammonia 590, CK 384, troponin 0.139. Urine drug screen was negative. Influenza A/B/RSV/COVID-19 was negative. Chest x-ray showed endotracheal tube in the right mainstem the lungs were otherwise clear. CT chest abdomen and pelvis showed no acute process but cirrhosis. Head CT showed chronic changes with no acute intracranial process. EKG reviewed with normal sinus rhythm at a rate of 100 and peaker T- waves. He was intubated in the emergency department. He was started on norepinephrine, sodium bicarb with dextrose infusion, insulin infusion. He was also given calcium gluconate 1 g IV piggyback. Critical care was consulted. Arrangements were made for admission. He was continued on levothyroxine. Zosyn was initiated for possible aspiration. He was continued on DKA protocol. He was given aggressive IV fluid resuscitation with both normal saline and D5W with 3 A of bicarb. On the night after admission his urine output decreased and his left lower extremity became ischemic. His CKs elevated. Nephrology was consulted as well as vascular surgery. Patient was placed on a heparin drip. He was seen by vascular surgery. Nephrology recommended hemodialysis and first round was completed on 12/08/22. Patient was able to be weaned off of norepinephrine overnight on 12/08. There is concern for developing hip and his platelet drop and therefore his heparin drip was discontinued. Due to his ischemia of his left lower extremity was determined to be an emergent procedure and he underwent a BKA on 12/12/22. No family was able to be found. An emergency guardianship hearing was petitioned for. He was transitioned off insulin gtt and started on long acting and short acting insulin. Patient seen and examined at bedside. He is following simple commands on the vent. Per nursing no new events overnight. Vital signs reviewed General: nontoxic, no distress, appears at stated age Cardiovascular: S1S2 reg, no murmur, positive posterior tibial pulse bilateral, Lungs: Decreased bs bilateral, no rhonchi, no rales , + accessory muscle use-- currently completed spontaneous brething trial. Abdominal: soft, nontender to palpation, no guarding, no appreciable organom egaly Ext: no gross muscle atrophy, no edema R lower extremities, L LE with dressing in place, no contractures Neuro: CN II-XI 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, no focal neuro deficits Psych: Awake, following commands, appropriate affect Assessment/Plan: Acute metabolic encephalopathy Ventilator dependent respiratory failure Acinetobacter and Enterobacter Aspiration pneumonia Oropharyngeal candidiasis -Pulmonary note reviewed: weaning trial today -Sputum culture: Acinetobacter And Enterobacter -Continue with Zosyn 3.375 mg every 12 hours IV piggyback D #8 -IV fluconazole 200 mg IV daily D # 5 , swich and swallow once pt extubated Type 2 diabetes, hyperglycemia -Levemir increased to 40 units at night and sliding scale insulin with fingersticks every 6 hours, Novolog 2 units every 6 hours, monitor for hypoglycemia Ischemic Left lower extremity status post left BKA - vascula surgery recs -Dilaudid 1 mg IV every 4 hours as needed for pain -Add oral and indications the patient is able to be successfully extubated Anuric, Acute kidney injury now on hemodialysis Metabolic acidosis Mild hyponatremia -Nephrology note reviewed: still anuric after IV lasix, add phoslo -Strict I and O -Avoid nephrotoxic agents Anemia , stable Thrombocytopenia, improving -No active bleeding -Continue to follow daily CBC - HIT ab negative Resolved: Hyperkalemia Lactic acidosis Leukocytosis Septic shock Severe DKA Rhabdomyolysis Transaminitis Elevated troponin, suspect secondary to renal dysfunction and Rhabdo Gram-positive cocci 1 out of 2 blood cultures, confirmed contaminent Imaging: Chest x-ray is reviewed by myself reveals no acute process with tubes and lines in appropriate position Hospital course imaging: echocardiogram: hyperdynamic left ventricle 65-70%, right ventricle mildly dilated with RVSP 28 CT chest abdomen pelvis: No acute process, cirrhosis Data Review: Labs reviewed from today include CBC, basic metabolic profile, liver enzymes, and CK which are remarkable for hemoglobin 9, platelets 127, sodium 132, carbon dioxide fifth team BUN 64, creatinine 4.12, CK 1328 DVT prophylaxis: Heparin SC Anticipated discharge date: Pending Clinical Course Anticipated discharge place: Pending Clinical Course This dictation was prepared using [employer] voice recognition software. Though every attempt is made to correct errors during dictation some may still exist. Objective - Vital Signs Vital signs: Vital Signs Temp 98.2 F 12/15/22 12:00 Pulse 101 H 12/15/22 12:00 Resp 29 H 12/15/22 12:00 BP 117/62 12/15/22 12:00 Pulse Ox 97 12/15/22 12:00 FiO2 50 12/15/22 12:15 Intake & Output 12/14/22 12/15/22 12/15/22 18:59 06:59 18:59 Intake Total 1401.204 831 206 Output Total 3545 10 100 Balance -2143.796 821 106 Weight 103.1 kg Intake: IV 215 285 20 .9 NS 90 60 20 Fluconazole in NaCl,Iso- 100 Osm 200 mg In Saline 1 100ml.bag @ 100 mls/hr IVPB DAILY [facility] Rx#: [id number] Piperacillin-Tazobactam 3 200 .375 gm In Sodium Chloride 0.9% 100 ml @ 25 mls/hr IVPB Q12H [facility] Rx# :[id number] Piperacillin-Tazobactam 3 25 25 .375 gm In Sodium Chloride 0.9% 100 ml @ 25 mls/hr IVPB Q8H [facility] Rx#: [id number] Intake, IV Titration 80.204 100 Amount Fluconazole in NaCl,Iso- 100 Osm 200 mg In Saline 1 100ml.bag @ 100 mls/hr IVPB DAILY [facility] Rx#: [id number] propofoL 1,000 mg In 80.204 Empty Bag 1 bag @ 15 MCG/ KG/MIN 9.308 mls/hr IV . [id number] [facility] Rx#:[id number] Tube Feeding 516 516 86 Hemodialysis 500 Other 90 30 Output: Urine 45 10 0 Stool 100 Hemodialysis 3500 Other: Voiding Method Indwelling Catheter Indwelling Catheter Indwelling Catheter ABP, PAP, CO, CI - Last Documented Arterial Blood Pressure 162/62 - Labs CBC & Chem 7: 12/15/22 05:41 12/15/22 05:41 Labs: Abnormal Lab Results - Last 24 Hours (Table) 12/14/22 12/14/22 12/14/22 Range/Units 15:47 20:16 20:36 RBC (4.30-5.90) m/uL Hgb (13.0-17.5) gm/dL Hct (39.0-53.0) % Plt Count (150-450) k/uL Lymphocytes # (Manual) (1.0-4.8) k/uL Monocytes # (Manual) (0-1.0) k/uL Metamyelocytes # (Man) (0) k/uL Myelocytes # (Manual) (0) k/uL ABG pH (7.35-7.45) ABG pCO2 (35-45) mmHg ABG pO2 (83-108) mmHg ABG HCO3 (21-25) mmol/L ABG Total CO2 (19-24) mmol/L Sodium (137-145) mmol/L Carbon Dioxide (22-30) mmol/L BUN (9-20) mg/dL Creatinine (0.66-1.25) mg/dL Glucose (74-99) mg/dL POC Glucose (mg/dL) 314 H 294 H 303 H (70-110) mg/dL Calcium (8.4-10.2) mg/dL AST (17-59) U/L ALT (4-49) U/L Creatine Kinase (55-170) U/L Total Protein (6.3-8.2) g/dL Albumin (3.5-5.0) g/dL 12/14/22 12/15/22 12/15/22 Range/Units 23:48 04:53 05:41 RBC (4.30-5.90) m/uL Hgb (13.0-17.5) gm/dL Hct (39.0-53.0) % Plt Count (150-450) k/uL Lymphocytes # (Manual) (1.0-4.8) k/uL Monocytes # (Manual) (0-1.0) k/uL Metamyelocytes # (Man) (0) k/uL Myelocytes # (Manual) (0) k/uL ABG pH (7.35-7.45) ABG pCO2 (35-45) mmHg ABG pO2 (83-108) mmHg ABG HCO3 (21-25) mmol/L ABG Total CO2 (19-24) mmol/L Sodium 132 L (137-145) mmol/L Carbon Dioxide 15 L (22-30) mmol/L BUN 64 H (9-20) mg/dL Creatinine 4.12 H (0.66-1.25) mg/dL Glucose 247 H (74-99) mg/dL POC Glucose (mg/dL) 324 H 271 H (70-110) mg/dL Calcium 8.1 L (8.4-10.2) mg/dL AST 135 H (17-59) U/L ALT 170 H (4-49) U/L Creatine Kinase 1328 H* (55-170) U/L Total Protein 5.4 L (6.3-8.2) g/dL Albumin 2.5 L (3.5-5.0) g/dL 12/15/22 12/15/22 12/15/22 Range/Units 05:41 06:06 08:00 RBC 3.10 L (4.30-5.90) m/uL Hgb 9.0 L (13.0-17.5) gm/dL Hct 27.0 L (39.0-53.0) % Plt Count 127 L (150-450) k/uL Lymphocytes # (Manual) 0.70 L (1.0-4.8) k/uL Monocytes # (Manual) 1.01 H (0-1.0) k/uL Metamyelocytes # (Man) 0.16 H (0) k/uL Myelocytes # (Manual) 0.08 H (0) k/uL ABG pH (7.35-7.45) ABG pCO2 30 L (35-45) mmHg ABG pO2 69 L (83-108) mmHg ABG HCO3 20 L (21-25) mmol/L ABG Total CO2 (19-24) mmol/L Sodium (137-145) mmol/L Carbon Dioxide (22-30) mmol/L BUN (9-20) mg/dL Creatinine (0.66-1.25) mg/dL Glucose (74-99) mg/dL POC Glucose (mg/dL) 223 H (70-110) mg/dL Calcium (8.4-10.2) mg/dL AST (17-59) U/L ALT (4-49) U/L Creatine Kinase (55-170) U/L Total Protein (6.3-8.2) g/dL Albumin (3.5-5.0) g/dL 12/15/22 12/15/22 Range/Units 11:52 12:03 RBC (4.30-5.90) m/uL Hgb (13.0-17.5) gm/dL Hct (39.0-53.0) % Plt Count (150-450) k/uL Lymphocytes # (Manual) (1.0-4.8) k/uL Monocytes # (Manual) (0-1.0) k/uL Metamyelocytes # (Man) (0) k/uL Myelocytes # (Manual) (0) k/uL ABG pH 7.53 H (7.35-7.45) ABG pCO2 33 L (35-45) mmHg ABG pO2 78 L (83-108) mmHg ABG HCO3 27 H (21-25) mmol/L ABG Total CO2 28 H (19-24) mmol/L Sodium (137-145) mmol/L Carbon Dioxide (22-30) mmol/L BUN (9-20) mg/dL Creatinine (0.66-1.25) mg/dL Glucose (74-99) mg/dL POC Glucose (mg/dL) 120 H (70-110) mg/dL Calcium (8.4-10.2) mg/dL AST (17-59) U/L ALT (4-49) U/L Creatine Kinase (55-170) U/L Total Protein (6.3-8.2) g/dL Albumin (3.5-5.0) g/dL Microbiology - Last 24 Hours (Table) 12/11/22 04:10 Blood Culture - Preliminary Blood 12/11/22 04:32 Blood Culture - Preliminary Blood
[2022-12-15 14:19] LABS: ABG Base Excess 5.4 mmol/L; ABG HCO3 28 mmol/L (21-25); ABG Oxygen Saturation 98.2 % (94-97); ABG PCO2 32 mmHg (35-45); ABG PH 7.55 (7.35-7.45); ABG PO2 99 mmHg (83-108); ABG TCO2 29 mmol/L (19-24); Allen Test Performed? Yes
--- NOTE | 2022-12-15 14:20 | P.PN ---
Subjective Progress Note Date: 12/15/22 Principal diagnosis: Critical limb ischemia Patient seen and examined. Intubated. Postop day #3 from above-knee dictation Objective - Vital Signs Vital signs: Vital Signs Temp 98.7 F 12/15/22 13:41 Pulse 98 12/15/22 13:41 Resp 21 12/15/22 13:41 BP 112/60 12/15/22 13:41 Pulse Ox 96 12/15/22 13:41 FiO2 50 12/15/22 13:41 Intake & Output 12/14/22 12/15/22 12/15/22 18:59 06:59 18:59 Intake Total 1401.204 831 606 Output Total 3545 10 3100 Balance -2143.796 821 -2494 Weight 103.1 kg Intake: IV 215 285 20 .9 NS 90 60 20 Fluconazole in NaCl,Iso- 100 Osm 200 mg In Saline 1 100ml.bag @ 100 mls/hr IVPB DAILY [facility] Rx#: [id number] Piperacillin-Tazobactam 3 200 .375 gm In Sodium Chloride 0.9% 100 ml @ 25 mls/hr IVPB Q12H [facility] Rx# :[id number] Piperacillin-Tazobactam 3 25 25 .375 gm In Sodium Chloride 0.9% 100 ml @ 25 mls/hr IVPB Q8H [facility] Rx#: [id number] Intake, IV Titration 80.204 100 Amount Fluconazole in NaCl,Iso- 100 Osm 200 mg In Saline 1 100ml.bag @ 100 mls/hr IVPB DAILY [facility] Rx#: [id number] propofoL 1,000 mg In 80.204 Empty Bag 1 bag @ 15 MCG/ KG/MIN 9.308 mls/hr IV . [id number] [facility] Rx#:[id number] Tube Feeding 516 516 86 Hemodialysis 500 400 Other 90 30 Output: Urine 45 10 0 Stool 100 Hemodialysis 3500 3000 Other: Voiding Method Indwelling Catheter Indwelling Catheter Indwelling Catheter ABP, PAP, CO, CI - Last Documented Arterial Blood Pressure 162/62 - Exam Intubated and sedated Left above-knee amputation site with dressings in place - Labs CBC & Chem 7: 12/15/22 05:41 12/15/22 05:41 Labs: Abnormal Lab Results - Last 24 Hours (Table) 12/14/22 12/14/22 12/14/22 Range/Units 15:47 20:16 20:36 RBC (4.30-5.90) m/uL Hgb (13.0-17.5) gm/dL Hct (39.0-53.0) % Plt Count (150-450) k/uL Lymphocytes # (Manual) (1.0-4.8) k/uL Monocytes # (Manual) (0-1.0) k/uL Metamyelocytes # (Man) (0) k/uL Myelocytes # (Manual) (0) k/uL ABG pH (7.35-7.45) ABG pCO2 (35-45) mmHg ABG pO2 (83-108) mmHg ABG HCO3 (21-25) mmol/L ABG Total CO2 (19-24) mmol/L Sodium (137-145) mmol/L Carbon Dioxide (22-30) mmol/L BUN (9-20) mg/dL Creatinine (0.66-1.25) mg/dL Glucose (74-99) mg/dL POC Glucose (mg/dL) 314 H 294 H 303 H (70-110) mg/dL Calcium (8.4-10.2) mg/dL AST (17-59) U/L ALT (4-49) U/L Creatine Kinase (55-170) U/L Total Protein (6.3-8.2) g/dL Albumin (3.5-5.0) g/dL 12/14/22 12/15/22 12/15/22 Range/Units 23:48 04:53 05:41 RBC (4.30-5.90) m/uL Hgb (13.0-17.5) gm/dL Hct (39.0-53.0) % Plt Count (150-450) k/uL Lymphocytes # (Manual) (1.0-4.8) k/uL Monocytes # (Manual) (0-1.0) k/uL Metamyelocytes # (Man) (0) k/uL Myelocytes # (Manual) (0) k/uL ABG pH (7.35-7.45) ABG pCO2 (35-45) mmHg ABG pO2 (83-108) mmHg ABG HCO3 (21-25) mmol/L ABG Total CO2 (19-24) mmol/L Sodium 132 L (137-145) mmol/L Carbon Dioxide 15 L (22-30) mmol/L BUN 64 H (9-20) mg/dL Creatinine 4.12 H (0.66-1.25) mg/dL Glucose 247 H (74-99) mg/dL POC Glucose (mg/dL) 324 H 271 H (70-110) mg/dL Calcium 8.1 L (8.4-10.2) mg/dL AST 135 H (17-59) U/L ALT 170 H (4-49) U/L Creatine Kinase 1328 H* (55-170) U/L Total Protein 5.4 L (6.3-8.2) g/dL Albumin 2.5 L (3.5-5.0) g/dL 12/15/22 12/15/22 12/15/22 Range/Units 05:41 06:06 08:00 RBC 3.10 L (4.30-5.90) m/uL Hgb 9.0 L (13.0-17.5) gm/dL Hct 27.0 L (39.0-53.0) % Plt Count 127 L (150-450) k/uL Lymphocytes # (Manual) 0.70 L (1.0-4.8) k/uL Monocytes # (Manual) 1.01 H (0-1.0) k/uL Metamyelocytes # (Man) 0.16 H (0) k/uL Myelocytes # (Manual) 0.08 H (0) k/uL ABG pH (7.35-7.45) ABG pCO2 30 L (35-45) mmHg ABG pO2 69 L (83-108) mmHg ABG HCO3 20 L (21-25) mmol/L ABG Total CO2 (19-24) mmol/L Sodium (137-145) mmol/L Carbon Dioxide (22-30) mmol/L BUN (9-20) mg/dL Creatinine (0.66-1.25) mg/dL Glucose (74-99) mg/dL POC Glucose (mg/dL) 223 H (70-110) mg/dL Calcium (8.4-10.2) mg/dL AST (17-59) U/L ALT (4-49) U/L Creatine Kinase (55-170) U/L Total Protein (6.3-8.2) g/dL Albumin (3.5-5.0) g/dL 12/15/22 12/15/22 Range/Units 11:52 12:03 RBC (4.30-5.90) m/uL Hgb (13.0-17.5) gm/dL Hct (39.0-53.0) % Plt Count (150-450) k/uL Lymphocytes # (Manual) (1.0-4.8) k/uL Monocytes # (Manual) (0-1.0) k/uL Metamyelocytes # (Man) (0) k/uL Myelocytes # (Manual) (0) k/uL ABG pH 7.53 H (7.35-7.45) ABG pCO2 33 L (35-45) mmHg ABG pO2 78 L (83-108) mmHg ABG HCO3 27 H (21-25) mmol/L ABG Total CO2 28 H (19-24) mmol/L Sodium (137-145) mmol/L Carbon Dioxide (22-30) mmol/L BUN (9-20) mg/dL Creatinine (0.66-1.25) mg/dL Glucose (74-99) mg/dL POC Glucose (mg/dL) 120 H (70-110) mg/dL Calcium (8.4-10.2) mg/dL AST (17-59) U/L ALT (4-49) U/L Creatine Kinase (55-170) U/L Total Protein (6.3-8.2) g/dL Albumin (3.5-5.0) g/dL Microbiology - Last 24 Hours (Table) 12/11/22 04:10 Blood Culture - Preliminary Blood 12/11/22 04:32 Blood Culture - Preliminary Blood Assessment and Plan Assessment: 1. Left lower extremity critical limb ischemia status post left [id number] amputation 2. Diabetic ketoacidosis with associated severe metabolic derangements 3. Nonpalpable popliteal and pedal pulses bilaterally suggesting femoral occlusive disease 4. Rhabdomyolysis secondary to being down for extended period time, exacerbated by critical limb ischemia.improving. 5. Acute hypoxic respiratory failure currently intubated on mechanical ventilator 6. Renal failure most likely associated with rhabdomyolysis and associated dehydration 7. Thrombocytopenia, likely heparin-induced thrombocytopenia. Heparin discontinued Plan: 1. Consult placed to social work, establish guardianship versus see if there is a contact for family members. There remains no available contact information for any family members. 2. Dressing change every other day or as needed with Kerlix and Pavan wrap. 3. 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 The rest of medical management per primary medical team and pest control specialist
[2022-12-15] MEDS: NOREPINEPHRINE 8 MG in SODIUM CHLORIDE 0.9% 250 ML IV SCH (16:13)
[2022-12-15 16:15] LABS: Glucose,Whole Blood 228 mg/dL (70-110)
[2022-12-15 20:00] LABS: Glucose,Whole Blood 247 mg/dL (70-110)
[2022-12-15 20:03] LABS: Glucose,Whole Blood 216 mg/dL (70-110)
[2022-12-15] MEDS: INSULIN DETEMIR (LEVEMIR) 100 UNIT/ML SYR SQ SCH (20:20)
[2022-12-16 00:12] LABS: Glucose,Whole Blood 186 mg/dL (70-110)
[2022-12-16] MEDS: INSULIN ASPART (NovoLOG) 100 UNIT/ML VIAL SQ SCH ×12 (00:22→20:15)
[2022-12-16] MEDS: HEPARIN SODIUM,PORCINE 5,000 UNIT/ML 1 ML VIAL SQ SCH ×3 (00:23→15:50)
[2022-12-16 04:06] LABS: Glucose,Whole Blood 145 mg/dL (70-110)
[2022-12-16 06:06] LABS: HCT 27.5 % (39.0-53.0); HGB 9.2 gm/dL (13.0-17.5); MCH 28.5 pg (25.0-35.0); MCHC 33.5 g/dL (31.0-37.0); MCV 85.1 fL (80.0-100.0); Mean Platelet Volume 9.2; Platelet Count 172 k/uL (150-450); RBC 3.23 m/uL (4.30-5.90); RDW 14.3 % (11.5-15.5); WBC 9.1 k/uL (3.8-10.6)
[2022-12-16 06:25] LABS: INR 0.9 (<1.2)
[2022-12-16 06:27] LABS: ALT 142 U/L (4-49); AST 100 U/L (17-59); African American GFR (CKD) 18 (>60 ml/min/1.73 sqM); Albumin 2.5 g/dL (3.5-5.0); Alkaline Phosphatase 123 U/L (38-126); Anion Gap 14 mmol/L; Blood Urea Nitrogen 57 mg/dL (9-20); Calcium 8.1 mg/dL (8.4-10.2); Carbon Dioxide 23 mmol/L (22-30); Chloride 96 mmol/L (98-107); Glucose 137 mg/dL (74-99); Non-African American GFR(CKD) 15 (>60 ml/min/1.73 sqM); Potassium 3.3 mmol/L (3.5-5.1); Sodium 133 mmol/L (137-145); Total Bilirubin 0.4 mg/dL (0.2-1.3); Total Protein 5.4 g/dL (6.3-8.2)
[2022-12-16] MEDS: LACTATED RINGERS 1,000 ML IV SCH (06:38)
[2022-12-16] MEDS: CALCIUM ACETATE 667 MG TAB PO SCH ×3 (06:38→16:57)
[2022-12-16] MEDS ORDERED: POTASSIUM CHLORIDE 20 MEQ in WATER FOR INJECTION 1 100ML.BAG IVPB SCH (07:30)
[2022-12-16] MEDS ORDERED: POTASSIUM CHLORIDE 20 MEQ in WATER FOR INJECTION 1 100ML.BAG IVPB STA (07:40)
[2022-12-16] MEDS: ASPIRIN 81 MG PO SCH (07:41)
[2022-12-16] MEDS: FLUCONAZOLE IN NACL,ISO-OSM 200 MG in SALINE 1 100ML.BAG IVPB SCH (07:41)
[2022-12-16] MEDS: PANTOPRAZOLE 40 MG/10 ML VIAL IVP SCH ×2 (07:43→20:14)
[2022-12-16 07:45] LABS: Glucose,Whole Blood 137 mg/dL (70-110)
[2022-12-16] MEDS: ACETAMINOPHEN TAB 325 MG TAB PO PRN ×2 (07:58→15:37)
[2022-12-16] MEDS ORDERED: POTASSIUM BICARBONATE/CIT AC 20 MEQ TABLET.EFF PO ONE (09:00)
--- NOTE | 2022-12-16 10:52 | P.PN ---
Subjective Patient seen in follow-up for acute kidney injury on chronic kidney disease. Off vasopressors. Oliguric. Extubated 12/15/2022. Dialysis catheter changed 12/11/22. No problems with dialysis yesterday. Vital signs are stable. General: Resting in bed. HEENT: On nasal cannula. LUNGS: No audible rhonchi or wheezes. HEART: Rate and Rhythm are regular. ABDOMEN: No distention. EXTREMITITES: Left AKA noted. Objective - Vital Signs Vital signs: Vital Signs Temp 98.5 F 12/16/22 08:00 Pulse 88 12/16/22 09:00 Resp 32 H 12/16/22 09:00 BP 130/67 12/16/22 09:00 Pulse Ox 96 12/16/22 09:00 FiO2 50 12/15/22 16:10 Intake & Output 12/15/22 12/16/22 12/16/22 19:59 06:59 18:59 Intake Total 220 Output Total 0 Balance 220 Weight Intake: IV 220 .9 NS 20 Fluconazole in NaCl,Iso- 100 Osm 200 mg In Saline 1 100ml.bag @ 100 mls/hr IVPB DAILY [facility] Rx#: [id number] Potassium Chloride 20 meq 100 In Water For Injection 1 100ml.bag @ 50 mls/hr IVPB Q2H [facility] Rx#: [id number] Intake, IV Titration Amount Fluconazole in NaCl,Iso- Osm 200 mg In Saline 1 100ml.bag @ 100 mls/hr IVPB DAILY [facility] Rx#: [id number] Tube Feeding Hemodialysis Output: Urine 0 Hemodialysis Other: Voiding Method Indwelling Catheter ABP, PAP, CO, CI - Last Documented Arterial Blood Pressure 162/62 - Labs CBC & Chem 7: 12/16/22 05:39 12/16/22 05:39 Labs: Abnormal Lab Results - Last 24 Hours (Table) 12/15/22 12/15/22 12/15/22 Range/Units 11:52 12:03 14:16 RBC (4.30-5.90) m/uL Hgb (13.0-17.5) gm/dL Hct (39.0-53.0) % ABG pH 7.53 H 7.55 H (7.35-7.45) ABG pCO2 33 L 32 L (35-45) mmHg ABG pO2 78 L (83-108) mmHg ABG HCO3 27 H 28 H (21-25) mmol/L ABG Total CO2 28 H 29 H (19-24) mmol/L ABG O2 Saturation 98.2 H (94-97) % Sodium (137-145) mmol/L Potassium (3.5-5.1) mmol/L Chloride (98-107) mmol/L BUN (9-20) mg/dL Creatinine (0.66-1.25) mg/dL Glucose (74-99) mg/dL POC Glucose (mg/dL) 120 H (70-110) mg/dL Calcium (8.4-10.2) mg/dL AST (17-59) U/L ALT (4-49) U/L Total Protein (6.3-8.2) g/dL Albumin (3.5-5.0) g/dL 12/15/22 12/15/22 12/15/22 Range/Units 16:13 19:58 20:02 RBC (4.30-5.90) m/uL Hgb (13.0-17.5) gm/dL Hct (39.0-53.0) % ABG pH (7.35-7.45) ABG pCO2 (35-45) mmHg ABG pO2 (83-108) mmHg ABG HCO3 (21-25) mmol/L ABG Total CO2 (19-24) mmol/L ABG O2 Saturation (94-97) % Sodium (137-145) mmol/L Potassium (3.5-5.1) mmol/L Chloride (98-107) mmol/L BUN (9-20) mg/dL Creatinine (0.66-1.25) mg/dL Glucose (74-99) mg/dL POC Glucose (mg/dL) 228 H 247 H 216 H (70-110) mg/dL Calcium (8.4-10.2) mg/dL AST (17-59) U/L ALT (4-49) U/L Total Protein (6.3-8.2) g/dL Albumin (3.5-5.0) g/dL 12/16/22 12/16/22 12/16/22 Range/Units 00:11 04:04 05:39 RBC 3.23 L (4.30-5.90) m/uL Hgb 9.2 L (13.0-17.5) gm/dL Hct 27.5 L (39.0-53.0) % ABG pH (7.35-7.45) ABG pCO2 (35-45) mmHg ABG pO2 (83-108) mmHg ABG HCO3 (21-25) mmol/L ABG Total CO2 (19-24) mmol/L ABG O2 Saturation (94-97) % Sodium (137-145) mmol/L Potassium (3.5-5.1) mmol/L Chloride (98-107) mmol/L BUN (9-20) mg/dL Creatinine (0.66-1.25) mg/dL Glucose (74-99) mg/dL POC Glucose (mg/dL) 186 H 145 H (70-110) mg/dL Calcium (8.4-10.2) mg/dL AST (17-59) U/L ALT (4-49) U/L Total Protein (6.3-8.2) g/dL Albumin (3.5-5.0) g/dL 12/16/22 12/16/22 Range/Units 05:39 07:42 RBC (4.30-5.90) m/uL Hgb (13.0-17.5) gm/dL Hct (39.0-53.0) % ABG pH (7.35-7.45) ABG pCO2 (35-45) mmHg ABG pO2 (83-108) mmHg ABG HCO3 (21-25) mmol/L ABG Total CO2 (19-24) mmol/L ABG O2 Saturation (94-97) % Sodium 133 L (137-145) mmol/L Potassium 3.3 L (3.5-5.1) mmol/L Chloride 96 L (98-107) mmol/L BUN 57 H (9-20) mg/dL Creatinine 3.80 H (0.66-1.25) mg/dL Glucose 137 H (74-99) mg/dL POC Glucose (mg/dL) 137 H (70-110) mg/dL Calcium 8.1 L (8.4-10.2) mg/dL AST 100 H (17-59) U/L ALT 142 H (4-49) U/L Total Protein 5.4 L (6.3-8.2) g/dL Albumin 2.5 L (3.5-5.0) g/dL Assessment and Plan Plan: Assessment: 1. Acute kidney injury secondary to ATN secondary to hypotension/septic shock and rhabdomyolysis. No hydronephrosis noted on imaging. Oliguric. Started on hemodialysis December 08 2022. 2. Chronic kidney disease stage IIIa with creatinine 1.4 in May 2021. [place] spect nephrosclerosis. 3. Rhabdomyolysis. CK levels trending down. 4. Septic shock currently off vasopressors. Blood culture positive for gram- positive cocci and sputum culture positive for gram-negative bacilli. 5. Metabolic acidosis secondary to acute kidney injury. Partially compensatory for respiratory alkalosis. Improved. 6. Hypokalemia from intracellular shifting from IV bicarb. Replaced. 7. DKA s/p insulin drip. 8. Volume overload. Improved with UF. 9. Peripheral arterial disease. Vascular surgery following. Status post left AKA 12/12/2022. 10. Hyponatremia secondary to acute kidney injury. Hypervolemic. Stable. 11. Hyperphosphatemia. Phosphorus level 11.0 dated 12/14/2022. On PhosLo. 12. Anemia. Rule out iron deficiency. Plan: Hemodialysis tomorrow. Status post 80 mg IV Lasix given 12/13/2022 with no improvement in urine output. Avoid nephrotoxins. Continue to monitor renal function and urine output. Check iron studies. Will need permacath and removal of groin dialysis catheter in the next couple of days. Discussed with primary team.
--- NOTE | 2022-12-16 11:15 | P.PN ---
Subjective Progress Note Date: 12/16/22 Patient is a 67-year-old male with a history of diabetes, bipolar disorder, history of closed head injury who [place] unresponsive and covered in his own emesis. On arrival to the ER he was tachycardic with a pulse of 101, respirations 26, blood pressure 64/42 and O2 sat 92% on 15 L nonrebreather. Laboratory analysis including CBC, coags, ABG, CMP, ammonia, CK, troponin, urinalysis, urine drug screen, which were remarkable for white blood cell count 15.7, platelets 138, calcium 7.7, carbon dioxide less than 5, BUN 81, creatinine 3.8, glucose 794, lactic acid 9.4, ammonia 590, CK 384, troponin 0.139. Urine drug screen was negative. Influenza A/B/RSV/COVID-19 was negative. Chest x-ray showed endotracheal tube in the right mainstem the lungs were otherwise clear. CT chest abdomen and pelvis showed no acute process but cirrhosis. Head CT showed chronic changes with no acute intracranial process. EKG reviewed with normal sinus rhythm at a rate of 100 and peaker T- waves. He was intubated in the emergency department. He was started on norepinephrine, sodium bicarb with dextrose infusion, insulin infusion. He was also given calcium gluconate 1 g IV piggyback. Critical care was consulted. Arrangements were made for admission. He was continued on levothyroxine. Zosyn was initiated for possible aspiration. He was continued on DKA protocol. He was given aggressive IV fluid resuscitation with both normal saline and D5W with 3 A of bicarb. On the night after admission his urine output decreased and his left lower extremity became ischemic. His CKs elevated. Nephrology was consulted as well as vascular surgery. Patient was placed on a heparin drip. He was seen by vascular surgery. Nephrology recommended hemodialysis and first round was completed on 12/08/22. Patient was able to be weaned off of norepinephrine overnight on 12/08. There is concern for developing hip and his platelet drop and therefore his heparin drip was discontinued. Due to his ischemia of his left lower extremity was determined to be an emergent procedure and he underwent a BKA on 12/12/22. No family was able to be found. An emergency guardianship hearing was petitioned for. He was transitioned off insulin gtt and started on long acting and short acting insulin. He was successfully extubated on 12/15. Patient seen and examined at bedside. He has been extubated. He does report back pain but denies any pain at his amputation site. He denies any nausea or vomiting. Per nursing no acute events overnight. Vital signs reviewed General: nontoxic, no distress, appears at stated age Cardiovascular: S1S2 reg, no murmur, positive posterior tibial pulse bilateral, Lungs: Decreased bs bilateral, no rhonchi, no rales , no accessory muscle use Abdominal: soft, nontender to palpation, no guarding, no appreciable organomegaly Ext: no gross muscle atrophy, no edema R lower extremities, L LE with dressing in place, no contractures Neuro: CN II-XI 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, no focal neuro deficits Psych: Awake, following commands, appropriate affect Assessment/Plan: Acute metabolic encephalopathy, improving Acinetobacter and Enterobacter Aspiration pneumonia Oropharyngeal candidiasis - Await further pulm recs -Sputum culture: Acinetobacter And Enterobacter -Continue with Zosyn 3.375 mg every 12 hours IV piggyback D #9 -Nystatin swish and swallow D# 6 of treatment for thrush Type 2 diabetes, hyperglycemia -Levemir 40 units at night, Novolog 2 units with meals, SSI - monitor for hypoglycemia - A1C12.2 Ischemic Left lower extremity status post left BKA - vascular surgery from 12/15: will need stump dj instructor if medical condition continues to improve. - Dilaudid 1 mg IV every 4 hours as needed for pain - [place] 5/325 every 6 hours for moderate pain Anuric, Acute kidney injury now on hemodialysis Metabolic acidosis Mild hyponatremia -Case discussed with Dr. Rivera and patient continues to be anuric and can have tunneled cath placed. -Strict I and O -Avoid nephrotoxic agents Anemia , stable Thrombocytopenia, improving -No active bleeding -Continue to follow daily CBC - HIT ab negative Resolved: Hyperkalemia Lactic acidosis Leukocytosis Septic shock Severe DKA Rhabdomyolysis Transaminitis Elevated troponin, suspect secondary to renal dysfunction and Rhabdo Gram-positive cocci 1 out of 2 blood cultures, confirmed contaminant Ventilator dependent respiratory failure Imaging: none new Hospital course imaging: Echocardiogram: hyperdynamic left ventricle 65-70%, right ventricle mildly dilated with RVSP 28 CT chest abdomen pelvis: No acute process, cirrhosis Data Review: Labs reviewed from today include CBC, PT, PTT, basic metabolic profile, and liver enzymes which are remarkable for hemoglobin 9.2, sodium 133, potassium 3.3, BUN 57, creatinine 3.8, AST 100, ALT 142 DVT prophylaxis: Heparin SC Anticipated discharge date: Pending Clinical Course Anticipated discharge place: Pending Clinical Course This dictation was prepared using [employer] voice recognition software. Though every attempt is made to correct errors during dictation some may still exist. Objective - Vital Signs Vital signs: Vital Signs Temp 98.5 F 12/16/22 08:00 Pulse 88 12/16/22 09:00 Resp 32 H 12/16/22 09:00 BP 130/67 12/16/22 09:00 Pulse Ox 96 12/16/22 09:00 FiO2 50 12/15/22 16:10 Intake & Output 12/15/22 12/16/22 12/16/22 19:59 06:59 18:59 Intake Total 220 Output Total 0 Balance 220 Weight Intake: IV 220 .9 NS 20 Fluconazole in NaCl,Iso- 100 Osm 200 mg In Saline 1 100ml.bag @ 100 mls/hr IVPB DAILY [facility] Rx#: [id number] Potassium Chloride 20 meq 100 In Water For Injection 1 100ml.bag @ 50 mls/hr IVPB Q2H [facility] Rx#: [id number] Intake, IV Titration Amount Fluconazole in NaCl,Iso- Osm 200 mg In Saline 1 100ml.bag @ 100 mls/hr IVPB DAILY [facility] Rx#: [id number] Tube Feeding Hemodialysis Output: Urine 0 Hemodialysis Other: Voiding Method Indwelling Catheter ABP, PAP, CO, CI - Last Documented Arterial Blood Pressure 162/62 - Labs CBC & Chem 7: 12/16/22 05:39 12/16/22 05:39 Labs: Abnormal Lab Results - Last 24 Hours (Table) 12/15/22 12/15/22 12/15/22 Range/Units 12:03 14:16 16:13 RBC (4.30-5.90) m/uL Hgb (13.0-17.5) gm/dL Hct (39.0-53.0) % ABG pH 7.53 H 7.55 H (7.35-7.45) ABG pCO2 33 L 32 L (35-45) mmHg ABG pO2 78 L (83-108) mmHg ABG HCO3 27 H 28 H (21-25) mmol/L ABG Total CO2 28 H 29 H (19-24) mmol/L ABG O2 Saturation 98.2 H (94-97) % Sodium (137-145) mmol/L Potassium (3.5-5.1) mmol/L Chloride (98-107) mmol/L BUN (9-20) mg/dL Creatinine (0.66-1.25) mg/dL Glucose (74-99) mg/dL POC Glucose (mg/dL) 228 H (70-110) mg/dL Calcium (8.4-10.2) mg/dL AST (17-59) U/L ALT (4-49) U/L Total Protein (6.3-8.2) g/dL Albumin (3.5-5.0) g/dL 12/15/22 12/15/22 12/16/22 Range/Units 19:58 20:02 00:11 RBC (4.30-5.90) m/uL Hgb (13.0-17.5) gm/dL Hct (39.0-53.0) % ABG pH (7.35-7.45) ABG pCO2 (35-45) mmHg ABG pO2 (83-108) mmHg ABG HCO3 (21-25) mmol/L ABG Total CO2 (19-24) mmol/L ABG O2 Saturation (94-97) % Sodium (137-145) mmol/L Potassium (3.5-5.1) mmol/L Chloride (98-107) mmol/L BUN (9-20) mg/dL Creatinine (0.66-1.25) mg/dL Glucose (74-99) mg/dL POC Glucose (mg/dL) 247 H 216 H 186 H (70-110) mg/dL Calcium (8.4-10.2) mg/dL AST (17-59) U/L ALT (4-49) U/L Total Protein (6.3-8.2) g/dL Albumin (3.5-5.0) g/dL 12/16/22 12/16/22 12/16/22 Range/Units 04:04 05:39 05:39 RBC 3.23 L (4.30-5.90) m/uL Hgb 9.2 L (13.0-17.5) gm/dL Hct 27.5 L (39.0-53.0) % ABG pH (7.35-7.45) ABG pCO2 (35-45) mmHg ABG pO2 (83-108) mmHg ABG HCO3 (21-25) mmol/L ABG Total CO2 (19-24) mmol/L ABG O2 Saturation (94-97) % Sodium 133 L (137-145) mmol/L Potassium 3.3 L (3.5-5.1) mmol/L Chloride 96 L (98-107) mmol/L BUN 57 H (9-20) mg/dL Creatinine 3.80 H (0.66-1.25) mg/dL Glucose 137 H (74-99) mg/dL POC Glucose (mg/dL) 145 H (70-110) mg/dL Calcium 8.1 L (8.4-10.2) mg/dL AST 100 H (17-59) U/L ALT 142 H (4-49) U/L Total Protein 5.4 L (6.3-8.2) g/dL Albumin 2.5 L (3.5-5.0) g/dL 12/16/22 Range/Units 07:42 RBC (4.30-5.90) m/uL Hgb (13.0-17.5) gm/dL Hct (39.0-53.0) % ABG pH (7.35-7.45) ABG pCO2 (35-45) mmHg ABG pO2 (83-108) mmHg ABG HCO3 (21-25) mmol/L ABG Total CO2 (19-24) mmol/L ABG O2 Saturation (94-97) % Sodium (137-145) mmol/L Potassium (3.5-5.1) mmol/L Chloride (98-107) mmol/L BUN (9-20) mg/dL Creatinine (0.66-1.25) mg/dL Glucose (74-99) mg/dL POC Glucose (mg/dL) 137 H (70-110) mg/dL Calcium (8.4-10.2) mg/dL AST (17-59) U/L ALT (4-49) U/L Total Protein (6.3-8.2) g/dL Albumin (3.5-5.0) g/dL
[2022-12-16] MEDS: NYSTATIN 100,000 UNIT/ML SUSP 500,000 UNIT/5 ML CUP PO SCH ×3 (11:41→20:15)
[2022-12-16 11:47] LABS: Glucose,Whole Blood 85 mg/dL (70-110)
[2022-12-16] MEDS: HYDROcodone/APAP 5-325MG 1 EACH TAB PO PRN (11:54)
--- NOTE | 2022-12-16 13:28 | P.PN ---
Subjective Progress Note Date: 12/16/22 Principal diagnosis: Acute diabetic ketoacidosis and acute hypoxic respiratory failure This is a 67-year-old male patient, diabetic, known history of closed head injury, bipolar disorder, was currently intubated on a mechanical ventilator. He presented to our hospital unresponsive. He was found in a local motel in his own emesis. Upon arrival, the patient was hypotensive, he was hypoxic, he was found to be in DKA. He was intubated and placed on a mechanical ventilator. I believe he also aspirated. CAT scan of the chest abdomen and pelvis showed no acute process. There may be some changes related to liver cirrhosis. CAT scan of the head showed no acute intracranial process. At this point in time, the patient is intubated on a mechanical ventilator. Is on assist control and anxiety the rate of 228, FiO2 has been brought down to 50% with a PEEP of 5 and a tidal volumes of 500. The blood gas showed a pH of 6.9 with a pCO2 of 31 and pO2 of 400. The blood work showed a potassium level of 7.7, he had significant and I get metabolic acidosis with a serum bicarb of less than 5, initial blood sugar was 794 and the lactic acid level was at 9.5. The patient had a white cell count of 15.7 with a hemoglobin 15.8 and a platelet count of 138. Cognition profile was within normal limits. LFTs were normal, serum ammonia level was elevated at 590, UA showed +3 glucose, +2 ketones and urine drug screen was negative, the viral screen was also negative. For now, the patient has already received a total of 3 L of normal saline and the patient is currently on a bicarbonate infusion running at 150 mEq at 150 mL an hour. He is on insulin drip at 10 units an hour. He is on propofol running at 35 mcg/kg/m. He has a triple-lumen catheter in his left femoral vein. There is a orogastric tube in place and output is coffee-ground. He has hypotensive. He is on norepinephrine at 0.2 mcg/kg/m. The patient is also on emperic Antibiotic coverage started on a combination of Zosyn and vancomycin. On today's evaluation of 12/08/2022, the patient is being seen in follow-up in the intensive care unit. A critically ill male patient with DKA, rhabdomyolysis, severe metabolic acidosis, hypotension, acute kidney injury and furthermore, the patient lost his pulse and the left lower extremity and currently has a ischemic left foot. The patient remains on a mechanical ventilator for now. He is on propofol which is running at 40 mcg/kg/m. His adequately sedated and is calm and comfortable on a mechanical ventilator on assist control mode at a rate of 28, tidal volume 500, FiO2 of 40% with a PEEP of 5. The blood gas from today shows a pH of 7.28 with episodes of 26-year-old to 180. Chest x-ray shows no acute abnormalities. Orotracheal tube is in good location. No airspace disease. NG tube is in place. Lungs are clear. Also, the patient remains hemodynamically unstable. He was aggressively resuscitated with IV fluids yesterday. Patient has been in a positive fluid balance of 5 L over the past 24 hours. Currently, he remains on norepinephrine and dose has been weaned down to 0.16 mcg/kg/m. The patient has been switched to D5 half-normal saline which is running at 150 mL an hour and this is based on our DKA protocol. Insulin drip is still running at 12 units an hour. Most recent blood sugar is at 292. The anion gap is at 18. Serum bicarb is at 8. Potassium level has improved down to 4.9. He has sustained an acute kidney injury and the creatinine is at the rise at 3.9. He was had no urine output overnightt. Earlier this morning, he started making some urine output. He has developed a rhabdomyolysis. CPK level is up to 13,947.. Furthermore, his left foot is mottled and cold and pale and there are no palpable pulses in dorsalis pedis and the posterior tibialis. Very poor capillary refill. The mottling is above the ankle reaching the med left leg. The white count was of 15.7, hemoglobin was at 15.8 at time of admission. Coagulation profile was within normal limits. UA was negative. 12/09/2022, the patient remains intubated on a mechanical ventilator. The patient remains in intensive care unit. He is a critically ill male patient with DKA, rhabdomyolysis, hypotension, acute kidney injury and ischemic left foot. Since yesterday, the patient has been kept on a mechanical ventilator. He remains on propofol running at 25 mcg/kg/m. He remains comfortable and symptoms to mechanical ventilator. His assist-control mode at a rate of 28, tidal volume of 500, FiO2 of 40% with a PEEP of 5. The blood gas from today shows a pH of 7.49 with a pCO2 of 24 and pO2 of 109. Chest x-ray showing atelectatic changes in both lungs bilaterally. Orotracheal tube is in a good location. Hemodynamically, the patient was weaned off the pressors and this morning the patient was taken off pressors. Meanwhile, his urine output is quite low. This has been noted throughout the night. Nephrology is involved regarding his acute kidney injury and severe rhabdomyolysis. The patient has a dialysis catheter has right femoral vein. The patient was started on hemodialysis in the first session was offered to him yesterday. Unfortunately, the CPK is on the rise is currently up to 92,000. The left lower extremities ischemic with absent pulses in skin mottling and swelling demarcated this point in time. No Refill. The potassium levels at 3.6, serum bicarbs of 50, B is a 64 with a creatinine of 3.7. IV heparin was started and it had to be discontinued because of the development of thrombocytopenia. Platelet count is down to 42. Hemoglobin is at 12.5 with a white cell count of 9.1. Insulin drip is running at 5.5 units an hour and the patient's blood sugars are in the 300 range. He was started also on enteral feeding for nutritional support and currently is on vital high-protein at the rate of 20 mL an hour. He is afebrile. Cultures are negative. Is covered with antibiotics and he is currently on IV Zosyn Patient was reevaluated today on 12/10/2022, remains in the ICU, intubated and mechanically ventilated, receiving hemodialysis early this morning. Patient is on assist control rate of 20 tidal volume 500 FiO2 40% and PEEP of 5 ABG showed a pO2 of 101 pCO2 31 pH of 7.46. Patient is to have hemodialysis finished today. Patient is on insulin drip is also on propofol at 35 mcg/kg/m, not requiring any pressors. For his gram-negative bacilli in the sputum patient is receiving still vancomycin and Zosyn. Patient was felt to have most likely aspiration pneumonia not to mention the patient presented with hypotension, lactic acidosis, and acute kidney injury. Patient was found down in the hotel room, and he required immediate intubation. Her drug screen has been negative. Chest x-ray showed minimal atelectasis at the bases, otherwise no active disease. WBC count is 8.5 hemoglobin 11.1. Basic metabolic profile is relatively normal except for a BUN of 85 creatinine 5.33. CPK is extremely elevated actually it is 19 2500 and his liver enzymes are also elevated with AST of 1522 and ALT of 350. Drug screen on admission was negative. Platelets remained low at 38,000 Reevaluated today on 12/11/22, remains in the ICU, remains intubated and mechanically ventilated, patient remains on hemodialysis and he is receiving another hemodialysis today. He is on assist control rate of 20 tidal volume of 500 FiO2 40% PEEP of 5 ABG showed a pO2 of 113 pCO2 31 pH of 7.42. The goal is to remove 2 L of fluids today with his hemodialysis. Patient remains on propofol at 40 mg/kg/m is also receiving vital HP. Could not assess mental status yesterday, however will try to hold sedation/propofol today, and hopefully get an adequate assessment of mental status off sedation. Patient was seen by vascular surgery and considering amputation of the left lower extremity Continues to have cold left lower extremity and ischemic foot. WBC count is 10.7 hemoglobin is 10.4, electrolytes are normal bicarb is 18, BUN is 99 creatinine 6.11 blood sugars are high in the 400 range, CPK is almost 38,000. Trending down. His AST is 1156 and ALT 318, also trending down. Chest x-ray showed minimal bibasilar atelectasis, no infiltrate or pneumonia Patient was reevaluated today on 12/12/22, patient remains in the ICU, intubated and mechanically ventilated. He is on assist control rate of 20 tidal volume 500 FiO2 35% and PEEP of 5 ABG today showed a pO2 of 113 pCO2 32 pH of 7.46. CB C is relatively unremarkable the PEEP cigar of 12 hemoglobin 9.7 platelets are 60,000. Sodium 130 potassium 3.9 chloride 99 BUN 80 creatinine 5.21 bicarb is 21. Sputum cultures have been positive for Citrobacter and Enterobacter cloaca my remains on vancomycin, and fluconazole. Zosyn,. Patient is still on dialysis/hemodialysis. No plans to wean and extubate the patient today since the patient is going for left lower extremity amputation sometime later today by vascular surgery. Chest x-ray is relatively unremarkable except for minimal right basilar atelectasis. Possible infiltrate Patient was reevaluated today on 12/13/22, remains in the ICU, intubated and mechanically ventilated. He is on assist control rate of 20 tidal volume 500 FiO2 35% PEEP of 5, ABG showed a pO2 of 80 pCO2 30 pH of 7.48. Patient underwent uneventful left above-knee amputation yesterday on 12/12. No plans for hemodialysis today. Chest x-ray is showing minimal left basilar atelectasis was CBC is relatively normal, sodium 129 bicarb is 19 BUN 16 creatinine 3.90 CPK is down to 10,184 liver enzymes remain a bit elevated ammonia level less than 9 in the plan today is to consider a trial of weaning. In the meantime the patient is on propofol at 35 pack per kilo per minute, is also on vital AF at 10 mL per hour, we'll increase to 20 mL per hour, remains on Zosyn, Reevaluated today on 12/14/22, patient remains in the ICU, intubated, mechanically ventilated, remains on the same ventilator settings assist control rate of 20 tidal volume 500 FiO2 35% and PEEP of 5 ABG showed a pO2 of 117 pCO2 32 pH of 7.41. Patient is undergoing hemodialysis again today. Yesterday the patient was kept off sedation between 9 AM to 5 PM, and he was not arousable enough to pursue any further weaning trials or any weaning parameters on this patient. Remained quite lethargic, could only open eyes, but did not follow any instructions, and as he was getting a bit more agitated last night he was placed back on propofol which will be discontinued again today he is on 50 mcg/kg/m. Patient is also receiving hemodialysis this morning. Antibiotics sevilla patient remains on fluconazole and Zosyn. Chest x-ray showed minimal atelectasis, relatively clear otherwise. WBC count is 8.8 hemoglobin 8.6, basic metabolic pr ofile is normal except for sodium of 129 bicarb is 17 BUN is 88 creatinine 6.0 liver enzymes remain a bit elevated. Reevaluated today on 12/15/22, remains in the ICU intubated and mechanically ventilated. He is on assist control rate of 20 tidal volume 500 FiO2 up to 50% he was on 35% earlier PEEP of 5. ABG on 35% showed a pO2 of 69 pCO2 30 pH of 7.42. Patient is undergoing hemodialysis this morning. Has been off sedation for the last 24 hours, seems to be awake, follows instructions, does not seem to be in any distress. However the patient seems to be generally weak. Chest x- ray showed no significant abnormality except for minimal atelectasis. No evidence of pneumonia or heart failure. Basic metabolic profile is normal except for a bicarb of 15 and anion gap of 16, BUN is 64 creatinine 4.12 WBC count is 7.8 hemoglobin 9.0. Platelets are up to 1 27,000. Today on 12/16/22, patient remains in the ICU, he was extubated yesterday uneventfully patient is resting in bed on 2 L nasal cannula receiving IV fluid at 10 mL per hour. Patient is not being dialyzed today, he seems to be very comfortable, arousable, but sleepy and he is not in any distress, hence I plan to transfer the patient out of the ICU to a cardiac floor. WBC count today is 9.1 hemoglobin 9.2 basic metabolic profile is relatively normal BUN is 57 creatinine 3.80. Her enzymes remain slightly elevated but improving Objective - Vital Signs Vital signs: Vital Signs Temp 98.5 F 12/16/22 08:00 Pulse 88 12/16/22 09:00 Resp 32 H 12/16/22 09:00 BP 130/67 12/16/22 09:00 Pulse Ox 96 12/16/22 09:00 FiO2 50 12/15/22 16:10 Intake & Output 12/15/22 12/16/22 12/16/22 19:59 06:59 18:59 Intake Total 220 Output Total 0 Balance 220 Weight Intake: IV 220 .9 NS 20 Fluconazole in NaCl,Iso- 100 Osm 200 mg In Saline 1 100ml.bag @ 100 mls/hr IVPB DAILY [facility] Rx#: [id number] Potassium Chloride 20 meq 100 In Water For Injection 1 100ml.bag @ 50 mls/hr IVPB Q2H [facility] Rx#: [id number] Intake, IV Titration Amount Fluconazole in NaCl,Iso- Osm 200 mg In Saline 1 100ml.bag @ 100 mls/hr IVPB DAILY [facility] Rx#: [id number] Tube Feeding Hemodialysis Output: Urine 0 Hemodialysis Other: Voiding Method Indwelling Catheter ABP, PAP, CO, CI - Last Documented Arterial Blood Pressure 162/62 - Exam Physical Exam: Revealed a 67-year-old white male on 2 L nasal cannula, not in distress HEENT: PERRLA, EOMI, anicteric, no neck masses no JVD Chest: [Diminished breath sounds at the bases no crackles or rhonchi or wheezes Cardiac Exam: [Normal S1 and S2, no S3 gallop, no murmur.] Abdomen: [Soft, nontender, no megaly, no rebound, no guarding, normal bowel sounds.] Extremities: Left above-knee amputation is noted otherwise unremarkable Neurological Exam: Arousable, follows simple instructions not in any distress and no focal neurologic deficit Psychiatric: Flat affect and a relatively normal mental status Skin: No rashes. Patient did have left above-knee amputation - Labs CBC & Chem 7: 12/16/22 05:39 12/16/22 05:39 Labs: Abnormal Lab Results - Last 24 Hours (Table) 12/15/22 12/15/22 12/15/22 Range/Units 16:13 19:58 20:02 RBC (4.30-5.90) m/uL Hgb (13.0-17.5) gm/dL Hct (39.0-53.0) % Sodium (137-145) mmol/L Potassium (3.5-5.1) mmol/L Chloride (98-107) mmol/L BUN (9-20) mg/dL Creatinine (0.66-1.25) mg/dL Glucose (74-99) mg/dL POC Glucose (mg/dL) 228 H 247 H 216 H (70-110) mg/dL Calcium (8.4-10.2) mg/dL AST (17-59) U/L ALT (4-49) U/L Total Protein (6.3-8.2) g/dL Albumin (3.5-5.0) g/dL 12/16/22 12/16/22 12/16/22 Range/Units 00:11 04:04 05:39 RBC 3.23 L (4.30-5.90) m/uL Hgb 9.2 L (13.0-17.5) gm/dL Hct 27.5 L (39.0-53.0) % Sodium (137-145) mmol/L Potassium (3.5-5.1) mmol/L Chloride (98-107) mmol/L BUN (9-20) mg/dL Creatinine (0.66-1.25) mg/dL Glucose (74-99) mg/dL POC Glucose (mg/dL) 186 H 145 H (70-110) mg/dL Calcium (8.4-10.2) mg/dL AST (17-59) U/L ALT (4-49) U/L Total Protein (6.3-8.2) g/dL Albumin (3.5-5.0) g/dL 12/16/22 12/16/22 Range/Units 05:39 07:42 RBC (4.30-5.90) m/uL Hgb (13.0-17.5) gm/dL Hct (39.0-53.0) % Sodium 133 L (137-145) mmol/L Potassium 3.3 L (3.5-5.1) mmol/L Chloride 96 L (98-107) mmol/L BUN 57 H (9-20) mg/dL Creatinine 3.80 H (0.66-1.25) mg/dL Glucose 137 H (74-99) mg/dL POC Glucose (mg/dL) 137 H (70-110) mg/dL Calcium 8.1 L (8.4-10.2) mg/dL AST 100 H (17-59) U/L ALT 142 H (4-49) U/L Total Protein 5.4 L (6.3-8.2) g/dL Albumin 2.5 L (3.5-5.0) g/dL Microbiology - Last 24 Hours (Table) 12/11/22 04:10 Blood Culture - Final Blood 12/11/22 04:32 Blood Culture - Final Blood Assessment and Plan Assessment: Impression: Acute hypoxic respiratory failure most likely secondary to aspiration as the patient was found to be unresponsive and drowning in his own secretions. Resolved patient was extubated on 01/03 Acute diabetic ketoacidosis, resolved Acute shock/hypovolemic in nature, resolved Severe lactic acidosis secondary to above, resolved History of liver cirrhosis with significantly elevated liver enzymes, ammonia level is normal Acute rhabdomyolysis steadily improving with improvement in CPK level Acute hyperkalemia, resolved Acute thrombocytopenia, remains off heparin Acute troponin leak Acute metabolic encephalopathy Acute leukocytosis could be septic or possibly reactive. Acute hypothermia on initial presentation Ischemic left lower extremity, status post left above-knee amputation postoperative day #4 Recommendation: Patient tolerated extubation well in the last 24 hours Transfer patient out of the ICU to a cardiac floor with monitor Continue hemodialysis as felt necessary by nephrology Continue GI prophylaxis Continue insulin as per scale Continue to monitor daily labs and renal profile Patient finished a full course of antibiotics Advanced diet as tolerated Continue to follow Time with Patient: Less than 30
[2022-12-16 16:33] LABS: Glucose,Whole Blood 153 mg/dL (70-110)
[2022-12-16] MEDS: HYDROmorphone 1 MG/ML 1 ML SYRINGE IVP PRN (16:58)
[2022-12-16 20:09] LABS: Glucose,Whole Blood 143 mg/dL (70-110)
[2022-12-16] MEDS: INSULIN DETEMIR (LEVEMIR) 100 UNIT/ML SYR SQ SCH (20:14)
[2022-12-16 23:17] LABS: % Iron Saturation 13.87 (15.00-50.00)
[2022-12-17] MEDS: HEPARIN SODIUM,PORCINE 5,000 UNIT/ML 1 ML VIAL SQ SCH ×3 (00:09→17:05)
[2022-12-17] MEDS: HYDROmorphone 1 MG/ML 1 ML SYRINGE IVP PRN ×2 (03:14→18:08)
[2022-12-17 04:52] LABS: HGB 8.8 gm/dL (13.0-17.5); MCH 28.5 pg (25.0-35.0); MCHC 33.8 g/dL (31.0-37.0); MCV 84.2 fL (80.0-100.0); Mean Platelet Volume 8.7; Platelet Count 205 k/uL (150-450); RBC 3.08 m/uL (4.30-5.90); RDW 14.5 % (11.5-15.5); WBC 11.3 k/uL (3.8-10.6)
[2022-12-17 05:34] LABS: African American GFR (CKD) 11 (>60 ml/min/1.73 sqM); Anion Gap 18 mmol/L; Blood Urea Nitrogen 73 mg/dL (9-20); Calcium 8.4 mg/dL (8.4-10.2); Carbon Dioxide 21 mmol/L (22-30); Chloride 95 mmol/L (98-107); Glucose 57 mg/dL (74-99); Non-African American GFR(CKD) 9 (>60 ml/min/1.73 sqM); Potassium 3.6 mmol/L (3.5-5.1); Sodium 134 mmol/L (137-145)
[2022-12-17 06:21] LABS: Glucose,Whole Blood 63 mg/dL (70-110)
[2022-12-17] MEDS: CALCIUM ACETATE 667 MG TAB PO SCH ×4 (06:24→18:06)
[2022-12-17] MEDS: INSULIN ASPART (NovoLOG) 100 UNIT/ML VIAL SQ SCH ×5 (06:24→20:49)
[2022-12-17] MEDS: LACTATED RINGERS 1,000 ML IV SCH (06:26)
[2022-12-17 06:51] LABS: Glucose,Whole Blood 105 mg/dL (70-110)
[2022-12-17] MEDS ORDERED: POTASSIUM CHLORIDE ER 20 MEQ TAB.ER PO SCH (07:00)
--- NOTE | 2022-12-17 09:17 | P.PN ---
Subjective Progress Note Date: 12/17/22 Principal diagnosis: Critical limb ischemia Today patient is seen and examined as a follow-up. He remains in the ICU but has been downgraded to cardiac stepdown unit. He was extubated on Saturday. He is awake and alert. No acute events through the night. On hemodialysis via temporary groin catheter. Nephrology is recommending permacath for continued dialysis. Objective - Vital Signs Vital signs: Vital Signs Temp 97.9 F 12/17/22 02:00 Pulse 85 12/17/22 02:00 Resp 19 12/17/22 02:00 BP 137/70 12/17/22 02:00 Pulse Ox 94 L 12/17/22 08:28 FiO2 50 12/15/22 16:10 Intake & Output 12/16/22 12/17/22 12/17/22 18:59 06:59 18:59 Intake Total 320 10 Output Total 10 0 Balance 310 10 Weight 105.9 kg Intake: IV 320 10 .9 NS 120 10 Fluconazole in NaCl,Iso- 100 Osm 200 mg In Saline 1 100ml.bag @ 100 mls/hr IVPB DAILY [facility] Rx#: [id number] Potassium Chloride 20 meq 100 In Water For Injection 1 100ml.bag @ 50 mls/hr IVPB Q2H [facility] Rx#: [id number] Output: Urine 10 0 Other: Voiding Method Indwelling Catheter Indwelling Catheter ABP, PAP, CO, CI - Last Documented Arterial Blood Pressure 162/62 - Exam General appearance: The patient is awake and alert HET: Head is normocephalic and atraumatic. Neck: Supple. Lungs: Equal expansion. Abdomen: Soft, nondistended. Extremities: Left [id number] amputation stump with dressing clean dry and intact. Neurological: Awake and alert. No noted focal deficits. - Labs CBC & Chem 7: 12/17/22 03:33 12/17/22 03:33 Labs: Abnormal Lab Results - Last 24 Hours (Table) 12/16/22 12/16/22 12/16/22 Range/Units 05:39 16:32 20:08 WBC (3.8-10.6) k/uL RBC (4.30-5.90) m/uL Hgb (13.0-17.5) gm/dL Hct (39.0-53.0) % Sodium (137-145) mmol/L Chloride (98-107) mmol/L Carbon Dioxide (22-30) mmol/L BUN (9-20) mg/dL Creatinine (0.66-1.25) mg/dL Glucose (74-99) mg/dL POC Glucose (mg/dL) 153 H 143 H (70-110) mg/dL Iron 33 L (65-175) UG/DL % Saturation 13.87 L (15.00-50.00) Transferrin 170.0 L (204.0-354.0) mg/dL Ferritin 1327.0 H (22.0-322.0) ng/mL 12/17/22 12/17/22 12/17/22 Range/Units 03:33 03:33 06:19 WBC 11.3 H (3.8-10.6) k/uL RBC 3.08 L (4.30-5.90) m/uL Hgb 8.8 L (13.0-17.5) gm/dL Hct 26.0 L (39.0-53.0) % Sodium 134 L (137-145) mmol/L Chloride 95 L (98-107) mmol/L Carbon Dioxide 21 L (22-30) mmol/L BUN 73 H (9-20) mg/dL Creatinine 5.71 H (0.66-1.25) mg/dL Glucose 57 L (74-99) mg/dL POC Glucose (mg/dL) 63 L (70-110) mg/dL Iron (65-175) UG/DL % Saturation (15.00-50.00) Transferrin (204.0-354.0) mg/dL Ferritin (22.0-322.0) ng/mL Microbiology - Last 24 Hours (Table) 12/11/22 04:10 Blood Culture - Final Blood 12/11/22 04:32 Blood Culture - Final Blood Assessment and Plan Assessment: 1. Left lower extremity critical limb ischemia status post left [id number]-[id number] amputation 2. Diabetic ketoacidosis with associated severe metabolic derangements 3. Nonpalpable popliteal and pedal pulses bilaterally suggesting femoral occlusive disease 4. Rhabdomyolysis secondary to being down for extended period time, exacerbated by critical limb ischemia.improving. 5. Acute hypoxic respiratory failure currently intubated on mechanical ventilator 6. Renal failure, requiring hemodialysis 7. Thrombocytopenia, likely heparin-induced thrombocytopenia. improved. Plan: 1. Social work on consult, patient will need stump sisal picker and rigid dressing with comfort prosthetics 2. Dressing change every other day or as needed with Kerlix and Pavan wrap. 3. Patient scheduled for tunneled catheter placement today 4. Hold heparin, keep nothing by mouth for now 5. Recommend PT/OT 6. 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 Discussed with him regarding emergent decision for left kusll-rvm-bhmo amputation due to ischemia. He verbalized understanding. He states that he does not recall what occurred prior to him [facility]. The impression and plan of care has been dictated as directed. Dr. [place] I performed a history and examination of this patient, discussed the same with the dictator. I agree with the dictator's note ,documented as a scribe. Any additional findings or plans will be noted.
[2022-12-17] MEDS: ASPIRIN 81 MG PO SCH (09:45)
[2022-12-17] MEDS: PANTOPRAZOLE 40 MG/10 ML VIAL IVP SCH ×2 (09:47→21:02)
--- NOTE | 2022-12-17 10:38 | P.PN ---
Subjective Progress Note Date: 12/17/22 Patient is a 67-year-old male with a history of diabetes, bipolar disorder, history of closed head injury who [place] unresponsive and covered in his own emesis. On arrival to the ER he was tachycardic with a pulse of 101, respirations 26, blood pressure 64/42 and O2 sat 92% on 15 L nonrebreather. Laboratory analysis including CBC, coags, ABG, CMP, ammonia, CK, troponin, urinalysis, urine drug screen, which were remarkable for white blood cell count 15.7, platelets 138, calcium 7.7, carbon dioxide less than 5, BUN 81, creatinine 3.8, glucose 794, lactic acid 9.4, ammonia 590, CK 384, troponin 0.139. Urine drug screen was negative. Influenza A/B/RSV/COVID-19 was negative. Chest x-ray showed endotracheal tube in the right mainstem the lungs were otherwise clear. CT chest abdomen and pelvis showed no acute process but cirrhosis. Head CT showed chronic changes with no acute intracranial process. EKG reviewed with normal sinus rhythm at a rate of 100 and peaker T- waves. He was intubated in the emergency department. He was started on norepinephrine, sodium bicarb with dextrose infusion, insulin infusion. He was also given calcium gluconate 1 g IV piggyback. Critical care was consulted. Arrangements were made for admission. He was continued on levothyroxine. Zosyn was initiated for possible aspiration. He was continued on DKA protocol. He was given aggressive IV fluid resuscitation with both normal saline and D5W with 3 A of bicarb. On the night after admission his urine output decreased and his left lower extremity became ischemic. His CKs elevated. Nephrology was consulted as well as vascular surgery. Patient was placed on a heparin drip. He was seen by vascular surgery. Nephrology recommended hemodialysis and first round was completed on 12/08/22. Patient was able to be weaned off of norepinephrine overnight on 12/08. There is concern for developing hip and his platelet drop and therefore his heparin drip was discontinued. Due to his ischemia of his left lower extremity was determined to be an emergent procedure and he underwent a BKA on 12/12/22. No family was able to be found. An emergency guardianship hearing was petitioned for. He was transitioned off insulin gtt and started on long acting and short acting insulin. He was successfully extubated on 12/15. Patient seen and examined at bedside. He has been extubated. He does report back pain but denies any pain at his amputation site. He denies any nausea or vomiting. Per nursing no acute events overnight. Vital signs reviewed General: nontoxic, no distress, appears at stated age Cardiovascular: S1S2 reg, no murmur, positive posterior tibial pulse bilateral, Lungs: Decreased bs bilateral, no rhonchi, no rales , no accessory muscle use Abdominal: soft, nontender to palpation, no guarding, no appreciable organomegaly Ext: no gross muscle atrophy, no edema R lower extremities, L LE with dressing in place, no contractures Neuro: CN II-XI 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, no focal neuro deficits Psych: Awake, following commands, appropriate affect Assessment/Plan: Acute metabolic encephalopathy, improving Oropharyngeal candidiasis - Pulmonary reviewed from 12/16: Transfer out of ICU, advance diet - Nystatin swish and swallow D# 7 of treatment for thrush - consult speech for cognitive evaluation to determine if a guardian is still necessary Type 2 diabetes, and hypoglycemia -Levemir decreased to 30 units at night,fixed dose novolog discontinued, SSI - monitor for hypoglycemia - A1C12.2 Acute on chronic Back Pain - Flexiril 5 mg PO TID prn pain - Gibson 5/325 every 6 hours for moderate pain - encouraged patient to work with physical therapy. 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 Rivera 12/16 and can have tunneled cath placed, vascular notified -Await further nephrology recommendations -Strict I and O -Avoid nephrotoxic agents Anemia , stable Thrombocytopenia, improving -No active bleeding -Continue to follow daily CBC - HIT ab negative Resolved: Hyperkalemia Lactic acidosis Leukocytosis Septic shock Severe DKA Rhabdomyolysis Transaminitis Elevated troponin, suspect secondary to renal dysfunction and Rhabdo Gram-positive cocci 1 out of 2 blood cultures, confirmed contaminant Ventilator dependent respiratory failure Acinetobacter and Enterobacter Aspiration pneumonia-completed zosyn X 8 days Imaging: none new Hospital course imaging: Echocardiogram: hyperdynamic left ventricle 65-70%, right ventricle mildly dilated with RVSP 28 CT chest abdomen pelvis: No acute process, cirrhosis Data Review: -Labs reviewed from today include CBC and basic metabolic profile which are remarkable for white blood cell count of 11.3, hemoglobin 8.8, sodium 134, BUN 73, creatinine 5.71, and glucose of 57. Patient did have several low blood sugars DVT prophylaxis: Heparin SC Anticipated discharge date: Pending Clinical Course Anticipated discharge place: Pending Clinical Course This dictation was prepared using [employer] voice recognition software. Though every attempt is made to correct errors during dictation some may still exist. Objective - Vital Signs Vital signs: Vital Signs Temp 97.9 F 12/17/22 02:00 Pulse 85 12/17/22 02:00 Resp 19 12/17/22 02:00 BP 137/70 12/17/22 02:00 Pulse Ox 94 L 12/17/22 08:28 FiO2 50 12/15/22 16:10 Intake & Output 12/16/22 12/17/22 12/17/22 18:59 06:59 18:59 Intake Total 320 10 Output Total 10 0 Balance 310 10 Weight 105.9 kg Intake: IV 320 10 .9 NS 120 10 Fluconazole in NaCl,Iso- 100 Osm 200 mg In Saline 1 100ml.bag @ 100 mls/hr IVPB DAILY [facility] Rx#: [id number] Potassium Chloride 20 meq 100 In Water For Injection 1 100ml.bag @ 50 mls/hr IVPB Q2H [facility] Rx#: [id number] Output: Urine 10 0 Other: Voiding Method Indwelling Catheter Indwelling Catheter ABP, PAP, CO, CI - Last Documented Arterial Blood Pressure 162/62 - Labs CBC & Chem 7: 12/17/22 03:33 12/17/22 03:33 Labs: Abnormal Lab Results - Last 24 Hours (Table) 12/16/22 12/16/22 12/16/22 Range/Units 05:39 16:32 20:08 WBC (3.8-10.6) k/uL RBC (4.30-5.90) m/uL Hgb (13.0-17.5) gm/dL Hct (39.0-53.0) % Sodium (137-145) mmol/L Chloride (98-107) mmol/L Carbon Dioxide (22-30) mmol/L BUN (9-20) mg/dL Creatinine (0.66-1.25) mg/dL Glucose (74-99) mg/dL POC Glucose (mg/dL) 153 H 143 H (70-110) mg/dL Iron 33 L (65-175) UG/DL % Saturation 13.87 L (15.00-50.00) Transferrin 170.0 L (204.0-354.0) mg/dL Ferritin 1327.0 H (22.0-322.0) ng/mL 12/17/22 12/17/22 12/17/22 Range/Units 03:33 03:33 06:19 WBC 11.3 H (3.8-10.6) k/uL RBC 3.08 L (4.30-5.90) m/uL Hgb 8.8 L (13.0-17.5) gm/dL Hct 26.0 L (39.0-53.0) % Sodium 134 L (137-145) mmol/L Chloride 95 L (98-107) mmol/L Carbon Dioxide 21 L (22-30) mmol/L BUN 73 H (9-20) mg/dL Creatinine 5.71 H (0.66-1.25) mg/dL Glucose 57 L (74-99) mg/dL POC Glucose (mg/dL) 63 L (70-110) mg/dL Iron (65-175) UG/DL % Saturation (15.00-50.00) Transferrin (204.0-354.0) mg/dL Ferritin (22.0-322.0) ng/mL Microbiology - Last 24 Hours (Table) 12/11/22 04:10 Blood Culture - Final Blood 12/11/22 04:32 Blood Culture - Final Blood
[2022-12-17 10:56] VITALS: BMI 31.6
[2022-12-17 11:10] LABS: Glucose,Whole Blood 63 mg/dL (70-110)
--- NOTE | 2022-12-17 11:22 | P.PN ---
Subjective Progress Note Date: 12/17/22 This is a 67-year-old male patient, diabetic, known history of closed head injury, bipolar disorder, was currently intubated on a mechanical ventilator. He presented to our hospital unresponsive. He was found in a local motel in his own emesis. Upon arrival, the patient was hypotensive, he was hypoxic, he was found to be in DKA. He was intubated and placed on a mechanical ventilator. I believe he also aspirated. CAT scan of the chest abdomen and pelvis showed no acute process. There may be some changes related to liver cirrhosis. CAT scan of the head showed no acute intracranial process. At this point in time, the patient is intubated on a mechanical ventilator. Is on assist control and anxiety the rate of 228, FiO2 has been brought down to 50% with a PEEP of 5 and a tidal volumes of 500. The blood gas showed a pH of 6.9 with a pCO2 of 31 and pO2 of 400. The blood work showed a potassium level of 7.7, he had significant and I get metabolic acidosis with a serum bicarb of less than 5, initial blood sugar was 794 and the lactic acid level was at 9.5. The patient had a white cell count of 15.7 with a hemoglobin 15.8 and a platelet count of 138. Cognition profile was within normal limits. LFTs were normal, serum ammonia level was elevated at 590, UA showed +3 glucose, +2 ketones and urine drug screen was negative, the viral screen was also negative. For now, the patient h as already received a total of 3 L of normal saline and the patient is currently on a bicarbonate infusion running at 150 mEq at 150 mL an hour. He is on insulin drip at 10 units an hour. He is on propofol running at 35 mcg/kg/m. He has a triple-lumen catheter in his left femoral vein. There is a orogastric tube in place and output is coffee-ground. He has hypotensive. He is on norepinephrine at 0.2 mcg/kg/m. The patient is also on emperic Antibiotic coverage started on a combination of Zosyn and vancomycin. On today's evaluation of 12/08/2022, the patient is being seen in follow-up in the intensive care unit. A critically ill male patient with DKA, rhabdomyolysis, severe metabolic acidosis, hypotension, acute kidney injury and furthermore, the patient lost his pulse and the left lower extremity and currently has a ischemic left foot. The patient remains on a mechanical ventila tor for now. He is on propofol which is running at 40 mcg/kg/m. His adequately sedated and is calm and comfortable on a mechanical ventilator on assist control mode at a rate of 28, tidal volume 500, FiO2 of 40% with a PEEP of 5. The blood gas from today shows a pH of 7.28 with episodes of 26-year-old to 180. Chest x- ray shows no acute abnormalities. Orotracheal tube is in good location. No airspace disease. NG tube is in place. Lungs are clear. Also, the patient remains hemodynamically unstable. He was aggressively resuscitated with IV fluids yesterday. Patient has been in a positive fluid balance of 5 L over the past 24 hours. Currently, he remains on norepinephrine and dose has been weaned down to 0.16 mcg/kg/m. The patient has been switched to D5 half-normal saline which is running at 150 mL an hour and this is based on our DKA protocol. Insulin drip is still running at 12 units an hour. Most recent blood sugar is at 292. The anion gap is at 18. Serum bicarb is at 8. Potassium level has improved down to 4.9. He has sustained an acute kidney injury and the creat inine is at the rise at 3.9. He was had no urine output overnightt. Earlier this morning, he started making some urine output. He has developed a rhabdomyolysis. CPK level is up to 13,947.. Furthermore, his left foot is mottled and cold and pale and there are no palpable pulses in dorsalis pedis and the posterior tibialis. Very poor capillary refill. The mottling is above the ankle reaching the med left leg. The white count was of 15.7, hemoglobin was at 15.8 at time of admission. Coagulation profile was within normal limits. UA was negative. 12/09/2022, the patient remains intubated on a mechanical ventilator. The patient remains in intensive care unit. He is a critically ill male patient with DKA, rhabdomyolysis, hypotension, acute kidney injury and ischemic left foot. Since yesterday, the patient has been kept on a mechanical ventilator. He remains on propofol running at 25 mcg/kg/m. He remains comfortable and symptoms to mechanical ventilator. His assist-control mode at a rate of 28, tidal volume of 500, FiO2 of 40% with a PEEP of 5. The blood gas from today sixto ws a pH of 7.49 with a pCO2 of 24 and pO2 of 109. Chest x-ray showing atelectatic changes in both lungs bilaterally. Orotracheal tube is in a good location. Hemodynamically, the patient was weaned off the pressors and this morning the patient was taken off pressors. Meanwhile, his urine output is quite low. This has been noted throughout the night. Nephrology is involved regarding his acute kidney injury and severe rhabdomyolysis. The patient has a dialysis catheter has right femoral vein. The patient was started on hemodialysis in the first session was offered to him yesterday. Unfortunately, the CPK is on the rise is currently up to 92,000. The left lower extremities ischemic with absent pulses in skin mottling and swelling demarcated this point in time. No Refill. The potassium levels at 3.6, serum bicarbs of 50, B is a 64 with a creatinine of 3.7. IV heparin was started and it had to be discontinued because of the development of thrombocytopenia. Platelet count is down to 42. Hemoglobin is at 12.5 with a white cell count of 9.1. Insulin drip is running at 5.5 units an hour and the patient's blood sugars are in the 300 range. He was started also on enteral feeding for nutritional support and currently is on vital high-protein at the rate of 20 mL an hour. He is afebrile. Cultures are negative. Is covered with antibiotics and he is currently on IV Zosyn Patient was reevaluated today on 12/10/2022, remains in the ICU, intubated and mechanically ventilated, receiving hemodialysis early this morning. Patient is on assist control rate of 20 tidal volume 500 FiO2 40% and PEEP of 5 ABG showed a pO2 of 101 pCO2 31 pH of 7.46. Patient is to have hemodialysis finished today. Patient is on insulin drip is also on propofol at 35 mcg/kg/m, not requiring any pressors. For his gram-negative bacilli in the sputum patient is receiving still vancomycin and Zosyn. Patient was felt to have most likely aspiration pneumonia not to mention the patient presented with hypotension, lactic acidosis, and acute kidney injury. Patient was found down in the hotel r oom, and he required immediate intubation. Her drug screen has been negative. Chest x-ray showed minimal atelectasis at the bases, otherwise no active disease. WBC count is 8.5 hemoglobin 11.1. Basic metabolic profile is relatively normal except for a BUN of 85 creatinine 5.33. CPK is extremely elevated actually it is 19 2500 and his liver enzymes are also elevated with AST of 1522 and ALT of 350. Drug screen on admission was negative. Platelets remained low at 38,000 Reevaluated today on 12/11/22, remains in the ICU, remains intubated and mechanically ventilated, patient remains on hemodialysis and he is receiving another hemodialysis today. He is on assist control rate of 20 tidal volume of 500 FiO2 40% PEEP of 5 ABG showed a pO2 of 113 pCO2 31 pH of 7.42. The goal is to remove 2 L of fluids today with his hemodialysis. Patient remains on propofol at 40 mg/kg/m is also receiving vital HP. Could not assess mental status yesterday, however will try to hold sedation/propofol today, and hopefully get an adequate assessment of mental status off sedation. Patient was seen by vascular surgery and considering amputation of the left lower extremity Continues to have cold left lower extremity and ischemic foot. WBC count is 10.7 hemoglobin is 10.4, electrolytes are normal bicarb is 18, BUN is 99 creatinine 6.11 blood sugars are high in the 400 range, CPK is almost 38,000. Trending down. His AST is 1156 and ALT 318, also trending down. Chest x-ray showed minimal bibasilar atelectasis, no infiltrate or pneumonia Patient was reevaluated today on 12/12/22, patient remains in the ICU, intubated and mechanically ventilated. He is on assist control rate of 20 tidal volume 500 FiO2 35% and PEEP of 5 ABG today showed a pO2 of 113 pCO2 32 pH of 7.46. CBC is relatively unremarkable the PEEP cigar of 12 hemoglobin 9.7 platelets are 60,000. Sodium 130 potassium 3.9 chloride 99 BUN 80 creatinine 5.21 bicarb is 21. Sputum cultures have been positive for Citrobacter and Enterobacter cloaca my remains on vancomycin, and fluconazole. Zosyn,. Patient is still on dial ysis/hemodialysis. No plans to wean and extubate the patient today since the patient is going for left lower extremity amputation sometime later today by vascular surgery. Chest x-ray is relatively unremarkable except for minimal right basilar atelectasis. Possible infiltrate Patient was reevaluated today on 12/13/22, remains in the ICU, intubated and mechanically ventilated. He is on assist control rate of 20 tidal volume 500 FiO2 35% PEEP of 5, ABG showed a pO2 of 80 pCO2 30 pH of 7.48. Patient underwent uneventful left above-knee amputation yesterday on 12/12. No plans for hemodialysis today. Chest x-ray is showing minimal left basilar atelectasis was CBC is relatively normal, sodium 129 bicarb is 19 BUN 16 creatinine 3.90 CPK is down to 10,184 liver enzymes remain a bit elevated ammonia level less than 9 in the plan today is to consider a trial of weaning. In the meantime the patient is on propofol at 35 pack per kilo per minute, is also on vital AF at 10 mL per hour, we'll increase to 20 mL per hour, remains on Zosyn, Reevaluated today on 12/14/22, patient remains in the ICU, intubated, mechanically ventilated, remains on the same ventilator settings assist control rate of 20 tidal volume 500 FiO2 35% and PEEP of 5 ABG showed a pO2 of 117 pCO2 32 pH of 7.41. Patient is undergoing hemodialysis again today. Yesterday the patient was kept off sedation between 9 AM to 5 PM, and he was not arousable enough to pursue any further weaning trials or any weaning parameters on this patient. Remained quite lethargic, could only open eyes, but did not follow any instructions, and as he was getting a bit more agitated last night he was placed back on propofol which will be discontinued again today he is on 50 mcg/kg/m. Patient is also receiving hemodialysis this morning. Antibiotics sevilla patient remains on fluconazole and Zosyn. Chest x-ray showed minimal atelectasis, relatively clear otherwise. WBC count is 8.8 hemoglobin 8.6, basic metabolic profile is normal except for sodium of 129 bicarb is 17 BUN is 88 creatinine 6.0 liver enzymes remain a bit elevated. Reevaluated today on 12/15/22, remains in the ICU intubated and mechanically ventilated. He is on assist control rate of 20 tidal volume 500 FiO2 up to 50% he was on 35% earlier PEEP of 5. ABG on 35% showed a pO2 of 69 pCO2 30 pH of 7.42. Patient is undergoing hemodialysis this morning. Has been off sedation for the last 24 hours, seems to be awake, follows instructions, does not seem to be in any distress. However the patient seems to be generally weak. Chest x- ray showed no significant abnormality except for minimal atelectasis. No evidence of pneumonia or heart failure. Basic metabolic profile is normal except for a bicarb of 15 and anion gap of 16, BUN is 64 creatinine 4.12 WBC count is 7.8 hemoglobin 9.0. Platelets are up to 1 27,000. Today on 12/16/22, patient remains in the ICU, he was extubated yesterday uneventfully patient is resting in bed on 2 L nasal cannula receiving IV fluid at 10 mL per hour. Patient is not being dialyzed today, he seems to be very comfortable, arousable, but sleepy and he is not in any distress, hence I plan to transfer the patient out of the ICU to a cardiac floor. WBC count today is 9.1 hemoglobin 9.2 basic metabolic profile is relatively normal BUN is 57 creatinine 3.80. Her enzymes remain slightly elevated but improving The patient is seen today 12/17/2022 in follow-up in the intensive care unit. He is a selective care unit overflow. He is currently awake and alert. He is maintaining O2 saturations in the 90s on 2 L/m per nasal cannula. He is still quite weak and debilitated. Sputum culture was positive for acinetobacter heidi and Enterobacter cloacae. Blood cultures revealed no growth. White count 11.3. Hemoglobin 8.8. Platelet is 205. Sodium 134. Potassium 3.6. Bicarb 21. BUN 73. Creatinine 5.71. Glucose 57. Plan is for hemodialysis again today. Heparin for DVT prophylaxis. Objective - Vital Signs Vital signs: Vital Signs Temp 97.9 F 12/17/22 02:00 Pulse 85 12/17/22 02:00 Resp 19 12/17/22 02:00 BP 137/70 12/17/22 02:00 Pulse Ox 94 L 12/17/22 08:28 FiO2 50 12/15/22 16:10 Intake & Output 12/16/22 12/17/22 12/17/22 18:59 06:59 18:59 Intake Total 320 10 Output Total 10 0 Balance 310 10 Weight 105.9 kg 105.9 kg Intake: IV 320 10 .9 NS 120 10 Fluconazole in NaCl,Iso- 100 Osm 200 mg In Saline 1 100ml.bag @ 100 mls/hr IVPB DAILY [facility] Rx#: [id number] Potassium Chloride 20 meq 100 In Water For Injection 1 100ml.bag @ 50 mls/hr IVPB Q2H [facility] Rx#: [id number] Output: Urine 10 0 Other: Voiding Method Indwelling Catheter Indwelling Catheter ABP, PAP, CO, CI - Last Documented Arterial Blood Pressure 162/62 - Exam GENERAL EXAM: Alert, weak, debilitated 67-year-old male, on 2 L nasal cannula, fairly comfortable in no apparent distress. HEAD: Normocephalic. EYES: Normal reaction of pupils, equal size. NOSE: Clear with pink turbinates. THROAT: No erythema or exudates. NECK: No masses, no JVD. CHEST: No chest wall deformity. LUNGS: Equal air entry with no crackles, wheeze, rhonchi or dullness. CVS: S1 and S2 normal with no audible murmur, regular rhythm. ABDOMEN: No hepatosplenomegaly, normal bowel sounds, no guarding or rigidity. SPINE: No scoliosis or deformity SKIN: No rashes CENTRAL NERVOUS SYSTEM: No focal deficits, tone is normal in all 4 extremities. EXTREMITIES: Left below the knee amputation. Dressing dry and intact. Right femoral hemodialysis catheter in place. Peripheral pulses are intact. - Labs CBC & Chem 7: 12/17/22 03:33 12/17/22 03:33 Labs: Abnormal Lab Results - Last 24 Hours (Table) 12/16/22 12/16/22 12/16/22 Range/Units 05:39 16:32 20:08 WBC (3.8-10.6) k/uL RBC (4.30-5.90) m/uL Hgb (13.0-17.5) gm/dL Hct (39.0-53.0) % Sodium (137-145) mmol/L Chloride (98-107) mmol/L Carbon Dioxide (22-30) mmol/L BUN (9-20) mg/dL Creatinine (0.66-1.25) mg/dL Glucose (74-99) mg/dL POC Glucose (mg/dL) 153 H 143 H (70-110) mg/dL Iron 33 L (65-175) UG/DL % Saturation 13.87 L (15.00-50.00) Transferrin 170.0 L (204.0-354.0) mg/dL Ferritin 1327.0 H (22.0-322.0) ng/mL 12/17/22 12/17/22 12/17/22 Range/Units 03:33 03:33 06:19 WBC 11.3 H (3.8-10.6) k/uL RBC 3.08 L (4.30-5.90) m/uL Hgb 8.8 L (13.0-17.5) gm/dL Hct 26.0 L (39.0-53.0) % Sodium 134 L (137-145) mmol/L Chloride 95 L (98-107) mmol/L Carbon Dioxide 21 L (22-30) mmol/L BUN 73 H (9-20) mg/dL Creatinine 5.71 H (0.66-1.25) mg/dL Glucose 57 L (74-99) mg/dL POC Glucose (mg/dL) 63 L (70-110) mg/dL Iron (65-175) UG/DL % Saturation (15.00-50.00) Transferrin (204.0-354.0) mg/dL Ferritin (22.0-322.0) ng/mL Microbiology - Last 24 Hours (Table) 12/11/22 04:10 Blood Culture - Final Blood 12/11/22 04:32 Blood Culture - Final Blood Assessment and Plan Assessment: Acute hypoxic respiratory failure most likely secondary to aspiration as the patient was found to be unresponsive and drowning in his own secretions. Resolved patient was extubated on 01/03 year currently on 2 L nasal cannula Acute diabetic ketoacidosis, resolved Acute shock/hypovolemic in nature, resolved Acute kidney injury requiring hemodialysis History of liver cirrhosis with significantly elevated liver enzymes, ammonia level is normal Acute rhabdomyolysis steadily improving with improvement in CPK level Acute hyperkalemia, resolved Acute thrombocytopenia, remains off heparin Acute troponin leak Acute metabolic encephalopathy Acute leukocytosis could be septic or possibly reactive. Acute hypothermia on initial presentation Ischemic left lower extremity, status post left above-knee amputation postoperative day #5 Plan: The patient was seen and evaluated Medications and labs reviewed Stable and on 2 L nasal cannula Titrate the FiO2 as tolerated Plan is for hemodialysis today We will continue to follow I have personally seen and examined the patient, performed the documentation and the assessment and plan as written. Number of minutes spent on the visit: 10.
[2022-12-17] MEDS: NYSTATIN 100,000 UNIT/ML SUSP 500,000 UNIT/5 ML CUP PO SCH ×4 (11:29→23:13)
[2022-12-17] MEDS ORDERED: IV FLUID CONTINUATION 250 ML IV ONE (11:45)
--- NOTE | 2022-12-17 11:49 | P.PN ---
Subjective Patient is seen for follow-up for acute kidney injury on top of chronic kidney disease. Started hemodialysis on 12/08/2022 for ATN from hypotension and sepsis and rhabdomyolysis. He is scheduled for permacath placement today. Scheduled for hemodialysis today. No significant urine output. Objective - Vital Signs Vital signs: Vital Signs Temp 98.0 F 12/17/22 08:00 Pulse 87 12/17/22 08:00 Resp 26 H 12/17/22 08:00 BP 139/74 12/17/22 08:00 Pulse Ox 94 L 12/17/22 08:28 FiO2 50 12/15/22 16:10 Intake & Output 12/16/22 12/17/22 12/17/22 18:59 06:59 18:59 Intake Total 320 10 Output Total 10 0 Balance 310 10 Weight 105.9 kg 105.9 kg Intake: IV 320 10 .9 NS 120 10 Fluconazole in NaCl,Iso- 100 Osm 200 mg In Saline 1 100ml.bag @ 100 mls/hr IVPB DAILY [facility] Rx#: [id number] Potassium Chloride 20 meq 100 In Water For Injection 1 100ml.bag @ 50 mls/hr IVPB Q2H [facility] Rx#: [id number] Output: Urine 10 0 Other: Voiding Method Indwelling Catheter Indwelling Catheter Indwelling Catheter ABP, PAP, CO, CI - Last Documented Arterial Blood Pressure 162/62 - Exam Awake, comfortable, no acute distress Examination of the heart S1 and S2 Examination of the lungs bilateral breath sounds are heard Abdomen is soft nontender Examination of lower extremity shows trace edema bilaterally, left AKA 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 - Labs CBC & Chem 7: 12/17/22 03:33 12/17/22 03:33 Labs: Abnormal Lab Results - Last 24 Hours (Table) 12/16/22 12/16/22 12/16/22 Range/Units 05:39 16:32 20:08 WBC (3.8-10.6) k/uL RBC (4.30-5.90) m/uL Hgb (13.0-17.5) gm/dL Hct (39.0-53.0) % Sodium (137-145) mmol/L Chloride (98-107) mmol/L Carbon Dioxide (22-30) mmol/L BUN (9-20) mg/dL Creatinine (0.66-1.25) mg/dL Glucose (74-99) mg/dL POC Glucose (mg/dL) 153 H 143 H (70-110) mg/dL Iron 33 L (65-175) UG/DL % Saturation 13.87 L (15.00-50.00) Transferrin 170.0 L (204.0-354.0) mg/dL Ferritin 1327.0 H (22.0-322.0) ng/mL 12/17/22 12/17/22 12/17/22 Range/Units 03:33 03:33 06:19 WBC 11.3 H (3.8-10.6) k/uL RBC 3.08 L (4.30-5.90) m/uL Hgb 8.8 L (13.0-17.5) gm/dL Hct 26.0 L (39.0-53.0) % Sodium 134 L (137-145) mmol/L Chloride 95 L (98-107) mmol/L Carbon Dioxide 21 L (22-30) mmol/L BUN 73 H (9-20) mg/dL Creatinine 5.71 H (0.66-1.25) mg/dL Glucose 57 L (74-99) mg/dL POC Glucose (mg/dL) 63 L (70-110) mg/dL Iron (65-175) UG/DL % Saturation (15.00-50.00) Transferrin (204.0-354.0) mg/dL Ferritin (22.0-322.0) ng/mL 12/17/22 Range/Units 10:56 WBC (3.8-10.6) k/uL RBC (4.30-5.90) m/uL Hgb (13.0-17.5) gm/dL Hct (39.0-53.0) % Sodium (137-145) mmol/L Chloride (98-107) mmol/L Carbon Dioxide (22-30) mmol/L BUN (9-20) mg/dL Creatinine (0.66-1.25) mg/dL Glucose (74-99) mg/dL POC Glucose (mg/dL) 63 L (70-110) mg/dL Iron (65-175) UG/DL % Saturation (15.00-50.00) Transferrin (204.0-354.0) mg/dL Ferritin (22.0-322.0) ng/mL Microbiology - Last 24 Hours (Table) 12/11/22 04:10 Blood Culture - Final Blood 12/11/22 04:32 Blood Culture - Final Blood Assessment and Plan Assessment: 1. Acute kidney injury secondary to ATN secondary to hypotension/septic shock and rhabdomyolysis. No hydronephrosis noted on imaging. Oliguric. Started on hemodialysis December 08 2022. Scheduled for permacath today 2. Chronic kidney disease stage IIIa with creatinine 1.4 in May 2021. Suspect nephrosclerosis. 3. Rhabdomyolysis. CK levels trending down. 4. Septic shock currently off vasopressors. Blood culture positive for gram- positive cocci and sputum culture positive for gram-negative bacilli. 5. Metabolic acidosis secondary to acute kidney injury. Partially compensatory for respiratory alkalosis. Improved. 6. Hypokalemia from intracellular shifting from IV bicarb. Replaced. 7. DKA s/p insulin drip. 8. Volume overload. Improved with UF. 9. Peripheral arterial disease. Vascular surgery following. Status post left AKA 12/12/2022. 10. Hyponatremia secondary to acute kidney injury. Hypervolemic. Stable. 11. Hyperphosphatemia. Phosphorus level 11.0 dated 12/14/2022. On PhosLo. 12. Anemia, iron deficiency noted. Plan: Hemodialysis today IV iron Add Aranesp
[2022-12-17] MEDS ORDERED: fentaNYL (PF) 50 MCG/ML 2 ML AMP IVP ONE (11:57)
[2022-12-17] MEDS ORDERED: MIDAZOLAM 2 MG/2 ML VIAL IVP ONE (11:57)
[2022-12-17] MEDS ORDERED: LIDOCAINE 1% INJ 10MG/ML (20 ML MDV) SQ ONE (12:00)
[2022-12-17] MEDS ORDERED: DARBEPOETIN ALFA 60 MCG/0.3 ML SYRINGE SQ SCH (12:00)
[2022-12-17 12:02] LABS: Glucose,Whole Blood 92 mg/dL (70-110)
--- NOTE | 2022-12-17 12:36 | IR ---
EXAMINATION TYPE: IR cvc insert central tunneled DATE OF EXAM: 12/17/2022 COMPARISON: NONE HISTORY: Fluoroscopy time. Fluoroscopy was provided to the referring clinician.
[2022-12-17] MEDS: SODIUM FERRIC GLUCONAT-SUCROSE 125 MG in SODIUM CHLORIDE 0.9% 100 ML IVPB SCH (13:03)
[2022-12-17] MEDS: HYDROcodone/APAP 5-325MG 1 EACH TAB PO PRN ×2 (13:03→21:04)
[2022-12-17 13:21] LABS: Glucose,Whole Blood 80 mg/dL (70-110)
--- NOTE | 2022-12-17 14:34 | XR ---
EXAMINATION TYPE: XR chest 1V portable DATE OF EXAM: 12/17/2022 COMPARISON: 12/15/2022 HISTORY: PICC line placement TECHNIQUE: Single frontal view of the chest is obtained. FINDINGS: There is bilateral lower lobe consolidation. There is a Wilson catheter tip overlying the SVC. No pneumothorax. Tiny bilateral pleural effusion. No overt failure. Hypertrophic and degenerati ve changes spine. IMPRESSION: 1. Bilateral lower lobe infiltrate or atelectasis. 2. Wilson catheter with the tip overlying the SVC and no sizable pneumothorax.
--- NOTE | 2022-12-17 15:36 | P.OP ---
Date of Procedure: 12/17/22 Preoperative Diagnosis: Acute renal failure requiring long-term hemodialysis. Postoperative Diagnosis: Same. Procedure(s) Performed: 1: Ultrasound-guided cannulation right internal jugular vein. 2: Placement of tunneled hemodialysis catheter via the right internal jugular vein with fluoroscopic guidance. Implants: Tunneled hemodialysis catheter. Anesthesia: local Surgeon: Scooby [place] Estimated Blood Loss (ml): 5 Pathology: none sent Condition: stable Disposition: no change Indications for Procedure: Patient is a 67-year-old male who was admitted for multiple medical problems and was found to be in renal failure. He has been undergoing hemodialysis since his admission and it is anticipated he will continue to need hemodialysis. As such she is offered a tunneled hemodialysis catheter. Description of Procedure: Patient was brought to the special procedure suite. The right lateral neck, supraclavicular and anterior chest wall areas were sterilely prepped and draped in usual manner. Utilizing ultrasound the right internal jugular vein was identified. This was found to be normally compressible and without visible thrombus. 1% Xylocaine was utilized for local anesthesia of the tissues at the apex of the sternocleidomastoid muscle. Through this anesthetized area and with the aid of ultrasound a micropuncture needle was utilized to cannulate the vein. Once cannulated Softip guidewire is advanced into the vein. The needle was withdrawn and a micropuncture sheath and dilator advanced over the guidewire. The dilator and guidewire were withdrawn and a 0.035 inch guidewire was advanced into the superior vena cava. Its position was confirmed with fluoroscopy. The sheath was withdrawn. Approximately 2 fingerbreadths below and just lateral to the angle of clavicle on the right additional Xylocaine was injected. Xylocaine was injected in the subcutaneous tissues between the neck and chest wall incisions. Skin incision was made in the anesthetized tissues of the anterior chest wall through its tunneled hemodialysis catheter was positioned between the 2 incisions. Venous dilator advanced over the guidewire and eventually the catheter tunnel and dilator were advanced over the guidewire. Guidewire and dilator were withdrawn and through the sheath the dialysis catheter was advanced and the sheath peeled away. Fluoroscopy demonstrated the catheter to be in good position without undue angulation or kinking. Blood was easily aspirated through both ports. Both ports were then flushed with heparinized saline solution and blocked. Her applied. The catheter was secured to skin with nylon suture and the neck wound was closed with nylon suture. Proper dressings were applied. Patient tolerated the procedure well. Total fluoroscopy time: Less than 10 seconds.
[2022-12-17 16:54] LABS: Glucose,Whole Blood 98 mg/dL (70-110)
[2022-12-17 20:28] LABS: Glucose,Whole Blood 137 mg/dL (70-110)
[2022-12-17] MEDS: INSULIN DETEMIR (LEVEMIR) 100 UNIT/ML SYR SQ SCH (21:02)
[2022-12-17] MEDS: MELATONIN 5 MG TABLET PO SCH (21:02)
[2022-12-17] MEDS: NOREPINEPHRINE 8 MG in SODIUM CHLORIDE 0.9% 250 ML IV SCH (22:49)
[2022-12-18] MEDS: HEPARIN SODIUM,PORCINE 5,000 UNIT/ML 1 ML VIAL SQ SCH ×4 (00:51→23:20)
[2022-12-18] MEDS: CYCLOBENZAPRINE 5 MG TAB PO PRN (01:54)
[2022-12-18 06:02] LABS: Glucose,Whole Blood 113 mg/dL (70-110)
[2022-12-18] MEDS: INSULIN ASPART (NovoLOG) 100 UNIT/ML VIAL SQ SCH ×4 (06:13→20:58)
[2022-12-18] MEDS: CALCIUM ACETATE 667 MG TAB PO SCH ×3 (07:26→16:57)
[2022-12-18] MEDS: ASPIRIN 81 MG PO SCH (07:26)
[2022-12-18] MEDS: NYSTATIN 100,000 UNIT/ML SUSP 500,000 UNIT/5 ML CUP PO SCH ×4 (07:27→21:06)
[2022-12-18] MEDS: LACTATED RINGERS 1,000 ML IV SCH (08:52)
[2022-12-18] MEDS: PANTOPRAZOLE 40 MG/10 ML VIAL IVP SCH ×2 (09:01→21:07)
[2022-12-18] MEDS: SODIUM FERRIC GLUCONAT-SUCROSE 125 MG in SODIUM CHLORIDE 0.9% 100 ML IVPB SCH (09:01)
[2022-12-18] MEDS: HYDROmorphone 1 MG/ML 1 ML SYRINGE IVP PRN (09:11)
[2022-12-18] MEDS ORDERED: HYDROmorphone 0.5 MG/0.5 ML SYRINGE IVP PRN (11:20)
--- NOTE | 2022-12-18 11:40 | P.PN ---
Subjective Progress Note Date: 12/18/22 Principal diagnosis: Critical limb ischemia, acute kidney injury needing hemodialysis Patient is seen and examined today as a follow-up. Yesterday he underwent right tunneled catheter placement for hemodialysis. He had hemodialysis following without any complications as reported per nursing. He is without any complaints. Left AKA with dressing clean dry and intact with Pavan wrap in place. Comfort prosthetics to see patient for stump pearl hand and rigid dressing. Objective - Vital Signs Vital signs: Vital Signs Temp 97.9 F 12/18/22 07:04 Pulse 98 12/18/22 07:04 Resp 17 12/18/22 07:04 BP 159/85 12/18/22 07:04 Pulse Ox 94 L 12/18/22 07:04 FiO2 50 12/15/22 16:10 Intake & Output 12/17/22 12/18/22 12/18/22 18:59 06:59 18:59 Intake Total 500 Output Total 2920 300 Balance -2420 -300 Weight 105.9 kg 102.8 kg Intake: Intake, IV Titration 100 Amount Sodium Ferric Gluconat- 100 Sucrose 125 mg In Sodium Chloride 0.9% 100 ml @ 100 mls/hr IVPB DAILY [facility] Rx#:[id number] Hemodialysis 400 Output: Urine 20 Uretheral (Mata) 10 Stool 300 Hemodialysis 2900 Other: Voiding Method Indwelling Catheter # Voids 0 ABP, PAP, CO, CI - Last Documented Arterial Blood Pressure 162/62 - Exam General appearance: The patient is awake and alert HET: Head is normocephalic and atraumatic. Neck: Supple. Chest: Right upper chest wall with right IJ tunneled catheter in place. Lungs: Equal expansion. Abdomen: Soft, nondistended. Extremities: Left [id number] amputation stump with dressing clean dry and intact. Neurological: Awake and alert. No noted focal deficits. - Labs CBC & Chem 7: 12/17/22 03:33 12/17/22 03:33 Labs: Abnormal Lab Results - Last 24 Hours (Table) 12/17/22 12/17/22 12/18/22 Range/Units 10:56 20:26 06:00 POC Glucose (mg/dL) 63 L 137 H 113 H (70-110) mg/dL Assessment and Plan Assessment: 1. Left lower extremity critical limb ischemia status post left [id number] amputation 2. Renal failure, requiring hemodialysis. Status post right IJ tunneled catheter placement. 3. Diabetic ketoacidosis with associated severe metabolic derangements, improved 4. Rhabdomyolysis secondary to being down for extended period time, exacerbated by critical limb ischemia. Improved. 5. Acute hypoxic respiratory failure, resolved. 6. Thrombocytopenia, likely heparin-induced thrombocytopenia. Resolved. Plan: 1. Social work on consult, order given for stump pearl hand and rigid dressing with comfort prosthetics 2. Dressing change every other day or as needed with Kerlix. Stump pearl hand and rigid dressing to left AKA 3. Patient is status post right IJ tunnel catheter placement 4. Hemodialysis per recommendations from nephrology 5. Recommend PT/OT. She will need to subacute rehab versus inpatient rehab. 6. 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 Patient is cleared from vascular surgery for discharge once stump pearl hand and rigid dressing placed. The impression and plan of care has been dictated as directed. Dr. Long I performed a history and examination of this patient, discussed the same with the dictator. I agree with the dictator's note ,documented as a scribe. Any additional findings or plans will be noted.
[2022-12-18 12:09] LABS: Glucose,Whole Blood 171 mg/dL (70-110)
--- NOTE | 2022-12-18 12:25 | P.PN ---
Subjective Progress Note Date: 12/18/22 This is a 67-year-old male patient, diabetic, known history of closed head injury, bipolar disorder, was currently intubated on a mechanical ventilator. He presented to our hospital unresponsive. He was found in [place] motel in his own emesis. Upon arrival, the patient was hypotensive, he was hypoxic, he was found to be in DKA. He was intubated and placed on a mechanical ventilator. I believe he also aspirated. CAT scan of the chest abdomen and pelvis showed no acute process. There may be some changes related to liver cirrhosis. CAT scan of the head showed no acute intracranial process. At this point in time, the patient is intubated on a mechanical ventilator. Is on assist control and anxiety the rate of 228, FiO2 has been brought down to 50% with a PEEP of 5 and a tidal volumes of 500. The blood gas showed a pH of 6.9 with a pCO2 of 31 and pO2 of 400. The blood work showed a potassium level of 7.7, he had significant and I get metabolic acidosis with a serum bicarb of less than 5, initial blood sugar was 794 and the lactic acid level was at 9.5. The patient had a white cell count of 15.7 with a hemoglobin 15.8 and a platelet count of 138. Cognition profile was within normal limits. LFTs were normal, serum ammonia level was elevated at 590, UA showed +3 glucose, +2 ketones and urine drug screen was negative, the viral screen was also negative. For now, the patient h as already received a total of 3 L of normal saline and the patient is currently on a bicarbonate infusion running at 150 mEq at 150 mL an hour. He is on insulin drip at 10 units an hour. He is on propofol running at 35 mcg/kg/m. He has a triple-lumen catheter in his left femoral vein. There is a orogastric tube in place and output is coffee-ground. He has hypotensive. He is on norepinephrine at 0.2 mcg/kg/m. The patient is also on emperic Antibiotic coverage started on a combination of Zosyn and vancomycin. On today's evaluation of 12/08/2022, the patient is being seen in follow-up in the intensive care unit. A critically ill male patient with DKA, rhabdomyolysis, severe metabolic acidosis, hypotension, acute kidney injury and furthermore, the patient lost his pulse and the left lower extremity and currently has a ischemic left foot. The patient remains on a mechanical ventila tor for now. He is on propofol which is running at 40 mcg/kg/m. His adequately sedated and is calm and comfortable on a mechanical ventilator on assist control mode at a rate of 28, tidal volume 500, FiO2 of 40% with a PEEP of 5. The blood gas from today shows a pH of 7.28 with episodes of 26-year-old to 180. Chest x- ray shows no acute abnormalities. Orotracheal tube is in good location. No airspace disease. NG tube is in place. Lungs are clear. Also, the patient remains hemodynamically unstable. He was aggressively resuscitated with IV fluids yesterday. Patient has been in a positive fluid balance of 5 L over the past 24 hours. Currently, he remains on norepinephrine and dose has been weaned down to 0.16 mcg/kg/m. The patient has been switched to D5 half-normal saline which is running at 150 mL an hour and this is based on our DKA protocol. Insulin drip is still running at 12 units an hour. Most recent blood sugar is at 292. The anion gap is at 18. Serum bicarb is at 8. Potassium level has improved down to 4.9. He has sustained an acute kidney injury and the creat inine is at the rise at 3.9. He was had no urine output overnightt. Earlier this morning, he started making some urine output. He has developed a rhabdomyolysis. CPK level is up to 13,947.. Furthermore, his left foot is mottled and cold and pale and there are no palpable pulses in dorsalis pedis and the posterior tibialis. Very poor capillary refill. The mottling is above the ankle reaching the med left leg. The white count was of 15.7, hemoglobin was at 15.8 at time of admission. Coagulation profile was within normal limits. UA was negative. 12/09/2022, the patient remains intubated on a mechanical ventilator. The patient remains in intensive care unit. He is a critically ill male patient with DKA, rhabdomyolysis, hypotension, acute kidney injury and ischemic left foot. Since yesterday, the patient has been kept on a mechanical ventilator. He remains on propofol running at 25 mcg/kg/m. He remains comfortable and symptoms to mechanical ventilator. His assist-control mode at a rate of 28, tidal volume of 500, FiO2 of 40% with a PEEP of 5. The blood gas from today sixto ws a pH of 7.49 with a pCO2 of 24 and pO2 of 109. Chest x-ray showing atelectatic changes in both lungs bilaterally. Orotracheal tube is in a good location. Hemodynamically, the patient was weaned off the pressors and this morning the patient was taken off pressors. Meanwhile, his urine output is quite low. This has been noted throughout the night. Nephrology is involved regarding his acute kidney injury and severe rhabdomyolysis. The patient has a dialysis catheter has right femoral vein. The patient was started on hemodialysis in the first session was offered to him yesterday. Unfortunately, the CPK is on the rise is currently up to 92,000. The left lower extremities ischemic with absent pulses in skin mottling and swelling demarcated this point in time. No Refill. The potassium levels at 3.6, serum bicarbs of 50, B is a 64 with a creatinine of 3.7. IV heparin was started and it had to be discontinued because of the development of thrombocytopenia. Platelet count is down to 42. Hemoglobin is at 12.5 with a white cell count of 9.1. Insulin drip is running at 5.5 units an hour and the patient's blood sugars are in the 300 range. He was started also on enteral feeding for nutritional support and currently is on vital high-protein at the rate of 20 mL an hour. He is afebrile. Cultures are negative. Is covered with antibiotics and he is currently on IV Zosyn Patient was reevaluated today on 12/10/2022, remains in the ICU, intubated and mechanically ventilated, receiving hemodialysis early this morning. Patient is on assist control rate of 20 tidal volume 500 FiO2 40% and PEEP of 5 ABG showed a pO2 of 101 pCO2 31 pH of 7.46. Patient is to have hemodialysis finished today. Patient is on insulin drip is also on propofol at 35 mcg/kg/m, not requiring any pressors. For his gram-negative bacilli in the sputum patient is receiving still vancomycin and Zosyn. Patient was felt to have most likely aspiration pneumonia not to mention the patient presented with hypotension, lactic acidosis, and acute kidney injury. Patient was found down in the hotel [place], and he required immediate intubation. Her drug screen has been negative. Chest x-ray showed minimal atelectasis at the bases, otherwise no active disease. WBC count is 8.5 hemoglobin 11.1. Basic metabolic profile is relatively normal except for a BUN of 85 creatinine 5.33. CPK is extremely elevated actually it is 19 2500 and his liver enzymes are also elevated with AST of 1522 and ALT of 350. Drug screen on admission was negative. Platelets remained low at 38,000 Reevaluated today on 12/11/22, remains in the ICU, remains intubated and mechanically ventilated, patient remains on hemodialysis and he is receiving another hemodialysis today. He is on assist control rate of 20 tidal volume of 500 FiO2 40% PEEP of 5 ABG showed a pO2 of 113 pCO2 31 pH of 7.42. The goal is to remove 2 L of fluids today with his hemodialysis. Patient remains on propofol at 40 mg/kg/m is also receiving vital HP. Could not assess mental status yesterday, however will try to hold sedation/propofol today, and hopefully get an adequate assessment of mental status off sedation. Patient was seen by vascular surgery and considering amputation of the left lower extremity Continues to have cold left lower extremity and ischemic foot. WBC count is 10.7 hemoglobin is 10.4, electrolytes are normal bicarb is 18, BUN is 99 creatinine 6.11 blood sugars are high in the 400 range, CPK is almost 38,000. Trending down. His AST is 1156 and ALT 318, also trending down. Chest x-ray showed minimal bibasilar atelectasis, no infiltrate or pneumonia Patient was reevaluated today on 12/12/22, patient remains in the ICU, intubated and mechanically ventilated. He is on assist control rate of 20 tidal volume 500 FiO2 35% and PEEP of 5 ABG today showed a pO2 of 113 pCO2 32 pH of 7.46. CBC is relatively unremarkable the PEEP cigar of 12 hemoglobin 9.7 platelets are 60,000. Sodium 130 potassium 3.9 chloride 99 BUN 80 creatinine 5.21 bicarb is 21. Sputum cultures have been positive for Citrobacter and Enterobacter cloaca my remains on vancomycin, and fluconazole. Zosyn,. Patient is still on dial ysis/hemodialysis. No plans to wean and extubate the patient today since the patient is going for left lower extremity amputation sometime later today by vascular surgery. Chest x-ray is relatively unremarkable except for minimal right basilar atelectasis. Possible infiltrate Patient was reevaluated today on 12/13/22, remains in the ICU, intubated and mechanically ventilated. He is on assist control rate of 20 tidal volume 500 FiO2 35% PEEP of 5, ABG showed a pO2 of 80 pCO2 30 pH of 7.48. Patient underwent uneventful left above-knee amputation yesterday on 12/12. No plans for hemodialysis today. Chest x-ray is showing minimal left basilar atelectasis was CBC is relatively normal, sodium 129 bicarb is 19 BUN 16 creatinine 3.90 CPK is down to 10,184 liver enzymes remain a bit elevated ammonia level less than 9 in the plan today is to consider a trial of weaning. In the meantime the patient is on propofol at 35 pack per kilo per minute, is also on vital AF at 10 mL per hour, we'll increase to 20 mL per hour, remains on Zosyn, Reevaluated today on 12/14/22, patient remains in the ICU, intubated, mechanically ventilated, remains on the same ventilator settings assist control rate of 20 tidal volume 500 FiO2 35% and PEEP of 5 ABG showed a pO2 of 117 pCO2 32 pH of 7.41. Patient is undergoing hemodialysis again today. Yesterday the patient was kept off sedation between 9 AM to 5 PM, and he was not arousable enough to pursue any further weaning trials or any weaning parameters on this patient. Remained quite lethargic, could only open eyes, but did not follow any instructions, and as he was getting a bit more agitated last night he was placed back on propofol which will be discontinued again today he is on 50 mcg/kg/m. Patient is also receiving hemodialysis this morning. Antibiotics sevilla patient remains on fluconazole and Zosyn. Chest x-ray showed minimal atelectasis, relatively clear otherwise. WBC count is 8.8 hemoglobin 8.6, basic metabolic profile is normal except for sodium of 129 bicarb is 17 BUN is 88 creatinine 6.0 liver enzymes remain a bit elevated. Reevaluated today on 12/15/22, remains in the ICU intubated and mechanically ventilated. He is on assist control rate of 20 tidal volume 500 FiO2 up to 50% he was on 35% earlier PEEP of 5. ABG on 35% showed a pO2 of 69 pCO2 30 pH of 7.42. Patient is undergoing hemodialysis this morning. Has been off sedation for the last 24 hours, seems to be awake, follows instructions, does not seem to be in any distress. However the patient seems to be generally weak. Chest x- ray showed no significant abnormality except for minimal atelectasis. No evidence of pneumonia or heart failure. Basic metabolic profile is normal except for a bicarb of 15 and anion gap of 16, BUN is 64 creatinine 4.12 WBC count is 7.8 hemoglobin 9.0. Platelets are up to 1 27,000. Today on 12/16/22, patient remains in the ICU, he was extubated yesterday uneventfully patient is resting in bed on 2 L nasal cannula receiving IV fluid at 10 mL per hour. Patient is not being dialyzed today, he seems to be very comfortable, arousable, but sleepy and he is not in any distress, hence I plan to transfer the patient out of the ICU to a cardiac floor. WBC count today is 9.1 hemoglobin 9.2 basic metabolic profile is relatively normal BUN is 57 creatinine 3.80. Her enzymes remain slightly elevated but improving The patient is seen today 12/17/2022 in follow-up in the intensive care unit. He is a selective care unit overflow. He is currently awake and alert. He is maintaining O2 saturations in the 90s on 2 L/m per nasal cannula. He is still quite weak and debilitated. Sputum culture was positive for acinetobacter heidi and Enterobacter cloacae. Blood cultures revealed no growth. White count 11.3. Hemoglobin 8.8. Platelet is 205. Sodium 134. Potassium 3.6. Bicarb 21. BUN 73. Creatinine 5.71. Glucose 57. Plan is for hemodialysis again today. Heparin for DVT prophylaxis. The patient is seen today 12/18/2022 in follow-up on the regular medical floor. He is currently resting comfortably in bed. Awake and alert in no acute distress. He is maintaining O2 saturations in the 90s on 2 L nasal cannula. He did undergo a right internal jugular hemodialysis catheter yesterday received hemodialysis as well. Dressing to his left [id number] amputation dressing is dry and intact. Sputum culture was positive for Citrobacter Heidi and Enterobacter cloacae. Blood cultures revealed no growth. Blood sugar 171. He is continued on heparin for DVT prophylaxis. Objective - Vital Signs Vital signs: Vital Signs Temp 97.9 F 12/18/22 07:04 Pulse 98 12/18/22 07:04 Resp 17 12/18/22 07:04 BP 159/85 12/18/22 07:04 Pulse Ox 94 L 12/18/22 07:04 FiO2 50 12/15/22 16:10 Intake & Output 12/17/22 12/18/22 12/18/22 18:59 06:59 18:59 Intake Total 500 100 Output Total 2920 300 Balance -2420 -300 100 Weight 105.9 kg 102.8 kg Intake: Intake, IV Titration 100 100 Amount Sodium Ferric Gluconat- 100 100 Sucrose 125 mg In Sodium Chloride 0.9% 100 ml @ 100 mls/hr IVPB DAILY [facility] Rx#:[id number] Hemodialysis 400 Output: Urine 20 Uretheral (Mata) 10 Stool 300 Hemodialysis 2900 Other: Voiding Method Indwelling Catheter # Voids 0 ABP, PAP, CO, CI - Last Documented Arterial Blood Pressure 162/62 - Exam GENERAL EXAM: Alert, weak, 67-year-old male, on 2 L nasal cannula, fairly comfortable in no apparent distress. HEAD: Normocephalic. EYES: Normal reaction of pupils, equal size. NOSE: Clear with pink turbinates. THROAT: No erythema or exudates. NECK: No masses, no JVD. Right IJ HD catheter in place CHEST: No chest wall deformity. LUNGS: Equal air entry with no crackles, wheeze, rhonchi or dullness. CVS: S1 and S2 normal with no audible murmur, regular rhythm. ABDOMEN: No hepatosplenomegaly, normal bowel sounds, no guarding or rigidity. SPINE: No scoliosis or deformity SKIN: No rashes CENTRAL NERVOUS SYSTEM: No focal deficits, tone is normal in all 4 extremities. EXTREMITIES: Left above the knee amputation. Dressing dry and intact. Peripheral pulses are intact. - Labs CBC & Chem 7: 12/17/22 03:33 12/17/22 03:33 Labs: Abnormal Lab Results - Last 24 Hours (Table) 12/17/22 12/18/22 12/18/22 Range/Units 20:26 06:00 12:06 POC Glucose (mg/dL) 137 H 113 H 171 H (70-110) mg/dL Assessment and Plan Assessment: Acute hypoxic respiratory failure most likely secondary to aspiration as the patient was found to be unresponsive and drowning in his own secretions. Resolved patient was extubated on 01/03 year currently on 2 L nasal cannula Acute diabetic ketoacidosis, resolved Acute shock/hypovolemic in nature, resolved Acute kidney injury requiring hemodialysis History of liver cirrhosis with significantly elevated liver enzymes, ammonia level is normal Acute rhabdomyolysis steadily improving with improvement in CPK level Acute hyperkalemia, resolved Acute thrombocytopenia, remains off heparin Acute troponin leak Acute metabolic encephalopathy Acute leukocytosis could be septic or possibly reactive. Acute hypothermia on initial presentation Ischemic left lower extremity, status post left above-knee amputation postoperative day #6 Plan: The patient was seen and evaluated Medications and labs reviewed Stable and on 2 L nasal cannula Plan is for [facility] hemodialysis upon discharge This patient was seen independently by the nurse practitioner I have personally seen and examined the patient, performed the documentation and the assessment and plan as written. Number of minutes spent on the visit: 24.
[2022-12-18] MEDS: LACTOBACILLUS ACIDOPHILUS/PECT 1 EACH CAPSULE PO SCH ×2 (12:27→21:06)
[2022-12-18] MEDS: GABAPENTIN 100 MG CAP PO SCH ×2 (12:27→21:06)
--- NOTE | 2022-12-18 13:01 | P.PN ---
Subjective Patient is seen for follow-up for acute kidney injury on top of chronic kidney disease. Started hemodialysis on 12/08/2022 for ATN from hypotension and sepsis and rhabdomyolysis. Status post right IJ permacath placement 12/17/2022. Right femoral catheter was not removed yesterday. No significant urine output. No significant complaints today. Objective - Vital Signs Vital signs: Vital Signs Temp 97.9 F 12/18/22 07:04 Pulse 98 12/18/22 07:04 Resp 17 12/18/22 07:04 BP 159/85 12/18/22 07:04 Pulse Ox 94 L 12/18/22 07:04 FiO2 50 12/15/22 16:10 Intake & Output 12/17/22 12/18/22 12/18/22 18:59 06:59 18:59 Intake Total 500 100 Output Total 2920 300 Balance -2420 -300 100 Weight 105.9 kg 102.8 kg Intake: Intake, IV Titration 100 100 Amount Sodium Ferric Gluconat- 100 100 Sucrose 125 mg In Sodium Chloride 0.9% 100 ml @ 100 mls/hr IVPB DAILY [facility] Rx#:[id number] Hemodialysis 400 Output: Urine 20 Uretheral (Mata) 10 Stool 300 Hemodialysis 2900 Other: Voiding Method Indwelling Catheter # Voids 0 ABP, PAP, CO, CI - Last Documented Arterial Blood Pressure 162/62 - Exam Awake, comfortable, no acute distress Examination of the heart S1 and S2 Examination of the lungs bilateral breath sounds are heard Abdomen is soft nontender Examination of lower extremity shows trace edema bilaterally, left AKA [employer] exam 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 - Labs CBC & Chem 7: 12/17/22 03:33 12/17/22 03:33 Labs: Abnormal Lab Results - Last 24 Hours (Table) 12/17/22 12/18/22 12/18/22 Range/Units 20:26 06:00 12:06 POC Glucose (mg/dL) 137 H 113 H 171 H (70-110) mg/dL Assessment and Plan Assessment: 1. Acute kidney injury secondary to ATN secondary to hypotension/septic shock and rhabdomyolysis. No hydronephrosis noted on imaging. Oliguric. Started on hemodialysis December 08 2022. Status post right IJ permacath placement on 12/17/2022. Right femoral temporary catheter needs to be removed. 2. Chronic kidney disease stage IIIa with creatinine 1.4 in May 2021. Suspect nephrosclerosis. 3. Rhabdomyolysis. CK levels trending down. 4. Septic shock currently off vasopressors. Blood culture positive for gram- positive cocci and sputum culture positive for gram-negative bacilli. 5. Metabolic acidosis secondary to acute kidney injury. Partially compensatory for respiratory alkalosis. Improved. 6. Hypokalemia from intracellular shifting from IV bicarb. Replaced. 7. DKA s/p insulin drip. 8. Volume overload. Improved with UF. 9. Peripheral arterial disease. Vascular surgery following. Status post left AKA 12/12/2022. 10. Hyponatremia secondary to acute kidney injury. Hypervolemic. Stable. 11. Hyperphosphatemia. Phosphorus level 11.0 dated 12/14/2022. On PhosLo. 12. Anemia, iron deficiency noted. Plan: Hemodialysis in a.m. Vascular surgery to discontinue right femoral dialysis catheter IV iron Add Aranesp
[2022-12-18] MEDS: HYDROcodone/APAP 5-325MG 1 EACH TAB PO PRN (13:46)
--- NOTE | 2022-12-18 14:54 | P.PN ---
Subjective Progress Note Date: 12/18/22 (delayed charting seen at 1030) Patient is a 67-year-old male with a history of diabetes, bipolar disorder, history of closed head injury who [place] unresponsive and cov ered in his own emesis. On arrival to the ER he was tachycardic with a pulse of 101, respirations 26, blood pressure 64/42 and O2 sat 92% on 15 L nonrebreather. Laboratory analysis including CBC, coags, ABG, CMP, ammonia, CK, troponin, urinalysis, urine drug screen, which were remarkable for white blood cell count 15.7, platelets 138, calcium 7.7, carbon dioxide less than 5, BUN 81, creatinine 3.8, glucose 794, lactic acid 9.4, ammonia 590, CK 384, troponin 0.139. Urine drug screen was negative. Influenza A/B/RSV/COVID-19 was negative. Chest x-ray showed endotracheal tube in the right mainstem the lungs were otherwise clear. CT chest abdomen and pelvis showed no acute process but cirrhosis. Head CT showed chronic changes with no acute intracranial process. EKG reviewed with normal sinus rhythm at a rate of 100 and peaker T- waves. He was intubated in the emergency department. He was started on norepinephrine, sodium bicarb with dextrose infusion, insulin infusion. He was also given calcium gluconate 1 g IV piggyback. Critical care was consulted. Arrangements were made for admission. He was continued on levothyroxine. Zosyn was initiated for possible aspiration. He was continued on DKA protocol. He was given aggressive IV fluid resuscitation with both normal saline and D5W with 3 A of bicarb. On the night after admission his urine output decreased and his left lower extremity became ischemic. His CKs elevated. Nephrology was consulted as well as vascular schwab rgery. Patient was placed on a heparin drip. He was seen by vascular surgery. Nephrology recommended hemodialysis and first round was completed on 12/08/22. Patient was able to be weaned off of norepinephrine overnight on 12/08. There is concern for developing hip and his platelet drop and therefore his heparin drip was discontinued. Due to his ischemia of his left lower extremity was determined to be an emergent procedure and he underwent a BKA on 12/12/22. No family was able to be found. An emergency guardian was put in place. He was transitioned off insulin gtt and started on long acting and short acting insulin. He was successfully extubated on 12/15. He continued to do well. He had a perm hemodialysis cath placed on 12/17. He had a stump property and supply officer placed on 12/18. Patient seen and examined at bedside. He complains of pain in his stump. It is burning in nature. No chest pain or shortness of breath. Eating and drinking well. Vital signs reviewed General: nontoxic, no distress, appears at stated age Cardiovascular: S1S2 reg, no murmur, positive posterior tibial pulse bilateral, Lungs: Decreased bs bilateral, no rhonchi, no rales , no accessory muscle use Abdominal: soft, nontender to palpation, no guarding, no appreciable organomegaly Ext: no gross muscle atrophy, no edema R lower extremities, L LE with dressing in place, no contractures Neuro: CN II-XI 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, no focal neuro deficits Psych: Awake, following commands, appropriate affect Assessment/Plan: Acute metabolic encephalopathy, improving Oropharyngeal candidiasis -Pulmonary note reviewed: Plan is for [facility] on discharge. Continue with medications. Stable on 2 L nasal cannula. - Nystatin swish and swallow D# 8 of treatment for thrush -await speech recs Type 2 diabetes, and hypoglycemia -Levemir 30 units at night,fixed dose novolog discontinued, SSI - monitor for hypoglycemia - A1C12.2 Acute on chronic Back Pain - Flexiril 5 mg PO TID prn pain - Avery 5/325 every 6 hours for moderate pain - encouraged patient to work with physical therapy. Ischemic Left lower extremity status post left BKA -Vascular surgery note reviewed: Right temporary hemodialysis catheter removed. Stump property and supply officer placed. - add gabapentin 100 mg twice daily - Dilaudid 1 mg IV every 4 hours as needed for pain - Avery 5/325 every 6 hours for moderate pain Anuric, Acute kidney injury now on hemodialysis Metabolic acidosis Mild hyponatremia -Nephrology note reviewed: Hemodialysis in a.m. Vascular surgery to discontinue right femoral dialysis catheter -Await further nephrology recommendations -Strict I and O -Avoid nephrotoxic agents Anemia , stable Thrombocytopenia, improving -No active bleeding -Continue to follow daily CBC - HIT ab negative Resolved: Hyperkalemia Lactic acidosis Leukocytosis Septic shock Severe DKA Rhabdomyolysis Transaminitis Elevated troponin, suspect secondary to renal dysfunction and Rhabdo Gram-positive cocci 1 out of 2 blood cultures, confirmed contaminant Ventilator dependent respiratory failure Acinetobacter and Enterobacter Aspiration pneumonia-completed zosyn X 8 days Imaging: none new Hospital course imaging: Echocardiogram: hyperdynamic left ventricle 65-70%, right ventricle mildly dilated with RVSP 28 CT chest abdomen pelvis: No acute process, cirrhosis Data Review: Blood sugars reviewed have been ranging from 180-171. DVT prophylaxis: Heparin SC Anticipated discharge date: Pending Clinical Course Anticipated discharge place: Pending Clinical Course This dictation was prepared using [employer] voice recognition software. Though every attempt is made to correct errors during dictation some may still exist. Objective - Vital Signs Vital signs: Vital Signs Temp 97.9 F 12/18/22 07:04 Pulse 98 12/18/22 07:04 Resp 17 12/18/22 07:04 BP 159/85 12/18/22 07:04 Pulse Ox 94 L 12/18/22 07:04 FiO2 50 12/15/22 16:10 Intake & Output 12/17/22 12/18/22 12/18/22 18:59 06:59 18:59 Intake Total 500 100 Output Total 2920 300 Balance -2420 -300 100 Weight 105.9 kg 102.8 kg Intake: Intake, IV Titration 100 100 Amount Sodium Ferric Gluconat- 100 100 Sucrose 125 mg In Sodium Chloride 0.9% 100 ml @ 100 mls/hr IVPB DAILY [facility] Rx#:[id number] Hemodialysis 400 Output: Urine 20 Uretheral (Mata) 10 Stool 300 Hemodialysis 2900 Other: Voiding Method Indwelling Catheter # Voids 0 ABP, PAP, CO, CI - Last Documented Arterial Blood Pressure 162/62 - Labs CBC & Chem 7: 12/17/22 03:33 12/17/22 03:33 Labs: Abnormal Lab Results - Last 24 Hours (Table) 12/17/22 12/18/22 12/18/22 Range/Units 20:26 06:00 12:06 POC Glucose (mg/dL) 137 H 113 H 171 H (70-110) mg/dL
[2022-12-18 16:52] LABS: Glucose,Whole Blood 163 mg/dL (70-110)
[2022-12-18 20:45] LABS: Glucose,Whole Blood 148 mg/dL (70-110)
[2022-12-18] MEDS: MELATONIN 5 MG TABLET PO SCH (21:06)
[2022-12-18] MEDS: INSULIN DETEMIR (LEVEMIR) 100 UNIT/ML SYR SQ SCH (21:07)
[2022-12-19 05:59] LABS: Glucose,Whole Blood 74 mg/dL (70-110)
[2022-12-19] MEDS: INSULIN ASPART (NovoLOG) 100 UNIT/ML VIAL SQ SCH ×3 (06:04→17:19)
[2022-12-19] MEDS: CALCIUM ACETATE 667 MG TAB PO SCH ×3 (06:32→17:20)
[2022-12-19] MEDS: NYSTATIN 100,000 UNIT/ML SUSP 500,000 UNIT/5 ML CUP PO SCH ×3 (07:43→17:20)
[2022-12-19] MEDS: HEPARIN SODIUM,PORCINE 5,000 UNIT/ML 1 ML VIAL SQ SCH ×2 (07:43→14:53)
[2022-12-19] MEDS: ASPIRIN 81 MG PO SCH (07:44)
[2022-12-19] MEDS: HYDROcodone/APAP 5-325MG 1 EACH TAB PO PRN (07:44)
[2022-12-19] MEDS: LACTOBACILLUS ACIDOPHILUS/PECT 1 EACH CAPSULE PO SCH (07:44)
[2022-12-19] MEDS: GABAPENTIN 100 MG CAP PO SCH (07:44)
[2022-12-19] MEDS: PANTOPRAZOLE 40 MG/10 ML VIAL IVP SCH (07:44)
[2022-12-19 07:54] LABS: HCT 26.9 % (39.0-53.0); HGB 8.8 gm/dL (13.0-17.5); MCH 28.2 pg (25.0-35.0); MCHC 32.6 g/dL (31.0-37.0); MCV 86.5 fL (80.0-100.0); Mean Platelet Volume 7.8; Platelet Count 207 k/uL (150-450); RBC 3.11 m/uL (4.30-5.90); RDW 13.8 % (11.5-15.5)
[2022-12-19] MEDS ORDERED: GELATIN SPONGE,ABSORB (SMALL) 1 EACH SPONGE TOPICAL PRN (08:09)
[2022-12-19] MEDS ORDERED: THROMBIN (BOVINE) 5,000 UNIT VIAL TOPICAL PRN (08:10)
[2022-12-19 08:13] LABS: Anion Gap 14 mmol/L; Blood Urea Nitrogen 70 mg/dL (9-20); Calcium 8.4 mg/dL (8.4-10.2); Carbon Dioxide 20 mmol/L (22-30); Chloride 99 mmol/L (98-107); Glucose 81 mg/dL (74-99); Potassium 4.5 mmol/L (3.5-5.1); Sodium 133 mmol/L (137-145)
[2022-12-19 08:20] LABS: African American GFR (CKD) 11 (>60 ml/min/1.73 sqM); Non-African American GFR(CKD) 10 (>60 ml/min/1.73 sqM)
[2022-12-19] MEDS: SODIUM FERRIC GLUCONAT-SUCROSE 125 MG in SODIUM CHLORIDE 0.9% 100 ML IVPB SCH (08:38)
[2022-12-19] MEDS ORDERED: HYDROcodone/APAP 7.5-325MG 1 EACH TAB PO PRN (10:40)
[2022-12-19] MEDS: ACETAMINOPHEN TAB 325 MG TAB PO PRN (11:00)
[2022-12-19] MEDS: CYCLOBENZAPRINE 5 MG TAB PO PRN (11:00)
[2022-12-19 11:52] LABS: Glucose,Whole Blood 106 mg/dL (70-110)
--- NOTE | 2022-12-19 12:44 | P.PN ---
Subjective Progress Note Date: 12/19/22 Principal diagnosis: Critical limb ischemia, acute kidney injury needing hemodialysis Patient is Seen and examined today as a follow-up. Saturday he had right IJ tunnel catheter placed. He is about to undergo dialysis. It is noted that he has bleeding coming from underneath the dialysis dressing. The dressing was changed there was some clot noted but does not appear any active bleeding. Patient denies any bleeding from right groin. No acute changes through the night. Stump supervisor chemical and rigid dressing in place on left AKA stump. Objective - Vital Signs Vital signs: Vital Signs Temp 97.8 F 12/19/22 01:48 Pulse 69 12/19/22 01:48 Resp 17 12/19/22 01:48 BP 139/81 12/19/22 01:48 Pulse Ox 97 12/19/22 01:48 FiO2 50 12/15/22 16:10 Intake & Output 12/18/22 12/19/22 12/19/22 18:59 06:59 18:59 Intake Total 100 Balance 100 Weight 100 kg Intake: Intake, IV Titration 100 Amount Sodium Ferric Gluconat- 100 Sucrose 125 mg In Sodium Chloride 0.9% 100 ml @ 100 mls/hr IVPB DAILY [facility] [place] Rx#:[id number] Other: # Voids 1 ABP, PAP, CO, CI - Last Documented Arterial Blood Pressure 162/62 - Exam General appearance: The patient is awake, but weak and lethargic. HET: Head is normocephalic and atraumatic. Neck: Supple. Chest: Right upper chest wall with right IJ tunneled catheter in place, clot noted around the catheter. Chest wall cleaned and dressing reapplied per dialysis nurse. It did not appear to have any further active bleeding at that time. Lungs: Equal expansion. Abdomen: Soft, nondistended. Extremities: Left [id number] amputation stump with dressing clean dry and intact. Right groin with minimal ecchymosis, no active bleeding. Neurological: Awake, lethargic. - Labs CBC & Chem 7: 12/19/22 07:18 12/19/22 07:18 Labs: Abnormal Lab Results - Last 24 Hours (Table) 12/18/22 12/18/22 12/18/22 Range/Units 12:06 16:48 20:42 POC Glucose (mg/dL) 171 H 163 H 148 H (70-110) mg/dL Assessment and Plan Assessment: 1. Left lower extremity critical limb ischemia status post left [id number] amputation 2. Renal failure, requiring hemodialysis. Status post right IJ tunneled catheter placement. 3. Diabetic ketoacidosis with associated severe metabolic derangements, improved 4. Rhabdomyolysis secondary to being down for extended period time, exacerbated by critical limb ischemia. Improved. 5. Acute hypoxic respiratory failure, resolved. 6. Thrombocytopenia, likely heparin-induced thrombocytopenia. Resolved. Plan: 1. Social work on consult, order given for stump supervisor chemical and rigid dressing with comfort prosthetics 2. Dressing change every other day or as needed with Kerlix. Stump supervisor chemical a nd rigid dressing to left AKA 3. Patient is status post right IJ tunnel catheter placement, bleeding noted. Single 3-0 nylon suture placed at right IJ catheter site. 4. Hemodialysis per recommendations from nephrology 5. Recommend PT/OT. She will need to subacute rehab versus inpatient rehab. 6. The rest of medical management per primary medical team and singer back tender Thank you for this consultation, we will continue to follow. Patient is cleared from vascular surgery for discharge once stump supervisor chemical and rigid dressing placed. The impression and plan of care has been dictated as directed. Dr. Mata I performed a history and examination of this patient, discussed the same with the dictator. I agree with the dictator's note ,documented as a scribe. Any additional findings or plans will be noted.
--- NOTE | 2022-12-19 13:04 | P.PN ---
Subjective Progress Note Date: 12/19/22 This is a 67-year-old male patient, diabetic, known history of closed head injury, bipolar disorder, was currently intubated on a mechanical ventilator. He presented to our hospital unresponsive. He was [place] in [place] motel in his own emesis. Upon arrival, the patient was hypotensive, he was hypoxic, he was found to be in DKA. He was intubated and placed on a mechanical ventilator. I believe he also aspirated. CAT scan of the chest abdomen and pelvis showed no acute process. There may be some changes related to liver cirrhosis. CAT scan of the head showed no acute intracranial process. At this point in time, the patient is intubated on a mechanical ventilator. Is on assist control and anxiety the rate of 228, FiO2 has been brought down to 50% with a PEEP of 5 and a tidal volumes of 500. The blood gas showed a pH of 6.9 with a pCO2 of 31 and pO2 of 400. The blood work showed a potassium level of 7.7, he had significant and I get metabolic acidosis with a serum bicarb of less than 5, initial blood sugar was 794 and the lactic acid level was at 9.5. The patient had a white cell count of 15.7 with a hemoglobin 15.8 and a platelet count of 138. Cognition profile was within normal limits. LFTs were normal, serum ammonia level was elevated at 590, UA showed +3 glucose, +2 ketones and urine drug screen was negative, the viral screen was also negative. For now, the patient h as already received a total of 3 L of normal saline and the patient is currently on a bicarbonate infusion running at 150 mEq at 150 mL an hour. He is on insulin drip at 10 units an hour. He is on propofol running at 35 mcg/kg/m. He has a triple-lumen catheter in his left femoral vein. There is a orogastric tube in place and output is coffee-ground. He has hypotensive. He is on norepinephrine at 0.2 mcg/kg/m. The patient is also on emperic Antibiotic coverage started on a combination of Zosyn and vancomycin. On today's evaluation of 12/08/2022, the patient is being seen in follow-up in the intensive care unit. A critically ill male patient with DKA, rhabdomyolysis, severe metabolic acidosis, hypotension, acute kidney injury and furthermore, the patient lost his pulse and the left lower extremity and currently has a ischemic left foot. The patient remains on a mechanical ventila tor for now. He is on propofol which is running at 40 mcg/kg/m. His adequately sedated and is calm and comfortable on a mechanical ventilator on assist control mode at a rate of 28, tidal volume 500, FiO2 of 40% with a PEEP of 5. The blood gas from today shows a pH of 7.28 with episodes of 26-year-old to 180. Chest x- ray shows no acute abnormalities. Orotracheal tube is in good location. No airspace disease. NG tube is in place. Lungs are clear. Also, the patient remains hemodynamically unstable. He was aggressively resuscitated with IV fluids yesterday. Patient has been in a positive fluid balance of 5 L over the past 24 hours. Currently, he remains on norepinephrine and dose has been weaned down to 0.16 mcg/kg/m. The patient has been switched to D5 half-normal saline which is running at 150 mL an hour and this is based on our DKA protocol. Insulin drip is still running at 12 units an hour. Most recent blood sugar is at 292. The anion gap is at 18. Serum bicarb is at 8. Potassium level has improved down to 4.9. He has sustained an acute kidney injury and the creat inine is at the rise at 3.9. He was had no urine output overnightt. Earlier this morning, he started making some urine output. He has developed a rhabdomyolysis. CPK level is up to 13,947.. Furthermore, his left foot is mottled and cold and pale and there are no palpable pulses in dorsalis pedis and the posterior tibialis. Very poor capillary refill. The mottling is above the ankle reaching the med left leg. The white count was of 15.7, hemoglobin was at 15.8 at time of admission. Coagulation profile was within normal limits. UA was negative. 12/09/2022, the patient remains intubated on a mechanical ventilator. The patient remains in intensive care unit. He is a critically ill male patient with DKA, rhabdomyolysis, hypotension, acute kidney injury and ischemic left foot. Since yesterday, the patient has been kept on a mechanical ventilator. He remains on propofol running at 25 mcg/kg/m. He remains comfortable and symptoms to mechanical ventilator. His assist-control mode at a rate of 28, tidal volume of 500, FiO2 of 40% with a PEEP of 5. The blood gas from today sixto ws a pH of 7.49 with a pCO2 of 24 and pO2 of 109. Chest x-ray showing atelectatic changes in both lungs bilaterally. Orotracheal tube is in a good location. Hemodynamically, the patient was weaned off the pressors and this morning the patient was taken off pressors. Meanwhile, his urine output is quite low. This has been noted throughout the night. Nephrology is involved regarding his acute kidney injury and severe rhabdomyolysis. The patient has a dialysis catheter has right femoral vein. The patient was started on hemodialysis in the first session was offered to him yesterday. Unfortunately, the CPK is on the rise is currently up to 92,000. The left lower extremities ischemic with absent pulses in skin mottling and swelling demarcated this point in time. No Refill. The potassium levels at 3.6, serum bicarbs of 50, B is a 64 with a creatinine of 3.7. IV heparin was started and it had to be discontinued because of the development of thrombocytopenia. Platelet count is down to 42. Hemoglobin is at 12.5 with a white cell count of 9.1. Insulin drip is running at 5.5 units an hour and the patient's blood sugars are in the 300 range. He was started also on enteral feeding for nutritional support and currently is on vital high-protein at the rate of 20 mL an hour. He is afebrile. Cultures are negative. Is covered with antibiotics and he is currently on IV Zosyn Patient was reevaluated today on 12/10/2022, remains in the ICU, intubated and mechanically ventilated, receiving hemodialysis early this morning. Patient is on assist control rate of 20 tidal volume 500 FiO2 40% and PEEP of 5 ABG showed a pO2 of 101 pCO2 31 pH of 7.46. Patient is to have hemodialysis finished today. Patient is on insulin drip is also on propofol at 35 mcg/kg/m, not requiring any pressors. For his gram-negative bacilli in the sputum patient is receiving still vancomycin and Zosyn. Patient was felt to have most likely aspiration pneumonia not to mention the patient presented with hypotension, lactic acidosis, and acute kidney injury. Patient was found down in the [place], and he required immediate intubation. Her drug screen has been negative. Chest x-ray showed minimal atelectasis at the bases, otherwise no active disease. WBC count is 8.5 hemoglobin 11.1. Basic metabolic profile is relatively normal except for a BUN of 85 creatinine 5.33. CPK is extremely elevated actually it is 19 2500 and his liver enzymes are also elevated with AST of 1522 and ALT of 350. Drug screen on admission was negative. Platelets remained low at 38,000 Reevaluated today on 12/11/22, remains in the ICU, remains intubated and mechanically ventilated, patient remains on hemodialysis and he is receiving another hemodialysis today. He is on assist control rate of 20 tidal volume of 500 FiO2 40% PEEP of 5 ABG showed a pO2 of 113 pCO2 31 pH of 7.42. The goal is to remove 2 L of fluids today with his hemodialysis. Patient remains on propofol at 40 mg/kg/m is also receiving vital HP. Could not assess mental status yesterday, however will try to hold sedation/propofol today, and hopefully get an adequate assessment of mental status off sedation. Patient was seen by vascular surgery and considering amputation of the left lower extremity Continues to have cold left lower extremity and ischemic foot. WBC count is 10.7 hemoglobin is 10.4, electrolytes are normal bicarb is 18, BUN is 99 creatinine 6.11 blood sugars are high in the 400 range, CPK is almost 38,000. Trending down. His AST is 1156 and ALT 318, also trending down. Chest x-ray showed minimal bibasilar atelectasis, no infiltrate or pneumonia Patient was reevaluated today on 12/12/22, patient remains in the ICU, intubated and mechanically ventilated. He is on assist control rate of 20 tidal volume 500 FiO2 35% and PEEP of 5 ABG today showed a pO2 of 113 pCO2 32 pH of 7.46. CBC is relatively unremarkable the PEEP cigar of 12 hemoglobin 9.7 platelets are 60,000. Sodium 130 potassium 3.9 chloride 99 BUN 80 creatinine 5.21 bicarb is 21. Sputum cultures have been positive for Citrobacter and Enterobacter cloaca my remains on vancomycin, and fluconazole. Zosyn,. Patient is still on dial ysis/hemodialysis. No plans to wean and extubate the patient today since the patient is going for left lower extremity amputation sometime later today by vascular surgery. Chest x-ray is relatively unremarkable except for minimal right basilar atelectasis. Possible infiltrate Patient was reevaluated today on 12/13/22, remains in the ICU, intubated and mechanically ventilated. He is on assist control rate of 20 tidal volume 500 FiO2 35% PEEP of 5, ABG showed a pO2 of 80 pCO2 30 pH of 7.48. Patient underwent uneventful left above-knee amputation yesterday on 12/12. No plans for hemodialysis today. Chest x-ray is showing minimal left basilar atelectasis was CBC is relatively normal, sodium 129 bicarb is 19 BUN 16 creatinine 3.90 CPK is down to 10,184 liver enzymes remain a bit elevated ammonia level less than 9 in the plan today is to consider a trial of weaning. In the meantime the patient is on propofol at 35 pack per kilo per minute, is also on vital AF at 10 mL per hour, we'll increase to 20 mL per hour, remains on Zosyn, Reevaluated today on 12/14/22, patient remains in the ICU, intubated, mechanically ventilated, remains on the same ventilator settings assist control rate of 20 tidal volume 500 FiO2 35% and PEEP of 5 ABG showed a pO2 of 117 pCO2 32 pH of 7.41. Patient is undergoing hemodialysis again today. Yesterday the patient was kept off sedation between 9 AM to 5 PM, and he was not arousable enough to pursue any further weaning trials or any weaning parameters on this patient. Remained quite lethargic, could only open eyes, but did not follow any instructions, and as he was getting a bit more agitated last night he was placed back on propofol which will be discontinued again today he is on 50 mcg/kg/m. Patient is also receiving hemodialysis this morning. Antibiotics sevilla patient remains on fluconazole and Zosyn. Chest x-ray showed minimal atelectasis, relatively clear otherwise. WBC count is 8.8 hemoglobin 8.6, basic metabolic profile is normal except for sodium of 129 bicarb is 17 BUN is 88 creatinine 6.0 liver enzymes remain a bit elevated. Reevaluated today on 12/15/22, remains in the ICU intubated and mechanically ventilated. He is on assist control rate of 20 tidal volume 500 FiO2 up to 50% he was on 35% earlier PEEP of 5. ABG on 35% showed a pO2 of 69 pCO2 30 pH of 7.42. Patient is undergoing hemodialysis this morning. Has been off sedation for the last 24 hours, seems to be awake, follows instructions, does not seem to be in any distress. However the patient seems to be generally weak. Chest x- ray showed no significant abnormality except for minimal atelectasis. No evidence of pneumonia or heart failure. Basic metabolic profile is normal except for a bicarb of 15 and anion gap of 16, BUN is 64 creatinine 4.12 WBC count is 7.8 hemoglobin 9.0. Platelets are up to 1 27,000. Today on 12/16/22, patient remains in the ICU, he was extubated yesterday uneventfully patient is resting in bed on 2 L nasal cannula receiving IV fluid at 10 mL per hour. Patient is not being dialyzed today, he seems to be very comfortable, arousable, but sleepy and he is not in any distress, hence I plan to transfer the patient out of the ICU to a cardiac floor. WBC count today is 9.1 hemoglobin 9.2 basic metabolic profile is relatively normal BUN is 57 creatinine 3.80. Her enzymes remain slightly elevated but improving The patient is seen today 12/17/2022 in follow-up in the intensive care unit. He is a selective care unit overflow. He is currently awake and alert. He is maintaining O2 saturations in the 90s on 2 L/m per nasal cannula. He is still quite weak and debilitated. Sputum culture was positive for acinetobacter heidi and Enterobacter cloacae. Blood cultures revealed no growth. White count 11.3. Hemoglobin 8.8. Platelet is 205. Sodium 134. Potassium 3.6. Bicarb 21. BUN 73. Creatinine 5.71. Glucose 57. Plan is for hemodialysis again today. Heparin for DVT prophylaxis. The patient is seen today 12/18/2022 in follow-up on the regular medical floor. He is currently resting comfortably in bed. Awake and alert in no acute distress. He is maintaining O2 saturations in the 90s on 2 L nasal cannula. He did undergo a right internal jugular hemodialysis catheter yesterday received hemodialysis as well. Dressing to his left [id number] amputation dressing is dry and intact. Sputum culture was positive for Citrobacter Heidi and Enterobacter cloacae. Blood cultures revealed no growth. Blood sugar 171. He is continued on heparin for DVT prophylaxis. The patient is seen today 12/19/2022 in follow-up on the regular medical floor. He is currently resting comfortably in bed. Maintaining O2 saturations in the 90s on 2 L. Currently receiving hemodialysis with a goal of 2 L of fluid to be removed. He completed vancomycin and Zosyn. White count 10.0. Hemoglobin 8.8. Platelets 207. Sodium 133. Potassium 4.5. Bicarb 20. BUN 70. Creatinine 5.45. Glucose 81. He is continued on heparin for DVT prophylaxis. Objective - Vital Signs Vital signs: Vital Signs Temp 98.0 F 12/19/22 12:31 Pulse 86 12/19/22 12:31 Resp 19 12/19/22 12:31 BP 140/95 12/19/22 12:31 Pulse Ox 97 12/19/22 07:01 FiO2 50 12/15/22 16:10 Intake & Output 12/18/22 12/19/22 12/19/22 18:59 06:59 18:59 Intake Total 100 400 Output Total 2500 Balance 100 -2100 Weight 100 kg Intake: Intake, IV Titration 100 100 Amount Sodium Ferric Gluconat- 100 100 Sucrose 125 mg In Sodium Chloride 0.9% 100 ml @ 100 mls/hr IVPB DAILY [facility] Rx#:[id number] Hemodialysis 300 Output: Hemodialysis 2500 Other: # Voids 1 ABP, PAP, CO, CI - Last Documented Arterial Blood Pressure 162/62 - Exam GENERAL EXAM: Alert, 67-year-old male, on 2 L nasal cannula, in no apparent distress. HEAD: Normocephalic. EYES: Normal reaction of pupils, equal size. NOSE: Clear with pink turbinates. THROAT: No erythema or exudates. NECK: No masses, no JVD. Right IJ HD catheter in place CHEST: No chest wall deformity. LUNGS: Equal air entry with no crackles, wheeze, rhonchi or dullness. CVS: S1 and S2 normal with no audible murmur, regular rhythm. ABDOMEN: No hepatosplenomegaly, normal bowel sounds, no guarding or rigidity. SPINE: No scoliosis or deformity SKIN: No rashes CENTRAL NERVOUS SYSTEM: No focal deficits, tone is normal in all 4 extremities. EXTREMITIES: Left above the knee amputation. Dressing dry and intact. Peripheral pulses are intact. - Labs CBC & Chem 7: 12/19/22 07:18 12/19/22 07:18 Labs: Abnormal Lab Results - Last 24 Hours (Table) 12/18/22 12/18/22 12/19/22 Range/Units 16:48 20:42 07:18 RBC 3.11 L (4.30-5.90) m/uL Hgb 8.8 L (13.0-17.5) gm/dL Hct 26.9 L (39.0-53.0) % Sodium (137-145) mmol/L Carbon Dioxide (22-30) mmol/L BUN (9-20) mg/dL Creatinine (0.66-1.25) mg/dL POC Glucose (mg/dL) 163 H 148 H (70-110) mg/dL 12/19/22 Range/Units 07:18 RBC (4.30-5.90) m/uL Hgb (13.0-17.5) gm/dL Hct (39.0-53.0) % Sodium 133 L (137-145) mmol/L Carbon Dioxide 20 L (22-30) mmol/L BUN 70 H (9-20) mg/dL Creatinine 5.45 H (0.66-1.25) mg/dL POC Glucose (mg/dL) (70-110) mg/dL Assessment and Plan Assessment: Acute hypoxic respiratory failure most likely secondary to aspiration as the patient was found to be unresponsive and drowning in his own secretions. Resolved currently on 2 L nasal cannula Acute diabetic ketoacidosis, resolved Acute shock/hypovolemic in nature, resolved Acute kidney injury requiring hemodialysis History of liver cirrhosis with significantly elevated liver enzymes, ammonia level is normal Acute rhabdomyolysis steadily improving with improvement in CPK level Acute hyperkalemia, resolved Acute thrombocytopenia, remains off heparin Acute troponin leak Acute metabolic encephalopathy Acute leukocytosis could be septic or possibly reactive. Acute hypothermia on initial presentation Ischemic left lower extremity, status post left above-knee amputation postoperative day #6 Plan: The patient was seen and evaluated Medications and labs reviewed Stable and on 2 L nasal cannula He is receiving hemodialysis today with plans of 2 L to be removed Plan is for [facility] upon discharge This patient was seen independently by the nurse practitioner I have personally seen and examined the patient, performed the documentation and the assessment and plan as written. Number of minutes spent on the visit: 22.
--- NOTE | 2022-12-19 13:35 | P.DS ---
Providers Date of admission: 12/07/22 14:27 Expected date of discharge: 12/19/22 Attending physician: Hattie Rollins, Consults: 12/07/22 14:27 Consult Physician Stat Consulting Provider: Wanda Tavarez Consult Reason/Comments: icu management Do you want consulting provider notified?: Yes 12/08/22 07:42 Consult Physician Routine Consulting Provider: Theresa Greco Consult Reason/Comments: rhabdo Do you want consulting provider notified?: Yes 12/08/22 08:27 Consult Physician Urgent Consulting Provider: Spencer Long Consult Reason/Comments: cold left foot. 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 Anuric, Acute kidney injury now on hemodialysis Metabolic acidosis Mild hyponatremia Anemia , stable Thrombocytopenia, improving Hyperkalemia Lactic acidosis Leukocytosis Septic shock Severe DKA Rhabdomyolysis Transaminitis Elevated troponin, suspect secondary to renal dysfunction and Rhabdo Gram-positive cocci 1 out of 2 blood cultures, confirmed contaminant Ventilator dependent respiratory failure Acinetobacter and Enterobacter Aspiration pneumonia-completed zosyn X 8 days Hospital Course: Patient is a 67-year-old male with a history of diabetes, bipolar disorder, history of closed head injury who [place] unresponsive and covered in his own emesis. On arrival to the ER he was tachycardic with a pulse of 101, respirations 26, blood pressure 64/42 and O2 sat 92% on 15 L nonrebreather. Laboratory analysis including CBC, coags, ABG, CMP, ammonia, CK, troponin, urinalysis, urine drug screen, which were remarkable for white blood cell count 15.7, platelets 138, calcium 7.7, carbon dioxide less than 5, BUN 81, creatinine 3.8, glucose 794, lactic acid 9.4, ammonia 590, CK 384, troponin 0.139. Urine drug screen was negative. Influenza A/B/RSV/COVID-19 was negative. Chest x-ray showed endotracheal tube in the right mainstem the lungs were otherwise clear. CT chest abdomen and pelvis showed no acute process but cirrhosis. Head CT showed chronic changes with no acute intracranial process. EKG reviewed with normal sinus rhythm at a rate of 100 and peaker T- waves. He was intubated in the emergency department. He was started on norepinephrine, sodium bicarb with dextrose infusion, insulin infusion. He was also given calcium gluconate 1 g IV piggyback. Critical care was consulted. Arrangements were made for admission. He was continued on levothyroxine. Zosyn was initiated for possible aspiration. He was continued on DKA protocol. He was given aggressive IV fluid resuscitation with both normal saline and D5W with 3 A of bicarb. On the night after admission his urine output decreased and his left lower extremity became ischemic. His CKs elevated. Nephrology was consulted as well as vascular surgery. Patient was placed on a heparin drip. He was seen by vascular surgery. Nephrology recommended hemodialysis and first round was completed on 12/08/22. Patient was able to be weaned off of norepinephrine overnight on 12/08. There was concern for developing HIT as his platelet dropped. Therefore his heparin drip was discontinued. Due to his ischemia of his left lower extremity it was determined he required an emergent BKA which was completed on 12/12/22. No family was able to be found. An emergency guardian was put in place. He was transitioned off insulin gtt and started on long acting and short acting insulin. He was successfully extubated on 12/15. He continued to do well. He had a perm hemodialysis cath placed on 12/17. He had a stump customer insight analyst placed on 12/18. He continued to do well and was determined stable for discharge home. Follow-up: Dr. Mata in 2 weeks, PCP [facility], Dr. Greco at dialysis. He will have dialysis performed at first any of on Mondays/Wednesdays/Fridays. Should have a CBC and a basic metabolic profile done in 3 days. He was determined stable for discharge. He will need to complete 5 more days of nystatin. Patient seen and examined at bedside. He continues to have some chronic back pain. He denies any other complaints currently. He denies any chest pain or shortness of breath. 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 Vital signs reviewed and stable. General: nontoxic, no distress, appears at stated age Cardiovascular: S1S2 reg, no murmur, positive posterior tibial pulse bilateral, Lungs: CTA bilateral, no rhonchi, no rales , no accessory muscle use Abdominal: soft, nontender to palpation, no guarding, no appreciable organomegaly Ext: no gross muscle atrophy, no edema b/l lower extremities, no contractures Neuro: CN II-XI 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, no focal neuro deficits Psych: Alert, oriented, appropriate affect A total of minutes of time were spent preparing this complex discharge summary. Patient was discharged on . This dictation was prepared using [employer] voice recognition software. Though every attempt is made to correct errors during dictation some may still exist. Patient Condition at Discharge: Stable Plan - Discharge Summary New Discharge Prescriptions: New Lactobacillus Acidophilus [Acidophilus Probiotic] 1 each PO AC-BID #60 capsule Cyclobenzaprine [Flexeril] 5 mg PO TID PRN tab PRN Reason: Muscle Spasm Nystatin 100,000 Unit/ml Susp [Mycostatin Oral Susp] 500,000 unit PO QID 5 Days #30 ml Gabapentin [Neurontin] 100 mg PO BID #6 cap HYDROcodone/APAP 7.5-325MG [[place] 7.5-325] 1 each PO Q6HR PRN #12 tab PRN Reason: Moderate Pain (Scale 4 To 6) Calcium Acetate [PhosLo] 667 mg PO TID-W/MEALS tab Aspirin 81 mg PO DAILY tab Insulin Detemir (Levemir) [Levemir] 25 unit SQ HS each Melatonin 5 mg PO HS tab INSULIN ASPART (NovoLOG) [NovoLOG (formulary)] 0 unit SQ ACHS each Acetaminophen Tab [Tylenol] 650 mg PO Q6HR PRN tab PRN Reason: Fever And/ Or Pain Discharge Medication List Acetaminophen Tab [Tylenol] 650 mg PO Q6HR PRN tab 12/19/22 [Rx] Aspirin 81 mg PO DAILY tab 12/19/22 [Rx] Calcium Acetate [PhosLo] 667 mg PO TID-W/MEALS tab 12/19/22 [Rx] Cyclobenzaprine [Flexeril] 5 mg PO TID PRN tab 12/19/22 [Rx] Gabapentin [Neurontin] 100 mg PO BID #6 cap 12/19/22 [Rx] HYDROcodone/APAP 7.5-325MG [[place] 7.5-325] 1 each PO Q6HR PRN #12 tab 12/19/22 [Rx] INSULIN ASPART (NovoLOG) [NovoLOG (formulary)] 0 unit SQ ACHS each 12/19/22 [Rx] Insulin Detemir (Levemir) [Levemir] 25 unit SQ HS each 12/19/22 [Rx] Lactobacillus Acidophilus [Acidophilus Probiotic] 1 each PO AC-BID #60 capsule 12/19/22 [Rx] Melatonin 5 mg PO HS tab 12/19/22 [Rx] Nystatin 100,000 Unit/ml Susp [Mycostatin Oral Susp] 500,000 unit PO QID 5 Days #30 ml 12/19/22 [Rx] Follow up Appointment(s)/Referral(s): [facility] [NON-STAFF] - 12/21/22 7:00 am Lauren Mata DO [STAFF PHYSICIAN] - 2 Weeks [facility] [NON-STAFF] - As Needed None,Stated [Primary Care Provider] - 1-2 days Theresa Greco MD [STAFF PHYSICIAN] - 1 Week (at hemodialysis) Activity/Diet/Wound Care/Special Instructions: Activity: as tolerated Diet: Renal and carb consistent diet Special Instructions: Blood sugars qACHS CBC and BMP in 3 days Fall precautions Comfort prosthetics to follow patients for prosthesis Discharge Disposition: HOME SELF-CARE
[2022-12-19 14:27] VITALS: BP 157/78; PULSE 100; RESP 20; TEMP 98.1
[2022-12-19 16:54] LABS: Glucose,Whole Blood 267 mg/dL (70-110)
--- NOTE | 2022-12-19 18:08 | P.PN ---
Subjective Patient is seen for follow-up for acute kidney injury on top of chronic kidney disease. Started hemodialysis on 12/08/2022 for ATN from hypotension and sepsis and rhabdomyolysis. Status post right IJ permacath placement 12/17/2022. No significant urine output. No significant complaints today. Scheduled for HD today. Objective - Vital Signs Vital signs: Vital Signs Temp 98.1 F 12/19/22 12:57 Pulse 100 12/19/22 12:57 Resp 20 12/19/22 12:57 BP 157/78 12/19/22 12:57 Pulse Ox 95 12/19/22 12:57 FiO2 50 12/15/22 16:10 Intake & Output 12/18/22 12/19/22 12/19/22 18:59 06:59 18:59 Intake Total 100 400 Output Total 2500 Balance 100 -2100 Weight 100 kg Intake: Intake, IV Titration 100 100 Amount Sodium Ferric Gluconat- 100 100 Sucrose 125 mg In Sodium Chloride 0.9% 100 ml @ 100 mls/hr IVPB DAILY COUNTS INCLUDE 234 BEDS AT THE [facility] Rx#:[id number] Hemodialysis 300 Output: Hemodialysis 2500 Other: # Voids 1 ABP, PAP, CO, CI - Last Documented Arterial Blood Pressure 162/62 - Exam Awake, comfortable, no acute distress Examination of the heart S1 and S2 Examination of the lungs bilateral breath sounds are heard Abdomen is soft nontender Examination of lower extremity shows trace edema bilaterally, 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 - Labs CBC & Chem 7: 12/19/22 07:18 12/19/22 07:18 Labs: Abnormal Lab Results - Last 24 Hours (Table) 12/18/22 12/19/22 12/19/22 Range/Units 20:42 07:18 07:18 RBC 3.11 L (4.30-5.90) m/uL Hgb 8.8 L (13.0-17.5) gm/dL Hct 26.9 L (39.0-53.0) % Sodium 133 L (137-145) mmol/L Carbon Dioxide 20 L (22-30) mmol/L BUN 70 H (9-20) mg/dL Creatinine 5.45 H (0.66-1.25) mg/dL POC Glucose (mg/dL) 148 H (70-110) mg/dL 12/19/22 Range/Units 16:52 RBC (4.30-5.90) m/uL Hgb (13.0-17.5) gm/dL Hct (39.0-53.0) % Sodium (137-145) mmol/L Carbon Dioxide (22-30) mmol/L BUN (9-20) mg/dL Creatinine (0.66-1.25) mg/dL POC Glucose (mg/dL) 267 H (70-110) mg/dL Assessment and Plan Assessment: 1. Acute kidney injury secondary to ATN secondary to hypotension/septic shock and rhabdomyolysis. No hydronephrosis noted on imaging. Oliguric. Started on hemodialysis December 08 2022. Status post right IJ permacath placement on 12/17/2022. 2. Chronic kidney disease stage IIIa with creatinine 1.4 in May 2021. Suspect nephrosclerosis. 3. Rhabdomyolysis. CK levels trending down. 4. Septic shock currently off vasopressors. Blood culture positive for gram- positive cocci and sputum culture positive for gram-negative bacilli. 5. Metabolic acidosis secondary to acute kidney injury. Partially compensatory for respiratory alkalosis. Improved. 6. Hypokalemia from intracellular shifting from IV bicarb. Replaced. 7. DKA s/p insulin drip. 8. Volume overload. Improved with UF. 9. Peripheral arterial disease. Vascular surgery following. Status post left AKA 12/12/2022. 10. Hyponatremia secondary to acute kidney injury. Hypervolemic. Stable. 11. Hyperphosphatemia. Phosphorus level 11.0 dated 12/14/2022. On PhosLo. 12. Anemia, iron deficiency noted. Plan: Hemodialysis today OK to discharge if out patient dialysis chair time is set up.
== END 2022-12-19 18:20 | DRG 853 ==
LOC: EC 11:36 → 2SICU 14:27 → EEVIPCON 14:27 → 2SICU 14:47 → 4SSUR 12-17 11:10
PROVIDERS: ADMIT Internal Medicine; ATTEND Internal Medicine
PROC: 5A1955Z Respiratory Ventilation, Greater than 96 Consecutive Hours (ICD-10-PCS; 2022-12-07)
PROC: 06HY33Z Insertion of Infusion Device into Lower Vein, Percutaneous Approach (ICD-10-PCS; 2022-12-07)
PROC: 0BH18EZ Insertion of Endotracheal Airway into Trachea, Via Natural or Artificial Opening Endoscopic (ICD-10-PCS; 2022-12-07)
PROC: 3E043XZ Introduction of Vasopressor into Central Vein, Percutaneous Approach (ICD-10-PCS; 2022-12-07)
PROC: 03HY32Z Insertion of Monitoring Device into Upper Artery, Percutaneous Approach (ICD-10-PCS; 2022-12-07)
PROC: 4A133B1 Monitoring of Arterial Pressure, Peripheral, Percutaneous Approach (ICD-10-PCS; 2022-12-07)
PROC: 4A133J1 Monitoring of Arterial Pulse, Peripheral, Percutaneous Approach (ICD-10-PCS; 2022-12-07)
PROC: 06HM33Z Insertion of Infusion Device into Right Femoral Vein, Percutaneous Approach (ICD-10-PCS; 2022-12-08)
PROC: 5A1D70Z Performance of Urinary Filtration, Intermittent, Less than 6 Hours Per Day (ICD-10-PCS; 2022-12-08)
PROC: 06PY33Z Removal of Infusion Device from Lower Vein, Percutaneous Approach (ICD-10-PCS; 2022-12-11)
PROC: 06HM33Z Insertion of Infusion Device into Right Femoral Vein, Percutaneous Approach (ICD-10-PCS; 2022-12-11)
PROC: 0Y6D0Z2 Detachment at Left Upper Leg, Mid, Open Approach (ICD-10-PCS; principal; 2022-12-12 08:00)
PROC: 02HV33Z Insertion of Infusion Device into Superior Vena Cava, Percutaneous Approach (ICD-10-PCS; 2022-12-17)
PROC: 0JH63XZ Insertion of Tunneled Vascular Access Device into Chest Subcutaneous Tissue and Fascia, Percutaneous Approach (ICD-10-PCS; 2022-12-17 14:00)
DX: A41.9 Sepsis, unspecified organism (principal); E11.10 Type 2 diabetes mellitus with ketoacidosis without coma; N17.0 Acute kidney failure with tubular necrosis; J96.01 Acute respiratory failure with hypoxia; R65.21 Severe sepsis with septic shock; J69.0 Pneumonitis due to inhalation of food and vomit; G93.41 Metabolic encephalopathy; J15.69 Pneumonia due to other Gram-negative bacteria; B37.89 Other sites of candidiasis; E87.3 Alkalosis; E87.1 Hypo-osmolality and hyponatremia; D75.829 Heparin-induced thrombocytopenia, unspecified; E11.649 Type 2 diabetes mellitus with hypoglycemia without coma; I70.222 Atherosclerosis of native arteries of extremities with rest pain, left leg; F31.9 Bipolar disorder, unspecified; N18.31 Chronic kidney disease, stage 3a; K74.60 Unspecified cirrhosis of liver; T79.6XXA Traumatic ischemia of muscle, initial encounter; E83.39 Other disorders of phosphorus metabolism; T17.918A Gastric contents in respiratory tract, part unspecified causing other injury, initial encounter; I12.9 Hypertensive chronic kidney disease with stage 1 through stage 4 chronic kidney disease, or unspecified chronic kidney disease; Z20.822 Contact with and (suspected) exposure to COVID-19; E86.1 Hypovolemia; R79.89 Other specified abnormal findings of blood chemistry; E87.5 Hyperkalemia; G89.29 Other chronic pain; M54.9 Dorsalgia, unspecified; E87.6 Hypokalemia; T47.1X5A Adverse effect of other antacids and anti-gastric-secretion drugs, initial encounter; E87.70 Fluid overload, unspecified; E86.0 Dehydration; T45.515A Adverse effect of anticoagulants, initial encounter; D50.9 Iron deficiency anemia, unspecified; F17.210 Nicotine dependence, cigarettes, uncomplicated; W19.XXXA Unspecified fall, initial encounter; Y92.59 Other trade areas as the place of occurrence of the external cause; Z87.820 Personal history of traumatic brain injury; E11.22 Type 2 diabetes mellitus with diabetic chronic kidney disease; E11.51 Type 2 diabetes mellitus with diabetic peripheral angiopathy without gangrene
CPT/HCPCS: 31500; 36415; 36556; 36558; 36600; 70450; 71045; 71250; 74176; 76770; 76937; 77001; 80048; 80051; 80053; 80202; 80306; 80320; 81001; 82009; 82140; 82272; 82550; 82565; 82728; 82803; 82805; 82947; 83036; 83540; 83550; 83605; 83735; 84100; 84484; 84520; 85025; 85027; 85610; 85730; 86022; 86706; 86850; 86900; 86901; 87040; 87070; 87077; 87186; 87205; 87340; 87636; 90935; 93005; 93306; 94002; 94003; 96365; 96375; 99291

== ENCOUNTER 2022-12-20 00:07 | Emergency (ER) | payer MEDICARE ==
[2022-12-20 00:31] VITALS: RESP 18; TEMP 97.8
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
[2022-12-20 00:46] LABS: Glucose,Whole Blood 113 mg/dL (70-110)
[2022-12-20] MEDS ORDERED: HYDROmorphone 1 MG/ML 1 ML SYRINGE IVP STA (00:58)
[2022-12-20 01:31] LABS: INR 0.9 (<1.2); Prothrombin Time 10.3 sec (10.0-12.5)
[2022-12-20 01:32] LABS: Partial Thromboplastin Time 21.9 sec (22.0-30.0)
[2022-12-20 01:33] LABS: Basophils % (A) 0 %; Eosinophils # (A) 0.1 k/uL (0-0.7); Eosinophils % (A) 1 %; HCT 27.9 % (39.0-53.0); HGB 9.2 gm/dL (13.0-17.5); Lymphocytes # (A) 1.3 k/uL (1.0-4.8); Lymphocytes % (A) 11 %; MCH 28.2 pg (25.0-35.0); MCV 85.3 fL (80.0-100.0); Mean Platelet Volume 7.9; Monocytes # (A) 0.4 k/uL (0-1.0); Monocytes % (A) 4 %; Neutrophils # (A) 9.6 k/uL (1.3-7.7); Neutrophils % (A) 82 %; Platelet Count 204 k/uL (150-450); RBC 3.27 m/uL (4.30-5.90); WBC 11.7 k/uL (3.8-10.6)
[2022-12-20 01:36] LABS: ALT 87 U/L (4-49); AST 52 U/L (17-59); African American GFR (CKD) 16 (>60 ml/min/1.73 sqM); Alkaline Phosphatase 157 U/L (38-126); Anion Gap 13 mmol/L; Blood Urea Nitrogen 46 mg/dL (9-20); Calcium 8.7 mg/dL (8.4-10.2); Carbon Dioxide 24 mmol/L (22-30); Chloride 96 mmol/L (98-107); Glucose 106 mg/dL (74-99); Magnesium 2.3 mg/dL (1.6-2.3); Non-African American GFR(CKD) 14 (>60 ml/min/1.73 sqM); Phosphorus 5.5 mg/dL (2.5-4.5); Potassium 4.2 mmol/L (3.5-5.1); Sodium 133 mmol/L (137-145); Total Bilirubin 0.5 mg/dL (0.2-1.3); Total Protein 6.2 g/dL (6.3-8.2)
--- NOTE | 2022-12-20 01:50 | CT ---
EXAM: CT Head Without Intravenous Contrast CLINICAL HISTORY: ITS.REASON CT Reason: pain TECHNIQUE: Axial computed tomography images of the head/brain without intravenous contrast. CTDI is 45.2 mGy and DLP is 1032 mGy-cm. This CT exam was performed using one or more of the following dose reduction techniques: automated exposure control, adjustment of the mA and/or kV according to patient size, and/or use of iterative reconstruction technique. COMPARISON: 12/07/2022 FINDINGS: Brain: No hemorrhage, herniation, or mass effect. Chronic microvascular ischemic changes. Ventricles: No hydrocephalus. Age related cerebral volume loss. Bones/joints: Chronic nasal bone deformity. Soft tissues: Unremarkable. Sinuses: Unremarkable. Mastoid air cells: Clear. IMPRESSION: No acute hemorrhage, hydrocephalus, or mass effect. EXAM: CT Cervical Spine Without Intravenous Contrast CLINICAL HISTORY: ITS.REASON CT Reason: pain TECHNIQUE: Axial computed tomography images of the cervical spine without intravenous contrast. CTDI is 14.9 mGy and DLP is 470.9 mGy-cm. This CT exam was performed using one or more of the following dose reduction techniques: automated exposure control, adjustment of the mA and/or kV according to patient size, and/or use of iterative reconstruction technique. COMPARISON: No relevant prior studies available. FINDINGS: Vertebrae: No acute fracture. Discs/spinal canal/neural foramina: degenerative changes. Soft tissues: No prevertebral swelling. IMPRESSION: No acute fracture or subluxation.
[2022-12-20 04:37] VITALS: BP 118/66; PULSE 86
--- NOTE | 2022-12-20 04:57 | XR ---
EXAM: XR Pelvis, 1 or 2 Views CLINICAL HISTORY: pain TECHNIQUE: Frontal view of the pelvis. COMPARISON: 07/14/2015. FINDINGS: Bones/joints: No evidence of acute fracture or dislocation. Bilateral pincer type femoroacetabular impingement, as seen on prior study. Degenerative changes involving the lower lumbar spine, suboptimally evaluated on this study. Soft tissues: Unremarkable. IMPRESSION: 1. No evidence of acute fracture or dislocation. 2. Bilateral pincer type femoroacetabular impingement, as seen on prior study.
--- NOTE | 2022-12-20 04:59 | XR ---
EXAM: XR Chest, 1 View CLINICAL HISTORY: pain TECHNIQUE: Frontal view of the chest. COMPARISON: 12/17/2022. FINDINGS: Lungs: Hypoventilation, which limits evaluation. No consolidations. Pleural space: Unremarkable. No pneumothorax. Heart: Unremarkable. No cardiomegaly. Mediastinum: Unremarkable. Bones/joints: Unremarkable. Tubes, lines and devices: Right-sided double-lumen central venous catheter with tip overlying the SVC/right atrial junction. Other findings: Subglottic narrowing, not seen on prior study. IMPRESSION: Subglottic narrowing, not seen on prior study. Correlate clinically for adult croup.
== END 2022-12-20 04:55 | disposition home or self-care (01) ==
LOC: EC 00:07
DX: S00.83XA Contusion of other part of head, initial encounter (principal); R53.1 Weakness; I48.91 Unspecified atrial fibrillation; E11.9 Type 2 diabetes mellitus without complications; Z87.891 Personal history of nicotine dependence; Z79.4 Long term (current) use of insulin; Z79.82 Long term (current) use of aspirin; W06.XXXA Fall from bed, initial encounter
CPT/HCPCS: 36415; 93005; 80053; 83605; 83735; 84100; 84484; 85025; 85610; 85730; 72170; 71045; 72125; 70450; 99285; 96374; J1170